=== PATIENT | male | born 1940 | race Caucasian/White ===

== ENCOUNTER 2019-06-25 15:18 | Inpatient (IN) | payer MEDICARE, OTHER, SELFPAY | END 2019-06-28 15:11 | disposition home or self-care (01) | DRG 177 | PROVIDERS: Admitting Provider Student in an Organized Health Care Education/Training Program; Emergency Provider Emergency Medicine; Family Provider Family Medicine; Visit Provider Student in an Organized Health Care Education/Training Program | DX: J69.0 Pneumonitis due to inhalation of food and vomit (principal); J96.01 Acute respiratory failure with hypoxia; J44.1 Chronic obstructive pulmonary disease with (acute) exacerbation; G12.21 Amyotrophic lateral sclerosis; Z95.1 Presence of aortocoronary bypass graft; I25.10 Atherosclerotic heart disease of native coronary artery without angina pectoris; G47.33 Obstructive sleep apnea (adult) (pediatric); Z86.73 Personal history of transient ischemic attack (TIA), and cerebral infarction without residual deficits; F17.210 Nicotine dependence, cigarettes, uncomplicated; Z91.14 Patient's other noncompliance with medication regimen; E78.5 Hyperlipidemia, unspecified; I11.0 Hypertensive heart disease with heart failure; I50.9 Heart failure, unspecified; Z66 Do not resuscitate ==

== ENCOUNTER → 2019-08-02 10:29 | Outpatient (BNVA) | payer MEDICARE, OTHER, SELFPAY | PROVIDERS: Family Provider Family Medicine; PCP Family Medicine; Referring Provider Student in an Organized Health Care Education/Training Program; Visit Provider Otolaryngology | DX: R63.3 Feeding difficulties (principal); R47.02 Dysphasia; R13.10 Dysphagia, unspecified; S10.95XA Superficial foreign body of unspecified part of neck, initial encounter; X58.XXXA Exposure to other specified factors, initial encounter; F17.210 Nicotine dependence, cigarettes, uncomplicated | CPT/HCPCS: 81001; 87086; 99203; 99214 ==

== ENCOUNTER → 2019-08-06 11:16 | Day surgery (SDC) | payer MEDICARE, OTHER, SELFPAY ==
[2019-08-06 11:45] VITALS: BP 115/56; PULSE 58; RESP 20; TEMP 37.1; O2SAT 95
[2019-08-06 12:23] VITALS: BMI 16.0
--- NOTE | 2019-08-14 12:44 | PM.ACPR ---
Procedure/Consent Procedure Narrative: Preop diagnosis nonfunctioning gastrostomy tube Postoperative diagnosis: Same Procedure: Exchange of 20 Monegasque gastrostomy tube Description of the procedure. After consent was obtained the balloon on the existing gastrostomy tube was deflated and removed without difficulty. A new 20 Monegasque gastrostomy tube was placed. Acute Procedures Feeding Tube Replacement: Type of tube: gastrostomy Insertion site prior to procedure: clean Tube used for reinsertion: Bard Monegasque Tube Size (F): 20 Balloon size (ml): 7 Verification of placement: auscultation Tube secured by: tape/dressing Patient tolerated procedure: well
== END ==
PROVIDERS: Family Provider Family Medicine; PCP Family Medicine; Visit Provider Surgery
PROC: 0DH63UZ Insertion of Feeding Device into Stomach, Percutaneous Approach (ICD-10-PCS; CPT 43246; principal; 2019-08-06 11:45)
DX: Z43.1 Encounter for attention to gastrostomy (principal)
CPT/HCPCS: 12345; 43760

== ENCOUNTER → 2019-08-25 12:36 | Outpatient (BNVA) | payer MEDICARE, OTHER, SELFPAY | PROVIDERS: Family Provider Family Medicine; PCP Family Medicine; Visit Provider Nurse Practitioner Family | DX: R53.1 Weakness (principal); L03.115 Cellulitis of right lower limb; M79.673 Pain in unspecified foot; K21.9 Gastro-esophageal reflux disease without esophagitis; Z89.612 Acquired absence of left leg above knee | CPT/HCPCS: 80053; 82306; 82607; 83735; 84443; 85025 ==

== ENCOUNTER 2019-09-09 10:07 | Inpatient (IN) | payer MEDICARE, OTHER, SELFPAY ==
[2019-09-09 10:12] VITALS: BP 91/54; PULSE 76; RESP 20; TEMP 36.7; O2SAT 90; BMI 16.0
--- NOTE | 2019-09-09 10:14 | ED_ITS ---
Entered by Maria A Benitez, acting as scribe for Julian Webster DO Sep 09, 2019 10:07 HPI - Chest Pain General: Chief Complaint: Chest Pain Stated Complaint: CHEST PAIN Time Seen by Provider: 09/09/19 10:14 Source: patient and EMS Mode of arrival: EMS Limitations: physical limitation History of Present Illness: HPI narrative: 79 yo male presents with chest pain. pt states this started today. pt has had congestion and productive cough. pt states he was given 3 nitros by EMS and they took the edge off but nothing else. pt denies any other symptoms at this time. No vomiting or diarrhea. MD complaint: chest pain Onset (ago): day(s) Timing of current episode: constant and still present Prior episodes: Yes Onset: during rest Pain location: substernal Pain radiation: none Severity: moderate Quality: tightness Relieving factors: nothing Exacerbating factors: nothing Associated symptoms: Reports dyspnea and other (productive cough); Deny abdominal pain, fever(s), nausea or vomiting Treatment prior to arrival: nitroglycerin (3 by EMS) Review of Systems Const: Denies: fever, chills, body aches, change in appetite, fatigue or malaise ENMT: Denies: throat pain, ear pain, nasal discharge or nasal congestion Card: Reports: chest pain, shortness of breath on exertion and shortness of breath when lying down; Denies: edema Resp: Reports: shortness of breath, productive cough and wheezing; Denies: coughing up blood GI: Denies: abdominal pain, nausea, vomiting, vomiting blood, coffee grounds in vomit, diarrhea, constipation, bloating, blood in stool or black tarry stool : Denies: flank pain, painful urination, urinary frequency or urinary urgency Skin/Breast: Denies: rash or itching PFSH ED PFSH: Medical History (Updated 09/12/19 @ 21:09 by Julian Webster DO) Benign prostatic hyperplasia with lower urinary tract symptoms CAD (coronary artery disease) Cholecystectomy planned Chronic headaches Chronic pain COPD (chronic obstructive pulmonary disease) Diastolic CHF Dysphasia Foreign body of neck G tube feedings GERD (gastroesophageal reflux disease) Hemiplegia FOLLOWING CVA LEFT History of stroke Kyphoscoliosis deformity of spine Melanoma Migraine headache Obstructive sleep apnea Odynophagia Presence of intrathecal pump Tobacco abuse Urgency of urination Venous stasis Surgical History (Updated 09/11/19 @ 11:56 by Rohith Lopez MD) History of amputation ABOVE KNEE History of angioplasty WITH 9 STENTS History of cholecystectomy Hx of CABG Status post insertion of intrathecal pump Social History Smoking and tobacco status: current every day smoker Alcohol intake: never Adopted: No Caregiver/support person: No Lives independently: No Household members: spouse Marital status: Current occupational status: retired Physical Exam Const: COMMON NORMALS: no apparent distress GENERAL APPEARANCE: cooperative and comfortable ORIENTATION/CONSCIOUSNESS: Yes awake, Yes oriented to person, Yes oriented to place and Yes oriented to time HENMT: COMMON NORMALS: normocephalic, head/scalp atraumatic, hearing grossly normal bilaterally, external ears normal, EAC's normal, TM's normal bilaterally, nasal mucous membranes and turbinates normal, moist oral mucous membranes and oropharynx normal HEAD & SCALP: normocephalic and atraumatic NOSE: nasal mucous membranes and turbinates normal EXTERNAL EAR: Yes external ears normal EXTERNAL AUDITORY CANAL: EAC's normal TYMPANIC MEMBRANE: TM's normal bilaterally Eye: COMMON NORMALS: PERRL, EOMs intact bilaterally, conjunctivae normal and no scleral icterus CONJUNCTIVA: Yes conjunctivae normal PUPIL: Yes PERRL Neck/C-Spine: COMMON NORMALS: full ROM, no lymphadenopathy, supple and no JVD Lymph: LYMPHATIC: no lymphadenopathy noted and no lymphedema noted Resp: AUSCULTATION: rhonchi and wheezes throughout Cardio: COMMON NORMALS: no JVD, regular rate, regular rhythm and no murmurs RATE: regular rate RHYTHM: regular rhythm GI: COMMON NORMALS: soft to palpation and no hepatosplenomegaly AUSCULTAT ION: Yes normoactive bowel sounds PALPATION: Yes soft, No tender, No guarding and Yes no hepatosplenomegaly Extremity: COMMON NORMALS: normal to inspection, normal capillary refill, no clubbing, cyanosis or edema, no calf tenderness and no pedal edema Neuro: SENSORIUM/ORIENTATION: Yes oriented to person, Yes oriented to place and Yes oriented to time Skin: COMMON NORMALS: no rashes or lesions noted GENERAL SKIN EXAM: no rashes or lesions noted Course ED course: Patient complaining of productive cough and shortness of breath has no pneumonia on chest x-ray. He has some chest pain as well will need to be ruled out. Discussed with Dr. Wise and will admit the patient started on IV antibiotics and complete the rule out and further evaluation. Vital Signs: Vital signs: Vital Signs Temperature 98.9 F 09/12/19 18:00 Pulse Rate 62 09/12/19 18:00 Respiratory Rate 14 09/12/19 18:00 Blood Pressure 98/53 09/12/19 18:00 Pulse Oximetry 90 09/12/19 18:00 MDM - Chest Pain Lab Data: Labs: Lab Results 09/09/19 09/09/19 09/09/19 Range/Units 10:41 10:41 10:41 WBC 8.6 (4.0-10.0) 10^3/ uL RBC 4.62 (4.1-5.3) 10^6/u L Hgb 12.2 (11.7-16.6) g/dL Hct 41.0 L (42.0-52.0) % MCV 88.7 (80-94) fL MCH 26.4 L (28.0-34.0) pg MCHC 29.8 L (30.0-36.0) g/dL RDW 13.6 (12.1-15.1) % Plt Count 203 (130-400) 10^3/c mm MPV 9.6 (7.4-10.4) fL Neut % (Auto) 73.5 % Lymph % (Auto) 15.9 % Ford % (Auto) 6.5 % Eos % (Auto) 3.4 % Baso % (Auto) 0.5 % Neut # (Auto) 6.3 (1.8-7.7) 10^3/u L Lymph # (Auto) 1.4 (0.8-4.8) 10^3/u L Ford # (Auto) 0.6 (0.2-0.9) 10^3/u L Eos # (Auto) 0.3 (0.0-0.8) 10^3/u L Baso # (Auto) 0.0 (0.0-0.1) 10^3/u L Nucleated RBC % (a uto) 0 % Nucleated RBCs # 0.0 /100WBC Sodium 135 L (136-145) mmol/L Potassium 4.4 (3.5-5.1) mmol/L Chloride 93 L (98-107) mmol/L Carbon Dioxide 34 H (22-29) mmol/L Anion Gap 12.4 (5-19) BUN 16 (8-23) mg/dL Creatinine 1.4 H (0.7-1.2) mg/dL Glucose 98 (65-115) mg/dL Estimat Average Gl ucose Hemoglobin A1c (4.0-6.0) % Calculated Osmolal ity 276 L (285-295) mOsm/k g Calcium 8.8 (8.5-10.5) mg/dL Total Bilirubin 0.3 (0.15-1.2) mg/dL AST 12 (0-40) U/L ALT 7 (0-41) U/L Alkaline Phosphata se 85 (40-130) IU/L Troponin T Baselin e 33 H (0-15) ng/mL Troponin T 120 Min manzanita (0-15) ng/mL Delta Troponin T (0-10) ABS# Total Protein 6.4 L (6.6-8.7) g/dL Albumin 3.3 L (3.5-5.2) g/dL Globulin 3.1 (1.3-4.6) g/dL Lipase 22 (13-60) U/L 09/09/19 09/09/19 Range/Units 10:41 12:55 WBC (4.0-10.0) 10^3/ uL RBC (4.1-5.3) 10^6/u L Hgb (11.7-16.6) g/dL Hct (42.0-52.0) % MCV (80-94) fL MCH (28.0-34.0) pg MCHC (30.0-36.0) g/dL RDW (12.1-15.1) % Plt Count (130-400) 10^3/c mm MPV (7.4-10.4) fL Neut % (Auto) % Lymph % (Auto) % Ford % (Auto) % Eos % (Auto) % Baso % (Auto) % Neut # (Auto) (1.8-7.7) 10^3/u L Lymph # (Auto) (0.8-4.8) 10^3/u L Ford # (Auto) (0.2-0.9) 10^3/u L Eos # (Auto) (0.0-0.8) 10^3/u L Baso # (Auto) (0.0-0.1) 10^3/u L Nucleated RBC % (a uto) % Nucleated RBCs # /100WBC Sodium (136-145) mmol/L Potassium (3.5-5.1) mmol/L Chloride (98-107) mmol/L Carbon Dioxide (22-29) mmol/L Anion Gap (5-19) BUN (8-23) mg/dL Creatinine (0.7-1.2) mg/dL Glucose (65-115) mg/dL Estimat Average Gl ucose 97 Hemoglobin A1c 5.0 (4.0-6.0) % Calculated Osmolal ity (285-295) mOsm/k g Calcium (8.5-10.5) mg/dL Total Bilirubin (0.15-1.2) mg/dL AST (0-40) U/L ALT (0-41) U/L Alkaline Phosphata se (40-130) IU/L Troponin T Baselin e (0-15) ng/mL Troponin T 120 Min manzanita 30.97 H (0-15) ng/mL Delta Troponin T -2.03 L (0-10) ABS# Total Protein (6.6-8.7) g/dL Albumin (3.5-5.2) g/dL Globulin (1.3-4.6) g/dL Lipase (13-60) U/L Imaging Data^: CXR: Radiologist's impression: [address] [address] XRay Report Signed Patient: Steven Whitney #: [id number] : 8Acct#:[id number] Age/Sex: 79 / MADM Date: 09/09/19 Loc: ERRoom/Bed: Attending Dr: Ordering Provider/Ordering MD: Julian Webster DO Date of Service: 09/09/19 Procedure(s): XR chest 1V portable [id number] Accession Number(s): [id number] Report Number: [id number] WS: [id number] Portable AP upright chest, 09/09/2019 Clinical Data: dyspnea/cough Comparison: Portable chest, 06/25/2019. Findings: There is minimal patchy opacity in the right upper lobe with slight volume loss. This could indicate mild pneumonia. The right lower lung is clear. The left cardiac border is obscured and there may be an increase in pulmonary vascular congestion in this region. The heart is normal in size. Midline sternotomy sutures and mediastinal clips are noted. The aortic arch and descending aorta show calcification and tortuosity. Monitor leads on the chest wall. XR/XR chest 1V portable [id number] Impression: 1. Minimal patchy opacity in right upper lobe with volume loss which could indicate mild pneumonia. 2. Left cardiac border obscured possibly by localized pulmonary vascular congestion. 3. Atherosclerosis. Dictated By:Arlin Forrest MD Signed By:Arlin Forrest MDSigned Date/Time:09/09/19 1037 Discharge Plan Discharge Patient Disposition: Admitted As Inpatient Admit Provider: Rogelio Santa Clinical Impression: Pneumonia, Chest pain Condition: Stable Interventions: ED Discharge Assessment Last Done: 09/09/19 17:41 Discharge Date/Time: 09/09/19 18:20 Coding Level of Care Code ED Fur Tailor for Chg Fwd Exam Comprehensive The documentation recorded by the Emmanuel angel Bridget Annette, accurately reflects the service I personally performed and the decisions made by Eleanor guzman Curtis L, DO Sep 09, 2019 10:07
[2019-09-09 10:18] VITALS: O2SAT 92
--- NOTE | 2019-09-09 10:21 | XR_ITS ---
WS: [id number] Portable AP upright chest, 09/09/2019 Clinical Data: dyspnea/cough Comparison: Portable chest, 06/25/2019. Findings: There is minimal patchy opacity in the right upper lobe with slight volume loss. This could indicate mild pneumonia. The right lower lung is clear. The left cardiac border is obscured and ther e may be an increase in pulmonary vascular congestion in this region. The heart is normal in size. Mi dline sternotomy sutures and mediastinal clips are noted. The aortic arch and descending aorta show c alcification and tortuosity. Monitor leads on the chest wall. XR/XR chest 1V portable [id number] Impression: 1. Minimal patchy opacity in right upper lobe with volume loss which could manny finesse mild pneumonia. 2. Left cardiac border obscured possibly by localized pulmonary vascular conges tion. 3. Atherosclerosis.
--- NOTE | 2019-09-09 10:21 | ECG_ITS ---
Measurements Intervals [place] Rate: 54 P: 22 CA: 207 QRS: 22 QRSD: 105 T: 92 QT: 482 QTc: 459 SINUS BRADYCARDIA ANTEROSEPTAL MYOCARDIAL INFARCTION , OF INDETERMINATE AGE [40+ ms Q WAVE IN V1-V4] Compared to ECG 06/25/2019 17:34:02 Myocardial infarct finding now present Electronically Signed On 09-09-2019 17:22:23 CDT by Rohith Lopez M.D. [id number] f
[2019-09-09 10:46] LABS: Basophils % 0.5 %; Eosinophils # 0.3 10^3/uL (0.0-0.8); Eosinophils % 3.4 %; Hemoglobin 12.2 g/dL (11.7-16.6); Lymphocytes # 1.4 10^3/uL (0.8-4.8); Lymphocytes % 15.9 %; Mean Corpuscular HGB Conc 29.8 g/dL (30.0-36.0); Mean Corpuscular Hemoglobin 26.4 pg (28.0-34.0); Mean Corpuscular Volume 88.7 fL (80-94); Mean Platelet Volume 9.6 fL (7.4-10.4); Monocytes # 0.6 10^3/uL (0.2-0.9); Monocytes % 6.5 %; Neutrophils # 6.3 10^3/uL (1.8-7.7); Neutrophils % 73.5 %; Nucleated Red Blood Cells % 0 %; Platelet Count 203 10^3/cmm (130-400); Red Blood Count 4.62 10^6/uL (4.1-5.3); Red Cell Distribution Width 13.6 % (12.1-15.1); White Blood Count 8.6 10^3/uL (4.0-10.0)
[2019-09-09 11:02] LABS: Alanine Aminotransferase 7 U/L (0-41); Albumin Level 3.3 g/dL (3.5-5.2); Alkaline Phosphatase 85 IU/L (40-130); Anion Gap 12.4 (5-19); Aspartate Amino Transferase 12 U/L (0-40); Blood Urea Nitrogen 16 mg/dL (8-23); Calcium 8.8 mg/dL (8.5-10.5); Carbon Dioxide 34 mmol/L (22-29); Chloride 93 mmol/L (98-107); Globulin 3.1 g/dL (1.3-4.6); Glucose 98 mg/dL (65-115); Lipase 22 U/L (13-60); Osmolality Calculated 276 mOsm/kg (285-295); Potassium 4.4 mmol/L (3.5-5.1); Sodium 135 mmol/L (136-145); Total Bilirubin 0.3 mg/dL (0.15-1.2); Total Protein 6.4 g/dL (6.6-8.7)
[2019-09-09 11:04] LABS: Troponin(5th) Baseline 33 ng/mL (0-15)
--- NOTE | 2019-09-09 12:21 | ECG_ITS ---
Measurements Intervals [place] Rate: 54 P: 50 WV: 209 QRS: 23 QRSD: 108 T: 110 QT: 472 QTc: 451 SINUS BRADYCARDIA WITH FIRST DEGREE AV BLOCK ANTEROSEPTAL MYOCARDIAL INFARCTION , OF INDETERMINATE AGE [40+ ms Q WAVE IN V1-V4] T WAVE ABNORMALITY, CONSIDER LATERAL ISCHEMIA Compared to ECG 09/09/2019 12:16:53 Myocardial infarct finding now present Intraventricular conduction delay no longer present Prolonged QT interval no longer present Electronically Signed On 09-10-2019 13:13:50 CDT by Lety Milan M.D. [id number]
[2019-09-09] MEDS: levofloxacin-dextrose 5 % 750 MG/150 ML PREMIX 150 MG IV (12:45)
[2019-09-09 13:18] LABS: Troponin 5 2HR 30.97 ng/mL (0-15)
[2019-09-09 13:21] LABS: Troponin 5 2HR Delta -2.03 ABS# (0-10)
[2019-09-09 15:04] LABS: Add Urine Microscopic? YES; Bilirubin Urine Neg (NEGATIVE); Blood Urine Neg (Negative); Glucose Urine UA Norm (Normal); Ketones Urine Negative (Negative); Leukocyte Esterase Urine Negative (Negative); Nitrate Urine Negative (Negative); Protein Urine 3+ (Negative); Specific Gravity, Urine 1.005 (1.005-1.030); Urine Appearance Clear (CLEAR); Urine Color Yellow (Yellow); Urobilinogen Urine Norm (Negative)
[2019-09-09 15:16] LABS: Add Urine Culture? No; Bacteria Urine TRACE; Squamous Epithelial Cell Urine 0-4 (0-5)
--- NOTE | 2019-09-09 16:21 | ECG_ITS ---
Measurements Intervals [place] Rate: 50 P: 53 FL: 231 QRS: 18 QRSD: 111 T: 99 QT: 514 QTc: 473 SINUS BRADYCARDIA WITH FIRST DEGREE AV BLOCK MODERATE INTRAVENTRICULAR CONDUCTION DELAY [105+ ms QRS DURATION, 80+ ms Q/S IN V1/V2, NO Q AND 60+ ms R IN I/aVL/V5/V6] ABNORMAL QRS-T ANGLE [QRS-T AXIS DIFFERENCE > 60] PROLONGED QT INTERVAL Compared to ECG 06/25/2019 17:34:02 First degree AV block now present Intraventricular conduction delay now present Prolonged QT interval now present Electronically Signed On 09-09-2019 17:24:40 CDT by Rhoith Lopez M.D. [id number]
[2019-09-09] MEDS: sodium chloride 0.9% 1,000 ML 100 ML IV (16:43)
[2019-09-09 17:17] LABS: Troponin 5 6HR 31.18 ng/mL (0-15); Troponin 5 6HR Delta -1.82 ng/L (0-12)
[2019-09-09 17:41] VITALS: BP 109/74; PULSE 57; RESP 14; O2SAT 97
--- NOTE | 2019-09-09 17:49 | P.HP_ITS ---
Providers/Chief Complaint Admitting Physician: Rogelio Santa MD Primary Care Provider: Magda Garcia MD Chief Complaint: CHEST PAIN History of Present Illness Steven Whitney is a 79 year old male presents to [facility] with chest pain that happened earlier this morning while patient was laying in bed. Reports pressure-like nonradiating substernal discomfort that went up to 8 out of 10 gradually and remained there for several hours. Denies any associated nausea or diaphoresis. Denies significant shortness of breath with it. Denies pleuritic component and denies any alleviating or aggravating factors. Reports that last time he had similar pain was approximately 5 years ago when he had stents placed. Reports occasionally productive cough which is unchanged from his baseline. Patient had minimally elevated troponin and EKG without acute ST-T changes. QT interval prolongation was noted and likely related to sinus bradycardia. Patient is followed by our cardiology clinic and he sees Dr. Lopez. Patient has previous history of GERD and symptoms of food related heartburn . Chest x-ray was suggestive of right upper lobe pneumonia. Patient reports that he has trouble swallowing at times and although he is using tube feeds he frequently eats orally as well. Review of Systems Const: Denies: fever or chills Eyes: Denies: change in vision ENMT: Denies: throat pain or change in hearing Card: Denies: edema or lightheadedness Resp: Denies: shortness of breath GI: Reports: other (Reports frequently alternating diarrhea and constipation.); Denies: abdominal pain, nausea, vomiting, blood in stool or black tarry stool : Reports: painful urination (Off-and-on.) Musc: Denies: joint pain or joint swelling Skin/Breast: Denies: rash or redness Neuro: Reports: weakness in extremities (Minimal left-sided weakness after he had stroke many years ago.); Denies: headache Psych: Denies: depression or suicidal ideation Endo: Denies: excessive sweating [place]/Lymph: Denies: easy bleeding or tender lymph nodes All/Imm: Denies: throat swelling Medications/Allergies Home Medications Medication Instructions Recorded Confirmed Last Taken Type aspirin [Aspir-81] 81 mg PO DAILY 09/09/19 09/09/19 Unknown History primidone 50 mg PO TID 09/09/19 09/09/19 Unknown History quetiapine [Seroquel] 25 mg PO BEDTIME 09/09/19 09/09/19 Unknown History Allergies Allergy/AdvReac Type Severity Reaction Status Date / Time Penicillins Allergy ERICK-Asmita Verified 07/14/19 08:57 Lip/Tongue/Throat PFSH Acute PFSH: Medical History (Updated 09/09/19 @ 18:28 by Rogelio Santa MD) Benign prostatic hyperplasia with lower urinary tract symptoms Cholecystectomy planned Diastolic CHF Dysphasia Foreign body of neck G tube feedings GERD (gastroesophageal reflux disease) Hemiplegia FOLLOWING CVA LEFT History of stroke Kyphoscoliosis deformity of spine Melanoma Migraine headache Obstructive sleep apnea Odynophagia Presence of intrathecal pump Tobacco abuse Urgency of urination Surgical History (Updated 09/09/19 @ 18:28 by Rogelio Santa MD) History of amputation ABOVE KNEE History of angioplasty WITH 9 STENTS History of cholecystectomy Hx of CABG Social History Smoking and tobacco status: current every day smoker Alcohol intake: never Adopted: No Caregiver/support person: No Lives independently: No Household members: spouse Marital status: Current occupational status: retired Vitals/I&O/Wt Last Vital Signs Temp 98.1 F 09/09/19 10:12 Pulse 57 L 09/09/19 17:41 Resp 14 09/09/19 17:41 BP 109/74 09/09/19 17:41 Pulse Ox 97 09/09/19 17:41 Weight last 48 hrs Weight 49.442 kg Physical Exam Const: COMMON NORMALS: no apparent distress, oriented x3 and alert GENERAL APPEARANCE: disheveled HENMT: COMMON NORMALS: normocephalic and head/scalp atraumatic HEAD & SCALP: normocephalic and atraumatic Eye: COMMON NORMALS: EOMs intact bilaterally, conjunctivae normal and no scleral icterus ALIGNMENT: Yes exotropia CONJUNCTIVA: Yes conjunctivae normal Neck/C-Spine: COMMON NORMALS: no lymphadenopathy and no meningeal signs Lymph: LYMPHATIC: no lymphadenopathy noted Chest: COMMONS NORMALS: palpation of chest normal Resp: COMMON NORMALS: no use of accessory muscles and clear to auscultation bilaterally AUSCULTATION: clear to auscultation bilaterally Cardio: COMMON NORMALS: regular rate, regular rhythm and no murmurs RATE: regular rate RHYTHM: regular rhythm OTHER: No right lower extremity edema. 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 Pain pump noted. : COMMON NORMALS: Yes no CVA tenderness BLADDER/KIDNEY EXAM: Yes no CVA tenderness Back/Pelvis: COMMON NORMALS: no CVA tenderness THORACIC SPINE/UPPER BACK: Yes kyphosis present (And scoliosis) Extremity: COMMON NORMALS: normal to inspection and normal capillary refill Neuro: COMMON NORMALS: oriented x3 SENSORIUM/ORIENTATION: Yes alert MENINGEAL SIGNS: Yes no meningeal signs OTHER: Very minimal left upper and lower extremity weakness Psych: COMMON NORMALS: mental status grossly normal, thought process normal and cooperative THOUGHT PROCESS: normal thought process Skin: COMMON NORMALS: no rashes or lesions noted GENERAL SKIN EXAM: no rashes or lesions noted Data : 09/09/19 10:41 09/09/19 10:41 A&P Assessment and plan (1) Chest pain: Status: Acute Code(s): R07.9 - Chest pain, unspecified (2) Community acquired pneumonia: Status: Acute Code(s): J18.9 - Pneumonia, unspecified organism (3) Dysphagia, oropharyngeal: Status: Acute Code(s): R13.12 - Dysphagia, oropharyngeal phase (4) Tobacco abuse: Status: Acute Code(s): Z72.0 - Tobacco use Additional A&P Information Benign prostatic hyperplasia Chronic pain syndrome. On pain pump Plan: Continue Levaquin. Proceed to sestamibi Lexiscan test tomorrow morning. Will obtain echocardiogram Continue tube feeds and request speech therapy evaluation in a.m. Discussed extensively regarding importance of smoking cessation. Patient voiced understanding but unlikely will quit. Attestations Medical Necessity Statement*: Patient with chest pain and pneumonia requires close inpatient monitoring and treatment. I expect patient will require less than two midnights. Coding Level of Care Code Acute Customer Services Supervisor for [facility] Fwd Diagnoses Chest pain R07.9 Community acquired pneumonia J18.9 Dysphagia, oropharyngeal R13.12 Tobacco abuse Z72.0
--- NOTE | 2019-09-09 18:09 | ECG_ITS ---
NAME OF STUDY: LEXISCAN SESTAMIBI STRESS TEST INDICATION: Chest Pain, LEXISCAN STRESS TEST ORDERING PHYSICIAN: Hospitalist CLINICAL INFORMATION: Chest pain INTERPRETATION: 1. The patient was brought to the laboratory where Lexiscan was infused over 20 seconds. The resting blood pressure was 122/74. Maximum blood pressure was 122/74. The resting heart rate was 51 beats per minute. The maximum heart rate is 84 beats per minute. 2. The baseline electrocardiogram reveals sinus rhythm with unusual R wave progression suggesting old anteroseptal myocardial infarction. Frequent PACs. Nonspecific ST wave changes. Right axis deviation 3. With Lexiscan infusion, there were no ST segment changes to suggest ischemia. 4. The patient experienced no symptoms during the examination. Multiform PVCs developed at rest and with the infusion. CONCLUSION: 1. Unremarkable Lexiscan infusion. 2. Nuclear imaging to follow. Electronically Signed On 09-10-2019 15:46:09 CDT by Rohith Lopez M.D. [id number]
[2019-09-09 18:24] VITALS: BP 125/70; PULSE 56; RESP 17; TEMP 36.7; O2SAT 95
[2019-09-09 18:34] VITALS: BP 125/70; PULSE 56; RESP 17; TEMP 36.6; O2SAT 95
[2019-09-09] MEDS: enoxaparin 40 mg/0.4 mL Syringe SUBCUT (19:02)
[2019-09-09 19:08] LABS: Magnesium 3.2 mg/dL (1.7-2.3); NT Pro B Type Natriuretic Pept 400 pg/mL (0-450); Phosphorus 3.7 mg/dL (2.5-4.5); Thyroid Stimulating Hormone 0.62 uIU/mL (0.27-4.20)
[2019-09-09 19:50] LABS: Estmated Average Glucose 97
[2019-09-09] MEDS: lactulose oral liq 20 gm/30 mL UDC 10 GM PO (21:37)
[2019-09-09] MEDS: alfuzosin 10 mg ER Tablet PO (21:38)
[2019-09-09] MEDS: primidone 50 mg Tablet PO (21:38)
[2019-09-09] MEDS: quetiapine 25 mg Tablet PO (21:38)
[2019-09-09 22:36] VITALS: BP 156/89; PULSE 64; RESP 17; TEMP 36.8; O2SAT 98
[2019-09-10] VITALS (60 sets, daily range): BP systolic 71–132; BP diastolic 39–66; PULSE 36–85; RESP 8–24; TEMP 36.6; O2SAT 77–98
[2019-09-10] MEDS: sodium chloride 0.9% 1,000 ML 100 ML IV ×2 (01:41→17:38)
--- NOTE | 2019-09-10 03:11 | PC.PHAR ---
RENAL DOSING FOR LEVAQUIN CRCL OF 28, ADJUSTED TO 750 MG EVERY OTHER DAY
[2019-09-10 05:30] LABS: Basophils % 0.3 %; Eosinophils # 0.2 10^3/uL (0.0-0.8); Hematocrit 40.9 % (42.0-52.0); Hemoglobin 12.3 g/dL (11.7-16.6); Lymphocytes # 1.5 10^3/uL (0.8-4.8); Lymphocytes % 24.6 %; Mean Corpuscular HGB Conc 30.1 g/dL (30.0-36.0); Mean Corpuscular Hemoglobin 27.6 pg (28.0-34.0); Mean Corpuscular Volume 91.9 fL (80-94); Mean Platelet Volume 9.6 fL (7.4-10.4); Monocytes # 0.5 10^3/uL (0.2-0.9); Neutrophils # 3.7 10^3/uL (1.8-7.7); Neutrophils % 62.8 %; Nucleated Red Blood Cells % 0 %; Platelet Count 162 10^3/cmm (130-400); Red Blood Count 4.45 10^6/uL (4.1-5.3); Red Cell Distribution Width 13.4 % (12.1-15.1)
[2019-09-10 05:53] LABS: Alanine Aminotransferase 6 U/L (0-41); Albumin Level 3.4 g/dL (3.5-5.2); Alkaline Phosphatase 79 IU/L (40-130); Anion Gap 11.2 (5-19); Aspartate Amino Transferase 11 U/L (0-40); Blood Urea Nitrogen 14 mg/dL (8-23); Calcium 8.6 mg/dL (8.5-10.5); Carbon Dioxide 33 mmol/L (22-29); Chloride 97 mmol/L (98-107); Globulin 2.5 g/dL (1.3-4.6); Glucose 79 mg/dL (65-115); Osmolality Calculated 279 mOsm/kg (285-295); Potassium 4.2 mmol/L (3.5-5.1); Sodium 137 mmol/L (136-145); Total Bilirubin 0.3 mg/dL (0.15-1.2); Total Protein 5.9 g/dL (6.6-8.7)
[2019-09-10 05:54] LABS: Chol HDL Ratio 4.07 mg/dL (1.0-5.00); Cholesterol 171 mg/dL (0-200); HDL Cholesterol 42 mg/dL (60-100); LDL Cholesterol Calculated 96 mg/dL (50-129); LDL HDL Ratio 2.29 RATIO (0.00-3.22); Triglycerides 163 mg/dL (0-150)
[2019-09-10] MEDS: regadenoson 0.4 Mg/5 ml Syringe IVP (08:51)
[2019-09-10] MEDS: metoprolol tartrate 25 mg Tablet 12.5 MG PO (12:02)
[2019-09-10] MEDS: pantoprazole DR 40 mg Tablet PO (12:03)
[2019-09-10] MEDS: oxybutynin 5 mg Tablet PO (12:03)
[2019-09-10] MEDS: aspirin 81 mg EC Tablet PO (12:03)
[2019-09-10] MEDS: isosorbide dinitrate 20 mg Tablet PO (12:04)
[2019-09-10] MEDS: finasteride 5 mg Tablet PEG-TUBE (12:05)
[2019-09-10] MEDS: potassium chloride oral liq 20 mEq/15 mL UDC PEG-TUBE (12:06)
[2019-09-10] MEDS: alum-mag-hydroxide-sime 30 mL UDC 10 ML PO ×2 (12:07→17:35)
[2019-09-10] MEDS: lactated ringers 500 ML 999 ML IV (14:02)
--- NOTE | 2019-09-10 14:04 | P.PN_ITS ---
Subjective Subjective: Interval history: Patient denies chest pain or shortness of breath this morning after he returned from stress test. He just recently noted to be hypotensive with blood pressure in the 80s over 40s and 500 mL LR bolus ordered. Patient noted to be bradycardic down to 40-50s whenever he is asleep which improved to 64 when he woke up. He was seen by speech therapy with rec ommendation to have honey thickened diet. He is usually using 2 to 3 cans of Ensure with each meal using tube feeds. Stress test was read as low probability for clinically significant coronary artery disease. Vitals/I&O/Wt Last Vital Signs Temp 97.8 F 09/10/19 11:37 Pulse 61 09/10/19 13:47 Resp 16 09/10/19 11:37 BP 80/42 09/10/19 13:47 Pulse Ox 97 09/10/19 11:37 09/09/19 09/10/19 09/10/19 22:59 06:59 14:59 Intake Total 895 / 895 1400 / 1400 Output Total 500 / 500 100 / 600 100 / 100 Balance -500 / -500 795 / 295 1300 / 1300 Weight last 48 hrs Weight 49.442 kg Physical Exam Const: COMMON NORMALS: no apparent distress and oriented x3 Resp: COMMON NORMALS: normal respiratory effort OTHER: Coarse breath sounds throughout Cardio: COMMON NORMALS: regular rate, regular rhythm and S2 normal heart sound RATE: regular rate RHYTHM: regular rhythm HEART SOUNDS: S2 normal OTHER: No right lower extremity edema. Left above-knee amputation. GI: COMMON NORMALS: normal to inspection, nondistended, normoactive bowel sounds, soft to palpation and non-tender PALPATION: Yes soft OTHER: Pain pump and PEG tube intact Neuro: COMMON NORMALS: oriented x3 Data : 09/10/19 05:08 09/10/19 05:08 A&P Assessment and plan (1) Chest pain: Status: Acute Code(s): R07.9 - Chest pain, unspecified (2) Community acquired pneumonia: Status: Acute Code(s): J18.9 - Pneumonia, unspecified organism (3) Dysphagia, oropharyngeal: Status: Acute Code(s): R13.12 - Dysphagia, oropharyngeal phase (4) Tobacco abuse: Status: Acute Code(s): Z72.0 - Tobacco use Additional A&P Information Benign prostatic hyperplasia Chronic pain syndrome. On pain pump Plan: Continue Levaquin and fluid and monitor vitals. Consider CT scan of the chest if patient is not improving. Hold off on levy for now and continue finasteride. Awaiting echocardiogram Continue tube feeds and request speech therapy evaluation in a.m. Attestations Medical Necessity Statement*: Patient with pneumonia requires close inpatient monitoring and treatment. Coding Level of Care Code Acute Nurse Practitioner [facility] Diagn[facility] Chest pain R07.9 Community acquired pneumonia J18.9 Dysphagia, oropharyngeal R13.12 Tobacco abuse Z72.0
--- NOTE | 2019-09-10 14:36 | PC.SOCIAL ---
Patient signed for the MCR Recipient letter for the BPCI advanced and the original is in the chart. Information provided.
--- NOTE | 2019-09-10 16:33 | PC.NURSE ---
PT ONLY HAD 100 OUT THIS SHIFT, IT WAS ALSO PASSED OFF IN REPORT THAT THE PT HAD TO BE BLADDER SCANNED AND STRAIGHT CATHED THROUGHOUT THE NIGHT WITH 350 OUT. THIS NURSE INFORMED THE DR AND HE ORDERED FOR HIM TO BE BLADDER SCANNED AND THEN TO REPORT TO HIM WHAT IT READS, PT HAD BETWEEN 330-400 ON THE BLADDER SCANNER, DR ORDERED A CATHETER TO BE INSERTED, THIS NURSE WAS NOT ABLE TO GET CATHETER AT FIRST TRY, NANCY REN WAS SUCCESSFUL IN PLACING THE CATHETER, PT HAD 300 OUT.
--- NOTE | 2019-09-10 16:38 | PC.NURSE ---
PT WAS RUNNING IN HIGH 40'S TO LOW 50'S SO THIS NURSE HAD [facility] TAKE VITALS AND HIS BLOOD PRESSURE MANNUALLY WAS 80/40, DR JASSO NOTIFIED AND HE ORDERED A 500 BOLUS OF LR AND RECHECK BLOOD PRESSURE AFTER LR WAS COMPLETED, BLOOD PRESSURE WAS 84/37, LOUISA WANTED PT TRANSFERRED TO ICU. REPORT GIVEN TO NURSE IN ICU.
--- NOTE | 2019-09-10 18:09 | NMCV_ITS ---
NM cole perf SPECT r/s* [id number] Steven Whitney Age: 79 Gender: M : 1940 Exam Date: 09/10/2019 07:32 Ordering Phys: Rogelio Santa MD Technologist: TATIANA Franco Exam Location: [facility] Indications: CHEST PAIN STRESS TEST Please see separate stress test report in [facility] for full findings IMAGE PROTOCOL Rest/Stress 1 Lexiscan Day Radiopharmaceutical Dose (mCi) Administration Site Administered by Rest: Tc-99m 10.7 IV TATIANA Campos Sestamibi Stress:Tc-99m 32.1 IV TATIANA Franco Sestamiankur Rest: 10-Sep-2019 60 Discovery 630 Stress: 10-Sep-2019 30 Discovery 630 0.4mg Lexiscan. Supine position only as patient was unable to lay prone. SPECT RESULTS Technical Quality: Excellent Raw Data Analysis: Normal Image Corrections: No attenuation or motion correction applied Summed Stress Score: 1 Summed Rest Score: 0 Summed Difference Score: 1 PERFUSION FINDINGS SPECT images demonstrate homogeneous tracer distribution throughout the myocardium. FUNCTIONAL RESULTS (calculated via Gated SPECT) Stress Image LV EF (%): 58 Stress EDV (mL):113 TID: 0.81 Stress ESV (mL):48 Rest Image LV EF (%): 58 FUNCTIONAL FINDINGS: There is normal left ventricular systolic function. IMPRESSIONS Myocardial perfusion imaging is normal and low probability for obstructive coronary artery disease. EKG segment will be documented separately. Fred Berumen MD (Electronically Signed) Final Date: 10 September 2019 11:28 S
--- NOTE | 2019-09-10 19:50 | PC.NURSE ---
PT COMPLAINED OF CHEST PRESSURE, PT HAD JUST COUGHED UP WHAT HE HAD BEEN DRINKING, WHEN OFFERED TO GET SOME MEDICATION TO RELIEVE PAIN, PT STATED PAIN WAS GONE.
[2019-09-10] MEDS: enoxaparin 40 mg/0.4 mL Syringe SUBCUT (21:34)
--- NOTE | 2019-09-10 21:41 | PC.NURSE ---
HEART RATE IS HITTING LOW 40S, DR VACA IS AWARE. LEVOPHED IS STARTED DUE TO HYPOTENSION SBP IN 70S. PT STATES HE JUST WANTS TO , TIRED OF HURTING. DR VACA MADE AWARE OF PT STATUS AND STATEMENT.
[2019-09-10] MEDS: DOPamine drip 400 MG/250 ML PREMIX IV (23:11)
--- NOTE | 2019-09-10 23:16 | PC.NURSE ---
DR VACA CAME AND SAW PT AND DISCUSSED CODE STATUS, PT REMAINS A FULL CODE. DR VACA GAVE VERBAL ORDER TO START DOPAMINE. DOPAMINE STARTED AT 2.5MCG, LEVO TITRATED DOWN TO 6MCG.
[2019-09-11] VITALS (115 sets, daily range): BP systolic 81–153; BP diastolic 45–76; PULSE 45–79; RESP 3–26; TEMP 36.4–37; O2SAT 83–99
--- NOTE | 2019-09-11 00:44 | XRR_ITS ---
PROCEDURE INFORMATION: Exam: XR Chest, 1 View Exam date and time: 09/11/2019 12:45 AM Age: 79 years old Clinical indication: Shortness of breath; Prior surgery; Surgery date: 6+ months; Surgery type: Cabg; Additional info: Hypoxia TECHNIQUE: Imaging protocol: XR of the chest Views: 1 view. COMPARISON: CR XR chest 1V portable [id number] 09/09/2019 10:21 AM FINDINGS: Lungs: There is increasing airspace opacity and volume loss in the left lung concerning for atelectasis and increasing pneumonic infiltrate. There is shift of the mediastinal structures to the left compatible with volume loss. Mild pneumonitis in the right lung is noted. There is improving volume loss in the right upper lobe. Pleural space: Probable small left pleural effusion. No pneumothorax. Heart/Mediastinum: The heart is enlarged. Sternotomy wires and mediastinal surgical clips are present, consistent with previous coronary arterial bypass grafting. Bones/joints: No acute abnormality. XR/XR chest 1V portable [id number] IMPRESSION: There is increasing airspace opacity and volume loss in the left lung concerning for increasing left lung atelectasis and increasing pneumonic infiltrate.
--- NOTE | 2019-09-11 00:48 | PC.NURSE ---
DR NOTIFICATION DR MONSIVAIS CALLED AND WANTED UPDATE ON PT, WAS NOTIFIED ABOUT DOPAMINE RATE WELL HEART RATE CHANGES AND PVCS THAT PT IS HAVING. PVCS MOST LIKELY DUE TO DOPAMINE DRIP, NO NEW ORDERS AT THIS TIME.
--- NOTE | 2019-09-11 00:51 | PC.NURSE ---
DR NOTIFICATION DR VACA MADE AWARE OF PT RESPIRATORY STATUS. RT AT BEDSIDE, CURRENT O2 85% ON OXY MASK.
[2019-09-11 00:58] LABS: ABG PCO2 62.9 mmHg (35-45); ABG PH Result 7.28 (7.35-7.45); Arterial Blood Gas Hematocrit 40.8 % (42-52); Base Excess ABG 1.5 mmol/L (-2.0-2.0); Blood Gas Sample Site Brachial, left; Blood Gas Sample Type Arterial; HCO3 ABG 29.8 mmol/L (22-26); Oxygen Device OXY MASK; PO2 ABG 40.5 mmHg (80.0-100.0)
--- NOTE | 2019-09-11 01:48 | PC.PHAR ---
Pharmacokinetic dosing service Date: 09/11/19 Time: 020 Objective: Patient: Steven Whitney Floor: ICU-6 Age: 79 yo Serum creatinine: 1.3 mg/dL Height: 69.0 Inches Weight (kg): 49.442 Diagnosis: Relevant medical/social history: Cultures and sensitivities: Other labs: Assessment: IBW (kg): 70.70 Dosing wt(kg): 49.442 Estimated Creatinine clearance (ml/min): 31.2 CRCL method: Cockcroft and Gault using ibw(default). Drug selected: Vancomycin Loading dose (mg): 0 Vd (liters): 44.5 (factor used: 0.9 L/kg) Mason (hr-1): 0.030 Half life (hrs): 23.10 Recommended dose: 750 mg Interval: 24 hrs Infusion time (hrs): 1.5 Predicted peak (mcg/mL): 32.1 Predicted trough (mcg/mL): 16.34 Total body weight is being used for vancomycin dosing. Renal function is stable [ ] /unstable [ ] Recommendations: Give Vancomycin 750 mg q 24 hrs with an expected Cpeak of 32.1 mcg/ml and an expected Ctrough of 16.34 mcg/ml Renal dosing of other antibiotics (review renal dosing of other medications and list guidelines here): Thank you for the consult, will continue to follow. Signature: Daphney Lan [facility]
[2019-09-11] MEDS: aztreonam 1,000 MG in sodium chloride 0.9% (plus) 50 ML 100 MG IV (02:01)
[2019-09-11 02:28] LABS: ABG PH Result 7.26 (7.35-7.45); Arterial Blood Gas Hematocrit 39.8 % (42-52); Base Excess ABG -0.3 mmol/L (-2.0-2.0); Blood Gas Allen Test Pos; Blood Gas Sample Site Radial, right; Blood Gas Sample Type Arterial; HCO3 ABG 28.1 mmol/L (22-26); Oxygen Device BIPAP; PO2 ABG 76.5 mmHg (80.0-100.0)
[2019-09-11] MEDS: vancomycin 750 MG in sodium chloride 0.9% 250 ML 166 MG IV (02:35)
[2019-09-11 04:12] LABS: ABG PCO2 62.5 mmHg (35-45)
[2019-09-11 04:23] LABS: Basophils % 0.2 %; Eosinophils # 0.2 10^3/uL (0.0-0.8); Hematocrit 43.5 % (42.0-52.0); Hemoglobin 12.8 g/dL (11.7-16.6); Lymphocytes # 0.9 10^3/uL (0.8-4.8); Lymphocytes % 5.1 %; Mean Corpuscular HGB Conc 29.4 g/dL (30.0-36.0); Mean Corpuscular Hemoglobin 26.9 pg (28.0-34.0); Mean Corpuscular Volume 91.4 fL (80-94); Mean Platelet Volume 10.4 fL (7.4-10.4); Monocytes # 0.9 10^3/uL (0.2-0.9); Monocytes % 5.4 %; Neutrophils # 14.8 10^3/uL (1.8-7.7); Neutrophils % 88.1 %; Nucleated Red Blood Cells % 0 %; Platelet Count 175 10^3/cmm (130-400); Red Blood Count 4.76 10^6/uL (4.1-5.3); Red Cell Distribution Width 13.2 % (12.1-15.1); White Blood Count 16.8 10^3/uL (4.0-10.0)
[2019-09-11 05:14] LABS: Alanine Aminotransferase 7 U/L (0-41); Albumin Level 3.4 g/dL (3.5-5.2); Alkaline Phosphatase 80 IU/L (40-130); Anion Gap 11.9 (5-19); Aspartate Amino Transferase 20 U/L (0-40); Blood Urea Nitrogen 12 mg/dL (8-23); Calcium 8.8 mg/dL (8.5-10.5); Carbon Dioxide 31 mmol/L (22-29); Chloride 100 mmol/L (98-107); Globulin 2.7 g/dL (1.3-4.6); Glucose 102 mg/dL (65-115); Osmolality Calculated 282 mOsm/kg (285-295); Potassium 4.9 mmol/L (3.5-5.1); Sodium 138 mmol/L (136-145); Total Bilirubin 0.3 mg/dL (0.15-1.2); Total Protein 6.1 g/dL (6.6-8.7)
[2019-09-11 05:15] LABS: Magnesium 2.9 mg/dL (1.7-2.3)
[2019-09-11] MEDS: levoFLOXacin 750 mg Tablet PO (05:47)
--- NOTE | 2019-09-11 05:53 | PC.NURSE ---
SHIFT SUMMARY PT HAS REMAINED ALERT AND ORIENTATED. PT HAS BEEN EXPLAINED ABOUT HOW HE NEEDS TO WHERE HIS BIPAP TO HELP WITH OXYGENATION AND HIS CO2 LEVEL. PT SAID HE WOULD BE OKAY IF HE WAS INTUBATED, BUT RESPIRATORY AND NURSE TALKED TO PT AND PT DECIDED TO WEAR BIPAP FIRST TO SEE IF THIS WOULD HELP HIM. PT O2 SATS DROP TO 83 WHEN ON 8L OXY MASK. ON BIPAP PT O2 SAT IS 96-97%. FIO2 ON BIPAP IS 75%. PT LUNGS REMAIN DIMINISHED. PT IVS REMAIN PATENT. DOPAMINE IS RUNNING AT 7.5MCG, HEART RATE IS 47-51BMP.
--- NOTE | 2019-09-11 08:58 | P.PN_ITS ---
Subjective Subjective: Interval history: Patient denies shortness of breath or chest pain this morning. He has been hypotensive and bradycardic last night and transferred to ICU. He was started on dopamine drip. His chest x-ray suggestive of left basilar pneumonia and therefore antibiotics were broadened to also include Flagyl for potential aspiration pneumonia. Dr. Yadav is aware of patient's pump medications needing refill by of this month and reports that if patient is still hospitalized early next week he will refill it inpatient. Patient reports that at home his blood pressure is always low and heart rate is unpredictable and jumping from low to high. He is seeing Dr. Lopez on outpatient basis. Patient's bladder scan yesterday showed more than 400 mL and Avilez catheter was placed. Vitals/I&O/Wt Last Vital Signs Temp 98.4 F 09/11/19 05:25 Pulse 45 L 09/11/19 08:12 Resp 13 09/11/19 05:20 BP 114/52 09/11/19 05:20 Pulse Ox 95 09/11/19 08:12 09/10/19 09/11/19 09/11/19 22:59 06:59 14:59 Intake Total 123.508 / 2023.508 902.710 / 2926.218 Output Total 600 / 700 Balance 123.508 / 1923.508 302.710 / 2226.218 Weight last 48 hrs Weight 62.596 kg Weight 49.442 kg Physical Exam Const: COMMON NORMALS: no apparent distress and oriented x3 Resp: OTHER: Minimal bibasilar Rales. Significant kyphoscoliosis. Cardio: COMMON NORMALS: regular rate, regular rhythm and S2 normal heart sound RATE: regular rate RHYTHM: regular rhythm HEART SOUNDS: S2 normal OTHER: No right lower extremity edema GI: COMMON NORMALS: normal to inspection, nondistended, normoactive bowel sounds, soft to palpation and non-tender PALPATION: Yes soft Neuro: COMMON NORMALS: oriented x3 and no focal motor deficits Urinary Catheter Management^: Avilez: Cath Placed During This Visit: yes Reason for Continuing Indwelling Catheter: Accurate Measurement of Urinary Output in Critically Ill Patients Urinary Catheter Date of Insertion: 09/10/19 Urinary Catheter Time of Insertion: 15:45 Data : 09/11/19 03:31 09/11/19 03:31 A&P Assessment and plan (1) Chest pain: Status: Acute Code(s): R07.9 - Chest pain, unspecified (2) Community acquired pneumonia: Aspiration pneumonia cannot be ruled out. Status: Acute Code(s): J18.9 - Pneumonia, unspecified organism (3) Dysphagia, oropharyngeal: Status: Acute Code(s): R13.12 - Dysphagia, oropharyngeal phase (4) Tobacco abuse: Status: Acute Code(s): Z72.0 - Tobacco use Additional A&P Information Benign prostatic hyperplasia with urinary retention Chronic pain syndrome. On pain pump Sinus bradycardia. Plan: Continue current antibiotics and wean off dopamine drip as blood pressure and heart rate permits. Hold beta-levy and alpha levy for now. We will transition patient to nasal cannula as he wants to remove BiPAP this morning. He was desaturating to 80s yesterday. He is using 4 to 5 L of oxygen at home continuously. Follow speech therapy recommendations regarding diet. Attestations Medical Necessity Statement*: Patient with hypotension and bradycardia requires close ICU monitoring and treatment until deemed safe for transfer. Coding Level of Care Code Acute Line Construction Supervisor for Aniya Fwd Diagnoses Chest pain R07.9 Community acquired pneumonia J18.9 Dysphagia, oropharyngeal R13.12 Tobacco abuse Z72.0
[2019-09-11] MEDS: potassium chloride oral liq 20 mEq/15 mL UDC PEG-TUBE (09:30)
[2019-09-11] MEDS: alum-mag-hydroxide-sime 30 mL UDC 10 ML PO (09:30)
[2019-09-11] MEDS: metroNIDAZOLE IV 500 MG/100 ML PREMIX 100 MG IV ×3 (09:32→23:56)
[2019-09-11] MEDS: cefepime 1,000 MG in sodium chloride 0.9% (plus) 50 ML 100 MG IV ×2 (09:34→19:42)
--- NOTE | 2019-09-11 11:37 | PM.CONSULT ---
Providers/Reason For Consult Consulting Physican/Specialty*: Cardiovascular medicine Reason for Consult*: Bradycardia Attending Physician: Rogelio Santa MD Primary Care Provider: Magda Garcia MD History of Present Illness History of Present Illness Steven Whitney is a 79 year old male who is well-known to me from the clinic. He has severe underlying illnesses in multiple organ systems over time. He is admitted to the hospital frequently with hypercarbic respiratory failure. He has severe oxygen dependent COPD for many years. He has frequent episodes of acute respiratory failure and has chronic respiratory failure as well. A couple years ago he was in this hospital and was intubated for quite some time. We were unable to extubate him and he went to a [facility] in [place] for long-term care. After this he stated he wanted to be no code and DO NOT INTUBATE. Since then he has been admitted on multiple occasions for acute respiratory failure on top of chronic respiratory insufficiency. 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 He has chronic dysphagia and has a percutaneous gastrostomy tube in place. This is thought to be secondary to an old stroke complicated by his severe kyphoscoliosis. He also has severe restrictive lung disease on top of the COPD. His last echo was at the end of May of last year about 2-1/2 months ago revealing a normal ejection fraction and no other underlying valvular heart disease or other problems. There is information in his old chart that suggest he may have Parkinson's and/or ALS. I have never seen anything that confirms this. Recently he was seen in ear nose and throat because he feels like 1 of his sternal wires is sticking into his esophagus. The x-ray showed the possibility of a foreign body. Dr. Mcintosh hopes to do an endoscopy along with Dr. Loco to see if there is a foreign body in or near the esophagus, whether it is related to the hyoid bone or whether indeed it is a sternal wire. I do not think that has been arranged. He was admitted 2 days ago with chest pain and pneumonia. He has chronic elevation in his PCO2. He has a chronic respiratory acidosis from his chronic respiratory failure. His troponins were negative and he had a stress test which was also negative. Today his arterial blood gas shows a PO2 of 76, PCO2 of 62 and a pH is 7.26. Last night the patient developed bradycardia and hypotension and was placed on dopamine and put in the ICU. I was called late last night because of the bradycardia. Steven has had bradycardia in the past but has never required a pacemaker. Today he is awake and alert. He is still on 5 mcg/kg/min of dopamine. His heart rate is in the 50s and his blood pressure is stable. Review of Systems General: Reports: ROS unobtainable due to medical condition Meds/Allergies Home Medications and Allergies Home Medications Medication Instructions Recorded Confirmed Type alfuzosin 10 mg tablet,extended 10 mg PO BEDTIME 07/14/19 09/09/19 History release 24 hr aluminum-mag hydroxide-simethicone 10 ml PO BID ml 07/14/19 09/09/19 History 200 mg-200 mg-20 mg/5 mL oral susp clobetasol 0.05 % scalp solution 1 applic TOPICAL BID PRN 07/14/19 09/09/19 History finasteride 5 mg tablet 5 mg FEEDING TUBE DAILY 07/14/19 09/09/19 History furosemide 10 mg/mL oral solution See Rx Instructions .ROUTE .COMPLEX 07/14/19 09/09/19 History hydrocortisone 2.5 % topical cream 1 applic TOPICAL BID PRN 07/14/19 09/09/19 History isosorbide dinitrate 20 mg tablet 20 mg PO BID 07/14/19 09/09/19 History lactulose 10 gram/15 mL oral 10 gm PO TID ml 07/14/19 09/09/19 History solution lidocaine 5 % topical ointment 1 applic TOPICAL BID 07/14/19 09/09/19 History methylnaltrexone 8 mg/0.4 mL 8 mg SUBCUT DAILY PRN 07/14/19 09/09/19 History subcutaneous syringe metoprolol tartrate 25 mg tablet 12.5 mg PO DAILY 07/14/19 09/09/19 History mupirocin 2 % topical ointment 1 applic TOPICAL TID PRN 07/14/19 09/09/19 History nitroglycerin 0.4 mg sublingual 0.4 mg SUBLINGUAL Q5M PRN 07/14/19 09/09/19 History tablet nystatin 100,000 unit/gram topical 1 applic TOPICAL BID PRN 07/14/19 09/09/19 History ointment pantoprazole 40 mg granules 40 mg PO DAILY 07/14/19 09/09/19 History delayed-release for susp in packet potassium chloride 20 mEq/15 mL See Rx Instructions .ROUTE .COMPLEX 07/14/19 09/09/19 History oral liquid umeclidinium 62.5 mcg/actuation 1 inh INHALATION Q24H 07/14/19 09/09/19 History blister powder for inhalation fluticasone furoate 200 1 inh INHALATION Q24H #60 each 07/29/19 09/09/19 Rx mcg-vilanterol 25 mcg/dose inhalation powder oxybutynin chloride 5 mg/5 mL oral 5 mg PO DAILY #150 ml 08/04/19 09/09/19 Rx syrup hydromorphone 4 mg PO Q4H PRN 08/06/19 09/09/19 History aspirin [Aspir-81] 81 mg PO DAILY 09/09/19 09/09/19 History primidone 50 mg PO TID 09/09/19 09/09/19 History quetiapine [Seroquel] 25 mg PO BEDTIME 09/09/19 09/09/19 History Allergies Allergy/AdvReac Type Severity Reaction Status Date / Time Penicillins Allergy ALGY-Swell Verified 07/14/19 08:57 Lip/Tongue/Throat Current Medications Current Medications Generic Name Dose Route Start Last Admin Trade Name Freq PRN Reason Stop Dose Admin Al Hydrox/Mg Hydrox/Simethicone 10 ml 09/10/19 09:00 09/11/19 09:30 Maalox PO 10 ml BID SHENG Administration Aspirin 81 mg 09/10/19 09:00 09/11/19 11:16 Aspirin Ec PO Not Given DAILY SHENG Enoxaparin Sodium 40 mg 09/09/19 18:34 09/10/19 21:34 Lovenox SUBCUT 40 mg Q24H SHENG Administration Finasteride 5 mg 09/10/19 09:00 09/11/19 11:16 Proscar PEG-TUBE Not Given DAILY SHENG Sodium Chloride 1,000 mls @ 100 mls/hr 09/09/19 15:07 09/11/19 03:14 Sodium Chloride 0.9% IV 0 mls/hr .Q10H SHENG Infusion Norepinephrine Bitartrate 4 mg 254 mls @ 0 mls/hr 09/10/19 21:00 09/11/19 02:01 / Dextrose IV 0 mcg/min .Q0M SHENG 0 mls/hr Titration Protocol Per Protocol Dopamine HCl/Dextrose 400 mg in 250 mls @ 9.27 mls/hr 09/10/19 23:15 09/11/19 02:01 Intropin Drip IV 7.5 mcg/kg/min CONT SHENG 13.9 mls/hr Titration Protocol 5 MCG/KG/MIN Vancomycin HCl 750 mg/ Sodium 250 mls @ 250 mls/hr 09/11/19 02:00 09/11/19 05:27 Chloride IV Infused Q24H SHENG Infusion Cefepime HCl 1,000 mg/ Sodium 50 mls @ 100 mls/hr 09/11/19 08:00 09/11/19 09:34 Chloride IV 100 mls/hr Q12H SHENG Administration Protocol Metronidazole 500 mg in 100 mls @ 100 mls/hr 09/11/19 08:30 09/11/19 11:18 Flagyl Iv IV Infused Q8H SHENG Infusion Protocol Isosorbide Dinitrate 20 mg 09/10/19 09:00 09/11/19 11:17 Isordil PO Not Given BID [facility] Levofloxacin 750 mg 09/11/19 06:00 09/11/19 05:47 Levaquin PO 750 mg EVERY OTHER DAY@0600 [facility] Administration Protocol Metoprolol Tartrate 12.5 mg 09/10/19 09:00 09/10/19 12:02 Lopressor PO 12.5 mg DAILY [facility] Administration Non-Formulary Medication 1 inh 09/09/19 18:34 09/10/19 19:24 Fluticasone Furoate-Vilanterol [Breo Ellipta] INHALATION Not Given Q24H [facility] Non-Formulary Medication 0 diskus 09/10/19 08:00 09/11/19 11:16 Furosemide AD Not Given BID@0800,1300 [facility] Non-Formulary Medication 1 applic 09/10/19 09:00 09/11/19 11:17 Lidocaine TOPICAL Not Given BID [facility] Non-Formulary Medication 1 inh 09/09/19 18:34 09/10/19 19:24 Umeclidinium [Incruse Ellipta] INHALATION Not Given Q24H [facility] Oxybutynin Chloride 5 mg 09/10/19 09:00 09/11/19 11:17 Ditropan PO Not Given DAILY [facility] Pantoprazole Sodium 40 mg 09/10/19 09:00 09/11/19 11:17 Protonix PO Not Given DAILY [facility] Potassium Chloride 0 meq 09/10/19 09:00 09/11/19 09:30 Potassium Chloride Oral Liquid PEG-TUBE 10 meq DAILY SHENG Administration Primidone 50 mg 09/09/19 21:00 09/11/19 11:18 Mysoline PO Not Given TID [facility]ENG Quetiapine Fumarate 25 mg 09/09/19 21:00 09/10/19 21:38 Seroquel PO Not Given BEDTIME SHENG PFSH Acute PFSH: Medical History (Updated 09/11/19 @ 12:06 by Rohith Lopez MD) Benign prostatic hyperplasia with lower urinary tract symptoms CAD (coronary artery disease) Cholecystectomy planned Chronic headaches Chronic pain COPD (chronic obstructive pulmonary disease) Diastolic CHF Dysphasia Foreign body of neck G tube feedings GERD (gastroesophageal reflux disease) Hemiplegia FOLLOWING CVA LEFT History of stroke Kyphoscoliosis deformity of spine Melanoma Migraine headache Obstructive sleep apnea Odynophagia Presence of intrathecal pump Tobacco abuse Urgency of urination Venous stasis Surgical History (Updated 09/11/19 @ 11:56 by Rohith Lopez MD) History of amputation ABOVE KNEE History of angioplasty WITH 9 STENTS History of cholecystectomy Hx of CABG Status post insertion of intrathecal pump Social History Smoking and tobacco status: current every day smoker Alcohol intake: never Adopted: No Caregiver/support person: No Lives independently: No Household members: spouse Marital status: Current occupational status: retired Vitals/I&O/Wt Last Vital Signs Temp 98.4 F 09/11/19 05:25 Pulse 45 L 09/11/19 08:12 Resp 13 09/11/19 05:20 BP 114/52 09/11/19 05:20 Pulse Ox 95 09/11/19 08:12 09/10/19 09/11/19 09/11/19 22:59 06:59 14:59 Intake Total 123.508 / 3.508 1862.710 / 3886.218 100 / 100 Output Total 600 / 700 Balance 123.508 / 4928.650 8982.710 / 3186.218 100 / 100 Weight last 48 hrs Weight 138 lb Physical Exam Narrative: EXAM NARRATIVE: GENERAL: In general he is awake and alert HEENT: Exam within normal limits. NECK: Supple without jugular vein distention. The carotid upstroke is normal without bruits. BACK: Exam normal. LUNGS: Clear. Severe kyphoscoliosis HEART: Regular rate and rhythm. ABDOMEN: Benign without organomegaly or tenderness. EXTREMITIES: No edema. NEUROLOGIC: Exam normal. SKIN: Unremarkable. Urinary Catheter Management^: Avilez: Cath Placed During This Visit: yes Reason for Continuing Indwelling Catheter: Accurate Measurement of Urinary Output in Critically Ill Patients Urinary Catheter Date of Insertion: 09/10/19 Urinary Catheter Time of Insertion: 15:45 A&P Assessment and plan (1) Chronic pain: Status: Acute Code(s): G89.29 - Other chronic pain (2) Venous stasis: Status: Acute Code(s): I87.8 - Other specified disorders of veins (3) COPD (chronic obstructive pulmonary disease): Status: Acute Code(s): J44.9 - Chronic obstructive pulmonary disease, unspecified (4) CAD (coronary artery disease): Status: Acute Code(s): I25.10 - Atherosclerotic heart disease of [place] coronary artery without angina pectoris (5) Tobacco abuse: Status: Acute Code(s): Z72.0 - Tobacco use (6) Community acquired pneumonia: Status: Acute Code(s): J18.9 - Pneumonia, unspecified organism (7) Left above-knee amputee: Status: Acute Code(s): Z89.612 - Acquired absence of left leg above knee (8) Obstructive sleep apnea: Status: Acute Code(s): G47.33 - Obstructive sleep apnea (adult) (pediatric) (9) History of angioplasty: Status: Acute Code(s): Z98.62 - Peripheral vascular angioplasty status (10) Hx of CABG: Status: Acute Code(s): Z95.1 - Presence of aortocoronary bypass graft (11) Bradycardia: Status: Acute Code(s): R00.1 - Bradycardia, unspecified Additional A&P Information As it pertains to the bradycardia I cannot find anything that is causing it. He is a very complex patient and has had bradycardia in the past. This certainly could be sick sinus syndrome. He is a terrible candidate for a pacemaker given his underlying illnesses but he told me today that he would accept one if it would do any good and extend my life . I do not think it will extend his life. Additionally there is information in his old chart this suggests he has ALS and/or Parkinson's disease. If he has ALS, which I cannot confirm, then he clearly would not be a candidate for a pacemaker. What I would do right now is discontinue the dopamine and see how he does while he is in the ICU. We will simply have to make a decision about whether to recommend a pacemaker. While I have the opportunity I would weigh in on the risk of doing a procedure for determining whether or not he has a foreign body near his esophagus or his larynx. The problem with this is that it is going to require general anesthesia. He is at very high risk for not being able to get off of ventilator once he gets on 1. He has proved that in the past. I would think if there is any way to determine whether something needs to be done with this without putting him under general anesthesia that would be the preferred method. He is at very high risk for general anesthesia not from a cardiac standpoint but from a pulmonary standpoint. His cardiac status is otherwise stable. The echo showed normal ejection fraction and he has no ischemia by sestamibi examination. Consult Attestations Medical Necessity Statement: Not applicable Coding Level of Care Code New Pt Acute Regulatory Technician for Chg Fwd Patient Type New History Comprehensive Exam Comprehensive Medical Decision Making High Complexity Diagnoses Chronic pain G89.29 Venous stasis I87.8 COPD (chronic obstructive pulmonary disease) J44.9 CAD (coronary artery disease) I25.10 Tobacco abuse Z72.0 Community acquired pneumonia J18.9 Left above-knee amputee Z89.612 Obstructive sleep apnea G47.33 History of angioplasty Z98.62 Hx of CABG Z95.1 Bradycardia R00.1
--- NOTE | 2019-09-11 13:46 | PC.SLP ---
Per nursing request, patient not seen today due to change in respiratory status.
[2019-09-11] MEDS: lactulose oral liq 20 gm/30 mL UDC 10 GM PO (15:05)
[2019-09-11] MEDS: DOPamine drip 400 MG/250 ML PREMIX 11.7 MG IV (15:05)
[2019-09-11] MEDS: sodium chloride 0.9% 1,000 ML 100 ML IV ×2 (15:06→23:56)
[2019-09-11] MEDS: HYDROcodone-acetaminophen 5-325 mg Tablet 1 TAB PO (16:16)
[2019-09-11] MEDS: enoxaparin 40 mg/0.4 mL Syringe SUBCUT (21:03)
--- NOTE | 2019-09-11 22:06 | PC.NURSE ---
Dr Pratt notified of patient wanting to remove BiPAP. Dr requested removing BiPAP for 1 hour. Discussed with patient the risks of not wearing BiPAP and the benefits. Patient states just let me go. 5L NC placed on patient which is his baseline for home use. Will continue to monitor.
[2019-09-12] VITALS (21 sets, daily range): BP systolic 75–146; BP diastolic 43–88; PULSE 48–77; RESP 8–21; TEMP 36.8–37.2; O2SAT 88–94
[2019-09-12] MEDS: vancomycin 750 MG in sodium chloride 0.9% 250 ML 166 MG IV (01:20)
[2019-09-12 04:25] LABS: Basophils % 0.2 %; Eosinophils # 0.1 10^3/uL (0.0-0.8); Eosinophils % 0.9 %; Hematocrit 42.3 % (42.0-52.0); Hemoglobin 12.7 g/dL (11.7-16.6); Lymphocytes # 0.9 10^3/uL (0.8-4.8); Lymphocytes % 5.7 %; Mean Corpuscular Hemoglobin 26.5 pg (28.0-34.0); Mean Corpuscular Volume 88.3 fL (80-94); Mean Platelet Volume 10.3 fL (7.4-10.4); Monocytes % 6.4 %; Neutrophils # 13.7 10^3/uL (1.8-7.7); Neutrophils % 86.4 %; Nucleated Red Blood Cells % 0 %; Platelet Count 179 10^3/cmm (130-400); Red Blood Count 4.79 10^6/uL (4.1-5.3); Red Cell Distribution Width 13.3 % (12.1-15.1); White Blood Count 15.9 10^3/uL (4.0-10.0)
[2019-09-12 04:45] LABS: Alanine Aminotransferase 6 U/L (0-41); Albumin Level 3.1 g/dL (3.5-5.2); Alkaline Phosphatase 70 IU/L (40-130); Anion Gap 12.7 (5-19); Aspartate Amino Transferase 11 U/L (0-40); Blood Urea Nitrogen 16 mg/dL (8-23); Calcium 8.7 mg/dL (8.5-10.5); Carbon Dioxide 28 mmol/L (22-29); Chloride 99 mmol/L (98-107); Globulin 2.6 g/dL (1.3-4.6); Glucose 87 mg/dL (65-115); Osmolality Calculated 276 mOsm/kg (285-295); Potassium 4.7 mmol/L (3.5-5.1); Sodium 135 mmol/L (136-145); Total Bilirubin 0.3 mg/dL (0.15-1.2); Total Protein 5.7 g/dL (6.6-8.7)
--- NOTE | 2019-09-12 07:51 | PM.PN ---
Subjective Subjective: Interval history: Patient reports feeling better this morning. He still requires dopamine drip but rate was brought down from 5 mcg/kg/min to 2.5 this morning and patient's blood pressure is 98/53 with heart rate 58 this morning. He was using BiPAP last night but could not really tolerate then requested to discontinue Vitals/I&O/Wt Last Vital Signs Temp 97.6 F 09/11/19 21:00 Pulse 58 L 09/12/19 06:00 Resp 13 09/12/19 06:00 BP 98/53 09/12/19 06:00 Pulse Ox 93 09/12/19 06:00 09/11/19 09/12/19 09/12/19 22:59 06:59 14:59 Intake Total 580 / 1350 883.333 / 2233.333 Output Total 600 / 600 650 / 1250 Balance -20 / 750 233.333 / 983.333 Weight last 48 hrs Weight 62.596 kg Physical Exam Urinary Catheter Management^: Avilez: Cath Placed During This Visit: yes Reason for Continuing Indwelling Catheter: Accurate Measurement of Urinary Output in Critically Ill Patients Urinary Catheter Date of Insertion: 09/10/19 Urinary Catheter Time of Insertion: 15:45 Data : 09/12/19 03:32 09/12/19 03:32 Coding Level of Care Code Acute Clinic Office Manager for Aniya Barrera
--- NOTE | 2019-09-12 07:55 | PM.PN ---
Subjective Subjective: Interval history: Patient reports feeling better this morning. He still requires dopamine drip but rate was brought down from 5 mcg/kg/min to 2.5 this morning and patient's blood pressure is 98/53 with heart rate 58 this morning. He was using BiPAP last night but could not really tolerate then requested to discontinue. He also requested to allow natural in case of cardiopulmonary arrest. He continues to have gunn/creamy thick phlegm productive cough which patient thinks is getting better. He denies shortness of breath or chest pain this morning. He saturates in the low 90s on 5 L by nasal cannula which is his usual amount of oxygen he uses at home. Dr. Lopez was consulted for bradycardia evaluation and currently being evaluated for potential possibility of pacemaker placement. Vitals/I&O/Wt Last Vital Signs Temp 97.6 F 09/11/19 21:00 Pulse 58 L 09/12/19 06:00 Resp 13 09/12/19 06:00 BP 98/53 09/12/19 06:00 Pulse Ox 93 09/12/19 06:00 09/11/19 09/12/19 09/12/19 22:59 06:59 14:59 Intake Total 580 / 1350 883.333 / 2233.333 Output Total 600 / 600 650 / 1250 Balance -20 / 750 233.333 / 983.333 Weight last 48 hrs Weight 62.596 kg Physical Exam Const: COMMON NORMALS: no apparent distress and oriented x3 Resp: COMMON NORMALS: normal respiratory effort and clear to auscultation bilaterally AUSCULTATION: clear to auscultation bilaterally Cardio: COMMON NORMALS: regular rate, regular rhythm and S2 normal heart sound RATE: regular rate RHYTHM: regular rhythm HEART SOUNDS: S2 normal OTHER: No lower extremity edema GI: COMMON NORMALS: normal to inspection, nondistended, normoactive bowel sounds, soft to palpation and non-tender PALPATION: Yes soft Neuro: COMMON NORMALS: oriented x3 and no focal motor deficits Urinary Catheter Management^: Avilez: Cath Placed During This Visit: yes Reason for Continuing Indwelling Catheter: Accurate Measurement of Urinary Output in Critically Ill Patients Urinary Catheter Date of Insertion: 09/10/19 Urinary Catheter Time of Insertion: 15:45 Data : 09/12/19 03:32 09/12/19 03:32 A&P Assessment and plan (1) Chest pain: Status: Acute Code(s): R07.9 - Chest pain, unspecified (2) Community acquired pneumonia: Aspiration pneumonia cannot be ruled out. Status: Acute Code(s): J18.9 - Pneumonia, unspecified organism (3) Dysphagia, oropharyngeal: Status: Acute Code(s): R13.12 - Dysphagia, oropharyngeal phase (4) Tobacco abuse: Status: Acute Code(s): Z72.0 - Tobacco use Additional A&P Information Benign prostatic hyperplasia with urinary retention Chronic pain syndrome. On pain pump Sinus bradycardia. Plan: Continue current antibiotics and wean off dopamine drip. Change CODE STATUS to allow natural . Given patient's complex underlying medical history we will keep him in ICU for now. Decision will need to be made regarding pacemaker placement and will see how patient is doing off dopamine drip. Awaiting culture results. Attestations Medical Necessity Statement*: Patient with bradycardia requiring dopamine drip requires close ICU monitoring treatment and evaluation. Coding Level of Care Code Acute Activities Coordinator for Aniya [facility] Diagnoses Chest pain R07.9 Community acquired pneumonia J18.9 Dysphagia, oropharyngeal R13.12 Tobacco abuse Z72.0
--- NOTE | 2019-09-12 08:09 | PM.PN ---
Subjective Subjective: Interval history: An attempt was made to discontinue the dopamine yesterday. He became hypotensive. He is now down to 2.5 mcg/kg/min. Today he is worried about getting his pain pump refilled. He apparently has an appointment for that on Friday. He wants me to refill it here today. He is not having any chest pain. His shortness of breath is stable. Blood pressures have been quite good. Medications: Reviewed: Yes Vitals/I&O/Wt Last Vital Signs Temp 98.5 F 09/12/19 08:00 Pulse 63 09/12/19 08:00 Resp 12 09/12/19 08:00 BP 99/59 09/12/19 08:00 Pulse Ox 92 09/12/19 08:00 09/11/19 09/12/19 09/12/19 22:59 06:59 14:59 Intake Total 580 / 1350 883.333 / 2233.333 Output Total 600 / 600 650 / 1250 Balance -20 / 750 233.333 / 983.333 Weight last 48 hrs Weight 138 lb Physical Exam Narrative: EXAM NARRATIVE: GENERAL: In general short of breath at rest HEENT: Exam within normal limits. NECK: Supple without jugular vein distention. The carotid upstroke is normal without bruits. BACK: Exam normal. LUNGS: Clear. Upper airway sounds, decreased breath sounds bilaterally HEART: Regular rate and rhythm. ABDOMEN: Benign without organomegaly or tenderness. EXTREMITIES: No edema. NEUROLOGIC: Exam normal. SKIN: Unremarkable. Urinary Catheter Management^: Avilez: Cath Placed During This Visit: yes Reason for Continuing Indwelling Catheter: Accurate Measurement of Urinary Output in Critically Ill Patients Urinary Catheter Date of Insertion: 09/10/19 Urinary Catheter Time of Insertion: 15:45 Data : 09/12/19 03:32 09/12/19 03:32 A&P Assessment and plan (1) Bradycardia: Status: Acute Code(s): R00.1 - Bradycardia, unspecified (2) History of angioplasty: Status: Acute Code(s): Z98.62 - Peripheral vascular angioplasty status (3) Hx of CABG: Status: Acute Code(s): Z95.1 - Presence of aortocoronary bypass graft (4) Obstructive sleep apnea: Status: Acute Code(s): G47.33 - Obstructive sleep apnea (adult) (pediatric) (5) Chronic pain: Status: Acute Code(s): G89.29 - Other chronic pain (6) COPD (chronic obstructive pulmonary disease): Status: Acute Code(s): J44.9 - Chronic obstructive pulmonary disease, unspecified (7) CAD (coronary artery disease): Status: Acute Code(s): I25.10 - Atherosclerotic heart disease of [place] coronary artery without angina pectoris (8) Tobacco abuse: Status: Acute Code(s): Z72.0 - Tobacco use (9) Dysphagia, oropharyngeal: Status: Acute Code(s): R13.12 - Dysphagia, oropharyngeal phase (10) Community acquired pneumonia: Status: Acute Code(s): J18.9 - Pneumonia, unspecified organism (11) Chest pain: Status: Acute Code(s): R07.9 - Chest pain, unspecified (12) Left above-knee amputee: Status: Acute Code(s): Z89.612 - Acquired absence of left leg above knee (13) Weakness: Status: Acute Code(s): R53.1 - Weakness (14) Venous stasis: Status: Acute Code(s): I87.8 - Other specified disorders of veins Additional A&P Information We will make another effort to wean the dopamine. Otherwise no change. 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
[2019-09-12] MEDS: cefepime 1,000 MG in sodium chloride 0.9% (plus) 50 ML 100 MG IV ×2 (08:55→19:53)
[2019-09-12] MEDS: metroNIDAZOLE IV 500 MG/100 ML PREMIX 100 MG IV ×2 (08:55→15:48)
[2019-09-12] MEDS: HYDROcodone-acetaminophen 5-325 mg Tablet 1 TAB PO (09:59)
[2019-09-12] MEDS: aspirin 81 mg EC Tablet PO (10:00)
[2019-09-12] MEDS: finasteride 5 mg Tablet PEG-TUBE (10:00)
[2019-09-12] MEDS: alum-mag-hydroxide-sime 30 mL UDC 10 ML PO ×2 (10:03→17:48)
[2019-09-12] MEDS: potassium chloride oral liq 20 mEq/15 mL UDC PEG-TUBE (10:04)
[2019-09-12] MEDS: isosorbide dinitrate 20 mg Tablet PO (10:05)
[2019-09-12] MEDS: sodium chloride 0.9% 1,000 ML 100 ML IV ×2 (11:26→19:54)
--- NOTE | 2019-09-12 11:58 | PC.NURSE ---
Lunch tray offered to patient at this time. Patient stated he was not hungry. Patient encouraged to eat, yet continued to refuse.
--- NOTE | 2019-09-12 12:35 | PC.SOCIAL ---
Pg 2 IMM Explained to pt Pg 2 IMM. Pt verbally understands, no questions voiced. Provided pt a signed copy & placed one in chart, signed, dated, & timed.
[2019-09-12] MEDS: primidone 50 mg Tablet PO ×2 (15:48→19:53)
[2019-09-12] MEDS: DOPamine drip 400 MG/250 ML PREMIX 11.7 MG IV (15:49)
[2019-09-12] MEDS: enoxaparin 40 mg/0.4 mL Syringe SUBCUT (19:53)
[2019-09-13] VITALS (21 sets, daily range): BP systolic 89–127; BP diastolic 47–68; PULSE 47–83; RESP 0–18; TEMP 36.7; O2SAT 84–98
[2019-09-13] MEDS: metroNIDAZOLE IV 500 MG/100 ML PREMIX 100 MG IV ×3 (00:17→16:05)
[2019-09-13 01:16] LABS: Vancomycin Trough 8.2 ug/mL (10-15)
[2019-09-13] MEDS: vancomycin 750 MG in sodium chloride 0.9% 250 ML 166 MG IV (02:13)
[2019-09-13 04:12] LABS: Basophils % 0.2 %; Eosinophils # 0.4 10^3/uL (0.0-0.8); Eosinophils % 3.4 %; Hematocrit 37.4 % (42.0-52.0); Hemoglobin 11.3 g/dL (11.7-16.6); Lymphocytes # 1.3 10^3/uL (0.8-4.8); Lymphocytes % 10.7 %; Mean Corpuscular HGB Conc 30.2 g/dL (30.0-36.0); Mean Corpuscular Hemoglobin 27.1 pg (28.0-34.0); Mean Corpuscular Volume 89.7 fL (80-94); Mean Platelet Volume 10.6 fL (7.4-10.4); Monocytes % 7.8 %; Neutrophils # 9.4 10^3/uL (1.8-7.7); Neutrophils % 77.6 %; Nucleated Red Blood Cells % 0 %; Platelet Count 139 10^3/cmm (130-400); Red Blood Count 4.17 10^6/uL (4.1-5.3); Red Cell Distribution Width 13.7 % (12.1-15.1); White Blood Count 12.2 10^3/uL (4.0-10.0)
[2019-09-13] MEDS: levoFLOXacin 750 mg Tablet PO (05:46)
[2019-09-13] MEDS: cefepime 1,000 MG in sodium chloride 0.9% (plus) 50 ML 100 MG IV ×2 (08:05→20:47)
--- NOTE | 2019-09-13 08:12 | PM.PN ---
Subjective Subjective: Interval history: Chart reviewed, had 400 mL urine output overnight, BP remains low to low normal, bradycardia persists with HRs mostly in 50s. Dopamine at 1 mcg/kg/min. IVF running at 100 mL/hr with BP at 120/66 and HR in the 60s. Is in good spirits, has some epigastric discomfort but otherwise no complaints. Is requesting to be assisted out of bed so will request therapy evaluations. His preference would be to return home but he is agreeable to SNF if needed. Requested that I contact his Monique ([phone]) to update her. Medications: Reviewed: Yes Medication Review Details: Active Medications Generic Name Dose Route Start Last Admin Trade Name Freq PRN Reason Stop Dose Admin Acetaminophen 650 mg 09/09/19 15:07 Tylenol PO Q6H PRN Mild/Mod Pain Or Temp >/= 101 Hydrocodone Bitart /Acetaminophen 1 tab 09/09/19 15:07 09/12/19 09:59 [place] 5-325 Mg PO 1 tab Q4H PRN Administration MODERATE TO SEVER E PAIN Al Hydrox/Mg [place] x/Simethicone 10 ml 09/10/19 09:00 09/12/19 17:48 Maalox PO 10 ml BID SHENG Administration Aspirin 81 mg 09/10/19 09:00 09/12/19 10:00 Aspirin Ec PO 81 mg DAILY SHENG Administration Enoxaparin Sodium 40 mg 09/09/19 18:34 09/12/19 19:53 Lovenox SUBCUT 40 mg Q24H SHENG Administration Finasteride 5 mg 09/10/19 09:00 09/12/19 10:00 Proscar PEG-TUBE 5 mg DAILY SHENG Administration Hydrocortisone 1 applic 09/09/19 18:34 Anusol-Hc TOPICAL BID PRN Itching Sodium Chloride 1,000 mls @ 100 m ls/hr 09/09/19 15:07 09/12/19 19:54 Sodium Chloride 0.9% IV 100 mls/hr .Q10H SHENG Administration Norepinephrine Bit artrate 4 mg 254 mls @ 0 mls/h r 09/10/19 21:00 09/11/19 02:01 / Dextrose IV 0 mcg/min .Q0M SHENG 0 mls/hr Titration Protocol Per Protocol Epinephrine HCl 2. 5 mg/ Sodium 252.5 mls @ 0 mls /hr 09/10/19 23:00 Chloride IV .Q0M SHENG Protocol Per Protocol Vancomycin HCl 750 mg/ Sodium 250 mls @ 250 mls /hr 09/11/19 02:00 09/13/19 02:13 Chloride IV 166 mls/hr Q24H SHENG Administration Cefepime HCl 1,000 mg/ Sodium 50 mls @ 100 mls/ hr 09/11/19 08:00 09/13/19 08:05 Chloride IV 100 mls/hr Q12H SHENG Administration Protocol Metronidazole 500 mg in 100 mls @ 100 mls/hr 09/11/19 08:30 09/13/19 08:11 Flagyl Iv IV 100 mls/hr Q8H SHENG Administration Protocol Dopamine HCl/Dextr ose 400 mg in 250 mls @ 11.737 mls/hr 09/11/19 13:15 09/12/19 15:49 Intropin Drip IV 5 mcg/kg/min CONT SHENG 11.7 mls/hr Administration Protocol 5 MCG/KG/MIN Isosorbide Dinitra te 20 mg 09/10/19 09:00 09/12/19 17:42 Isordil PO Not Given BID [facility] Lactulose 10 gm 09/10/19 14:20 09/11/19 15:05 Constulose PO 10 gm TID PRN Administration constipation Levofloxacin 750 mg 09/11/19 06:00 09/13/19 05:46 Levaquin PO 750 mg EVERY OTHER DAY@0 600 SHENG Administration Protocol Methylnaltrexone B romide 8 mg 09/09/19 18:51 Relistor SUBCUT DAILY PRN Constipation Metoprolol Tartrat e 12.5 mg 09/10/19 09:00 09/10/19 12:02 Lopressor PO 12.5 mg DAILY SHENG Administration Mupirocin 1 applic 09/09/19 18:34 Bactroban TOPICAL TID PRN Skin Irritation Nitroglycerin 0.4 mg 09/09/19 18:34 Nitrostat SUBLINGUAL Q5M PRN Chest Pain Non-Formulary Medi cation 1 inh 09/09/19 18:34 09/12/19 17:41 Fluticasone Furo ate-Vilanterol [Br eo Ellipta] INHALATION Not Given Q24H SHENG Non-Formulary Medi cation 1 applic 09/10/19 09:00 09/12/19 17:41 Lidocaine TOPICAL Not Given BID [facility] Non-Formulary Medi cation 1 inh 09/09/19 18:34 09/12/19 17:41 Umeclidinium [In william Ellipta] INHALATION Not Given Q24H [facility] Nystatin 1 applic 09/09/19 18:34 Nystatin Cream TOPICAL BID PRN Skin Irritation Ondansetron HCl 4 mg 09/09/19 15:07 Zofran IVP Q6H PRN NAUSEA AND VOMITI NG Ondansetron HCl 4 mg 09/10/19 08:26 Zofran IVP Q2M PRN NAUSEA Oxybutynin Chlorid e 5 mg 09/10/19 09:00 09/12/19 10:04 Ditropan PO Not Given DAILY [facility] Pantoprazole [place]od[place] m 40 mg 09/10/19 09:00 09/12/19 10:04 Protonix PO Not Given DAILY [facility] Potassium Chloride 0 meq 09/10/19 09:00 09/12/19 10:04 Potassium Chlori de Oral Liquid PEG-TUBE 20 meq DAILY [facility] Administration Primidone 50 mg 09/09/19 21:00 09/12/19 19:53 Mysoline PO 50 mg TID [facility] Administration Prochlorperazine 25 mg 09/09/19 18:34 Compazine CO Q12H PRN NAUSEA AND VOMITI NG Quetiapine Fumarat e 25 mg 09/09/19 21:00 09/10/19 21:38 Seroquel PO Not Given BEDTIME [facility] Penicillins Allergy (Verified 07/14/19 08:57) ALGY-Swell Lip/Tongue/Throat Vitals/I&O/Wt Last Vital Signs Temp 98.2 F 09/12/19 21:00 Pulse 50 L 09/13/19 06:00 Resp 9 L 09/13/19 06:00 BP 90/47 09/13/19 06:00 Pulse Ox 90 09/13/19 06:00 09/12/19 09/13/19 09/13/19 22:59 06:59 14:59 Intake Total 1266.667 / 2786.667 340 / 3126.667 Output Total 400 / 400 400 / 800 Balance 866.667 / 2386.667 -60 / 2326.667 Physical Exam Const: COMMON NORMALS: no apparent distress and oriented x3 GENERAL APPEARANCE: cooperative and comfortable ORIENTATION/CONSCIOUSNESS: Yes awake HENMT: COMMON NORMALS: normocephalic, head/scalp atraumatic, hearing grossly normal bilaterally and moist oral mucous membranes HEAD & SCALP: normocephalic and atraumatic TEETH & GINGIVA: Yes edentulous Eye: COMMON NORMALS: PERRL, EOMs intact bilaterally and conjunctivae normal CONJUNCTIVA: Yes conjunctivae normal PUPIL: Yes PERRL Neck/C-Spine: COMMON NORMALS: full ROM GENERAL: Yes normal visual inspection and Yes trachea midline Resp: COMMON NORMALS: normal respiratory effort, no retractions and no use of accessory muscles EFFORT & INSPECTION: Yes able to speak in complete sentences, Yes symmetric chest movement and No tachypneic AUSCULTATION: diminished lung sounds bilateral OTHER: -intermittently hypoxic Cardio: COMMON NORMALS: regular rate, regular rhythm, S1 normal heart sound, S2 normal heart sound and no murmurs RATE: regular rate RHYTHM: regular rhythm HEART SOUNDS: S1 normal and S2 normal GI: COMMON NORMALS: normal to inspection, nondistended, normoactive bowel sounds and soft to palpation INSPECTION: Yes central obesity PALPATION: Yes soft and Yes tender (epigastric, minimal) OTHER: -pain pump palpable in LUQ -PEG tube in place : BLADDER/KIDNEY EXAM: Yes catheter in place Catheter type (Male): urethral Extremity: COMMON NORMALS: normal to inspection, full ROM and no clubbing, cyanosis or edema; negative for no pedal edema NARRATIVE EXTREMITY EXAM: -s/p L AKA Neuro: COMMON NORMALS: oriented x3, moves all extremities, no focal motor deficits and no sensory deficits noted; negative for gait normal GAIT: Yes unable to assess gait (s/p L AKA) Psych: COMMON NORMALS: mental status grossly normal, thought process normal, cooperative, affect normal and speech normal SPEECH: Yes normal speech THOUGHT PROCESS: normal thought process Skin: COMMON NORMALS: no rashes or lesions noted, no jaundice, no petechiae and no mottling GENERAL SKIN EXAM: no rashes or lesions noted Urinary Catheter Management^: Avilez: Cath Placed During This Visit: yes Urethral Indwelling: Yes Reason for Continuing Indwelling Catheter: Acute Urinary Retention or Obstruction Urinary Catheter Date of Insertion: 09/10/19 Urinary Catheter Time of Insertion: 15:45 Data : 09/13/19 03:35 09/12/19 03:32 A&P Assessment and plan (1) Bradycardia: -noted persistent bradycardia, HRs in the 40-50 range -has been on dopamine drip -telemetry monitoring -Cardiology consult by Dr. Lopez appreciated -continue to monitor vital signs -BB on hold -nuclear stress testing done which is negative -Echo (05/2019): EF=55%, no RWMA, G2DD, moderate TR, normal PSP Status: Acute Code(s): R00.1 - Bradycardia, unspecified (2) Pneumonia: -noted L lung opacity concerning for pneumonia, cannot rule out element of aspiration as he has been non-compliant with thickened liquids -on broad spectrum antibiotics including metronidazole -pending ST evaluation -aspiration precautions -decreasing leukocytosis, afebrile -imaging reviewed Status: Acute Qualifiers: Laterality: left Lung location: unspecified part of lung Pneumonia type: due to unspecified organism Qualified Code(s): J18.9 - Pneumonia, unspecified organism Code(s): J18.9 - Pneumonia, unspecified organism (3) Urinary retention due to benign prostatic hyperplasia: -noted to have acute urinary retention secondary to BPH -has Avilez catheter in place, continue to monitor urine output -will need Urology f/u as outpatient -on finasteride, Flomax not started due to hypotension Status: Acute Code(s): N40.1 - Benign prostatic hyperplasia with lower urinary tract symptoms; R33.8 - Other retention of urine (4) Hypotension: -hemodynamically trends towards low to low normal BP even with dopamine drip -continue to monitor vital signs closely -on IVF Status: Acute Qualifiers: Hypotension type: unspecified hypotension type Qualified Code(s): I95.9 - Hypotension, unspecified Code(s): I95.9 - Hypotension, unspecified Additional A&P Information -Oxygen dependent COPD, 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 Time Spent in Patient Care: Greater than 35 minutes (>than 50% of time spent in counselling and/or direct pt care on unit). 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
[2019-09-13] MEDS: potassium chloride oral liq 20 mEq/15 mL UDC PEG-TUBE (09:40)
[2019-09-13] MEDS: alum-mag-hydroxide-sime 30 mL UDC 10 ML PO ×2 (09:40→17:31)
[2019-09-13] MEDS: oxybutynin 5 mg Tablet PO (09:41)
[2019-09-13] MEDS: finasteride 5 mg Tablet PEG-TUBE (09:41)
[2019-09-13] MEDS: pantoprazole DR 40 mg Tablet PO (09:42)
[2019-09-13] MEDS: aspirin 81 mg EC Tablet PO (09:42)
--- NOTE | 2019-09-13 09:43 | PM.PN ---
Subjective Subjective: Interval history: Attempts were made to wean the dopamine yesterday. His blood pressure dropped. His heart rate did not change. Today he is on 1 mcg/kg/min with a normal blood pressure and heart rate in the 50s. Today he is concerned about going home versus going to a prison. At his request, I had a long conversation with his yesterday to update her. His cardiac status has been stable. He refused BiPAP last night with dropping of his oxygen saturation. Medications: Reviewed: Yes Vitals/I&O/Wt Last Vital Signs Temp 98.2 F 09/12/19 21:00 Pulse 71 09/13/19 08:00 Resp 13 09/13/19 08:00 BP 120/66 09/13/19 08:00 Pulse Ox 87 L 09/13/19 08:00 09/12/19 09/13/19 09/13/19 22:59 06:59 14:59 Intake Total 1266.667 / 2786.667 340 / 3126.667 Output Total 400 / 400 400 / 800 Balance 866.667 / 2386.667 -60 / 2326.667 Physical Exam Narrative: EXAM NARRATIVE: GENERAL: In general he is sitting in bed, coughing up yellowish-green sputum but awake and alert and in no distress HEENT: Exam within normal limits. NECK: Supple without jugular vein distention. The carotid upstroke is normal without bruits. BACK: Exam normal. LUNGS: Decreased breath sounds, rales and rhonchi and wheezing HEART: Regular rate and rhythm. ABDOMEN: Benign without organomegaly or tenderness. EXTREMITIES: No edema. NEUROLOGIC: Exam normal. SKIN: Unremarkable. Urinary Catheter Management^: Avilez: Cath Placed During This Visit: yes Urethral Indwelling: Yes Reason for Continuing Indwelling Catheter: Acute Urinary Retention or Obstruction Urinary Catheter Date of Insertion: 09/10/19 Urinary Catheter Time of Insertion: 15:45 Data : 09/13/19 03:35 09/12/19 03:32 A&P Assessment and plan (1) Hypotension: Status: Acute Qualifiers: Hypotension type: unspecified hypotension type Qualified Code(s): I95.9 - Hypotension, unspecified Code(s): I95.9 - Hypotension, unspecified (2) Bradycardia: Status: Acute Code(s): R00.1 - Bradycardia, unspecified (3) History of angioplasty: Status: Acute Code(s): Z98.62 - Peripheral vascular angioplasty status (4) Hx of CABG: Status: Acute Code(s): Z95.1 - Presence of aortocoronary bypass graft (5) Obstructive sleep apnea: Status: Acute Code(s): G47.33 - Obstructive sleep apnea (adult) (pediatric) (6) Chronic pain: Status: Acute Code(s): G89.29 - Other chronic pain (7) Venous stasis: Status: Acute Code(s): I87.8 - Other specified disorders of veins (8) COPD (chronic obstructive pulmonary disease): Status: Acute Code(s): J44.9 - Chronic obstructive pulmonary disease, unspecified (9) CAD (coronary artery disease): Status: Acute Code(s): I25.10 - Atherosclerotic heart disease of [place] coronary artery without angina pectoris (10) Tobacco abuse: Status: Acute Code(s): Z72.0 - Tobacco use (11) Left above-knee amputee: Status: Acute Code(s): Z89.612 - Acquired absence of left leg above knee (12) Pneumonia: Status: Acute Qualifiers: Laterality: left Lung location: unspecified part of lung Pneumonia type: due to unspecified organism Qualified Code(s): J18.9 - Pneumonia, unspecified organism Code(s): J18.9 - Pneumonia, unspecified organism Additional A&P Information We should be able to get him off the dopamine today. He should be evaluated for skilled facility. He probably is not safe at home. His who is apparently seriously ill cannot look after him. He gets confused with his medications. He would be best served in a prison however that is not where he wants to go. His cardiac status is stable. 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
[2019-09-13] MEDS: HYDROcodone-acetaminophen 5-325 mg Tablet 1 TAB PO ×2 (09:53→21:48)
[2019-09-13] MEDS: lactulose oral liq 20 gm/30 mL UDC 10 GM PO ×2 (09:56→23:59)
[2019-09-13] MEDS: sodium chloride 0.9% 1,000 ML 100 ML IV ×2 (10:08→20:46)
--- NOTE | 2019-09-13 14:44 | PC.CHAP ---
Pastoral Care Encounter/Spiritual Assessment Type of Contact [] Declined chemical technician visit [] Patient/Family/Request visit [] Outpatient visit [] Follow-up visit [] Physician referral [] Code/Alert [] Routine visit [] Staff referral [] Actively dying [] Patient sleeping [] Family support [] [] Out of room [] Palliative care [] [] Receiving care in room [] Pre-surgical visit [] Trauma [] Long length of stay [x] ICU visit [] Other: Relational/Emotional Strength [] Patient feels connected with others/family/visitors/staff [] Distress [] Loneliness/isolation [] Abandonment Spirituality of Patient [] Person of Narcisa [] Attends Faith of their Narcisa [] Believes in Prayer [] Reads Bible or Yazidism materials [] There are Spiritual issues to be addressed Child Watch Attendant Interventions [] Prayer [] Active listening [] Non-anxious presence [] Spiritual/emotional support [] Crisis/trauma care [] Spiritual counseling [] Bereavement support [] Provided bereavement packet [] Provided Bible/devotional materials [] Provided toy/stuffed animal, coloring book to patient or family member [] Provided Communion [] Anointing/[place] [] Salvation [] Completed spiritual assessment [] Other: Impact on Illness or Injury [] Angry [] Fearful [] Anxious [] Often cries [] Exhaustion [] Unable to work [] Unable to attend jehovah's witness [] Unable to walk/stand [] Unable to read [] Unable to drive [] Unable to eat/drink [] Unable to sleep [] Unable to be with family [] Patient intubated [] Other: Summary Patient was sleeping at the time of chemical technician visit. Child Watch Attendant referred patient for a follow up visit by the oncoming chemical technician. Patient visit was attempted by Child Watch Attendant Lucius Long. Time spent with patient 3 minutes
[2019-09-13] MEDS: isosorbide dinitrate 20 mg Tablet PO (17:32)
[2019-09-13] MEDS: enoxaparin 40 mg/0.4 mL Syringe SUBCUT (21:47)
[2019-09-13] MEDS: primidone 50 mg Tablet PO (21:48)
[2019-09-14] VITALS (15 sets, daily range): BP systolic 88–135; BP diastolic 50–74; PULSE 49–69; RESP 11–23; TEMP 36.2–36.7; O2SAT 90–96
[2019-09-14] MEDS: metroNIDAZOLE IV 500 MG/100 ML PREMIX 100 MG IV ×2 (00:44→09:13)
[2019-09-14] MEDS: vancomycin 750 MG in sodium chloride 0.9% 250 ML 166 MG IV (02:22)
[2019-09-14] MEDS: HYDROcodone-acetaminophen 5-325 mg Tablet 1 TAB PO ×3 (02:23→15:18)
--- NOTE | 2019-09-14 07:34 | P.PN_ITS ---
Subjective Subjective: Interval history: The dopamine was finally weaned completely off yesterday. Heart rates in the low 50s. Blood pressure is within normal limits. This morning it is 115/68. He is fast asleep. No complaints. Medications: Reviewed: Yes Vitals/I&O/Wt Last Vital Signs Temp 97.2 F L 09/14/19 06:00 Pulse 50 L 09/14/19 06:00 Resp 11 L 09/14/19 06:00 BP 115/68 09/14/19 06:00 Pulse Ox 95 09/14/19 06:00 09/13/19 09/14/19 09/14/19 22:59 06:59 14:59 Intake Total 1989 / 2498.655 550 / 3049.655 Output Total 500 / 500 450 / 950 Balance 1490 / 1998.655 100 / 2099.655 Physical Exam Narrative: EXAM NARRATIVE: GENERAL: In general still coughing up yellowish-green sputum but comfortable at rest HEENT: Exam within normal limits. NECK: Supple without jugular vein distention. The carotid upstroke is normal without bruits. BACK: Exam normal. LUNGS: Decreased breath sounds, wheezes and rhonchi HEART: Regular rate and rhythm. ABDOMEN: Benign without organomegaly or tenderness. EXTREMITIES: No edema. NEUROLOGIC: Exam normal. SKIN: Unremarkable. Urinary Catheter Management^: Avilez: Cath Placed During This Visit: yes Urethral Indwelling: Yes Reason for Continuing Indwelling Catheter: Accurate Measurement of Urinary Output in Critically Ill Patients Urinary Catheter Date of Insertion: 09/10/19 Urinary Catheter Time of Insertion: 15:45 Data : 09/13/19 03:35 09/12/19 03:32 Micro: Microbiology 09/13/19 12:10 Gram Stain - Final Sputum - Expectorated Sputum A&P Assessment and plan (1) Hypotension: Status: Acute Qualifiers: Hypotension type: unspecified hypotension type Qualified Code(s): I95.9 - Hypotension, unspecified Code(s): I95.9 - Hypotension, unspecified (2) Pneumonia: Status: Acute Qualifiers: Laterality: left Lung location: unspecified part of lung Pneumonia type: due to unspecified organism Qualified Code(s): J18.9 - Pneumonia, unspeci fied organism Code(s): J18.9 - Pneumonia, unspecified organism (3) Chest pain: Status: Acute Code(s): R07.9 - Chest pain, unspecified (4) Bradycardia: Status: Acute Code(s): R00.1 - Bradycardia, unspecified (5) History of angioplasty: Status: Acute Code(s): Z98.62 - Peripheral vascular angioplasty status (6) Hx of CABG: Status: Acute Code(s): Z95.1 - Presence of aortocoronary bypass graft (7) Obstructive sleep apnea: Status: Acute Code(s): G47.33 - Obstructive sleep apnea (adult) (pediatric) (8) Chronic pain: Status: Acute Code(s): G89.29 - Other chronic pain (9) Venous stasis: Status: Acute Code(s): I87.8 - Other specified disorders of veins (10) COPD (chronic obstructive pulmonary disease): Status: Acute Code(s): J44.9 - Chronic obstructive pulmonary disease, unspecified (11) CAD (coronary artery disease): Status: Acute Code(s): I25.10 - Atherosclerotic heart disease of [place] coronary artery without angina pectoris (12) Tobacco abuse: Status: Acute Code(s): Z72.0 - Tobacco use (13) Community acquired pneumonia: Status: Acute Code(s): J18.9 - Pneumonia, unspecified organism (14) Left above-knee amputee: Status: Acute Code(s): Z89.612 - Acquired absence of left leg above knee Additional A&P Information His cardiac status is stable. I would strongly encourage a DO NOT RESUSCITATE order. He is not a good candidate for a permanent pacemaker and it would not extend his life. I will sign off. I will be out of town for several days. If there are problems please contact 1 of my colleagues. Attestations Medical Necessity Statement*: Not applicable Coding Level of Care Code Acute Binder Stripper Machine for Chg Fwd History Comprehensive Exam Comprehensive Medical Decision Making Moderate Complexity Diagnoses Hypotension I95.9 Hypotension type: unspecified hypotension type Pneumonia J18.9 Laterality: left Lung location: unspecified part of lung Pneumonia type: due to unspecified organism Chest pain R07.9 Bradycardia R00.1 History of angioplasty Z98.62 Hx of CABG Z95.1 Obstructive sleep apnea G47.33 Chronic pain G89.29 Venous stasis I87.8 COPD (chronic obstructive pulmonary disease) J44.9 CAD (coronary artery disease) I25.10 Tobacco abuse Z72.0 Community acquired pneumonia J18.9 Left above-knee amputee Z89.612
[2019-09-14] MEDS: cefepime 1,000 MG in sodium chloride 0.9% (plus) 50 ML 100 MG IV (09:12)
[2019-09-14] MEDS: alum-mag-hydroxide-sime 30 mL UDC 10 ML PO ×2 (09:13→17:32)
[2019-09-14] MEDS: potassium chloride oral liq 20 mEq/15 mL UDC PEG-TUBE (09:13)
[2019-09-14] MEDS: finasteride 5 mg Tablet PEG-TUBE (09:13)
[2019-09-14] MEDS: aspirin 81 mg EC Tablet PO (09:13)
[2019-09-14] MEDS: pantoprazole DR 40 mg Tablet PO (09:13)
[2019-09-14] MEDS: sodium chloride 0.9% 1,000 ML 100 ML IV (09:15)
[2019-09-14] MEDS: acetaminophen 325 mg Tablet 650 MG PO (11:45)
--- NOTE | 2019-09-14 12:31 | PM.PN ---
Subjective Subjective: Interval history: Had 450 mL urine output and large BM overnight. VSS since discontinuation of dopamine drip. Called and spoke to his Monique and updated her on patient's clinical status. She would like him to go to rehab if he is agreeable. Patient seen and examined, had an extensive discussion with him about, he is agreeable to going to [facility] as he has been there before. His pain pump was refilled earlier this morning. He is complaining of abdominal pain and bloating though abdomen is soft and non-tender on examination. He is concerned about bleeding from penile area though none noted on exam with one bloody streak in catheter tubing, urine otherwise looks normal. Medications: Reviewed: Yes Medication Review Details: Active Medications Generic Name Dose Route Start Last Admin Trade Name Freq PRN Reason Stop Dose Admin Acetaminophen 650 mg 09/09/19 15:07 09/14/19 11:45 Tylenol PO 650 mg Q6H PRN Administration Mild/Mod Pain Or Temp >/= 101 Hydrocodone Bitart /Acetaminophen 1 tab 09/13/19 21:01 09/14/19 09:25 [place] 5-325 Mg PO 1 tab Q4H PRN Administration MODERATE PAIN Al Hydrox/Mg [place] x/Simethicone 10 ml 09/10/19 09:00 09/14/19 09:13 Maalox PO 10 ml BID SHENG Administration Aspirin 81 mg 09/10/19 09:00 09/14/19 09:13 Aspirin Ec PO 81 mg DAILY SHENG Administration Enoxaparin Sodium 40 mg 09/09/19 18:34 09/13/19 21:47 Lovenox SUBCUT 40 mg Q24H SHENG Administration Finasteride 5 mg 09/10/19 09:00 09/14/19 09:13 Proscar PEG-TUBE 5 mg DAILY SHENG Administration Hydrocortisone 1 applic 09/09/19 18:34 Anusol-Hc TOPICAL BID PRN Itching Sodium Chloride 1,000 mls @ 100 m ls/hr 09/09/19 15:07 09/14/19 09:15 Sodium Chloride 0.9% IV 100 mls/hr .Q10H SHENG Administration Norepinephrine Bit artrate 4 mg 254 mls @ 0 mls/h r 09/10/19 21:00 09/11/19 02:01 / Dextrose IV 0 mcg/min .Q0M SHENG 0 mls/hr Titration Protocol Per Protocol Epinephrine HCl 2. 5 mg/ Sodium 252.5 mls @ 0 mls /hr 09/10/19 23:00 Chloride IV .Q0M SHENG Protocol Per Protocol Vancomycin HCl 750 mg/ Sodium 250 mls @ 250 mls /hr 09/11/19 02:00 09/14/19 04:00 Chloride IV Infused Q24H SHENG Infusion Cefepime HCl 1,000 mg/ Sodium 50 mls @ 100 mls/ hr 09/11/19 08:00 09/14/19 09:12 Chloride IV 100 mls/hr Q12H SHENG Administration Protocol Metronidazole 500 mg in 100 mls @ 100 mls/hr 09/11/19 08:30 09/14/19 09:13 Flagyl Iv IV 100 mls/hr Q8H [facility] Administration Protocol Dopamine HCl/Dextr ose 400 mg in 250 mls @ 11.737 mls/hr 09/11/19 13:15 09/14/19 11:38 Intropin Drip IV Not Given CONT SHENG Protocol 5 MCG/KG/MIN Isosorbide Dinitra te 20 mg 09/10/19 09:00 09/14/19 09:22 Isordil PO Not Given BID SHENG Lactulose 10 gm 09/10/19 14:20 09/13/19 23:59 Constulose PO 10 gm TID PRN Administration constipation Levofloxacin 750 mg 09/11/19 06:00 09/13/19 05:46 Levaquin PO 750 mg EVERY OTHER DAY@0 600 SHENG Administration Protocol Methylnaltrexone B romide 8 mg 09/09/19 18:51 Relistor SUBCUT DAILY PRN Constipation Metoprolol Tartrat e 12.5 mg 09/10/19 09:00 09/10/19 12:02 Lopressor PO 12.5 mg DAILY SHENG Administration Mupirocin 1 applic 09/09/19 18:34 Bactroban TOPICAL TID PRN Skin Irritation Nitroglycerin 0.4 mg 09/09/19 18:34 Nitrostat SUBLINGUAL Q5M PRN Chest Pain Non-Formulary Medi cation 1 inh 09/09/19 18:34 09/13/19 17:59 Fluticasone Furo ate-Vilanterol [Br eo Ellipta] INHALATION Not Given Q24H SHENG Non-Formulary Medi cation 1 applic 09/10/19 09:00 09/14/19 09:13 Lidocaine TOPICAL Not Given BID [facility] Non-Formulary Medi cation 1 inh 09/09/19 18:34 09/13/19 17:59 Umeclidinium [In william Ellipta] INHALATION Not Given Q24H [facility] Nystatin 1 applic 09/09/19 18:34 Nystatin Cream TOPICAL BID PRN Skin Irritation Ondansetron HCl 4 mg 09/09/19 15:07 Zofran IVP Q6H PRN NAUSEA AND VOMITI NG Ondansetron HCl 4 mg 09/10/19 08:26 Zofran IVP Q2M PRN NAUSEA Oxybutynin Chlorid e 5 mg 09/10/19 09:00 09/14/19 09:29 Ditropan PO Not Given DAILY [facility] Pantoprazole Sodiu m 40 mg 09/10/19 09:00 09/14/19 09:13 Protonix PO 40 mg DAILY [facility] Administration Potassium Chloride 0 meq 09/10/19 09:00 09/14/19 09:13 Potassium Chlori de Oral Liquid PEG-TUBE 10 meq DAILY [facility] Administration Primidone 50 mg 09/09/19 21:00 09/14/19 09:21 Mysoline PO Not Given TID [facility] Prochlorperazine 25 mg 09/09/19 18:34 Compazine PA Q12H PRN NAUSEA AND VOMITI NG Quetiapine Fumarat e 25 mg 09/09/19 21:00 09/10/19 21:38 Seroquel PO Not Given BEDTIME [facility] Penicillins Allergy (Verified 07/14/19 08:57) ALGY-Swell Lip/Tongue/Throat Vitals/I&O/Wt Last Vital Signs Temp 98.0 F 09/14/19 08:00 Pulse 49 L 09/14/19 12:00 Resp 13 09/14/19 12:00 BP 119/64 09/14/19 12:00 Pulse Ox 92 09/14/19 12:00 09/13/19 09/14/19 09/14/19 22:59 06:59 14:59 Intake Total 1989 / 2498.655 1550 / 4049.655 120 / 120 Output Total 500 / 500 450 / 950 Balance 149 / 4832.215 7704 / 3099.655 120 / 120 Physical Exam Const: COMMON NORMALS: no apparent distress and oriented x3 GENERAL APPEARANCE: cooperative and comfortable ORIENTATION/CONSCIOUSNESS: Yes awake HENMT: COMMON NORMALS: normocephalic, head/scalp atraumatic, hearing grossly normal bilaterally and moist oral mucous membranes HEAD & SCALP: normocephalic and atraumatic TEETH & GINGIVA: Yes edentulous Eye: COMMON NORMALS: PERRL, EOMs intact bilaterally and conjunctivae normal CONJUNCTIVA: Yes conjunctivae normal PUPIL: Yes PERRL Neck/C-Spine: COMMON NORMALS: full ROM GENERAL: Yes normal visual inspection and Yes trachea midline Resp: COMMON NORMALS: normal respiratory effort, no retractions and no use of accessory muscles EFFORT & INSPECTION: Yes able to speak in complete sentences, Yes symmetric chest movement and No tachypneic AUSCULTATION: diminished lung sounds bilateral OTHER: -intermittently hypoxic -Coarse breath sounds bilaterally Cardio: COMMON NORMALS: regular rate, regular rhythm, S1 normal heart sound, S2 normal heart sound and no murmurs RATE: regular rate RHYTHM: regular rhythm HEART SOUNDS: S1 normal and S2 normal GI: COMMON NORMALS: normal to inspection, nondistended, normoactive bowel sounds and soft to palpation INSPECTION: Yes central obesity PALPATION: Yes soft and Yes tender (epigastric, minimal) OTHER: -pain pump palpable in LUQ -PEG tube in place : BLADDER/KIDNEY EXAM: Yes catheter in place Extremity: COMMON NORMALS: normal to inspection, full ROM and no clubbing, cyanosis or edema; negative for no pedal edema NARRATIVE EXTREMITY EXAM: -s/p L AKA Neuro: COMMON NORMALS: oriented x3, moves all extremities, no focal motor deficits and no sensory deficits noted; negative for gait normal GAIT: Yes unable to assess gait (s/p L AKA) Psych: COMMON NORMALS: mental status grossly normal, thought process normal, cooperative, affect normal and speech normal SPEECH: Yes normal speech THOUGHT PROCESS: normal thought process Skin: COMMON NORMALS: no rashes or lesions noted, no jaundice, no petechiae and no mottling GENERAL SKIN EXAM: no rashes or lesions noted Urinary Catheter Management^: Avilez: Cath Placed During This Visit: yes Urethral Indwelling: Yes Reason for Continuing Indwelling Catheter: Accurate Measurement of Urinary Output in Critically Ill Patients Urinary Catheter Date of Insertion: 09/10/19 Urinary Catheter Time of Insertion: 15:45 Data : 09/13/19 03:35 09/12/19 03:32 Micro: Microbiology 09/13/19 12:10 Gram Stain - Final Sputum - Expectorated Sputum Sputum Culture - Preliminary A&P Assessment and plan (1) Bradycardia: -noted persistent bradycardia, HRs in the 40-50 range -has been on dopamine drip, weaned off on 09/12 -telemetry monitoring -Cardiology consult by Dr. Lopez appreciated -continue to monitor vital signs -BB on hold -nuclear stress testing done which is negative -Echo (05/2019): EF=55%, no RWMA, G2DD, moderate TR, normal PSP Status: Acute Code(s): R00.1 - Bradycardia, unspecified (2) Pneumonia: -noted L lung opacity concerning for pneumonia, cannot rule out element of aspiration as he has been non-compliant with thickened liquids -on broad spectrum antibiotics including metronidazole; will switch to oral augmentin -ST evaluation appreciated; continued therapy recommended -aspiration precautions -decreasing leukocytosis, afebrile -imaging reviewed Status: Acute Qualifiers: Laterality: left Lung location: unspecified part of lung Pneumonia type: due to unspecified organism Qualified Code(s): J18.9 - Pneumonia, unspecified organism Code(s): J18.9 - Pneumonia, unspecified organism (3) Urinary retention due to benign prostatic hyperplasia: -noted to have acute urinary retention secondary to BPH -has Avilez catheter in place, continue to monitor urine output -will need Urology f/u as outpatient -on finasteride, Flomax not started due to hypotension Status: Acute Code(s): N40.1 - Benign prostatic hyperplasia with lower urinary tract symptoms; R33.8 - Other retention of urine (4) Hypotension: -hemodynamically trends towards low to low normal BP even with dopamine drip -continue to monitor vital signs closely -d/c IVF Status: Resolved Qualifiers: Hypotension type: unspecified hypotension type Qualified Code(s): I95.9 - Hypotension, unspecified Code(s): I95.9 - Hypotension, unspecified Additional A&P Information -Oxygen dependent COPD, 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 Time Spent in Patient Care: Greater than 35 minutes (>than 50% of time spent in counselling and/or direct pt care on unit). Coding Level of Care Code Acute Offset Second Press Operator for g Fwd Exam Comprehensive Diagnoses Bradycardia R00.1 Pneumonia J18.9 Laterality: left Lung location: unspecified part of lung Pneumonia type: due to unspecified organism Urinary retention due to benign prostatic hyperplasia N40.1; R33.8 Hypotension I95.9 Hypotension type: unspecified hypotension type
--- NOTE | 2019-09-14 12:45 | PC.SOCIAL ---
IMM Updated Updated pt on Pg 2 IMM. Pt verbally understands. No questions voiced. Provided pt a copy & left on pt's bedside table. Signed, dated, & timed original in chart.
[2019-09-14] MEDS: gabapentin 100 mg Capsule PO ×2 (15:05→20:20)
--- NOTE | 2019-09-14 16:13 | PC.OT ---
OT note: Attempted OT x2. First attempt pt requested therapist return later in the afternoon. When therapist returned a couple hours later pt was sleeping.
[2019-09-14] MEDS: amoxicillin-clav 875-125 mg Tablet 1 TAB PO (17:32)
[2019-09-14] MEDS: isosorbide dinitrate 20 mg Tablet PO (17:32)
[2019-09-14] MEDS: enoxaparin 40 mg/0.4 mL Syringe SUBCUT (20:20)
[2019-09-14] MEDS: primidone 50 mg Tablet PO (20:20)
[2019-09-14] MEDS: lactulose oral liq 20 gm/30 mL UDC 10 GM PO (20:26)
[2019-09-15] VITALS (11 sets, daily range): BP systolic 95–135; BP diastolic 55–88; PULSE 53–88; RESP 16–26; TEMP 36.7; O2SAT 90–95
[2019-09-15 04:58] LABS: Basophils % 0.4 %; Eosinophils # 0.4 10^3/uL (0.0-0.8); Eosinophils % 3.7 %; Hematocrit 35.9 % (42.0-52.0); Hemoglobin 11.3 g/dL (11.7-16.6); Lymphocytes # 1.2 10^3/uL (0.8-4.8); Lymphocytes % 12.3 %; Mean Corpuscular HGB Conc 31.5 g/dL (30.0-36.0); Mean Corpuscular Hemoglobin 27.2 pg (28.0-34.0); Mean Corpuscular Volume 86.5 fL (80-94); Mean Platelet Volume 10.5 fL (7.4-10.4); Monocytes # 0.6 10^3/uL (0.2-0.9); Monocytes % 5.7 %; Neutrophils # 7.8 10^3/uL (1.8-7.7); Neutrophils % 77.5 %; Nucleated Red Blood Cells % 0 %; Platelet Count 172 10^3/cmm (130-400); Red Blood Count 4.15 10^6/uL (4.1-5.3); Red Cell Distribution Width 13.7 % (12.1-15.1)
--- NOTE | 2019-09-15 06:18 | PC.NURSE ---
SHIFT SUMMARY PT HAS REMAINED ALERT AND ORIENTATED. PT LUNGS ARE DIMINISHED. PT HAS NOT COMPLAINED OF ANY PAIN THUS FAR IN THE SHIFT. PT HAS BEEN TURNED PERIODICALLY THROUGHOUT THE NIGHT.
[2019-09-15] MEDS: finasteride 5 mg Tablet PEG-TUBE (08:26)
[2019-09-15] MEDS: potassium chloride oral liq 20 mEq/15 mL UDC PEG-TUBE (08:26)
[2019-09-15] MEDS: aspirin 81 mg EC Tablet PO (08:26)
[2019-09-15] MEDS: alum-mag-hydroxide-sime 30 mL UDC 10 ML PO (08:26)
[2019-09-15] MEDS: amoxicillin-clav 875-125 mg Tablet 1 TAB PO (08:26)
[2019-09-15] MEDS: oxybutynin 5 mg Tablet PO (08:26)
[2019-09-15] MEDS: isosorbide dinitrate 20 mg Tablet PO (08:27)
[2019-09-15] MEDS: gabapentin 100 mg Capsule PO (08:27)
[2019-09-15] MEDS: pantoprazole DR 40 mg Tablet PO (08:27)
[2019-09-15] MEDS: HYDROcodone-acetaminophen 5-325 mg Tablet 1 TAB PO (11:09)
--- NOTE | 2019-09-15 12:12 | PC.SLP ---
Mr. Whitney did not want to try any oral intake today. He indicated that he is waiting for the doctor, and wants to go home. Speech is stable. At times, the pt has to repeat himself due to decreased intelligibility.
--- NOTE | 2019-09-15 12:30 | PM.DCS ---
Discharge Providers Date of Admission: 09/09/19 13:04 Date of Discharge: September 15, 2019 Attending Provider at Admission: Rogelio Santa MD Attending Provider at Discharge: Eunice Phelps MD Primary Care Provider: Magda Garcia MD Diagnoses at Discharge Discharge Diagnosis (1) Bradycardia: Status: Acute Problem details: -noted persistent bradycardia, HRs in the 40-50 range; seems to be more stable in the 50-60 range -has been on dopamine drip, weaned off on 09/12 -telemetry monitoring -Cardiology consult by Dr. Lopez appreciated -continue to monitor vital signs -BB on hold -nuclear stress testing done which is negative -Echo (05/2019): EF=55%, no RWMA, G2DD, moderate TR, normal PSP (2) Pneumonia: Status: Acute Problem details: -noted L lung opacity concerning for pneumonia, cannot rule out element of aspiration as he has been non-compliant with thickened liquids -on broad spectrum antibiotics including metronidazole; will switch to oral augmentin -ST evaluation appreciated; continued therapy recommended -aspiration precautions -decreasing leukocytosis, afebrile -imaging reviewed Qualifiers: Laterality: left Lung location: unspecified part of lung Pneumonia type: due to unspecified organism Qualified Code(s): J18.9 - Pneumonia, unspecified organism (3) Urinary retention due to benign prostatic hyperplasia: Status: Acute Problem details: -noted to have acute urinary retention secondary to BPH -has Avilez catheter in place, continue to monitor urine output -will need Urology f/u as outpatient -on finasteride, Flomax not started due to hypotension (4) Hypotension: Status: Resolved Problem details: -hemodynamically trends towards low to low normal BP even with dopamine drip -continue to monitor vital signs closely -d/c IVF Qualifiers: Hypotension type: unspecified hypotension type Qualified Code(s): I95.9 - Hypotension, unspecified Other Information Additional DC diagnoses/information: -Oxygen dependent COPD, 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 Has been non-compliant with thickened liquids. Patient has chronic dysphasia and has been following up with ENT Dr. 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 He had presented with chest pain and with minimally elevated troponins had a stress test done which was negative. He subsequently developed hypotension and bradycardia and was transitioned to ICU, started on a dopamine drip and cardiology formally consulted. Beta-levy was also discontinued. Antibiotic treatment was continued for pneumonia. He was eventually weaned off dopamine drip with noted stabilization in blood pressure and heart rate maintaining in the 50-60 range. He has not had any further chest pain since his admission. He is at high risk for aspiration as he has been relatively noncompliant with thickened liquids. He has a known history of chronic dysphasia and does have a PEG tube in place which he uses to administer medications and Ensure, otherwise has oral intake. He has been following up with ENT Dr. Mcintosh for chronic dysphasia and foreign body sensation and is pending EGD, bronchoscopy and possible foreign body removal. He will need to continue to follow-up with cardiology, while here, audiology recommended continued medical management as patient is a poor candidate for pacemaker placement. Patient is overall quite deconditioned though his baseline ambulation status is modest at best as he is essentially wheelchair-bound and transfers to and from his wheelchair at home. Disposition was discussed multiple times with recommendation made for SNF placement for continued strengthening though patient has opted to return home with continued home health services at this time. Given his overall debility, multiple comorbidities and advanced age he is at high risk for readmission. He has been maintained on his baseline oxygen requirement of 5 L. Patient has been DNR/DNI during this hospitalization. He will continue oral antibiotics to complete the treatment course of pneumonia. Augmentin was chosen to provide adequate coverage for possible aspiration. Patient had been receiving cephalosporins with no noted adverse reaction though has noted PCN allergy on medical record. Discharge Summary: -Patient to follow-up with primary care physician within 1 week -Patient to continue to follow-up with cardiology Dr. Lopez -Patient to continue to follow up with ENT Dr. Mcintosh Physical Exam Const: COMMON NORMALS: no apparent distress and oriented x3 GENERAL APPEARANCE: cooperative and comfortable ORIENTATION/CONSCIOUSNESS: Yes awake HENMT: COMMON NORMALS: normocephalic, head/scalp atraumatic, hearing grossly normal bilaterally and moist oral mucous membranes HEAD & SCALP: normocephalic and atraumatic TEETH & GINGIVA: Yes edentulous Eye: COMMON NORMALS: PERRL, EOMs intact bilaterally and conjunctivae normal CONJUNCTIVA: Yes conjunctivae normal PUPIL: Yes PERRL Neck/C-Spine: COMMON NORMALS: full ROM GENERAL: Yes normal visual inspection and Yes trachea midline Resp: COMMON NORMALS: normal respiratory effort, no retractions and no use of accessory muscles EFFORT & INSPECTION: Yes able to speak in complete sentences, Yes symmetric chest movement and No tachypneic AUSCULTATION: diminished lung sounds bilateral OTHER: -intermittently hypoxic -Coarse breath sounds bilaterally Cardio: COMMON NORMALS: regular rate, regular rhythm, S1 normal heart sound, S2 normal heart sound and no murmurs RATE: regular rate RHYTHM: regular rhythm HEART SOUNDS: S1 normal and S2 normal GI: COMMON NORMALS: normal to inspection, nondistended, normoactive bowel sounds and soft to palpation INSPECTION: Yes central obesity PALPATION: Yes soft and Yes tender (epigastric, minimal) OTHER: -pain pump palpable in LUQ -PEG tube in place : BLADDER/KIDNEY EXAM: Yes catheter in place Extremity: COMMON NORMALS: normal to inspection, full ROM and no clubbing, cyanosis or edema; negative for no pedal edema NARRATIVE EXTREMITY EXAM: -s/p L AKA Neuro: COMMON NORMALS: oriented x3, moves all extremities, no focal motor deficits and no sensory deficits noted; negative for gait normal GAIT: Yes unable to assess gait (s/p L AKA) Psych: COMMON NORMALS: mental status grossly normal, thought process normal, cooperative, affect normal and speech normal SPEECH: Yes normal speech THOUGHT PROCESS: normal thought process Skin: COMMON NORMALS: no rashes or lesions noted, no jaundice, no petechiae and no mottling GENERAL SKIN EXAM: no rashes or lesions noted Urinary Catheter Management^: Avilez: Cath Placed During This Visit: yes Urethral Indwelling: Yes Reason for Continuing Indwelling Catheter: Accurate Measurement of Urinary Output in Critically Ill Patients Urinary Catheter Date of Insertion: 09/10/19 Urinary Catheter Time of Insertion: 15:45 Discharge Data Data Completed and Pending: Completed Studies During Hospitalization Category Date Time Status Sestamibi Stress Test Request Routi ne Exams 09/09/19 18:09 Completed XR chest 1V [place] [id number] Stat Exams 09/09/19 10:21 Completed XR chest 1V [place] [id number] Stat Exams 09/11/19 00:44 Completed NM cole perf SPECT r/s* [id number] Routin e Nuc Med 09/10/19 18:09 Completed Pending at discharge Category Date Time Status ABG ONLY [Arteria l Blood Gas W/O Co ox] Routine Lab 09/11/19 05:15 Received Arterial Blood Ga s W/O Coox Routine Lab 09/11/19 07:00 Ordered Labs from last 24 hours 09/15/19 04:05 WBC 10.0 RBC 4.15 Hgb 11.3 L Hct 35.9 L MCV 86.5 MCH 27.2 L MCHC 31.5 RDW 13.7 Plt Count 172 MPV 10.5 H Neut % (Auto) 77.5 Lymph % (Auto) 12.3 Reagan % (Auto) 5.7 Eos % (Auto) 3.7 Baso % (Auto) 0.4 Neut # (Auto) 7.8 H Lymph # (Auto) 1.2 Reagan # (Auto) 0.6 Eos # (Auto) 0.4 Baso # (Auto) 0.0 Nucleated RBC % (a uto) 0 Nucleated RBCs # 0.0 Vitals: Last Vital Signs Temp 98.1 F 09/15/19 02:42 Pulse 56 L 09/15/19 12:02 Resp 18 09/15/19 12:02 BP 114/60 09/15/19 12:02 Pulse Ox 90 09/15/19 12:02 Discharge Plan Discharge Patient Disposition: Home Health Service Condition: Stable Prescriptions: New gabapentin 100 mg Capsule 100 mg feeding tube TID 30 Days Qty: 90 RF: 0 amoxicillin-pot clavulanate 875-125 mg Tablet 1 tab feeding tube BID 7 Days Qty: 14 RF: 0 Continued Relistor 8 mg/0.4 mL syringe 8 mg SUBCUT DAILY PRN (Reason: Constipation) RF: 0 hydrocortisone 2.5 % cream 1 applic TOPICAL BID PRN (Reason: Itching) RF: 0 mupirocin 2 % ointment 1 applic TOPICAL TID PRN (Reason: Skin Irritation) RF: 0 clobetasol 0.05 % solution 1 applic TOPICAL BID PRN (Reason: Dry Skin) RF: 0 lactulose 10 gram/15 mL solution 10 gm PO TID RF: 0 finasteride 5 mg tablet 5 mg feeding tube DAILY RF: 0 potassium chloride 20 mEq/15 mL liquid See Rx Instructions .ROUTE .COMPLEX RF: 0 nystatin 100,000 unit/gram ointment 1 applic TOPICAL BID PRN (Reason: Skin Irritation) RF: 0 Incruse Ellipta 62.5 mcg/actuation blister with device 1 inh INHALATION Q24H RF: 0 lidocaine 5 % ointment 1 applic TOPICAL BID RF: 0 alum-mag hydroxide-simeth 200-200-20 mg/5 mL suspension 10 ml PO BID RF: 0 alfuzosin 10 mg tablet extended release 24 hr 10 mg PO BEDTIME RF: 0 Protonix [address] for susp in packet 40 mg PO DAILY RF: 0 nitroglycerin 0.4 mg tablet, sublingual 0.4 mg SUBLINGUAL Q5M PRN (Reason: Chest Pain) RF: 0 isosorbide dinitrate 20 mg tablet 20 mg PO BID RF: 0 oxybutynin chloride 5 mg/5 mL syrup 5 mg PO DAILY Qty: 150 RF: 2 Breo Ellipta 200-25 mcg/dose blister with device 1 inh INHALATION Q24H Qty: 60 RF: 2 hydromorphone 1 mg/mL liquid 4 mg PO Q4H PRN (Reason: Pain) RF: 0 primidone 50 mg tablet 50 mg PO TID RF: 0 Aspir-81 81 mg Tablet,Delayed Release (Dr/Ec) 81 mg PO DAILY RF: 0 Discontinued furosemide 10 mg/mL solution See Rx Instructions .ROUTE .COMPLEX RF: 0 metoprolol tartrate 25 mg tablet 12.5 mg PO DAILY RF: 0 Seroquel 25 mg Tablet 25 mg PO BEDTIME RF: 0 Discharge Orders: Discharge Order (Routine); Ordered 09/15/19 Ordered By: Eunice Phelps Referrals: [facility] [Outside] Rohith Lopez MD [Physician] - 1 month (Post hospital discharge follow up) Noble Suarez MD [Physician] - 1 week (Follow up for noted acute urinary retention, has Avilez catheter in place. ) Magda Garcia MD [Primary Care Provider] - 7-10 days (Post hospital discharge follow up) Discharge Diet: Cardiac and Resume prior tube feeds Discharge Activity: Resume usual activity Activity Restrictions/Additional Instructions: -continue fall precautions -continue to use supplemental oxygen Discharge Attestations Time Spent in Discharge Care*: greater than 30 min Specific Discharge Activities: Specific discharge activities: educating patient, educating and/or supporting family/caregiver, discussing with pcp/other providers, discussing with machine adjuster leader case trim/social workers/dc planners, documenting/other paperwork and evaluating patient/reviewing data Status at Discharge: Cognitive status at discharge: cognitively intact, Behavioral status at discharge: cooperative, Functional status at discharge: wheelchair bound (s/p L BKA) Overall status at discharge: patient is back to baseline Quality Metrics Clinical Quality Measures During this hospital stay, did patient experience: None Coding Level of Care Code Acute Structural Welder for g Fwd Diagnoses Bradycardia R00.1 Pneumonia J18.9 Laterality: left Lung location: unspecified part of lung Pneumonia type: due to unspecified organism Urinary retention due to benign prostatic hyperplasia N40.1; R33.8 Hypotension I95.9 Hypotension type: unspecified hypotension type
--- NOTE | 2019-09-15 14:45 | PC.NURSE ---
DISCHARGE Patient discharged [facility]. All belongings sent with patient. Discharge instructions given and patient verbalized understanding. Prescriptions sent to pharmacy.
[2019-09-16 18:29] LABS: ABG PCO2 59.3 mmHg (35-45); Arterial Blood Gas Hematocrit 39.9 % (42-52); Base Excess ABG 1.2 mmol/L (-2.0-2.0); Blood Gas Allen Test Pos; Blood Gas Sample Site Radial, right; Blood Gas Sample Type Arterial; Oxygen Device BIPAP; PO2 ABG 82.5 mmHg (80.0-100.0)
== END 2019-09-15 14:46 | disposition home health service (06) | DRG 194 ==
LOC: ER 15:58 → MEDSURG 17:18 → ICU 09-10 16:31
PROVIDERS: Internal Medicine; Admitting Provider Internal Medicine; Emergency Provider Family Medicine; Family Provider Family Medicine; PCP Family Medicine; Visit Provider Family Medicine
DX: J18.9 Pneumonia, unspecified organism (principal); I50.32 Chronic diastolic (congestive) heart failure; I95.9 Hypotension, unspecified; N40.1 Benign prostatic hyperplasia with lower urinary tract symptoms; G47.33 Obstructive sleep apnea (adult) (pediatric); I25.10 Atherosclerotic heart disease of native coronary artery without angina pectoris; R13.12 Dysphagia, oropharyngeal phase; J44.9 Chronic obstructive pulmonary disease, unspecified; R33.8 Other retention of urine; M41.9 Scoliosis, unspecified; G89.29 Other chronic pain; F45.42 Pain disorder with related psychological factors; I87.8 Other specified disorders of veins; R00.1 Bradycardia, unspecified; Z72.0 Tobacco use; I25.2 Old myocardial infarction; Z79.82 Long term (current) use of aspirin; Z79.899 Other long term (current) drug therapy; Z79.83 Long term (current) use of bisphosphonates; Z95.1 Presence of aortocoronary bypass graft; Z98.62 Peripheral vascular angioplasty status
CPT/HCPCS: 12345; 36415; 36600; 51702; 51798; 71045; 78452; 80053; 80061; 80202; 81001; 82803; 83036; 83690; 83735; 83880; 84100; 84443; 84484; 85025; 87070; 87205; 92523; 92526; 92610; 93005; 93017; 94660; 96372; 97110; 97140; 97161; 97166; 97530; 97535; 99283; A9270; A9500; J0692; J1265; J1650; J1956; J2785; J3370; J3490; J7030; J7050; S0030

== ENCOUNTER 2019-12-13 09:59 | Outpatient (CLI) | payer MEDICARE, OTHER, SELFPAY ==
[2019-12-10 14:41] VITALS: BMI 15.6
[2019-12-13 10:13] VITALS: BP 124/59; PULSE 55; RESP 18; TEMP 36.2; O2SAT 90; BMI 15.6
--- NOTE | 2019-12-13 10:35 | P.PCN_ITS ---
Procedure/Consent Time out: Time Out Performed: Yes Consent: Consent for Procedure: Consent obtained from patient Acute Procedures Epistaxis Control: Time out performed: Yes Feeding Tube Replacement: Type of tube: gastrostomy Insertion site prior to procedure: clean Tube used for reinsertion: Bard Bulgarian Tube Size (F): 20 Balloon size (ml): 7 Verification of placement: auscultation Tube secured by: tape/dressing Patient tolerated procedure: well
== END 2019-12-13 10:00 | disposition home or self-care (01) ==
LOC: GILAB 10:03
PROVIDERS: PCP Family Medicine; Visit Provider Surgery
PROC: 0DH63UZ Insertion of Feeding Device into Stomach, Percutaneous Approach (ICD-10-PCS; CPT 43246; principal; 2019-12-13 10:15)
DX: Z43.1 Encounter for attention to gastrostomy (principal)
CPT/HCPCS: 12345; 43762

== ENCOUNTER → 2019-12-29 15:24 | Outpatient (BNVA) | payer MEDICARE, OTHER, SELFPAY | PROVIDERS: PCP Family Medicine; Visit Provider Family Medicine | DX: I50.32 Chronic diastolic (congestive) heart failure (principal); J20.9 Acute bronchitis, unspecified; L98.9 Disorder of the skin and subcutaneous tissue, unspecified; S10.95XA Superficial foreign body of unspecified part of neck, initial encounter; X58.XXXA Exposure to other specified factors, initial encounter; I25.10 Atherosclerotic heart disease of native coronary artery without angina pectoris; Z63.8 Other specified problems related to primary support group | CPT/HCPCS: 80053; 80061; 85025 ==

== ENCOUNTER → 2020-01-06 13:56 | Outpatient (BNVA) | payer MEDICARE, OTHER, SELFPAY | PROVIDERS: PCP Family Medicine; Visit Provider Nurse Practitioner Family | DX: R30.0 Dysuria (principal) | CPT/HCPCS: 80053; 81001; 87077; 87086; 87186 ==

== ENCOUNTER → 2020-01-19 11:53 | Outpatient (BNVA) | payer MEDICARE, OTHER, SELFPAY | PROVIDERS: PCP Family Medicine; Visit Provider Nurse Practitioner Family | DX: J44.9 Chronic obstructive pulmonary disease, unspecified (principal) | CPT/HCPCS: 71046; 80053; 85025 ==

== ENCOUNTER 2020-01-27 12:33 | Emergency (ER) | payer MEDICARE, OTHER, SELFPAY ==
[2020-01-27 12:33] VITALS: BMI 16.0
[2020-01-27 12:40] VITALS: BP 110/56; PULSE 64; RESP 20; TEMP 36.9; O2SAT 94
--- NOTE | 2020-01-27 12:49 | XRR_ITS ---
PROCEDURE INFORMATION: Exam: XR Right Tibia and Fibula Exam date and time: 01/27/2020 12:50 PM Age: 79 years old Clinical indication: Injury or trauma; Injury history: In power wheelchair-ran into deck; Initial encounter; Foreign body involvement not specified; Injury date: 01/27/20; Patient HX: Ran into deck in power wheelchair; Has large laceration to right lower leg TECHNIQUE: Imaging protocol: XR Right tibia and fibula. Views: 2 views. COMPARISON: CR Knee 2 views, RIGHT [id number] 05/05/2017 11:59 AM FINDINGS: Bones/joints: No fracture evident. Soft tissues: Anterior-lateral mid calf soft tissue injury/laceration. XR/XR tibia fibula RT 2V [id number] IMPRESSION: No fracture evident. Anterior-lateral mid calf soft tissue injury/laceration.
--- NOTE | 2020-01-27 12:50 | ED_ITS ---
HPI - Extremity Problem General: Chief complaint: Extremity Injury, Lower Stated complaint: SKIN AVULSION Time Seen by Provider: 01/27/20 12:34 History of Present Illness: HPI Narrative: Patient has large laceration to right lower leg when he is in his power wheelchair and ran into the deck this happened a few minutes ago patient did arrive here by ambulance. Complaint: extremity pain Onset (ago): minute(s) Pain Consistency: constant Location: right and lower extremity Severity scale (1-10): 4 Quality: aching Exacerbating factors: nothing and other (Patient does have large amount edema bilateral lower legs) Associated symptoms: Deny chest pain, fever(s) or rash Review of Systems Const: Denies: fever(s), chills or body aches Eyes: Denies: change in vision or blurry vision ENMT: Denies: throat pain or nasal congestion Card: Denies: chest pain or dyspnea on exertion Resp: Denies: dyspnea, productive cough or non-productive cough GI: Denies: abdominal pain, nausea or vomiting : Denies: difficulty urinating Musc: Denies: extremity pain Skin/Breast: Reports: other (Laceration right lower extremity from accident wheelchair ran into a deck); Denies: rash Neuro: Denies: headache(s) Psych: Denies: anxiety or depression [place]/Lymph: Denies: easy bruising PFS ED PFSH: Medical History (Updated 01/27/20 @ 14:12 by ROLANDO Ugarte) Bacteriuria Benign prostatic hyperplasia with lower urinary tract symptoms CAD (coronary artery disease) Cholecystectomy planned Chronic headaches Chronic pain COPD (chronic obstructive pulmonary disease) Diastolic CHF Dysphasia Foreign body of neck G tube feedings GERD (gastroesophageal reflux disease) Hemiplegia FOLLOWING CVA LEFT History of stroke Kyphoscoliosis deformity of spine Melanoma Migraine headache Obstructive sleep apnea Odynophagia Presence of intrathecal pump Tobacco abuse Urgency of urination Venous stasis Surgical History History of amputation ABOVE KNEE History of angioplasty WITH 9 STENTS History of cataract extraction LEFT LENS History of cholecystectomy History of elbow surgery Hx of CABG S/P percutaneous endoscopic gastrostomy (PEG) tube placement Status post insertion of intrathecal pump Family History Mother , AT AGE 92 No problems noted. Social History (Updated 01/19/20 @ 11:23 by Beba Weems LPN, RT) Smoking and tobacco status: current every day smoker cigarettes Packs smoked per day: 0.5 Years cigarettes smoked: 70 Second hand smoke exposure: No Alcohol intake: never Adopted: No Caregiver/support person: No Lives independently: No Household members: spouse Marital status: Current occupational status: retired History of recent travel: No Current gender identity: Male Physical Exam Const: COMMON NORMALS: no acute distress, average body habitus and patient oriented x3 HENMT: COMMON NORMALS: normocephalic HEAD & SCALP: normal to inspection and normocephalic FACE & SINUS: normal facial exam Eye: COMMON NORMALS: conjunctivae normal GENERAL EYE: appearance normal, both eyes and all related structures CONJUNCTIVA: Yes conjunctivae normal Neck/C-Spine: COMMON NORMALS: no JVD Chest: COMMONS NORMALS: normal inspection of the chest Resp: COMMON NORMALS: normal respiratory effort and clear to auscultation bilaterally AUSCULTATION: clear to auscultation bilaterally Cardio: COMMON NORMALS: no JVD, regular rate and regular rhythm RATE: regular rate RHYTHM: regular rhythm GI: COMMON NORMALS: Normal to inspection, nondistended, normoactive bowel sounds present Extremity: COMMON NORMALS: normal to inspection and full ROM Neuro: COMMON NORMALS: patient oriented x3 Skin: NARRATIVE SKIN EXAM: Large skin avulsion tear to right lower extremity with some minor arterial bleeding. Patient does have a significant amount of peripheral edema to chronic 3+. Distal neurovascular appears intact Procedures Laceration Laceration 1: Site: lower extremity Side (If applicable): right Size (cm): 20 Description: linear, stellate, flap, irregular and clean Depth: simple, single layer and involves muscle layer Local Anesthetic: lidocaine 1% and with epi Amount of anesthesia used (mL): 12 Skin layer closed with: nylon and vicryl Size (cm): 4-0 Number of sutures: 30 Technique: simple, interrupted Subcutaneous layer closed with: chromic gut Size: 4-0 Number of sutures: 10 Technique: simple, interrupted Course Vital Signs: Vital signs: Vital Signs Temperature 98.5 F 01/27/20 12:40 Pulse Rate 64 01/27/20 12:40 Respiratory Rate 20 H 01/27/20 12:40 Blood Pressure 110/56 01/27/20 12:40 Pulse Oximetry 94 01/27/20 12:40 Discharge Plan Discharge Patient Disposition: Home Clinical Impression: Laceration of leg, right Qualifiers: Encounter type: initial encounter Qualified Code(s): S81.811A - Laceration without foreign body, right lower leg, initial encounter Condition: Stable Prescriptions: New clindamycin HCl 300 mg capsule 300 mg PO BID 7 Days Qty: 14 RF: 0 No Action pantoprazole [Protonix] 40 mg tablet,delayed release (DR/EC) 40 mg PO DAILY PRN (Reason: Acid Reflux) RF: 0 Breo Ellipta 100-25 mcg/dose blister with device 1 inh INHALATION DAILY RF: 0 mupirocin 2 % ointment 1 applic TOPICAL TID PRN (Reason: Skin Irritation) Qty: 15 RF: 2 guaifenesin [Adult Tussin Chest Congestion] 100 mg/5 mL liquid 200 mg PO Q4H PRN (Reason: congestion) Qty: 473 RF: 0 clobetasol 0.05 % solution 1 applic TOPICAL BID PRN (Reason: Dry Skin) RF: 0 lactulose 10 gram/15 mL solution 10 gm PO TID RF: 0 potassium chloride 20 mEq/15 mL liquid See Rx Instructions .ROUTE .COMPLEX RF: 0 nystatin 100,000 unit/gram ointment 1 applic TOPICAL BID PRN (Reason: Skin Irritation) RF: 0 lidocaine 5 % ointment 1 applic TOPICAL BID RF: 0 alum-mag hydroxide-simeth 200-200-20 mg/5 mL suspension 10 ml PO BID RF: 0 nitroglycerin 0.4 mg tablet, sublingual 0.4 mg SUBLINGUAL Q5M PRN (Reason: Chest Pain) RF: 0 simethicone 62.5 mg strip 1 strip PO TID PRN (Reason: abdominal distention/bloating) Qty: 18 RF: 0 Relistor 8 mg/0.4 mL syringe 8 mg SUBCUT DAILY PRN (Reason: constipation) Qty: 5.6 RF: 2 finasteride 5 mg tablet 5 mg feeding tube DAILY Qty: 30 RF: 2 furosemide 10 mg/mL solution See Rx Instructions .ROUTE .COMPLEX Qty: 120 RF: 0 hydrocortisone 2.5 % cream 1 applic TOPICAL BID PRN (Reason: Itching) Qty: 28 RF: 0 tamsulosin 0.4 mg capsule 0.4 mg PO DAILY Qty: 30 RF: 12 levofloxacin 250 mg/10 mL solution 500 mg PO DAILY 7 Days Qty: 140 RF: 0 methenamine hippurate 1 gram tablet 1 gm PO BID Qty: 60 RF: 12 hydromorphone 1 mg/mL liquid 4 mg PO Q4H PRN (Reason: Pain) RF: 0 Discharge Orders: Discharge Order (Routine); Ordered 01/27/20 Ordered By: Chan Alcantar Referrals: Magda Garcia MD [Primary Care Provider] - Discharge Diet: Usual diet Discharge Activity: Increase activity as tolerated Patient Instructions: Laceration (ED) Activity Restrictions/Additional Instructions: sutures out in 7 days, watch fpor signs of infection Coding Level of Care Code ED Mediation Commissioner for Chg Fwd Exam Comprehensive
[2020-01-27 14:01] VITALS: BP 114/88; PULSE 59; RESP 18; O2SAT 93
--- NOTE | 2020-01-27 14:37 | PC.NURSE ---
PT RIGHT LEG WOUND DRESSED WITH 2 TELFA 4X4'S AND LULI WRAP.
== END 2020-01-27 14:41 | disposition home or self-care (01) ==
PROVIDERS: Emergency Provider Nurse Practitioner Family; PCP Family Medicine
DX: S81.811A Laceration without foreign body, right lower leg, initial encounter (principal); I25.10 Atherosclerotic heart disease of native coronary artery without angina pectoris; J44.9 Chronic obstructive pulmonary disease, unspecified; I50.30 Unspecified diastolic (congestive) heart failure; G81.94 Hemiplegia, unspecified affecting left nondominant side; Z85.820 Personal history of malignant melanoma of skin; Z89.619 Acquired absence of unspecified leg above knee; Z95.1 Presence of aortocoronary bypass graft; F17.210 Nicotine dependence, cigarettes, uncomplicated; W26.8XXA Contact with other sharp object(s), not elsewhere classified, initial encounter
CPT/HCPCS: 12005; 12345; 13121; 13122; 73590; 99282; 99283

== ENCOUNTER 2020-02-02 15:47 | Inpatient (IN) | payer MEDICARE, OTHER, SELFPAY ==
[2020-02-02 15:52] VITALS: BP 124/61; PULSE 65; RESP 16; TEMP 36.8; O2SAT 97; BMI 16.0
--- NOTE | 2020-02-02 16:03 | USCV_ITS ---
Steven Whitney Age: 79 Gender: M : 1940 Exam Date: 02/02/2020 16:25 Ordering Phys: Julian Webster DO Technologist: Elise Mariano Exam Location: [facility] [place] Indication: RIGHT LEG INFECTION Risk Factors: Previous Vascular Surgery: RIGHT LEFT BP: 124.0 / 61.00 BP: 121.0/ 64.00 0 0 Waveform Velocity (cm/s) Velocity (cm/s) Waveform Triphasic 88.8 Iliac Prox Triphasic 88.5 Iliac Mid Triphasic 70.4 Iliac Distal Monophasic 136.1 PERFORATOR OPERATOR Monophasic 111.0 SFA Prox Monophasic 97.0 SFA Mid Monophasic 153.3 SFA Dist Monophasic 125.1 POP Monophasic 75.1 BAND SAW OPERATOR Monophasic 39.2 DPA 1.2 KATHLEEN FINDINGS RT BAND SAW OPERATOR = 140 RT DPA = 145 Mild to moderate diffuse plaques in the iliac and femoral artery on the right side CONCLUSIONS Mild to moderate diffuse plaques in the iliac and femoral artery on the right side. Normal resting KATHLEEN suggesting no significant arterial obstruction Dr Indira Ponce MD FAC (Electronically Signed) Final Date: 02 February 2020 18:56 S
--- NOTE | 2020-02-02 16:04 | XRR_ITS ---
PROCEDURE INFORMATION: Exam: XR Chest, 1 View Exam date and time: 02/02/2020 5:09 PM Age: 79 years old Clinical indication: Cough and dyspnea; Prior surgery; Surgery type: Open heart, stents, peg tube intrathecal pump, gallbladder; Additional info: Dyspnea/cough TECHNIQUE: Imaging protocol: XR of the chest Views: 1 view. Other technique: <StartDictation COMPARISON: CR XR chest 2V* [id number] 01/19/2020 11:57 AM FINDINGS: Lungs: Changes of COPD. There is mild interstitial prominence. Slightly increased left basilar opacities. Pleural space: No pleural effusion. No pneumothorax. Heart/Mediastinum: Cardiomediastinal silhouette is stable. Previous sternotomy. Surgical clips project over the left mediastinum. Bones/joints: No acute fracture. XR/XR chest 1V portable [id number] IMPRESSION: Slightly increased left basilar opacities. Findings may represent atelectasis or other infiltrates.
--- NOTE | 2020-02-02 16:10 | ED_ITS ---
HPI - Extremity Problem General: Chief complaint: Extremity Problem,Nontraumatic Stated complaint: R LEG SUTURES INFECTED Time Seen by Provider: 02/02/20 15:54 History of Present Illness: HPI Narrative: 79-year-old male comes in with complaint of swelling and erythema of his right leg. A week ago he fell and had a very large laceration over the anterior tibia area. He had multiple sutures placed he was given a prescription for clindamycin. Evidently he never filled the prescription for clindamycin now it is extremely red and inflamed is a large amount of swelling all the way down to the foot and proximal erythema on the medial and posterior aspect of the thigh. Patient denies any fever sweats or chills denies any nausea or vomiting. He said the majority of this came up in the last 2 to 3 days. Patient has some shortness of breath and cough he says is not changed from his usual baseline MD Complaint: extremity swelling Onset (ago): day(s) (2-3) Pain Consistency: constant Location: right and lower extremity Quality: aching Relieving factors: elevation Exacerbating factors: exertion Associated symptoms: Reports no associated symptoms; Deny chest pain, fever(s) or rash Context: other (Trauma to the anterior tibia 1 week ago resulting in multiple sutures.) Review of Systems Const: Denies: fever(s), chills, body aches, change in appetite, fatigue or malaise ENMT: Denies: throat pain, ear or mastoid pain, nasal discharge or nasal congestion Card: Denies: chest pain, edema, dyspnea on exertion or orthopnea Resp: Reports: dyspnea and productive cough; Denies: non-productive cough GI: Denies: abdominal pain, nausea, vomiting, hematemesis, coffee ground emesis, diarrhea, constipation, bloating, hematochezia or melena : Denies: flank pain, dysuria, urinary frequency or urinary urgency Skin/Breast: Denies: rash or pruritus PFSH ED PFSH: Medical History (Updated 02/05/20 @ 08:08 by Julian Webster DO) Bacteriuria Benign prostatic hyperplasia with lower urinary tract symptoms CAD (coronary artery disease) Cholecystectomy planned Chronic headaches Chronic pain COPD (chronic obstructive pulmonary disease) Diastolic CHF DNR (do not resuscitate) Dysphasia Foreign body of neck G tube feedings GERD (gastroesophageal reflux disease) Hemiplegia FOLLOWING CVA LEFT History of stroke Kyphoscoliosis deformity of spine Melanoma Migraine headache Obstructive sleep apnea Odynophagia Presence of intrathecal pump Tobacco abuse Urgency of urination Venous stasis Surgical History History of amputation ABOVE KNEE History of angioplasty WITH 9 STENTS History of cataract extraction LEFT LENS History of cholecystectomy History of elbow surgery Hx of CABG S/P percutaneous endoscopic gastrostomy (PEG) tube placement Status post insertion of intrathecal pump Family History Mother , AT AGE 92 No problems noted. Social History Smoking and tobacco status: current every day smoker cigarettes Packs smoked per day: 0.5 Years cigarettes smoked: 70 Second hand smoke exposure: No Alcohol intake: never Adopted: No Caregiver/support person: No Lives independently: No Household members: spouse Marital status: Current occupational status: retired History of recent travel: No Current gender identity: Male Physical Exam Const: COMMON NORMALS: no acute distress GENERAL APPEARANCE: cooperative and comfortable ORIENTATION/CONSCIOUSNESS: Yes awake, Yes oriented to person, Yes oriented to place and Yes oriented to time HENMT: COMMON NORMALS: normocephalic and atraumatic HEAD & SCALP: normocephalic and atraumatic Eye: COMMON NORMALS: Equal, round and reactive pupils present, EOMs intact bilaterally, conjunctivae normal and no scleral icterus CONJUNCTIVA: Yes conjunctivae normal PUPIL: Yes Equal, round and reactive pupils present Neck/C-Spine: COMMON NORMALS: full ROM, no lymphadenopathy, supple and no JVD Lymph: LYMPHATIC: no lymphadenopathy noted and no lymphedema noted Resp: COMMON NORMALS: normal respiratory effort, No retractions, No use of accessory muscles and clear to auscultation bilaterally AUSCULTATION: clear to auscultation bilaterally Cardio: COMMON NORMALS: no JVD, regular rate, regular rhythm and No murmurs present (Cardio) RATE: regular rate RHYTHM: regular rhythm GI: COMMON NORMALS: Soft to palpation and No hepatosplenomegaly present AUSCULTATION: Yes normoactive bowel sounds PALPATION: Yes Soft to palpation, No Tenderness to palpation present (GI), No Guarding due to palpation present (GI) and Yes No hepatosplenomegaly present Extremity: NARRATIVE EXTREMITY EXAM: Left leg above the knee amputation. Right leg significant swelling there is some necrotic tissue at the center of the laceration a fairly large area. There is redness and erythema with purplish discoloration distally proximally there is erythema there is no inguinal lymphadenopathy. Neuro: SENSORIUM/ORIENTATION: Yes oriented to person, Yes oriented to place and Yes oriented to time Skin: COMMON NORMALS: no rashes or lesions noted GENERAL SKIN EXAM: no rashes or lesions noted Course Vital Signs: Vital signs: Vital Signs Temperature 98.3 F 02/05/20 07:36 Pulse Rate 66 02/05/20 07:36 Respiratory Rate 17 02/05/20 07:36 Blood Pressure 129/65 02/05/20 07:36 Pulse Oximetry 92 02/05/20 07:36 MDM - Extremity (Nontraumatic) MDM Narrative: Medical decision making narrative: Patient has been cultured started on antibiotics will admit to hospitalist may need surgical consult for debridement. Lab Data: Labs: Lab Results 02/02/20 02/02/20 02/02/20 Range/Units 05:00 16:28 16:28 WBC 10.4 H (4.0-10.0) 10^3/ uL RBC 4.46 (4.1-5.3) 10^6/u L Hgb 12.0 (11.7-16.6) g/dL Hct 38.4 L (42.0-52.0) % MCV 86.1 (80-94) fL MCH 26.9 L (28.0-34.0) pg MCHC 31.3 (30.0-36.0) g/dL RDW 13.5 (12.1-15.1) % Plt Count 240 (130-400) 10^3/c mm MPV 9.5 (7.4-10.4) fL Neut % (Auto) 76.8 % Lymph % (Auto) 13.0 % [place] % (Auto) 7.6 % Eos % (Auto) 2.1 % Baso % (Auto) 0.4 % Neut # (Auto) 8.00 H (1.8-7.7) 10^3/u L Lymph # (Auto) 1.4 (0.8-4.8) 10^3/u L [place] # (Auto) 0.8 (0.2-0.9) 10^3/u L Eos # (Auto) 0.2 (0.0-0.8) 10^3/u L Baso # (Auto) 0.0 (0.0-0.1) 10^3/u L Nucleated RBC % (a uto) 0 % Nucleated RBCs # 0.0 /100WBC ESR (0-10) mm/hr Sodium 130 L (136-145) mmol/L Potassium 3.9 (3.5-5.1) mmol/L Chloride 91 L (98-107) mmol/L Carbon Dioxide 33 H (22-29) mmol/L Anion Gap 9.9 (5-19) BUN 21 (8-23) mg/dL Creatinine 1.5 H (0.7-1.2) mg/dL GFR Calculation Not Reportable Glucose 85 (65-115) mg/dL Calculated Osmolal ity 266 L (285-295) mOsm/k g Calcium 8.4 L (8.5-10.5) mg/dL Iron (59-158) ug/dL TIBC mcg/dl % Saturation (20-50) % Unsat Iron Binding (112-347) ug/dL Total Bilirubin 0.4 (0.15-1.2) mg/dL AST 14 (0-40) U/L ALT 10 (0-41) U/L Alkaline Phosphata se 78 (40-130) IU/L C-Reactive Protein (0.0-4.9) mg/L NT-Pro-B Natriuret Pep (0-450) pg/mL Total Protein 6.5 L (6.6-8.7) g/dL Albumin 3.3 L (3.5-5.2) g/dL Globulin 3.2 (1.3-4.6) g/dL Procalcitonin (0-0.5) ng/mL TSH (0.27-4.20) uIU/ mL Urine Color Yellow (Yellow) Urine Appearance Clear (CLEAR) Urine pH 6 (5-7) Ur Specific Gravit y 1.015 (1.005-1.030) Urine Protein 3+ H (Negative) Urine Glucose (UA) Norm (Normal) Urine Ketones Negative (Negative) Urine Blood Neg (Negative) Urine Nitrate Negative (Negative) Urine Bilirubin Neg (NEGATIVE) Urine Urobilinogen Norm (Negative) mg/dL Ur Leukocyte Bridget ase Negative (Negative) Urine RBC Rare (0-2) /hpf Urine WBC 0-4 H (0-5) /hpf Ur Squamous Epith Cells 0-4 H (0-5) Amorphous Sediment Not Reportable Urine Bacteria Trace (NONE) Urine Mucus Trace 02/02/20 02/02/20 02/02/20 Range/Units 16:28 16:28 16:28 WBC (4.0-10.0) 10^3/ uL RBC (4.1-5.3) 10^6/u L Hgb (11.7-16.6) g/dL Hct (42.0-52.0) % MCV (80-94) fL MCH (28.0-34.0) pg MCHC (30.0-36.0) g/dL RDW (12.1-15.1) % Plt Count (130-400) 10^3/c mm MPV (7.4-10.4) fL Neut % (Auto) % Lymph % (Auto) % [place] % (Auto) % Eos % (Auto) % Baso % (Auto) % Neut # (Auto) (1.8-7.7) 10^3/u L Lymph # (Auto) (0.8-4.8) 10^3/u L [place] # (Auto) (0.2-0.9) 10^3/u L Eos # (Auto) (0.0-0.8) 10^3/u L Baso # (Auto) (0.0-0.1) 10^3/u L Nucleated RBC % (a uto) % Nucleated RBCs # /100WBC ESR 59 H (0-10) mm/hr Sodium (136-145) mmol/L Potassium (3.5-5.1) mmol/L Chloride (98-107) mmol/L Carbon Dioxide (22-29) mmol/L Anion Gap (5-19) BUN (8-23) mg/dL Creatinine (0.7-1.2) mg/dL GFR Calculation Glucose (65-115) mg/dL Calculated Osmolal ity (285-295) mOsm/k g Calcium (8.5-10.5) mg/dL Iron 25 L (59-158) ug/dL TIBC 184 mcg/dl % Saturation 13.5 L (20-50) % Unsat Iron Binding 159 (112-347) ug/dL Total Bilirubin (0.15-1.2) mg/dL AST (0-40) U/L ALT (0-41) U/L Alkaline Phosphata se (40-130) IU/L C-Reactive Protein 51.2 H (0.0-4.9) mg/L NT-Pro-B Natriuret Pep 956 H (0-450) pg/mL Total Protein (6.6-8.7) g/dL Albumin (3.5-5.2) g/dL Globulin (1.3-4.6) g/dL Procalcitonin 0.46 (0-0.5) ng/mL TSH 1.41 (0.27-4.20) uIU/ mL Urine Color (Yellow) Urine Appearance (CLEAR) Urine pH (5-7) Ur Specific Gravit y (1.005-1.030) Urine Protein (Negative) Urine Glucose (UA) (Normal) Urine Ketones (Negative) Urine Blood (Negative) Urine Nitrate (Negative) Urine Bilirubin (NEGATIVE) Urine Urobilinogen (Negative) mg/dL Ur Leukocyte Bridget ase (Negative) Urine RBC (0-2) /hpf Urine WBC (0-5) /hpf Ur Squamous Epith Cells (0-5) Amorphous Sediment Urine Bacteria (NONE) Urine Mucus Discharge Plan Discharge Patient Disposition: Admitted As Inpatient Admit Provider: Deandra Cardoza Clinical Impression: Cellulitis of right lower extremity, Left above-knee amputee Condition: Stable Referrals: [facility] [Outside] Interventions: ED Discharge Assessment Last Done: 02/02/20 19:10 ED Charges Last Done: 02/02/20 19:10 Discharge Date/Time: 02/02/20 19:52 Coding Level of Care Code ED [employer] Sales Representative for Aniya Fwd Exam Comprehensive
[2020-02-02 16:31] VITALS: BP 124/61; PULSE 98; RESP 18; O2SAT 95
[2020-02-02 16:40] LABS: Basophils % 0.4 %; Eosinophils # 0.2 10^3/uL (0.0-0.8); Eosinophils % 2.1 %; Hematocrit 38.4 % (42.0-52.0); Lymphocytes # 1.4 10^3/uL (0.8-4.8); Mean Corpuscular HGB Conc 31.3 g/dL (30.0-36.0); Mean Corpuscular Hemoglobin 26.9 pg (28.0-34.0); Mean Corpuscular Volume 86.1 fL (80-94); Mean Platelet Volume 9.5 fL (7.4-10.4); Monocytes # 0.8 10^3/uL (0.2-0.9); Monocytes % 7.6 %; Neutrophils % 76.8 %; Nucleated Red Blood Cells % 0 %; Platelet Count 240 10^3/cmm (130-400); Red Blood Count 4.46 10^6/uL (4.1-5.3); Red Cell Distribution Width 13.5 % (12.1-15.1); White Blood Count 10.4 10^3/uL (4.0-10.0)
[2020-02-02 16:56] LABS: Alanine Aminotransferase 10 U/L (0-41); Albumin Level 3.3 g/dL (3.5-5.2); Alkaline Phosphatase 78 IU/L (40-130); Anion Gap 9.9 (5-19); Aspartate Amino Transferase 14 U/L (0-40); Blood Urea Nitrogen 21 mg/dL (8-23); Calcium 8.4 mg/dL (8.5-10.5); Carbon Dioxide 33 mmol/L (22-29); Chloride 91 mmol/L (98-107); Globulin 3.2 g/dL (1.3-4.6); Glucose 85 mg/dL (65-115); Osmolality Calculated 266 mOsm/kg (285-295); Potassium 3.9 mmol/L (3.5-5.1); Sodium 130 mmol/L (136-145); Total Bilirubin 0.4 mg/dL (0.15-1.2); Total Protein 6.5 g/dL (6.6-8.7)
[2020-02-02] MEDS: vancomycin 1,000 MG in sodium chloride 0.9% 250 ML 250 MG IV (17:52)
--- NOTE | 2020-02-02 18:46 | PM.HP ---
Providers/Chief Complaint Primary Care Provider: Magda Garcia MD Chief Complaint: R LEG SUTURES INFECTED History of Present Illness Steven Whitney is a 79 year old male with past medical history of CAD post CABG, congestive heart failure, COPD on 5 L nasal cannula with chronic respiratory failure, obstructive sleep apnea noncompliant with CPAP for over 5 to 6 months, right hemispheric stroke in 1984, ALS needing PEG tube feeds since 2016 with history of pneumonia, left BKA who presented to the ER today with worsening pain and swelling of the right leg. Patient gives history of having a traumatic injury to the right leg last week for which he required 40 sutures. Post suturing he has been taking clindamycin levofloxacin at home. He states for last 3 days the swelling and the pain in the leg has been getting worse for which he presented to the ER. Denies of having any fever, chills, discharge from the leg, dysuria, diarrhea, cough more than usual, runny nose, headache, confusion, dizziness, chest pain. Blood work in the ER showed white count of 10.4, hemoglobin of 12, left shift, creatinine of 1.5, sodium of 130, chloride of 91. Review of Systems General: Reports: 10 or more systems reviewed and unremarkable except in HPI and below Const: Denies: fever(s), chills, body aches, change in appetite, change in weight, malaise, night sweats, diaphoresis, change in sleep pattern, daytime sleepiness or snoring Eyes: Denies: change in vision, blurry vision, photophobia, eye discomfort or eye discharge ENMT: Denies: throat pain, enlarged tonsils, hoarseness, mouth pain, oral sores, dry mouth, tinnitus, nasal congestion or post nasal drip Card: Denies: chest pain, palpitations, irregular heart rhythm, edema, swelling of feet/ankles, lightheadedness, syncope, pre-syncope, dyspnea on exertion, orthopnea, leg pain with exertion or acrocyanosis Resp: Denies: dyspnea, productive cough, non-productive cough, wheezing, stridor, pain on inspiration, change in phlegm color, hemoptysis or chest congestion GI: Denies: abdominal pain, nausea, vomiting, hematemesis, coffee ground emesis, dysphagia, heartburn, diarrhea, constipation, bloating, GI cramping, change in bowel habits, pain on defecation, hematochezia or melena : Denies: flank pain, difficulty urinating, dysuria, urinary frequency, urinary urgency, urinary hesitancy, urinary dribbling, difficulty starting urination, change in urine stream, nocturia or hematuria Musc: Denies: neck pain, back pain, extremity pain, joint pain, joint swelling, joint redness, joint stiffness or limited range of motion Neuro: Denies: headache(s), numbness in extremities, weakness in extremities, sensory changes, lack of coordination, difficulty walking, frequent falls, dizziness, vertigo, confusion, Slurred speech present, difficulty communicating thoughts or seizure-like activity Psych: Denies: anxiety, depression, mood swings, panic attacks, hopelessness or irritability Endo: Denies: polyuria, polydipsia, tired all the time, cold intolerance, excessive sweating, flushing or heat intolerance [place]/Lymph: Denies: easy bruising or easy bleeding All/Imm: Denies: tongue swelling, facial swelling or acute wheezing Medications/Allergies Home Medications Medication Instructions Recorded Confirmed Last Taken Type aluminum-mag hydroxide-simethicone 10 ml PO BID ml 07/14/19 02/02/20 Unknown History 200 mg-200 mg-20 mg/5 mL oral susp clobetasol 0.05 % scalp solution 1 applic TOPICAL BID PRN 07/14/19 02/02/20 Unknown History lactulose 10 gram/15 mL oral 20 gm PO TID ml 07/14/19 02/02/20 02/01/20 History solution lidocaine 5 % topical ointment 1 applic TOPICAL BID 07/14/19 02/02/20 Unknown History nitroglycerin 0.4 mg sublingual 0.4 mg SUBLINGUAL Q5M PRN 07/14/19 02/02/20 Unknown History tablet nystatin 100,000 unit/gram topical 1 applic TOPICAL BID PRN 07/14/19 02/02/20 Unknown History ointment potassium chloride 20 mEq/15 mL See Rx Instructions .ROUTE .COMPLEX 07/14/19 02/02/20 01/31/20 History oral liquid hydromorphone 4 mg PO Q4H PRN 08/06/19 02/02/20 01/31/20 History fluticasone furoate 100 1 inh INHALATION DAILY 11/03/19 02/02/20 02/01/20 History mcg-vilanterol 25 mcg/dose inhalation powder pantoprazole 40 mg tablet,delayed 40 mg PO DAILY PRN 11/03/19 02/02/20 01/31/20 History release methylnaltrexone 8 mg/0.4 mL 8 mg SUBCUT DAILY PRN #5.6 ml 11/08/19 02/02/20 Unknown Rx subcutaneous syringe finasteride 5 mg tablet 5 mg FEEDING TUBE DAILY #30 tab 11/23/19 02/02/20 01/31/20 Rx mupirocin 2 % topical ointment 1 applic TOPICAL TID PRN #15 gm 12/29/19 02/02/20 Unknown Rx furosemide 10 mg/mL oral solution See Rx Instructions .ROUTE 12/30/19 02/02/20 01/31/20 Rx .COMPLEX #120 ml hydrocortisone 2.5 % topical cream 1 applic TOPICAL BID PRN #28 gm 01/07/20 02/02/20 Unknown Rx levofloxacin 250 mg/10 mL oral 500 mg PO DAILY 7 Days #140 ml 01/11/20 02/02/20 01/31/20 Rx solution methenamine hippurate 1 gram tablet 1 gm PO BID #60 tab 01/11/20 02/02/20 Unknown Rx tamsulosin 0.4 mg capsule 0.4 mg PO DAILY #30 cap 01/11/20 02/02/20 01/31/20 Rx simethicone 62.5 mg oral strips 1 strip PO TID PRN #18 each 01/12/20 02/02/20 Unknown Rx guaifenesin 100 mg/5 mL oral liquid 200 mg PO Q4H PRN #473 ml 01/19/20 02/02/20 01/31/20 Rx clindamycin HCl 300 mg PO BID 7 Days #14 cap 01/27/20 02/02/20 Unknown Rx ascorbic acid (vitamin C) [Vitamin 1,000 mg PO BID 02/02/20 02/02/20 Unknown History C] umeclidinium [Incruse Ellipta] 1 inh INHALATION DAILY 02/02/20 02/02/20 02/01/20 History Allergies Allergy/AdvReac Type Severity Reaction Status Date / Time Penicillins Allergy ALGY-Swell Verified 02/02/20 16:03 Lip/Tongue/Throat PFSH Acute PFSH: Medical History (Updated 02/02/20 @ 18:58 by Navin Meraz MD) Bacteriuria Benign prostatic hyperplasia with lower urinary tract symptoms CAD (coronary artery disease) Cholecystectomy planned Chronic headaches Chronic pain COPD (chronic obstructive pulmonary disease) Diastolic CHF DNR (do not resuscitate) Dysphasia Foreign body of neck G tube feedings GERD (gastroesophageal reflux disease) Hemiplegia FOLLOWING CVA LEFT History of stroke Kyphoscoliosis deformity of spine Melanoma Migraine headache Obstructive sleep apnea Odynophagia Presence of intrathecal pump Tobacco abuse Urgency of urination Venous stasis Surgical History History of amputation ABOVE KNEE History of angioplasty WITH 9 STENTS History of cataract extraction LEFT LENS History of cholecystectomy History of elbow surgery Hx of CABG S/P percutaneous endoscopic gastrostomy (PEG) tube placement Status post insertion of intrathecal pump Family History Mother , AT AGE 92 No problems noted. Social History Smoking and tobacco status: current every day smoker cigarettes Packs smoked per day: 0.5 Years cigarettes smoked: 70 Second hand smoke exposure: No Alcohol intake: never Adopted: No Caregiver/support person: No Lives independently: No Household members: spouse Marital status: Current occupational status: retired History of recent travel: No Current gender identity: Male Vitals/I&O/Wt Last Vital Signs Temp 98.3 F 02/02/20 15:52 Pulse 98 02/02/20 16:31 Resp 18 02/02/20 16:31 BP 124/61 02/02/20 16:31 Pulse Ox 95 02/02/20 16:31 Weight last 48 hrs Weight 49.442 kg Physical Exam Narrative: EXAM NARRATIVE: General: No acute distress, AO x3, dehydrated HEENT: PERRLA, pupils bilaterally equal and reactive Chest: Normal vesicular breath sounds, no added sounds, equal good air entry bilaterally CVS: S1-S2 regular, no murmurs, no tachycardia, no gallops, no rubs Abdomen: Soft, nontender, no organomegaly, bowel sounds present, PEG tube in place Neuro: No focal deficits, no facial deformity, AO x3, power 5/5 in all limbs Extremities: Left BKA, right leg L-shaped?present on the leg sutured, erythema around the suture all across all over the leg with mild bloody drainage present Data : 02/02/20 16:28 02/02/20 16:28 Micro: Microbiology 02/02/20 17:16 Blood Culture - Preliminary Blood SPECIMEN COLLECTED 02/02/20 16:28 Blood Culture - Preliminary Blood SPECIMEN COLLECTED A&P Assessment and plan (1) Infected wound: Status: Acute (2) Cellulitis of right lower extremity: Status: Acute (3) Laceration of leg, right: Status: Acute Qualifiers: Encounter type: initial encounter Qualified Code(s): S81.811A - Laceration without foreign body, right lower leg, initial encounter (4) CHF (congestive heart failure): Status: Acute (5) History of angioplasty: Status: Acute (6) Hx of CABG: Status: Acute (7) Obstructive sleep apnea: Status: Acute (8) COPD (chronic obstructive pulmonary disease): Status: Acute (9) Venous stasis: Status: Acute (10) Left above-knee amputee: Status: Acute (11) G tube feedings: Status: Acute (12) Hemiplegia: Status: Acute (13) DNR (do not resuscitate): Status: Acute Additional A&P Information Infected wound/cellulitis: Patient does not have any signs of sepsis for now. Patient was started on vancomycin in the ER. Will continue. We will start patient on aztreonam as he is allergic to penicillin. Last urine culture shows Pseudomonas and enterococcus. Enterococcus was resistant to vancomycin at that time. For now we will continue to monitor. If patient worsens we will switch from vancomycin to linezolid. Stat blood cultures, procalcitonin, lactate, TSH, blood cultures. We will consult surgery for further assistance. Arterial duplex study to look at the blood flow. CT leg to rule out any foreign body or abscess collection. ESR, CRP. CT will also help with evaluating for bony involvement. COPD: Compensated. Continue with duo nebs, budesonide. Oxygen supplementation keeping saturation over 90%. CAD/history of CABG last nuclear test in August negative. Echocardiogram done from May 2019 shows an EF of 55% no regional wall motion abnormality, grade 2 diastolic dysfunction, moderate TR, normal PASP. Continue with aspirin. Patient looking in the germ drier side for now. Check proBNP. For now continue with normal saline at 50 cc/h. We will monitor for fluid overload. Continue other chronic medications. We will change medication as per clinical picture and results of the blood work. DNR/DNI as per the last discharge summary. Cardiac diet for now. N.p.o. after midnight for possible OR tomorrow. No heparin or Lovenox as patient might be going for procedure. Hold off on SCD because of right leg cellulitis, left AKA. Continue with Attestations Medical Necessity Statement*: Inpatient, more than 2 midnights for infected wound, cellulitis Time Spent in Patient Care: Greater than 35 minutes (>than 50% of time spent in counselling and/or direct pt care on unit). Coding Level of Care Code Acute Supervisor Offset Plate Preparation for Aniya Barrera Diagnoses Infected wound T14.8XXA; L08.9 Cellulitis of right lower extremity L03.115 Laceration of leg, right S81.811A Encounter type: initial encounter CHF (congestive heart failure) I50.9 History of angioplasty Z98.62 Hx of CABG Z95.1 Obstructive sleep apnea G47.33 COPD (chronic obstructive pulmonary disease) J44.9 Venous stasis I87.8 Left above-knee amputee Z89.612 G tube feedings Z93.1 Hemiplegia G81.90 DNR (do not resuscitate) Z66
--- NOTE | 2020-02-02 18:59 | P.CONIM_ITS ---
Providers/Reason For Consult Consulting Physican/Specialty*: Dr. Cardoza Reason for Consult*: Cellulitis right lower extremity Attending Physician: Deandra Cardoza MD Primary Care Provider: Magda Garcia MD History of Present Illness History of Present Illness Steven Whitney is a 79 year old male with multiple comorbidities who has left BKA and had a fall last week subsequently requiring repair of a laceration. Patient presented to the ER with worsening pain and redness in that leg. He denies any fevers chills or drainage. Review of Systems General: Reports: 10 or more systems reviewed and unremarkable except in HPI and below Meds/Allergies Home Medications and Allergies Home Medications Medication Instructions Recorded Confirmed Last Taken Type aluminum-mag hydroxide-simethicone 10 ml PO BID ml 07/14/19 02/02/20 Unknown History 200 mg-200 mg-20 mg/5 mL oral susp clobetasol 0.05 % scalp solution 1 applic TOPICAL BID PRN 07/14/19 02/02/20 Unknown History lactulose 10 gram/15 mL oral 20 gm PO TID ml 07/14/19 02/02/20 02/01/20 History solution lidocaine 5 % topical ointment 1 applic TOPICAL BID 07/14/19 02/02/20 Unknown History nitroglycerin 0.4 mg sublingual 0.4 mg SUBLINGUAL Q5M PRN 07/14/19 02/02/20 Unknown History tablet nystatin 100,000 unit/gram topical 1 applic TOPICAL BID PRN 07/14/19 02/02/20 Unknown History ointment potassium chloride 20 mEq/15 mL See Rx Instructions .ROUTE .COMPLEX 07/14/19 02/02/20 01/31/20 History oral liquid hydromorphone 4 mg PO Q4H PRN 08/06/19 02/02/20 01/31/20 History fluticasone furoate 100 1 inh INHALATION DAILY 11/03/19 02/02/20 02/01/20 History mcg-vilanterol 25 mcg/dose inhalation powder pantoprazole 40 mg tablet,delayed 40 mg PO DAILY PRN 11/03/19 02/02/20 01/31/20 History release methylnaltrexone 8 mg/0.4 mL 8 mg SUBCUT DAILY PRN #5.6 ml 11/08/19 02/02/20 Unknown Rx subcutaneous syringe finasteride 5 mg tablet 5 mg FEEDING TUBE DAILY #30 tab 11/23/19 02/02/20 01/31/20 Rx mupirocin 2 % topical ointment 1 applic TOPICAL TID PRN #15 gm 12/29/19 02/02/20 Unknown Rx furosemide 10 mg/mL oral solution See Rx Instructions .ROUTE 12/30/19 02/02/20 01/31/20 Rx .COMPLEX #120 ml hydrocortisone 2.5 % topical cream 1 applic TOPICAL BID PRN #28 gm 01/07/20 02/02/20 Unknown Rx methenamine hippurate 1 gram tablet 1 gm PO BID #60 tab 01/11/20 02/02/20 Unknown Rx tamsulosin 0.4 mg capsule 0.4 mg PO DAILY #30 cap 01/11/20 02/02/20 01/31/20 Rx simethicone 62.5 mg oral strips 1 strip PO TID PRN #18 each 01/12/20 02/02/20 Unknown Rx guaifenesin 100 mg/5 mL oral liquid 200 mg PO Q4H PRN #473 ml 01/19/20 02/02/20 01/31/20 Rx Incruse Ellipta 1 inh INHALATION DAILY 02/02/20 02/02/20 02/01/20 History Vitamin C 1,000 mg PO BID 02/02/20 02/02/20 Unknown History doxycycline hyclate 100 mg PO BID 7 Days #14 tab 02/05/20 Unknown Rx levofloxacin 750 mg PO DAILY 7 Days #7 tab 02/05/20 Unknown Rx Allergies Allergy/AdvReac Type Severity Reaction Status Date / Time Penicillins Allergy ALGY-Swell Verified 02/09/20 08:50 Lip/Tongue/Throat PFSH Acute PFSH: Medical History Bacteriuria Benign prostatic hyperplasia with lower urinary tract symptoms CAD (coronary artery disease) Chronic headaches COPD (chronic obstructive pulmonary disease) Diastolic CHF DNR (do not resuscitate) Dysphasia Foreign body of neck GERD (gastroesophageal reflux disease) 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 Social History Smoking and tobacco status: current every day smoker cigarettes Packs smoked per day: 0.5 Years cigarettes smoked: 70 Second hand smoke exposure: No Alcohol intake: never Adopted: No Caregiver/support person: No Lives independently: No Household members: spouse Marital status: Current occupational status: retired History of recent travel: No Current gender identity: Male Vitals/I&O/Wt Last Vital Signs Temp 98.3 F 02/02/20 15:52 Pulse 98 02/02/20 16:31 Resp 18 02/02/20 16:31 BP 124/61 02/02/20 16:31 Pulse Ox 95 02/02/20 16:31 02/02/20 02/02/20 02/02/20 06:59 14:59 22:59 Intake Total 250 / 250 Balance 250 / 250 Weight last 48 hrs Weight 109 lb Physical Exam Narrative: EXAM NARRATIVE: HEENT: Normocephalic Eye: Sclera /conjunctiva normal Respiratory and chest: Bilateral clear breath sounds on auscultation Cardiovascular: Normal S1 and S2 heart sounds Abdomen: Soft to palpation Neurological: Oriented to place person and time Skin: Intact, left BKA, on the right leg there is a flap created from closure of laceration. There is erythema extending up to the knee, no abscess noted Data Micro: Micro: Microbiology 02/02/20 17:16 Blood Culture - Pr eliminary Blood SPECIMEN [facility] [place] 02/02/20 16:28 Blood Culture - Pr eliminary Blood SPECIMEN [facility] A&P Assessment and plan (1) Infected wound: 79-year-old gentleman with cellulitis of his right lower extremity after repair of laceration. At this point patient is hemodynamically stable, no evidence of sepsis. We will therefore start him empirically on IV antibiotics. My hope is that he will improve with IV antibiotics and therefore does not need debridement which would result in a large wound which is unlikely to heal. With antibiotics hopefully the flap can be salvaged at least partially and thus he would eventually end up with a smaller wound Status: Acute Coding Level of Care Code Acute Plastering Contractor for Chg Fwd Diagnoses Infected wound T14.8XXA; L08.9
[2020-02-02 19:10] VITALS: BP 126/54; PULSE 98; RESP 18; TEMP 36.8; O2SAT 97
[2020-02-02] MEDS: aztreonam 2,000 MG in sodium chloride 0.9% (plus) 100 ML 200 MG IV (19:15)
[2020-02-02 20:04] LABS: Erythrocyte Sedimentation Rate 59 mm/hr (0-10)
[2020-02-02 20:15] LABS: NT Pro B Type Natriuretic Pept 956 pg/mL (0-450); Procalcitonin 0.46 ng/mL (0-0.5)
[2020-02-02 20:16] LABS: C Reactive Protein 51.2 mg/L (0.0-4.9); Thyroid Stimulating Hormone 1.41 uIU/mL (0.27-4.20)
[2020-02-02 20:27] LABS: Iron 25 ug/dL (59-158); Percent Saturation 13.5 % (20-50); Total Iron Binding Capacity 184 mcg/dl; Unsaturated Iron Binding 159 ug/dL (112-347)
[2020-02-02 20:33] VITALS: BP 127/79; PULSE 61; RESP 20; TEMP 36.4; O2SAT 97
--- NOTE | 2020-02-02 20:34 | CTR_ITS ---
PROCEDURE INFORMATION: Exam: CT Right Lower Extremity Without Contrast; Lower Leg Exam date and time: 02/02/2020 9:26 PM Age: 79 years old Clinical indication: Other: Redness/swelling/pain; Lower leg; Right; Additional info: R/O foriegn body/collection TECHNIQUE: Imaging protocol: CT of the Right lower extremity without contrast was performed. Exam focused on the lower leg. Radiation optimization: All CT scans at this facility use at least one of these dose optimization techniques: automated exposure control; mA and/or kV adjustment per patient size (includes targeted exams where dose is matched to clinical indication); or iterative reconstruction. COMPARISON: CR XR tibia fibula RT 2V [id number] 01/27/2020 12:53 PM RADIATION DOSE METRICS: Total DLP (mGy-cm): 1039.85 FINDINGS: Bones/joints: Normal. No acute fracture or dislocation. Soft tissues: Diffuse subcutaneous edema about the leg. Vasculature: 5 cm somewhat ovoid shaped hyperdense structure along the lateral aspect of the mid to distal fibula may reflect a hematoma or a varicose vein. CT/CT lower leg RT wo con* [id number] IMPRESSION: 1. Negative for radiodense foreign body 2. Diffuse subcutaneous edema about the leg, nonspecific 3. 5 cm somewhat ovoid shaped hyperdense structure along the lateral aspect of the mid to distal fibula may reflect a hematoma or a varicose vein. Radiation Dose CTDIVOL = (mGy): DLP = 1039.85 (mGy-cm)
--- NOTE | 2020-02-02 20:52 | PC.PHAR ---
Vancomycin is dosed at 500mg IVPB every 24 hours to produce a predicted trough level o 16.23 (population based pharmacokinetic analysis). A trough level has been ordered from the lab to be obtained before the fourth dose to confirm and adjust if needed.
[2020-02-02] MEDS: potassium chloride oral liq 20 mEq/15 mL UDC 10 MEQ PEG-TUBE (23:41)
[2020-02-02] MEDS: lactulose oral liq 20 gm/30 mL UDC PO (23:41)
[2020-02-02] MEDS: sodium chloride 0.9% 1,000 ML 100 ML IV (23:42)
[2020-02-03] VITALS (12 sets, daily range): BP systolic 90–120; BP diastolic 50–69; PULSE 56–90; RESP 16–22; TEMP 36.6–37.1; O2SAT 86–98
[2020-02-03] MEDS: ipratropium-albuterol 3 mL Neb INHALATION ×4 (01:59→20:55)
[2020-02-03 05:16] LABS: Basophils % 0.5 %; Eosinophils # 0.4 10^3/uL (0.0-0.8); Eosinophils % 4.8 %; Hematocrit 37.4 % (42.0-52.0); Hemoglobin 11.4 g/dL (11.7-16.6); Lymphocytes # 1.9 10^3/uL (0.8-4.8); Lymphocytes % 21.4 %; Mean Corpuscular HGB Conc 30.5 g/dL (30.0-36.0); Mean Corpuscular Hemoglobin 27.4 pg (28.0-34.0); Mean Corpuscular Volume 89.9 fL (80-94); Mean Platelet Volume 9.5 fL (7.4-10.4); Monocytes # 0.7 10^3/uL (0.2-0.9); Monocytes % 8.3 %; Neutrophils # 5.58 10^3/uL (1.8-7.7); Neutrophils % 64.7 %; Nucleated Red Blood Cells % 0 %; Platelet Count 229 10^3/cmm (130-400); Red Blood Count 4.16 10^6/uL (4.1-5.3); Red Cell Distribution Width 13.6 % (12.1-15.1); White Blood Count 8.6 10^3/uL (4.0-10.0)
[2020-02-03 05:37] LABS: Estmated Average Glucose 117; Hemoglobin A1C 5.7 % (4.0-6.0)
[2020-02-03 05:59] LABS: Alanine Aminotransferase 6 U/L (0-41); Alkaline Phosphatase 67 IU/L (40-130); Anion Gap 8.6 (5-19); Aspartate Amino Transferase 11 U/L (0-40); Blood Urea Nitrogen 18 mg/dL (8-23); Carbon Dioxide 32 mmol/L (22-29); Chloride 98 mmol/L (98-107); Creatinine Clr Calc Pharmacy 31.8442; Globulin 2.9 g/dL (1.3-4.6); Glucose 93 mg/dL (65-115); Osmolality Calculated 276 mOsm/kg (285-295); Potassium 3.6 mmol/L (3.5-5.1); Sodium 135 mmol/L (136-145); Total Bilirubin 0.3 mg/dL (0.15-1.2); Total Protein 5.9 g/dL (6.6-8.7)
[2020-02-03] MEDS: aztreonam 2,000 MG in sodium chloride 0.9% (plus) 100 ML 200 MG IV ×2 (06:01→18:52)
[2020-02-03 06:12] LABS: Urine Color Yellow (Yellow)
[2020-02-03 06:13] LABS: Bilirubin Urine Neg (NEGATIVE); Blood Urine Neg (Negative); Glucose Urine UA Norm (Normal); Ketones Urine Negative (Negative); Leukocyte Esterase Urine Negative (Negative); Nitrate Urine Negative (Negative); Protein Urine 3+ (Negative); Specific Gravity, Urine 1.015 (1.005-1.030); Urine Appearance Clear (CLEAR); Urobilinogen Urine Norm (Negative); pH Urine 6 (5-7)
[2020-02-03 06:14] LABS: Add Urine Culture? No; Bacteria Urine TRACE; Mucus Urine TRACE; RBC Urine RARE /hpf (0-2); Squamous Epithelial Cell Urine 0-4 (0-5); WBC Urine 0-4 /hpf (0-5)
[2020-02-03] MEDS: budesonide 0.5 mg/2 mL Neb INHALATION ×2 (08:10→20:55)
[2020-02-03] MEDS: alum-mag-hydroxide-sime 30 mL UDC 10 ML PO ×2 (09:12→17:30)
[2020-02-03] MEDS: pantoprazole DR 40 mg Tablet PO (09:13)
[2020-02-03] MEDS: ascorbic acid 500 mg Tablet 1000 MG PO ×2 (09:13→17:30)
[2020-02-03] MEDS: tamsulosin 0.4 mg Capsule PO (09:14)
[2020-02-03] MEDS: finasteride 5 mg Tablet PEG-TUBE (09:14)
[2020-02-03] MEDS: potassium chloride oral liq 20 mEq/15 mL UDC 10 MEQ PEG-TUBE (09:15)
[2020-02-03] MEDS: lactulose oral liq 20 gm/30 mL UDC PO ×3 (09:15→20:21)
--- NOTE | 2020-02-03 11:23 | PC.CHAP ---
Pastoral Care Encounter/Spiritual Assessment Type of Contact [] Declined workers compensation coordinator visit [] Patient/Family/Request visit [] Outpatient visit [] Follow-up visit [] Physician referral [] Code/Alert [x] Routine visit [] Staff referral [] Actively dying [] Patient sleeping [] Family support [] [] Out of room [] Palliative care [] [] Receiving care in room [] Pre-surgical visit [] Trauma [] Long length of stay [] ICU visit [] Other: Relational/Emotional Strength [x] Patient feels connected with others/family/visitors/staff [] Distress [] Loneliness/isolation [] Abandonment Spirituality of Patient [x] Person of Narcisa [] Attends Faith of their Narcisa [] Believes in Prayer [] Reads Bible or Zoroastrian materials [x] There are Spiritual issues to be addressed Solid Waste Engineer Interventions [x] Prayer [x] Active listening [x] Non-anxious presence [x] Spiritual/emotional support [] Crisis/trauma care [] Spiritual counseling [] Bereavement support [] Provided bereavement packet [] Provided Bible/devotional materials [] Provided toy/stuffed animal, coloring book to patient or family member [] Provided Communion [] Anointing/[place] [] Salvation [x] Completed spiritual assessment [] Other: Impact on Illness or Injury [] Angry [] Fearful [] Anxious [] Often cries [] Exhaustion [] Unable to work [] Unable to attend muslim [] Unable to walk/stand [] Unable to read [] Unable to drive [] Unable to eat/drink [] Unable to sleep [] Unable to be with family [] Patient intubated [x] Other: Summary Patient does not attend [facility] muslim of the [employer]. Patient related that he watches [employer] Egnytemarie on TV. Time spent with patient 10 minutes
--- NOTE | 2020-02-03 16:13 | P.PN_ITS ---
Subjective Subjective: Interval history: No acute events overnight. Patient has remained afebrile and hemodynamically stable. His leg wound is actually improving. Denies of any nausea, vomiting, headache, palpitations. He is asking for Ensure. Vitals/I&O/Wt Last Vital Signs Temp 98.2 F 02/03/20 11:15 Pulse 62 02/03/20 15:39 Resp 16 02/03/20 15:39 BP 117/55 02/03/20 11:15 Pulse Ox 92 02/03/20 15:39 02/03/20 02/03/20 02/03/20 06:59 14:59 22:59 Intake Total 340 / 340 Output Total 250 / 250 150 / 150 150 / 300 Balance -250 / 100 190 / 190 -150 / 40 Weight last 48 hrs Weight 50.519 kg Weight 49.442 kg Physical Exam Narrative: EXAM NARRATIVE: General: No acute distress, AO x3, dehydrated HEENT: PERRLA, pupils bilaterally equal and reactive Chest: Normal vesicular breath sounds, no added sounds, equal good air entry bilaterally CVS: S1-S2 regular, no murmurs, no tachycardia, no gallops, no rubs Abdomen: Soft, nontender, no organomegaly, bowel sounds present, PEG tube in place Neuro: No focal deficits, no facial deformity, AO x3, power 5/5 in all limbs Extremities: Left BKA, right leg L-shaped?present on the leg sutured, erythema around the suture all across all over the leg with mild bloody drainage present Data : 02/03/20 04:50 02/03/20 04:50 Micro: Microbiology 02/02/20 00:05 MRSA Culture - Final Nose 02/02/20 17:16 Blood Culture - Preliminary Blood SPECIMEN COLLECTED 02/02/20 16:28 Blood Culture - Preliminary Blood SPECIMEN COLLECTED A&P Assessment and plan (1) Infected wound: Status: Acute (2) Cellulitis of right lower extremity: Status: Acute (3) Laceration of leg, right: Status: Acute Qualifiers: Encounter type: initial encounter Qualified Code(s): S81.811A - Laceration without foreign body, right lower leg, initial encounter (4) CHF (congestive heart failure): Status: Acute (5) History of angioplasty: Status: Acute (6) Hx of CABG: Status: Acute (7) Obstructive sleep apnea: Status: Acute (8) COPD (chronic obstructive pulmonary disease): Status: Acute (9) Venous stasis: Status: Acute (10) Left above-knee amputee: Status: Acute (11) G tube feedings: Status: Acute (12) Hemiplegia: Status: Acute (13) DNR (do not resuscitate): Status: Acute Additional A&P Information Infected wound/cellulitis: Patient does not have any signs of sepsis for now. CT foot results appreciated. No bony involvement on foreign bodies or abscess. ESR, CRP results appreciated. For now continue with vancomycin, aztreonam. Both renally dosed. Will de- escalate antibiotics as per the culture results. MRSA negative. Appreciate Dr. Tadeo recommendations. Case discussed. Given the extensive flap for now would be best to try to treat patient medically. If his wounds worsen or cellulitis worsen patient will most likely need to go to the OR. Last urine culture shows Pseudomonas and enterococcus. Enterococcus was r esistant to vancomycin at that time. For now we will continue to monitor. If patient worsens we will switch from vancomycin to linezolid. Arterial duplex results appreciated. Hydrocodone for pain. COPD: Compensated. Continue with duo nebs, budesonide. Oxygen supplementation keeping saturation over 90%. CAD/history of CABG last nuclear test in August negative. Echocardiogram done from May 2019 shows an EF of 55% no regional wall motion abnormality, grade 2 diastolic dysfunction, moderate TR, normal PASP. Continue with aspirin. Patient looking in the graphite pan drier tender side for now. For now continue with normal saline at 50 cc/h. We will monitor for fluid overload. Continue other chronic medications. We will change medication as per clinical picture and results of the blood work. DNR/DNI as per the last discharge summary. Cardiac diet for now. N.p.o. after midnight for possible OR tomorrow. No heparin or Lovenox as patient might be going for procedure. Hold off on SCD because of right leg cellulitis, left AKA. Most likely patient requires home health for safe discharge. Unfortunately patient's is not comfortable with home health coming home because of COVID- 19 pandemic. We will continue to monitor. Case management has been consulted. Attestations Medical Necessity Statement*: Infected wound, cellulitis Time Spent in Patient Care: Greater than 35 minutes (>than 50% of time spent in counselling and/or direct pt care on unit) . Coding Level of Care Code Acute Parcel Post Delivery for Chg Fwd Diagnoses Infected wound T14.8XXA; L08.9 Cellulitis of right lower extremity L03.115 Laceration of leg, right S81.811A Encounter type: initial encounter CHF (congestive heart failure) I50.9 History of angioplasty Z98.62 Hx of CABG Z95.1 Obstructive sleep apnea G47.33 COPD (chronic obstructive pulmonary disease) J44.9 Venous stasis I87.8 Left above-knee amputee Z89.612 G tube feedings Z93.1 Hemiplegia G81.90 DNR (do not resuscitate) Z66
[2020-02-03] MEDS: vancomycin 500 MG in sodium chloride 0.9% (plus) 100 ML 100 MG IV (17:30)
[2020-02-04] VITALS (15 sets, daily range): BP systolic 96–114; BP diastolic 44–70; PULSE 52–89; RESP 14–21; TEMP 36.3–37.1; O2SAT 85–98
[2020-02-04] MEDS: ipratropium-albuterol 3 mL Neb INHALATION ×4 (02:15→21:37)
[2020-02-04 04:16] LABS: Basophils % 0.4 %; Eosinophils # 0.3 10^3/uL (0.0-0.8); Eosinophils % 2.9 %; Hematocrit 32.5 % (42.0-52.0); Lymphocytes # 1.4 10^3/uL (0.8-4.8); Lymphocytes % 13.4 %; Mean Corpuscular HGB Conc 30.8 g/dL (30.0-36.0); Mean Corpuscular Hemoglobin 27.4 pg (28.0-34.0); Mean Platelet Volume 9.8 fL (7.4-10.4); Monocytes # 0.8 10^3/uL (0.2-0.9); Nucleated Red Blood Cells % 0 %; Platelet Count 207 10^3/cmm (130-400); Red Blood Count 3.65 10^6/uL (4.1-5.3); Red Cell Distribution Width 13.7 % (12.1-15.1); White Blood Count 10.5 10^3/uL (4.0-10.0)
[2020-02-04 04:40] LABS: Alanine Aminotransferase 6 U/L (0-41); Albumin Level 2.5 g/dL (3.5-5.2); Alkaline Phosphatase 63 IU/L (40-130); Anion Gap 10.9 (5-19); Aspartate Amino Transferase 9 U/L (0-40); Blood Urea Nitrogen 19 mg/dL (8-23); Calcium 7.3 mg/dL (8.5-10.5); Carbon Dioxide 28 mmol/L (22-29); Chloride 103 mmol/L (98-107); Globulin 2.6 g/dL (1.3-4.6); Glucose 90 mg/dL (65-115); Osmolality Calculated 282 mOsm/kg (285-295); Potassium 3.9 mmol/L (3.5-5.1); Sodium 138 mmol/L (136-145); Total Bilirubin 0.2 mg/dL (0.15-1.2); Total Protein 5.1 g/dL (6.6-8.7)
[2020-02-04] MEDS: sodium chloride 0.9% 1,000 ML 100 ML IV (05:37)
[2020-02-04] MEDS: aztreonam 2,000 MG in sodium chloride 0.9% (plus) 100 ML 200 MG IV ×2 (06:08→20:54)
[2020-02-04] MEDS: tamsulosin 0.4 mg Capsule PO (09:11)
[2020-02-04] MEDS: lactulose oral liq 20 gm/30 mL UDC PO ×3 (09:11→20:54)
[2020-02-04] MEDS: finasteride 5 mg Tablet PEG-TUBE (09:11)
[2020-02-04] MEDS: pantoprazole DR 40 mg Tablet PO (09:11)
[2020-02-04] MEDS: ascorbic acid 500 mg Tablet 1000 MG PO ×2 (09:11→17:33)
[2020-02-04] MEDS: alum-mag-hydroxide-sime 30 mL UDC 10 ML PO ×2 (09:12→17:33)
[2020-02-04] MEDS: potassium chloride oral liq 20 mEq/15 mL UDC 10 MEQ PEG-TUBE (09:12)
[2020-02-04] MEDS: budesonide 0.5 mg/2 mL Neb INHALATION ×2 (09:49→21:37)
--- NOTE | 2020-02-04 12:40 | P.PN_ITS ---
Subjective Subjective: Interval history: Patient states the pain in right leg is significantly improved on IV antibiotics Vitals/I&O/Wt Last Vital Signs Temp 98.5 F 02/04/20 11:31 Pulse 69 02/04/20 11:31 Resp 17 02/04/20 11:31 BP 96/52 02/04/20 11:31 Pulse Ox 92 02/04/20 11:31 02/03/20 02/04/20 02/04/20 22:59 06:59 14:59 Intake Total 660 / 2100 100 / 2100 457 / 457 Output Total 250 / 750 350 / 750 400 / 400 Balance 410 / 1350 -250 / 1350 57 / 57 Weight last 48 hrs Weight 118 lb 2 oz Weight 111 lb 6 oz Weight 109 lb Physical Exam Narrative: EXAM NARRATIVE: Right lower extremity: Erythema is improved, minim ally tender, the flap created from closure of the laceration has questionable viability but does not appear infected today Data : 02/05/20 04:23 02/05/20 04:23 Micro: Microbiology 02/02/20 17:16 Blood Culture - Preliminary Blood NEGATIVE TO DATE 02/02/20 16:28 Blood Culture - Preliminary Blood NEGATIVE TO DATE 02/02/20 00:05 MRSA Culture - Final Nose A&P Assessment and plan (1) Cellulitis of right lower extremity: 79-year-old gentleman with multiple comorbidities who has developed cellulitis of his right lower extremity after closure of laceration. Clinically improved significantly with IV antibiotics. The concern is about the viability of the flap created from the closure of the laceration, if it were to fail completely there would be a large wound which will most likely never heal. Therefore I would like to hold off on debridement of the flap even though there is areas of questionable viability especially since he is improving clinically with IV antibiotics. Status: Acute Attestations Medical Necessity Statement*: Cellulitis right lower extremity requiring co ntinued IV inpatient stay for IV antibiotics Coding Level of Care Code Acute Retort Furnace Operator for Aniya Barrera Diagnoses Cellulitis of right lower extremity L03.115
[2020-02-04] MEDS: vancomycin 750 MG in sodium chloride 0.9% 250 ML 250 MG IV (17:32)
--- NOTE | 2020-02-04 18:14 | P.PN_ITS ---
Subjective Subjective: Interval history: No acute events overnight. Patient has remained afebrile and hemodynamically stable. His leg wound is actually improving. Denies of any nausea, vomiting, headache, palpitations. Doing a lot better Vitals/I&O/Wt Last Vital Signs Temp 97.3 F L 02/04/20 15:58 Pulse 83 02/04/20 16:12 Resp 20 H 02/04/20 16:04 BP 113/63 02/04/20 15:58 Pulse Ox 93 02/04/20 16:04 02/04/20 02/04/20 02/04/20 06:59 14:59 22:59 Intake Total 100 / 2100 677 / 677 437 / 1114 Output Total 350 / 750 400 / 400 200 / 600 Balance -250 / 1350 277 / 277 237 / 514 Weight last 48 hrs Weight 53.581 kg Weight 50.519 kg Physical Exam Narrative: EXAM NARRATIVE: General: No acute distress, AO x3, dehydrated HEENT: PERRLA, pupils bilaterally equal and reactive Chest: Normal vesicular breath sounds, no added sounds, equal good air entry bilaterally CVS: S1-S2 regular, no murmurs, no tachycardia, no gallops, no rubs Abdomen: Soft, nontender, no organomegaly, bowel sounds present, PEG tube in pl [address] Neuro: No focal deficits, no facial deformity, AO x3, power 5/5 in all limbs Extremities: Left BKA, right leg L-shaped?present on the leg sutured, erythema around the suture all across all over the leg becoming better. Data : 02/04/20 03:35 02/04/20 03:35 Micro: Microbiology 02/02/20 17:16 Blood Culture - Preliminary Blood NEGATIVE TO DATE 02/02/20 16:28 Blood Culture - Preliminary Blood NEGATIVE TO DATE A&P Assessment and plan (1) Infected wound: Status: Acute (2) Cellulitis of right lower extremity: Status: Acute (3) Laceration of leg, right: Status: Inactive Qualifiers: Encounter type: initial encounter Qualified Code(s): S81.811A - Laceration without foreign body, right lower leg, initial encounter (4) CHF (congestive heart failure): Status: Acute (5) History of angioplasty: Status: Acute (6) Hx of CABG: Status: Acute (7) Obstructive sleep apnea: Status: Acute (8) COPD (chronic obstructive pulmonary disease): Status: Acute (9) Venous stasis: Status: Acute (10) Left above-knee amputee: Status: Acute (11) G tube feedings: Status: Acute (12) Hemiplegia: Status: Acute (13) DNR (do not resuscitate): Status: Acute Additional A&P Information Infected wound/cellulitis: Patient does not have any signs of sepsis for now. CT foot results appreciated. No bony involvement on foreign bodies or abscess. ESR, CRP results appreciated. For now continue with vancomycin, aztreonam. Both renally dosed. Will de- escalate antibiotics as per the culture results. MRSA negative. Appreciate Dr. Tadeo recommendations. Case discussed. Given the extensive flap for now would be best to try to treat patient medically. Patient's wound is becoming a lot better. Plan would be to continue IV antibiotics for today and discharge tomorrow on oral antibiotics with follow-up at the wound care clinic as an outpatient. Last urine culture shows Pseudomonas and enterococcus. Enterococcus was resistant to vancomycin at that time. For now we will continue to monitor. If patient worsens we will switch from vancomycin to linezolid. Arterial duplex results appreciated. As the blood supply is colitis quite possible that patient's wound should heal.. Hydrocodone for pain. We will discuss with Dr. Tadeo regarding suture removal. Most likely alternate sutures can be taken out while other will remain in to prevent wound dehiscence given the infection at present. COPD: Compensated. Continue with duo nebs, budesonide. Oxygen supplementation keeping saturation over 90%. CAD/history of CABG last nuclear test in August negative. Echocardiogram done from May 2019 shows an EF of 55% no regional wall motion abnormality, grade 2 diastolic dysfunction, moderate TR, normal PASP. Continue with aspirin. Patient looking in the leather drier side for now. For now continue with normal saline at 50 cc/h. We will monitor for fluid overload. Continue other chronic medications. We will change medication as per clinical picture and results of the blood work. DNR/DNI as per the last discharge summary. Cardiac diet for now. N.p.o. after midnight for possible OR tomorrow. No heparin or Lovenox as patient might be going for procedure. Hold off on SCD because of right leg cellulitis, left AKA. Most likely patient requires home health for safe discharge. Unfortunately patient's is not comfortable with home health coming home because of COVID- 19 pandemic as she gets chemotherapy. We will continue to monitor. Case management has been consulted. Patient's has been updated regarding his health and all the questions were answered. Attestations Medical Necessity Statement*: Cellulitis, infected wound. Time Spent in Patient Care: Greater than 35 minutes (>than 50% of time spent in counselling and/or direct pt care on unit) . Coding Level of Care Code Acute Marine Air Ground Task Force Planners for g Fwd Diagnoses Infected wound T14.8XXA; L08.9 Cellulitis of right lower extremity L03.115 Laceration of leg, right S81.811A Encounter type: initial encounter CHF (congestive heart failure) I50.9 History of angioplasty Z98.62 Hx of CABG Z95.1 Obstructive sleep apnea G47.33 COPD (chronic obstructive pulmonary disease) J44.9 Venous stasis I87.8 Left above-knee amputee Z89.612 G tube feedings Z93.1 Hemiplegia G81.90 DNR (do not resuscitate) Z66
--- NOTE | 2020-02-04 18:45 | PC.RESP ---
SMOKING CESSATION INFORMATION SENT TO PATIENT.
[2020-02-05] VITALS (12 sets, daily range): BP systolic 98–129; BP diastolic 48–67; PULSE 64–79; RESP 16–22; TEMP 36.8–36.9; O2SAT 85–98
[2020-02-05] MEDS: ipratropium-albuterol 3 mL Neb INHALATION ×3 (02:53→15:24)
[2020-02-05 04:59] LABS: Basophils % 0.4 %; Eosinophils # 0.4 10^3/uL (0.0-0.8); Eosinophils % 3.4 %; Hematocrit 33.2 % (42.0-52.0); Lymphocytes # 0.8 10^3/uL (0.8-4.8); Lymphocytes % 7.6 %; Mean Corpuscular HGB Conc 30.1 g/dL (30.0-36.0); Mean Corpuscular Hemoglobin 26.6 pg (28.0-34.0); Mean Corpuscular Volume 88.3 fL (80-94); Mean Platelet Volume 9.7 fL (7.4-10.4); Monocytes # 0.8 10^3/uL (0.2-0.9); Monocytes % 7.4 %; Neutrophils # 8.93 10^3/uL (1.8-7.7); Nucleated Red Blood Cells % 0 %; Platelet Count 212 10^3/cmm (130-400); Red Blood Count 3.76 10^6/uL (4.1-5.3); Red Cell Distribution Width 13.7 % (12.1-15.1)
[2020-02-05 05:16] LABS: Alanine Aminotransferase 6 U/L (0-41); Albumin Level 2.7 g/dL (3.5-5.2); Alkaline Phosphatase 70 IU/L (40-130); Anion Gap 10.4 (5-19); Aspartate Amino Transferase 11 U/L (0-40); Blood Urea Nitrogen 19 mg/dL (8-23); Calcium 8.3 mg/dL (8.5-10.5); Carbon Dioxide 28 mmol/L (22-29); Chloride 104 mmol/L (98-107); Globulin 2.4 g/dL (1.3-4.6); Glucose 92 mg/dL (65-115); Osmolality Calculated 282 mOsm/kg (285-295); Potassium 4.4 mmol/L (3.5-5.1); Sodium 138 mmol/L (136-145); Total Bilirubin 0.2 mg/dL (0.15-1.2); Total Protein 5.1 g/dL (6.6-8.7)
[2020-02-05] MEDS: sodium chloride 0.9% 1,000 ML 100 ML IV (07:56)
[2020-02-05] MEDS: budesonide 0.5 mg/2 mL Neb INHALATION (09:09)
--- NOTE | 2020-02-05 09:20 | PM.PN ---
Subjective Subjective: Interval history: Patient denies any significant pain in the right lower extremity Vitals/I&O/Wt Last Vital Signs Temp 98.3 F 02/05/20 07:36 Pulse 72 02/05/20 09:14 Resp 22 H 02/05/20 09:14 BP 129/65 02/05/20 07:36 Pulse Ox 85 L 02/05/20 09:14 02/04/20 02/05/20 02/05/20 22:59 06:59 14:59 Intake Total 2094 / 2771 Output Total 400 / 1430 630 / 1430 Balance 1694 / 1341 -630 / 1341 Weight last 48 hrs Weight 122 lb Weight 118 lb 2 oz Physical Exam Narrative: EXAM NARRATIVE: Lower extremity: Erythema is improved, nontender, flap still has questionable viability though it still intact Abdomen: Soft, PEG tube in the left upper quadrant Data : 02/05/20 04:23 02/05/20 04:23 A&P Assessment and plan (1) Cellulitis of right lower extremity: 79-year-old gentleman with multiple comorbidities who has developed cellulitis of his right lower extremity after closure of laceration. Clinically improved significantly with IV antibiotics. Hopefully he can go home today on oral antibiotics. I will see him in the clinic next week since he does not have an open wound he would not be seen in wound care Status: Acute Attestations Medical Necessity Statement*: Cellulitis right lower extremity improved with IV antibiotics Coding Level of Care Code Acute Certified Vehicle Fire Investigator for Aniya Barrera Diagnoses Cellulitis of right lower extremity L03.115
[2020-02-05] MEDS: aztreonam 2,000 MG in sodium chloride 0.9% (plus) 100 ML 200 MG IV (10:06)
[2020-02-05] MEDS: ascorbic acid 500 mg Tablet 1000 MG PO (10:34)
[2020-02-05] MEDS: alum-mag-hydroxide-sime 30 mL UDC 10 ML PO (10:35)
[2020-02-05] MEDS: finasteride 5 mg Tablet PEG-TUBE (10:35)
[2020-02-05] MEDS: pantoprazole DR 40 mg Tablet PO (10:35)
[2020-02-05] MEDS: lactulose oral liq 20 gm/30 mL UDC PO (10:35)
[2020-02-05] MEDS: tamsulosin 0.4 mg Capsule PO (10:35)
[2020-02-05] MEDS: potassium chloride oral liq 20 mEq/15 mL UDC 10 MEQ PEG-TUBE (10:36)
--- NOTE | 2020-02-05 12:23 | PC.SOCIAL ---
Pg 2 IMM Explained to pt Pg 2 IMM. No questions voiced. Provided pt a copy. Signed, dated, & timed a copy & placed in chart.
--- NOTE | 2020-02-05 13:15 | PM.DCS ---
Discharge Providers Date of Admission: 02/02/20 17:30 Date of Discharge: February 05, 2020 Attending Provider at Admission: Deandra Cardoza MD Attending Provider at Discharge: Navin Meraz MD Consults: Surg: Dr. Tadeo Primary Care Provider: Magda Garcia MD Diagnoses at Discharge Discharge Diagnosis (1) Cellulitis of right lower extremity: Status: Acute Reason for Visit Reason for Visit: R LEG SUTURES INFECTED Hospital Course Discharge Summary: Steven Whitney is a 79 year old male with past medical history of CAD post CABG, congestive heart failure, COPD on 5 L nasal cannula with chronic respiratory failure, obstructive sleep apnea noncompliant with CPAP for over 5 to 6 months, right hemispheric stroke in 1984, ALS needing PEG tube feeds since 2015 with history of pneumonia, left BKA who presented to the ER today with worsening pain and swelling of the right leg. Patient gives history of having a traumatic injury to the right leg last week for which he required 40 sutures. Post suturing he has been taking clindamycin levofloxacin at home. He states for last 3 days the swelling and the pain in the leg has been getting worse for which he presented to the ER. Denies of having any fever, chills, discharge from the leg, dysuria, diarrhea, cough more than usual, runny nose, headache, confusion, dizziness, chest pain. Blood work in the ER showed white count of 10.4, hemoglobin of 12, left shift, creatinine of 1.5, sodium of 130, chloride of 91. He was started on broad-spectrum antibiotics. CT leg was done which ruled out any foreign body or bony involvement. Surgery was consulted. As patient's cellulitis and wound improved drastically with IV antibiotics plan was done not to take him to the OR. Arterial duplex was done which showed normal resting KATHLEEN which suggested no significant arterial obstruction. He is been discharged on oral antibiotics to finish a course of 7 days of antibiotics. He is advised to follow-up with Dr. Tadeo as an outpatient. His sutures will be removed from Dr. Guerra clinic. His hospital stay was unremarkable and is been discharged medically stable condition Physical Exam Narrative: EXAM NARRATIVE: General: No acute distress, AO x3, dehydrated HEENT: PERRLA, pupils bilaterally equal and reactive Chest: Normal vesicular breath sounds, no added sounds, equal good air entry bilaterally CVS: S1-S2 regular, no murmurs, no tachycardia, no gallops, no rubs Abdomen: Soft, nontender, no organomegaly, bowel sounds present, PEG tube in place Neuro: No focal deficits, no facial deformity, AO x3, power 5/5 in all limbs Extremities: Left BKA, right leg L-shaped?present on the leg sutured, erythema around the suture all across all over the leg becoming better. Discharge Data Data Completed and Pending: Completed Studies During Hospitalization Category Date Time Status CT lower leg RT w o con* [id number] Routi ne Cat Scan 02/02/20 20:34 Completed XR chest 1V [place] [id number] Stat Exams 02/02/20 16:04 [place] [id number] Urge nt Ultrasound 02/02/20 16:03 Completed Pending at discharge Category Date Time Status Blood Culture Sta t Lab 02/02/20 17:16 Results Vancomycin Trough Timed Lab 02/06/20 14:00 Ordered Labs from last 24 hours 02/05/20 02/05/20 04:23 04:23 WBC 11.0 H RBC 3.76 L Hgb 10.0 L Hct 33.2 L MCV 88.3 MCH 26.6 L MCHC 30.1 RDW 13.7 Plt Count 212 MPV 9.7 Neut % (Auto) 81.0 Lymph % (Auto) 7.6 [place] % (Auto) 7.4 Eos % (Auto) 3.4 Baso % (Auto) 0.4 Neut # (Auto) 8.93 H Lymph # (Auto) 0.8 [place] # (Auto) 0.8 Eos # (Auto) 0.4 Baso # (Auto) 0.0 Nucleated RBC % (a uto) 0 Nucleated RBCs # 0.0 Sodium 138 Potassium 4.4 Chloride 104 Carbon Dioxide 28 Anion Gap 10.4 BUN 19 Creatinine 1.1 GFR Calculation Not Reportable Glucose 92 Calculated Osmolal ity 282 L Calcium 8.3 L Total Bilirubin 0.2 AST 11 ALT 6 Alkaline Phosphata se 70 Total Protein 5.1 L Albumin 2.7 L Globulin 2.4 Vitals: Last Vital Signs Temp 98.2 F 02/05/20 11:51 Pulse 70 02/05/20 11:51 Resp 16 02/05/20 11:51 BP 114/67 02/05/20 11:51 Pulse Ox 98 02/05/20 11:51 Discharge Plan Discharge Patient Disposition: Home Condition: Stable Prescriptions: New levofloxacin 750 mg tablet 750 mg PO DAILY 7 Days Qty: 7 RF: 0 doxycycline hyclate 100 mg tablet 100 mg PO BID 7 Days Qty: 14 RF: 0 Continued pantoprazole [Protonix] 40 mg tablet,delayed release (DR/EC) 40 mg PO DAILY PRN (Reason: Acid Reflux) RF: 0 Breo Ellipta 100-25 mcg/dose blister with device 1 inh INHALATION DAILY RF: 0 mupirocin 2 % ointment 1 applic TOPICAL TID PRN (Reason: Skin Irritation) Qty: 15 RF: 2 guaifenesin [Adult Tussin Chest Congestion] 100 mg/5 mL liquid 200 mg PO Q4H PRN (Reason: congestion) Qty: 473 RF: 0 clobetasol 0.05 % solution 1 applic TOPICAL BID PRN (Reason: Dry Skin) RF: 0 lactulose 10 gram/15 mL solution 20 gm PO TID RF: 0 potassium chloride 20 mEq/15 mL liquid See Rx Instructions .ROUTE .COMPLEX RF: 0 nystatin 100,000 unit/gram ointment 1 applic TOPICAL BID PRN (Reason: Skin Irritation) RF: 0 lidocaine 5 % ointment 1 applic TOPICAL BID RF: 0 alum-mag hydroxide-simeth 200-200-20 mg/5 mL suspension 10 ml PO BID RF: 0 nitroglycerin 0.4 mg tablet, sublingual 0.4 mg SUBLINGUAL Q5M PRN (Reason: Chest Pain) RF: 0 simethicone 62.5 mg strip 1 strip PO TID PRN (Reason: abdominal distention/bloating) Qty: 18 RF: 0 Relistor 8 mg/0.4 mL syringe 8 mg SUBCUT DAILY PRN (Reason: constipation) Qty: 5.6 RF: 2 finasteride 5 mg tablet 5 mg feeding tube DAILY Qty: 30 RF: 2 furosemide 10 mg/mL solution See Rx Instructions .ROUTE .COMPLEX Qty: 120 RF: 0 hydrocortisone 2.5 % cream 1 applic TOPICAL BID PRN (Reason: Itching) Qty: 28 RF: 0 tamsulosin 0.4 mg capsule 0.4 mg PO DAILY Qty: 30 RF: 12 levofloxacin 250 mg/10 mL solution 500 mg PO DAILY 7 Days Qty: 140 RF: 0 methenamine hippurate 1 gram tablet 1 gm PO BID Qty: 60 RF: 12 Vitamin C 1,000 mg Tablet 1,000 mg PO BID RF: 0 Incruse Ellipta 62.5 mcg/actuation Blister With Device 1 inh INHALATION DAILY RF: 0 hydromorphone 1 mg/mL liquid 4 mg PO Q4H PRN (Reason: Pain) RF: 0 Discontinued clindamycin HCl 300 mg capsule 300 mg PO BID 7 Days Qty: 14 RF: 0 Discharge Orders: Discharge Order (Routine); Ordered 02/05/20 Ordered By: Navin Meraz Referrals: Kacey [Outside] Aguilar Tadeo MD [Physician] - 1 week (Please call Friday to make a follow up appointment.) Magda Garcia MD [Primary Care Provider] - 4-7 days Discharge Diet: Cardiac and Diabetic Discharge Activity: Resume usual activity Patient Instructions: Cellulitis, Doxycycline (By mouth), Levothyroxine (By mouth), How to Stop Smoking (DC) Activity Restrictions/Additional Instructions: Please follow up with wound care in a week. Sutures will be taken care of with wound care clinic. He supposed to on doxycycline and levofloxacin for 7 days. Please check BMP in 1 week. Discharge Attestations Time Spent in Discharge Care*: greater than 30 min Specific Discharge Activities: Specific discharge activities: educating patient, educating and/or supporting family/caregiver, discussing with pcp/other providers, discussing with community case manager/social workers/dc planners, documenting/other paperwork and evaluating patient/reviewing data Status at Discharge: Cognitive status at discharge: cognitively intact, Behavioral status at discharge: cooperative, Functional status at discharge: wheelchair bound Overall status at discharge: patient is back to baseline Quality Metrics Clinical Quality Measures During this hospital stay, did patient experience: None Coding Level of Care Code Acute Director Of Student Financial Aid for g Fwd Diagnoses Cellulitis of right lower extremity L03.115
[2020-02-05] MEDS: vancomycin 750 MG in sodium chloride 0.9% 250 ML 250 MG IV (13:42)
--- NOTE | 2020-02-05 16:35 | PC.NURSE ---
IV's dc'd caths intact bleeding controlled with 2x2's and coban, DC instructions given, voiced full understanding .patient to main entrance via wheelchair to personal vehicle with zero difficulties.
== END 2020-02-05 16:35 | disposition home or self-care (01) | DRG 863 ==
LOC: ER 17:47 → MEDSURG 18:48
PROVIDERS: Admitting Provider Student in an Organized Health Care Education/Training Program; Emergency Provider Family Medicine; PCP Family Medicine; Visit Provider Student in an Organized Health Care Education/Training Program
DX: T81.40XA Infection following a procedure, unspecified, initial encounter (principal); L03.115 Cellulitis of right lower limb; G81.90 Hemiplegia, unspecified affecting unspecified side; I50.30 Unspecified diastolic (congestive) heart failure; G12.21 Amyotrophic lateral sclerosis; J96.10 Chronic respiratory failure, unspecified whether with hypoxia or hypercapnia; E08.44 Diabetes mellitus due to underlying condition with diabetic amyotrophy; T14.8XXA Other injury of unspecified body region, initial encounter; L08.9 Local infection of the skin and subcutaneous tissue, unspecified; Z66 Do not resuscitate; S81.811A Laceration without foreign body, right lower leg, initial encounter; Z98.62 Peripheral vascular angioplasty status; Z95.1 Presence of aortocoronary bypass graft; G47.33 Obstructive sleep apnea (adult) (pediatric); Z93.1 Gastrostomy status; Z89.612 Acquired absence of left leg above knee; J44.9 Chronic obstructive pulmonary disease, unspecified; I25.10 Atherosclerotic heart disease of native coronary artery without angina pectoris; Y83.9 Surgical procedure, unspecified as the cause of abnormal reaction of the patient, or of later complication, without mention of misadventure at the time of the procedure; N40.0 Benign prostatic hyperplasia without lower urinary tract symptoms; K21.9 Gastro-esophageal reflux disease without esophagitis; G89.29 Other chronic pain; Z95.5 Presence of coronary angioplasty implant and graft; F17.210 Nicotine dependence, cigarettes, uncomplicated
CPT/HCPCS: 12345; 36415; 71045; 73700; 80053; 81001; 83036; 83540; 83550; 83880; 84145; 84443; 85025; 85651; 86140; 87040; 87205; 87641; 93926; 94640; 99283; J3370; J3490; J7030; J7050; J7626

== ENCOUNTER → 2020-02-09 11:24 | Outpatient (BNVA) | payer MEDICARE, OTHER, SELFPAY | PROVIDERS: PCP Family Medicine; Visit Provider Nurse Practitioner Family | DX: L03.115 Cellulitis of right lower limb (principal) | CPT/HCPCS: 80048; 85025 ==

== ENCOUNTER 2020-02-15 09:14 | Outpatient (CLI) | payer MEDICARE, OTHER, SELFPAY ==
--- NOTE | 2020-02-15 09:29 | CT_ITS ---
WS: [id number] CT NECK TECHNIQUE: Contrast-enhanced CT of the neck with coronal and sagittal reformatted images. CLINICAL INFORMATION: DYSPHAGIA COMPARISON: None. DLP: 1045.[address] scans at [facility] use at least one of these dose optimization techniques: automat ed exposure control; mA and/or kV adjustment per patient size (includes targeted exams where dose is matched to clinical indication); or iterative reconstruction. FINDINGS: Parotid glands are normal. Normal submandibular glands. Tongue base appears normal. Normal vallecula and piriform sinuses. No evidence of supraglottic or glottic mass. Subglottic airway is patent. Left to right narrowing of the glottis with evidence of prior tracheostomy. No critical airway stenosis. Retropharyngeal course to both cervical ICAs. No cervical lymphadenopathy. Multinodular thyroid with small nodules bilaterally largest in the right thyroid measuring 8 mm. This can be further evaluated ultrasound. Prior sternotomy with CABG. Sternotomy wires appear grossly intact. No protrusion into th e mediastinum. Moderate spondylitic changes cervical spine. Normal prevertebral soft tissues. Partial ly visualized intracranial contents are normal. Chronic lacunar infarct left cerebellum. Inspissated secretions with opacification left maxillary sin us. Mastoid air cells are well aerated. CT/CT neck w con* [id number] IMPRESSION: 1. No cervical lymphadenopathy. 2. Salivary glands are normal. 3. No evidence of supraglottic or glottic mass. 4. Mild left to right narrowing of the supraglottic airway the vocal folds and glottis with evidence of prior tracheostomy. No critical airway stenosis. 5. Small nodules in the thyroid bilaterally largest in the right lobe measurin g 8 mm. This can be followed up with ultrasound. 6. Sternotomy wires appear grossly intact. No protrusion into the mediastinum. 7. Moderate spondylitic changes cervical spine. 8. Chronic appearing opacification left maxillary sinus. 9. Retropharyngeal course to both cervical ICAs.
[2020-02-15] MEDS: iodixanol 320 mg/mL 100mL Btl IV (09:52)
== END 2020-02-15 09:15 | disposition home or self-care (01) ==
LOC: RADWPI 09:21
PROVIDERS: PCP Family Medicine; Visit Provider Specialist
DX: R13.10 Dysphagia, unspecified (principal); E04.2 Nontoxic multinodular goiter
CPT/HCPCS: 70491; 81001; Q9967

== ENCOUNTER → 2020-02-15 11:08 | Day surgery (SDC) | payer MEDICARE, OTHER, SELFPAY ==
--- NOTE | 2020-02-15 12:32 | SUR.PREOP ---
1114 Pt to OPS for suture removal from right lower leg per Dr. Garcia. Wound cleansed with saline and painted with Betadine per Dr. Garcia verbal orders. ABD pad applied over wound and secured lightly with Coban. Pt to follow up in Dr. Garcia office in 1 week. Nadege notified in Dr. Garcia office. Nadege to notify patient of follow up time.
== END ==
PROVIDERS: PCP Family Medicine; Visit Provider Surgery
DX: Z48.02 Encounter for removal of sutures (principal)
CPT/HCPCS: 15852

== ENCOUNTER → 2020-03-30 11:00 | Outpatient (BNVA) | payer MEDICARE, OTHER, SELFPAY | PROVIDERS: PCP Family Medicine; Visit Provider Nurse Practitioner Family | DX: L03.115 Cellulitis of right lower limb (principal); R53.1 Weakness | CPT/HCPCS: 80053; 85025 ==

== ENCOUNTER 2020-04-03 14:38 | Outpatient (CLI) | payer MEDICARE, OTHER, SELFPAY | END 2020-04-03 14:39 | disposition home or self-care (01) | LOC: WOUND 14:38 | PROVIDERS: PCP Family Medicine; Visit Provider Nurse Practitioner Family | DX: L97.812 Non-pressure chronic ulcer of other part of right lower leg with fat layer exposed (principal); S61.422A Laceration with foreign body of left hand, initial encounter; X58.XXXA Exposure to other specified factors, initial encounter | CPT/HCPCS: 11042; 87070; 87077; 87176; 87186; 87205 ==

== ENCOUNTER 2020-04-10 10:50 | Emergency (ER) | payer MEDICARE, OTHER, SELFPAY ==
[2020-04-10 11:08] VITALS: BP 114/69; PULSE 65; RESP 20; TEMP 36.7; O2SAT 97; BMI 17.6
--- NOTE | 2020-04-10 11:12 | XR_ITS ---
WS: [id number] PORTABLE CHEST HISTORY: syncope COMPARISON: 02/02/2020 Improved aeration since the prior study. No pneumonia. Normal vasculature. No pleural effusion or pne umothorax. Cardiac size: Normal. Mediastinum/Aorta: Moderate atherosclerosis aorta. Prior median sternotomy. Marked osteopenia. XR/XR chest 1V portable [id number] IMPRESSION: Improved aeration since the prior study. No pneumonia.
--- NOTE | 2020-04-10 11:13 | ECG_ITS ---
[facility] Test Date: 2020-04-10 Pat Name: Steven Whitney Department: Room: Gender: Male Social And Human Services Assistant: : 1940 Requested By: Charmaine Muniz Order Number: [id number] Jerry MD: Lety Milan M.D. Measurements Intervals [place] Rate: 67 P: 66 [place]: 195 QRS: 16 QRSD: 104 T: 73 QT: 417 QTc: 442 Interpretive Statements SINUS RHYTHM WITH OCCASIONAL VENTRICULAR PREMATURE COMPLEXES Compared to ECG 09/09/2019 16:14:16 Ventricular premature complex(es) now present Sinus bradycardia no longer present First degree AV block no longer present Myocardial infarct finding no longer present T-wave abnormality no longer present Possible ischemia no longer present Electronically Signed On 04-10-2020 19:44:23 CDT by Lety Milan M.D. [id number] f
--- NOTE | 2020-04-10 12:39 | W.ED.SOB ---
HPI - SOB/Dyspnea General: Chief Complaint: Abdominal Pain Stated Complaint: EPIGASTRIC PAIN, SOB Time Seen by Provider: 04/10/20 12:30 History of Present Illness: HPI Narrative: This patient presents with some upper abdominal discomfort and shortness of breath. He has a feeding tube and uses oxygen at home. He has a history of pneumonia. He mobilizes with a wheelchair. MD elicited complaint: shortness of breath Pertinent past history: COPD and pneumonia Onset (ago): day(s) Context: anxiety Timing: constant Severity: moderate Exacerbating factors: nothing Relieving factors: nothing Known history of: COPD and recurrent pneumonia Associated symptoms: Reports abdominal pain and cough; Deny chest pain or fever(s) Treatment prior to arrival: oxygen Review of Systems General: Reports: 10 or more systems reviewed and unremarkable except in HPI and below Const: Reports: malaise; Denies: fever(s), chills or fatigue Eyes: Denies: change in vision ENMT: Denies: odynophagia Card: Denies: chest pain or swelling of feet/ankles Resp: Reports: dyspnea and non-productive cough; Denies: productive cough GI: Reports: abdominal pain : Denies: flank pain Musc: Denies: neck pain or back pain Skin/Breast: Denies: rash Neuro: Denies: headache(s), numbness in extremities or weakness in extremities [place]/Lymph: Denies: easy bruising or easy bleeding PFSH ED PFSH: Medical History Bacteriuria Benign prostatic hyperplasia with lower urinary tract symptoms CAD (coronary artery disease) Chronic headaches COPD (chronic obstructive pulmonary disease) Diastolic CHF DNR (do not resuscitate) GERD (gastroesophageal reflux disease) 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 Social History Smoking and tobacco status: current every day smoker cigarettes Packs smoked per day: 0.5 Years cigarettes smoked: 70 Second hand smoke exposure: No Alcohol intake: never Adopted: No Caregiver/support person: No Lives independently: No Household members: spouse Marital status: Current occupational status: retired History of recent travel: No Current gender identity: Male Physical Exam Const: COMMON NORMALS: no acute distress, patient oriented x3, no limitations and alert GENERAL APPEARANCE: cooperative and comfortable OTHER: Very kyphotic HENMT: HEAD & SCALP: normal to inspection FACE & SINUS: normal facial exam Eye: GENERAL EYE: appearance normal, both eyes and all related structures Neck/C-Spine: COMMON NORMALS: supple, no meningeal signs and no JVD Chest: COMMONS NORMALS: normal inspection of the chest Resp: COMMON NORMALS: normal respiratory effort, No use of accessory muscles and clear to auscultation bilaterally AUSCULTATION: clear to auscultation bilaterally Cardio: COMMON NORMALS: no JVD, regular rate, regular rhythm and No murmurs present (Cardio) RATE: regular rate RHYTHM: regular rhythm GI: COMMON NORMALS: Normal to inspection, nondistended, normoactive bowel sounds present, Soft to palpation and non-tender INSPECTION: Yes normal to inspection (G-tube) AUSCULTATION: Yes normoactive bowel sounds PALPATION: Yes Soft to palpation Back/Pelvis: COMMON NORMALS: thoracic and lumbar spine normal to inspection Extremity: COMMON NORMALS: normal to inspection Neuro: COMMON NORMALS: patient oriented x3, moves all extremities, no focal motor deficits and no sensory deficits noted SENSORIUM/ORIENTATION: Yes alert MENINGEAL SIGNS: Yes no meningeal signs Psych: COMMON NORMALS: mental status grossly normal, cooperative and normal affect Skin: COMMON NORMALS: no rashes or lesions noted and turgor normal GENERAL SKIN EXAM: no rashes or lesions noted and turgor normal Course ED course: Patient appears to be near his baseline. I offered assistance at home or admission in case he was having trouble getting around and taking care of himself. He wants to go home and says he is okay there. Put him on doxycycline for suspected pneumonia although the chest x-ray did not really show it. The chest x-ray is somewhat limited by his kyphosis. Vital Signs: Vital signs: Vital Signs Temperature 98.0 F 04/10/20 11:08 Pulse Rate 59 L 04/10/20 15:40 Respiratory Rate 18 04/10/20 15:40 Blood Pressure 117/77 04/10/20 15:40 Pulse Oximetry 95 04/10/20 15:40 MDM - SOB/Dyspnea Lab Data: Labs: Lab Results 04/10/20 04/10/20 04/10/20 Range/Units 12:53 12:53 12:53 WBC 6.9 (4.0-10.0) 10^3/ uL RBC 5.17 (4.1-5.3) 10^6/u L Hgb 13.5 (11.7-16.6) g/dL Hct 44.6 (42.0-52.0) % MCV 86.3 (80-94) fL MCH 26.1 L (28.0-34.0) pg MCHC 30.3 (30.0-36.0) g/dL RDW 14.1 (12.1-15.1) % Plt Count 185 (130-400) 10^3/c mm MPV 10.3 (7.4-10.4) fL Neut % (Auto) 76.4 % Lymph % (Auto) 14.6 % [place] % (Auto) 5.9 % Eos % (Auto) 2.6 % Baso % (Auto) 0.4 % Neut # (Auto) 5.28 (1.8-7.7) 10^3/u L Lymph # (Auto) 1.0 (0.8-4.8) 10^3/u L [place] # (Auto) 0.4 (0.2-0.9) 10^3/u L Eos # (Auto) 0.2 (0.0-0.8) 10^3/u L Baso # (Auto) 0.0 (0.0-0.1) 10^3/u L Nucleated RBC % (a uto) 0 % Nucleated RBCs # 0.0 /100WBC Sodium 134 L (136-145) mmol/L Potassium 4.7 (3.5-5.1) mmol/L Chloride 92 L (98-107) mmol/L Carbon Dioxide 31 H (22-29) mmol/L Anion Gap 15.7 (5-19) BUN 17 (8-23) mg/dL Creatinine 1.6 H (0.7-1.2) mg/dL GFR Calculation Not Reportable Glucose 95 (65-115) mg/dL Calculated Osmolal ity 279 L (285-295) mOsm/k g Calcium 9.2 (8.5-10.5) mg/dL Total Bilirubin 0.4 (0.15-1.2) mg/dL AST 19 (0-40) U/L ALT 13 (0-41) U/L Alkaline Phosphata se 96 (40-130) IU/L Troponin T Baselin e 49 H (0-15) ng/L Troponin T 120 Min minto (0-15) ng/L Delta Troponin T (0-10) ABS# Total Protein 7.0 (6.6-8.7) g/dL Albumin 4.2 (3.5-5.2) g/dL Globulin 2.8 (1.3-4.6) g/dL Lipase 28 (13-60) U/L Urine Color (Yellow) Urine Appearance (CLEAR) Urine pH (5-7) Ur Specific Gravit y (1.005-1.030) Urine Protein (Negative) Urine Glucose (UA) (Normal) Urine Ketones (Negative) Urine Blood (Negative) Urine Nitrate (Negative) Urine Bilirubin (Negative) Urine Urobilinogen (Negative) mg/dL Ur Leukocyte Bridget ase (Negative) Urine RBC (0-2) /hpf Urine WBC (0-5) /hpf Ur Squamous Epith Cells (0-5) /hpf Amorphous Sediment Urine Bacteria (NONE) /hpf 04/10/20 04/10/20 Range/Units 14:13 14:46 WBC (4.0-10.0) 10^3/ uL RBC (4.1-5.3) 10^6/u L Hgb (11.7-16.6) g/dL Hct (42.0-52.0) % MCV (80-94) fL MCH (28.0-34.0) pg MCHC (30.0-36.0) g/dL RDW (12.1-15.1) % Plt Count (130-400) 10^3/c mm MPV (7.4-10.4) fL Neut % (Auto) % Lymph % (Auto) % [place] % (Auto) % Eos % (Auto) % Baso % (Auto) % Neut # (Auto) (1.8-7.7) 10^3/u L Lymph # (Auto) (0.8-4.8) 10^3/u L [place] # (Auto) (0.2-0.9) 10^3/u L Eos # (Auto) (0.0-0.8) 10^3/u L Baso # (Auto) (0.0-0.1) 10^3/u L Nucleated RBC % (a uto) % Nucleated RBCs # /100WBC Sodium (136-145) mmol/L Potassium (3.5-5.1) mmol/L Chloride (98-107) mmol/L Carbon Dioxide (22-29) mmol/L Anion Gap (5-19) BUN (8-23) mg/dL Creatinine (0.7-1.2) mg/dL GFR Calculation Glucose (65-115) mg/dL Calculated Osmolal ity (285-295) mOsm/k g Calcium (8.5-10.5) mg/dL Total Bilirubin (0.15-1.2) mg/dL AST (0-40) U/L ALT (0-41) U/L Alkaline Phosphata se (40-130) IU/L Troponin T Baselin e (0-15) ng/L Troponin T 120 Min minto 43.52 H (0-15) ng/L Delta Troponin T -5.48 L (0-10) ABS# Total Protein (6.6-8.7) g/dL Albumin (3.5-5.2) g/dL Globulin (1.3-4.6) g/dL Lipase (13-60) U/L Urine Color Straw (Yellow) Urine Appearance Clear (CLEAR) Urine pH 6 (5-7) Ur Specific Gravit y 1.010 (1.005-1.030) Urine Protein 3+ H (Negative) Urine Glucose (UA) Norm (Normal) Urine Ketones Negative (Negative) Urine Blood Neg (Negative) Urine Nitrate Negative (Negative) Urine Bilirubin Neg (Negative) Urine Urobilinogen Norm (Negative) mg/dL Ur Leukocyte Bridget ase Negative (Negative) Urine RBC None (0-2) /hpf Urine WBC 0-4 H (0-5) /hpf Ur Squamous Epith Cells 0-4 H (0-5) /hpf Amorphous Sediment Not Reportable Urine Bacteria Trace (NONE) /hpf Discharge Plan Discharge Patient Disposition: Home Clinical Impression: Acute bronchitis Qualifiers: Bronchitis organism: unspecified organism Qualified Code(s): J20.9 - Acute bronchitis, unspecified Condition: Stable Prescriptions: New doxycycline hyclate 100 mg capsule 100 mg PO BID 7 Days Qty: 14 RF: 0 No Action pantoprazole [Protonix] 40 mg tablet,delayed release (DR/EC) 40 mg PO DAILY PRN (Reason: Acid Reflux) RF: 0 oxybutynin chloride 5 mg/5 mL syrup 5 mg PO BID Qty: 300 RF: 3 mupirocin 2 % ointment 1 applic TOPICAL TID PRN (Reason: Skin Irritation) Qty: 15 RF: 2 erythromycin 5 mg/gram (0.5 %) ointment 0.5 inch ophthalmic (eye) TID 7 Days Qty: 3.5 RF: 0 guaifenesin [Adult Tussin Chest Congestion] 100 mg/5 mL liquid 200 mg PO Q4H PRN (Reason: congestion) Qty: 473 RF: 0 Brovana 15 mcg/2 mL solution for nebulization 2 ml INHALATION Q12H Qty: 60 RF: 11 budesonide 1 mg/2 mL suspension for nebulization 0.5 mg INHALATION BID Qty: 60 RF: 11 Yupelri 175 mcg/3 mL solution for nebulization 175 mcg INHALATION DAILY Qty: 90 RF: 11 simethicone 62.5 mg strip 1 strip PO TID PRN (Reason: abdominal distention/bloating) Qty: 18 RF: 2 sulfamethoxazole-trimethoprim 200-40 mg/5 mL suspension 20 ml PO BID 10 Days Qty: 400 RF: 0 potassium chloride 20 mEq/15 mL liquid See Rx Instructions .ROUTE .COMPLEX Qty: 473 RF: 3 clobetasol 0.05 % solution 1 applic TOPICAL BID PRN (Reason: Dry Skin) RF: 0 lactulose 10 gram/15 mL solution 20 gm PO TID RF: 0 nystatin 100,000 unit/gram ointment 1 applic TOPICAL BID PRN (Reason: Skin Irritation) RF: 0 nitroglycerin 0.4 mg tablet, sublingual 0.4 mg SUBLINGUAL Q5M PRN (Reason: Chest Pain) RF: 0 finasteride 5 mg tablet 5 mg feeding tube DAILY Qty: 30 RF: 2 furosemide 10 mg/mL solution See Rx Instructions .ROUTE .COMPLEX Qty: 120 RF: 0 hydrocortisone 2.5 % cream 1 applic TOPICAL BID PRN (Reason: Itching) Qty: 28 RF: 0 tamsulosin 0.4 mg capsule 0.4 mg PO DAILY Qty: 30 RF: 12 methenamine hippurate 1 gram tablet 1 gm PO BID Qty: 60 RF: 12 water for irrigation, sterile [Aqua Care Sterile Water] Solution 1 irrig IRRIGATION DAILY Qty: 1000 RF: 1 (DME) nebulizer See Rx Instructions .Route .MEDSUPPLY Qty: 1 RF: 0 hydromorphone 1 mg/mL liquid 4 mg PO Q4H PRN (Reason: Pain) RF: 0 Discharge Orders: Discharge Order (Routine); Ordered 04/10/20 Ordered By: Bri Hendricks Referrals: Magda Garcia MD [Primary Care Provider] - Discharge Diet: Usual diet Discharge Activity: Resume usual activity Patient Instructions: Acute Bronchitis (ED) Activity Restrictions/Additional Instructions: Follow-up with your primary care physician. Continue your home oxygen. Take the doxycycline as prescribed. Return to the emergency room if you are getting worse in any way. Discharge Date/Time: 04/10/20 16:46 Coding Level of Care Code ED [employer]oker Machine Operator for Aniya Barrera
[2020-04-10 13:02] LABS: Basophils % 0.4 %; Eosinophils # 0.2 10^3/uL (0.0-0.8); Eosinophils % 2.6 %; Hematocrit 44.6 % (42.0-52.0); Hemoglobin 13.5 g/dL (11.7-16.6); Lymphocytes % 14.6 %; Mean Corpuscular HGB Conc 30.3 g/dL (30.0-36.0); Mean Corpuscular Hemoglobin 26.1 pg (28.0-34.0); Mean Corpuscular Volume 86.3 fL (80-94); Mean Platelet Volume 10.3 fL (7.4-10.4); Monocytes # 0.4 10^3/uL (0.2-0.9); Monocytes % 5.9 %; Neutrophils # 5.28 10^3/uL (1.8-7.7); Neutrophils % 76.4 %; Nucleated Red Blood Cells % 0 %; Platelet Count 185 10^3/cmm (130-400); Red Blood Count 5.17 10^6/uL (4.1-5.3); Red Cell Distribution Width 14.1 % (12.1-15.1); White Blood Count 6.9 10^3/uL (4.0-10.0)
[2020-04-10 13:04] VITALS: PULSE 62; RESP 24; O2SAT 97
--- NOTE | 2020-04-10 13:13 | ECG_ITS ---
[facility] Test Date: 2020-04-10 Pat Name: Steven Whitney Department: Room: Gender: Male Retention Representative: : 1940 Requested By: Charmaine Muniz Order Number: [id number] Jerry MD: Lety Milan M.D. Measurements Intervals [place] Rate: 54 P: 42 MT: 202 QRS: 20 QRSD: 102 T: 78 QT: 459 QTc: 437 Interpretive Statements SINUS BRADYCARDIA Compared to ECG 04/10/2020 12:35:38 Sinus rhythm no longer present Ventricular premature complex(es) no longer present Electronically Signed On 04-10-2020 20:14:18 CDT by Lety Milan M.D. [id number] f
[2020-04-10 13:30] VITALS: RESP 20; O2SAT 95
[2020-04-10 14:06] LABS: Alanine Aminotransferase 13 U/L (0-41); Albumin Level 4.2 g/dL (3.5-5.2); Alkaline Phosphatase 96 IU/L (40-130); Anion Gap 15.7 (5-19); Aspartate Amino Transferase 19 U/L (0-40); Blood Urea Nitrogen 17 mg/dL (8-23); Calcium 9.2 mg/dL (8.5-10.5); Carbon Dioxide 31 mmol/L (22-29); Chloride 92 mmol/L (98-107); Globulin 2.8 g/dL (1.3-4.6); Glucose 95 mg/dL (65-115); Lipase 28 U/L (13-60); Osmolality Calculated 279 mOsm/kg (285-295); Potassium 4.7 mmol/L (3.5-5.1); Sodium 134 mmol/L (136-145); Total Bilirubin 0.4 mg/dL (0.15-1.2)
[2020-04-10 14:07] LABS: Troponin(5th) Baseline 49 ng/L (0-15)
[2020-04-10 14:55] LABS: Add Urine Microscopic? YES; Bilirubin Urine Neg (Negative); Blood Urine Neg (Negative); Glucose Urine UA Norm (Normal); Ketones Urine Negative (Negative); Leukocyte Esterase Urine Negative (Negative); Nitrate Urine Negative (Negative); Protein Urine 3+ (Negative); Urine Appearance Clear (CLEAR); Urine Color Straw (Yellow); Urobilinogen Urine Norm (Negative); pH Urine 6 (5-7)
[2020-04-10 14:56] LABS: Add Urine Culture? No; Bacteria Urine TRACE /hpf; Squamous Epithelial Cell Urine 0-4 /hpf (0-5); WBC Urine 0-4 /hpf (0-5)
[2020-04-10 15:14] LABS: Troponin 5 2HR 43.52 ng/L (0-15)
[2020-04-10 15:15] LABS: Troponin 5 2HR Delta -5.48 ABS# (0-10)
[2020-04-10 15:40] VITALS: BP 117/77; PULSE 59; RESP 18; O2SAT 95
== END 2020-04-10 16:46 | disposition home or self-care (01) ==
PROVIDERS: Nurse Practitioner Family; Emergency Provider Emergency Medicine; PCP Family Medicine
DX: J20.9 Acute bronchitis, unspecified (principal); I25.10 Atherosclerotic heart disease of native coronary artery without angina pectoris; J44.9 Chronic obstructive pulmonary disease, unspecified; I50.30 Unspecified diastolic (congestive) heart failure; Z89.619 Acquired absence of unspecified leg above knee; Z95.1 Presence of aortocoronary bypass graft; F17.210 Nicotine dependence, cigarettes, uncomplicated
CPT/HCPCS: 12345; 71045; 80053; 81001; 83690; 84484; 85025; 93005; 99283

== ENCOUNTER → 2020-05-15 10:54 | Day surgery (SDC) | payer MEDICARE, OTHER, SELFPAY ==
[2020-05-15 11:32] VITALS: BMI 23.6
[2020-05-15 11:37] VITALS: BP 96/54; PULSE 58; RESP 18; TEMP 36.2; O2SAT 95
== END ==
PROVIDERS: PCP Family Medicine; Visit Provider Surgery
DX: R06.02 Shortness of breath (principal)
CPT/HCPCS: 43762

== ENCOUNTER → 2020-05-17 15:08 | Outpatient (BNVA) | payer MEDICARE, OTHER, SELFPAY | PROVIDERS: PCP Family Medicine; Visit Provider Nurse Practitioner Family | DX: J44.1 Chronic obstructive pulmonary disease with (acute) exacerbation (principal) | CPT/HCPCS: 80053; 85025 ==

== ENCOUNTER → 2020-05-31 11:18 | Outpatient (BNVA) | payer MEDICARE, SELFPAY | PROVIDERS: PCP Family Medicine; Visit Provider Nurse Practitioner Family | DX: N50.9 Disorder of male genital organs, unspecified (principal) | CPT/HCPCS: 87070; 87075; 87205 ==

== ENCOUNTER 2020-06-21 06:00 | Outpatient (RCR) | payer MEDICARE, SELFPAY | END 2020-06-29 23:59 | disposition home or self-care (01) | LOC: TOT 06:00 | PROVIDERS: PCP Family Medicine; Referring Provider Nurse Practitioner Family; Visit Provider Nurse Practitioner Family | DX: M79.642 Pain in left hand (principal) | CPT/HCPCS: 97110; 97166 ==

== ENCOUNTER 2020-06-30 06:00 | Outpatient (RCR) | payer MEDICARE, OTHER, SELFPAY | END 2020-07-30 23:59 | disposition home or self-care (01) | LOC: TOT 06:00 | PROVIDERS: PCP Family Medicine; Referring Provider Nurse Practitioner Family; Visit Provider Nurse Practitioner Family | DX: M79.642 Pain in left hand (principal) | CPT/HCPCS: 97035; 97110; 97140; 97530 ==

== ENCOUNTER → 2020-07-05 11:51 | Outpatient (BNVA) | payer MEDICARE, OTHER, SELFPAY | PROVIDERS: PCP Family Medicine; Visit Provider Internal Medicine Pulmonary Disease | DX: Z20.828 Contact with and (suspected) exposure to other viral communicable diseases (principal); Z01.812 Encounter for preprocedural laboratory examination | CPT/HCPCS: 87635 ==

== ENCOUNTER → 2020-07-12 13:07 | Outpatient (BNVA) | payer MEDICARE, SELFPAY | PROVIDERS: PCP Family Medicine; Visit Provider Nurse Practitioner Family | DX: Z11.59 Encounter for screening for other viral diseases (principal); K94.23 Gastrostomy malfunction | CPT/HCPCS: 87635 ==

== ENCOUNTER → 2020-07-18 09:57 | Day surgery (SDC) | payer MEDICARE, OTHER, SELFPAY ==
[2020-07-18 10:25] VITALS: BP 105/55; PULSE 61; RESP 18; TEMP 36.5; O2SAT 90
--- NOTE | 2020-07-18 10:59 | SUR.OPER ---
1035 Gastrostomy tube exchanged. 20 bermudian g-tube placed per Dr. Tadeo. Balloon filled with 7 mL NS. Pt tolerated well. Site clear.
--- NOTE | 2020-07-18 11:12 | PM.OP ---
Operative Report Date of procedure: July 18, 2020 Pre-op Diagnosis: g tube dysfunction Post-op diagnosis: same Procedure Done: Exchange of [place] gastrostomy tube Pathology: none sent Surgeon: Aguilar Tadeo Anesthesia: None Condition: stable Procedure: The patient's existing G-tube which is not functioning well was removed without any difficulty and a 20 [place] gastrostomy tube was placed with drainage of gastric contents. The balloon was insufflated with 7 cc of saline. Patient tolerated the procedure well. Dressings applied.
--- NOTE | 2020-07-20 09:43 | P.HP_ITS ---
Same Day Surgery H&P Indication for Procedure/HPI DATE OF PROCEDURE: July 20, 2020 CHIEF COMPLAINT/INDICATIONFOR SURGICAL PROCEDURE: Nonfunctioning G-tube for exchange PREOP DIAGNOSIS: g tube dysfunction PLANNED PROCEDRUE: Operation Date: 07/18/20 12:25 Proposed Procedures p PEG Tube Exchange 74645 R13.12(Not Applicable) - Aguilar Tadeo MD Medications/Allergies* Home Medications Medication Instructions Recorded Confirmed Type clobetasol 0.05 % scalp solution 1 applic TOPICAL BID PRN 07/14/19 07/18/20 History nitroglycerin 0.4 mg sublingual 0.4 mg SUBLINGUAL Q5M PRN 07/14/19 07/18/20 History tablet nystatin 100,000 unit/gram topical 1 applic TOPICAL BID PRN 07/14/19 07/18/20 History ointment hydromorphone 4 mg PO Q4H PRN 08/06/19 07/18/20 History pantoprazole 40 mg tablet,delayed 40 mg PO DAILY PRN 11/03/19 07/18/20 History release Allergies/Adverse Reactions Allergy/AdvReac Type Severity Reaction Status Date / Time Penicillins Allergy ALGY-Swell Verified 07/12/20 11:39 Lip/Tongue/Throat Pertinent History/Comorbid Conditions* Medical History (Updated 07/13/20 @ 09:26 by ROLANDO Jones) Bacteriuria Benign prostatic hyperplasia with lower urinary tract symptoms CAD (coronary artery disease) Chronic headaches COPD (chronic obstructive pulmonary disease) Diastolic CHF DNR (do not resuscitate) GERD (gastroesophageal reflux disease) 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 Melanoma Migraine headache Obstructive sleep apnea Presence of intrathecal pump Scrotal varices Venous stasis Surgical History (Updated 12/13/19 @ 16:33 by Amna Simms APRN) History of amputation ABOVE KNEE History of angioplasty WITH 9 STENTS History of cataract extraction LEFT LENS History of cholecystectomy History of elbow surgery Hx of CABG S/P percutaneous endoscopic gastrostomy (PEG) tube placement Status post insertion of intrathecal pump Family History Mother, AT AGE 92 Social History Smoking and tobacco status: current every day smoker cigarettes Packs smoked per day: 0.5 Years cigarettes smoked: 70 [ Other cigarette details: [id number] 70yr hx ] Second hand smoke exposure: No Smoking risk assessment/counseling performed?: Yes Alcohol intake: former Adopted: No Caregiver/support person: No Lives independently: No Household members: spouse Marital status: service: No Current occupational status: retired History of recent travel: No Current gender identity: Male Pertinent Exam Findings alert and regular rate & rhythm Recommendations Surgery/Procedure today Coding Level of Care Code Acute Mobile Heavy Equipment Operator for Aniya Barrera
== END ==
PROVIDERS: PCP Family Medicine; Visit Provider Surgery
DX: K94.23 Gastrostomy malfunction (principal)
CPT/HCPCS: 12345; 43762

== ENCOUNTER 2020-08-28 06:00 | Outpatient (RCR) | payer MEDICARE, OTHER, SELFPAY | END 2020-09-26 23:00 | disposition home or self-care (01) | LOC: TOT 06:00 | PROVIDERS: PCP Nurse Practitioner Family; Referring Provider Nurse Practitioner Family; Visit Provider Nurse Practitioner Family | DX: M79.642 Pain in left hand (principal) | CPT/HCPCS: 97530; L3924 ==

== ENCOUNTER → 2020-09-06 12:15 | Outpatient (BNVA) | payer MEDICARE, OTHER, SELFPAY | PROVIDERS: PCP Family Medicine; Visit Provider Nurse Practitioner Family | DX: I50.9 Heart failure, unspecified (principal); R73.9 Hyperglycemia, unspecified | CPT/HCPCS: 80053; 80061; 83036; 84443; 85025 ==

== ENCOUNTER 2020-10-03 13:35 | Outpatient (CLI) | payer MEDICARE, OTHER, SELFPAY | END 2020-10-03 13:36 | disposition home or self-care (01) | LOC: WOUND 13:36 | PROVIDERS: PCP Family Medicine; Visit Provider Thoracic Surgery (Cardiothoracic Vascular Surgery) | DX: I87.2 Venous insufficiency (chronic) (peripheral) (principal); L97.812 Non-pressure chronic ulcer of other part of right lower leg with fat layer exposed | CPT/HCPCS: 97597; G0463 ==

== ENCOUNTER 2020-10-17 10:46 | Outpatient (CLI) | payer MEDICARE, OTHER, SELFPAY | END 2020-10-17 10:47 | disposition home or self-care (01) | LOC: WOUND 10:47 | PROVIDERS: PCP Family Medicine; Visit Provider Thoracic Surgery (Cardiothoracic Vascular Surgery) | DX: L97.512 Non-pressure chronic ulcer of other part of right foot with fat layer exposed (principal) | CPT/HCPCS: 97597 ==

== ENCOUNTER 2020-10-30 10:46 | Outpatient (CLI) | payer MEDICARE, OTHER, SELFPAY | END 2020-10-30 10:47 | disposition home or self-care (01) | LOC: WOUND 10:48 | PROVIDERS: Visit Provider Nurse Practitioner Family | DX: I96 Gangrene, not elsewhere classified (principal); L97.512 Non-pressure chronic ulcer of other part of right foot with fat layer exposed | CPT/HCPCS: 11042 ==

== ENCOUNTER 2020-12-04 13:01 | Outpatient (CLI) | payer MEDICARE, OTHER, SELFPAY | END 2020-12-04 13:02 | disposition home or self-care (01) | LOC: WOUND 13:02 | PROVIDERS: PCP Nurse Practitioner Family; Visit Provider Thoracic Surgery (Cardiothoracic Vascular Surgery) | DX: L97.512 Non-pressure chronic ulcer of other part of right foot with fat layer exposed (principal) | CPT/HCPCS: 97597 ==

== ENCOUNTER 2020-12-19 10:41 | Outpatient (CLI) | payer MEDICARE, OTHER, SELFPAY | END 2020-12-19 10:42 | disposition home or self-care (01) | LOC: WOUND 10:42 | PROVIDERS: PCP Nurse Practitioner Family; Visit Provider Thoracic Surgery (Cardiothoracic Vascular Surgery) | DX: I96 Gangrene, not elsewhere classified (principal); L97.512 Non-pressure chronic ulcer of other part of right foot with fat layer exposed | CPT/HCPCS: 99212 ==

== ENCOUNTER → 2021-01-03 10:30 | Outpatient (BNVA) | payer MEDICARE, OTHER, SELFPAY | PROVIDERS: PCP Nurse Practitioner Family; Visit Provider Nurse Practitioner Family | DX: R59.1 Generalized enlarged lymph nodes (principal); I50.9 Heart failure, unspecified; L03.115 Cellulitis of right lower limb; I25.10 Atherosclerotic heart disease of native coronary artery without angina pectoris; Z79.899 Other long term (current) drug therapy | CPT/HCPCS: 80053; 80061; 85025 ==

== ENCOUNTER 2021-01-23 13:20 | Outpatient (CLI) | payer MEDICARE, OTHER, SELFPAY | END 2021-01-23 13:21 | disposition home or self-care (01) | LOC: WOUND 13:21 | PROVIDERS: PCP Nurse Practitioner Family; Visit Provider Nurse Practitioner Family | DX: R23.1 Pallor (principal) | CPT/HCPCS: 99212 ==

== ENCOUNTER → 2021-01-31 10:52 | Outpatient (BNVA) | payer MEDICARE, OTHER, SELFPAY | PROVIDERS: PCP Nurse Practitioner Family; Visit Provider Pediatrics | DX: Z95.1 Presence of aortocoronary bypass graft (principal); Z20.822 Contact with and (suspected) exposure to COVID-19 | CPT/HCPCS: 87635 ==

== ENCOUNTER 2021-02-07 12:39 | Emergency (ER) | payer MEDICARE, OTHER, SELFPAY ==
[2021-02-07 12:42] VITALS: BP 126/80; PULSE 65; RESP 18; TEMP 36.7; O2SAT 96; BMI 24.7
[2021-02-07 12:55] VITALS: O2SAT 95
--- NOTE | 2021-02-07 13:09 | CT_ITS ---
WS: [id number] CONTRAST-ENHANCED CT OF THE RIGHT LOWER EXTREMITY. TECHNIQUE: Contrast-enhanced CT of the right lower extremity. with coronal and sagittal reformatted i jesusitasharri. CLINICAL INFORMATION: Cellulitis, chronic. ? osteo COMPARISON: None. DLP: 542.[address] scans at [facility] use at least one of these dose optimization techniques: automat ed exposure control; mA and/or kV adjustment per patient size (includes targeted exams where dose is matched to clinical indication); or iterative reconstruction. FINDINGS: Diffuse soft tissue edema lower leg extending to the ankle and foot. This is worse in the mid and low er leg with skin thickening. Findings are compatible with cellulitis. No evidence of drainable absce ss or fluid collection. Moderate tricompartmental arthritis right knee worse in the medial joint compartment with subchondral sclerosis. Normal patella. Normal ankle mortise. Normal medial and lateral malleolus. Talar dome is normal. Vascular calcification. No evidence of bony destruction to indicate osteomyelitis. No visuali zed fractures. Vascular calcification. CT/CT lower leg RT w con [id number] IMPRESSION: 1. Diffuse soft tissue edema involving the right lower leg extending into the foot consistent with cellulitis. Associated skin thickening. 2. No evidence of drainable abscess or fluid collection. 3. No evidence of bony destruction to indicate osteomyelitis. 4. Moderate tricompartmental arthritis right knee worse in the medial joint co mpartment.
--- NOTE | 2021-02-07 13:13 | ED_ITS ---
HPI - Extremity Problem General: Chief complaint: Extremity Problem,Nontraumatic Stated complaint: WOUND ON R FOOT Time Seen by Provider: 02/07/21 12:40 Source: patient and RN notes reviewed Mode of arrival: EMS Limitations: physical limitation History of Present Illness: HPI Narrative: Patient is an 81-year-old male with a history of left above-knee amputation, CABG, COPD who wears oxygen who presents to the emergency department with right lower extremity wound and cellulitis. The patient states that the wound is chronic and that he was sent to the emergency department from the wound clinic. There is associated pain and swelling of the right foot. Patient states that he is not diabetic. He does smoke and he may have peripheral artery disease. From his PCPs notes today the patient has not had any wound care at the wound care clinic for about 3 weeks, he missed his last appointment. He told her that the wound has been draining more than usual. He denies any fever. MD Complaint: extremity pain Pain Consistency: constant Location: right and lower extremity Quality: burning Radiation: none Relieving factors: nothing Exacerbating factors: nothing Review of Systems General: Reports: 10 or more systems reviewed and unremarkable except in HPI and below PFS ED PFSH: Medical History (Updated 02/07/21 @ 15:38 by Estrella Logan [place] [facility] [place] Bacteriuria Benign prostatic hyperplasia with lower urinary tract symptoms CAD (coronary artery disease) Chronic headaches COPD (chronic obstructive pulmonary disease) Diastolic CHF DNR (do not resuscitate) GERD (gastroesophageal reflux disease) 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 Melanoma Migraine headache Obstructive sleep apnea Presence of intrathecal pump Scrotal varices Venous stasis Surgical History (Reviewed 02/07/21 @ 13:17 by Estrella Logan MD, [facility] [place] History of amputation ABOVE KNEE History of angioplasty WITH 9 STENTS History of cataract extraction LEFT LENS History of cholecystectomy History of elbow surgery Hx of CABG S/P percutaneous endoscopic gastrostomy (PEG) tube placement Status post insertion of intrathecal pump Family History (Reviewed 02/07/21 @ 13:17 by Estrella Logan MD, [facility] [place] Mother , AT AGE 92 No problems noted. Social History (Reviewed 02/07/21 @ 13:17 by Estrella Logan MD, [facility] [place] Smoking and tobacco status: current every day smoker cigarettes Packs smoked per day: 0.5 Years cigarettes smoked: 70 [ Other cigarette details: [id number] 70yr hx ] Second hand smoke exposure: No Smoking risk assessment/counseling performed?: Yes Alcohol intake: former Adopted: No Caregiver/support person: No Lives independently: No Household members: spouse Marital status: service: No Current occupational status: retired History of recent travel: No Current gender identity: Male Special key needs: No Agree to transfusion: Yes Physical Exam Const: COMMON NORMALS: no acute distress, average body habitus, patient oriented x3, no limitations, healthy appearing, alert and well nourished HENMT: COMMON NORMALS: normocephalic, atraumatic and moist oral mucous membranes HEAD & SCALP: normocephalic and atraumatic Neck/C-Spine: COMMON NORMALS: no meningeal signs and no JVD Resp: COMMON NORMALS: normal respiratory effort, No retractions, No use of accessory muscles, clear to auscultation bilaterally and percussion normal AUSCULTATION: clear to auscultation bilaterally PERCUSSION: percussion normal Cardio: COMMON NORMALS: no JVD, regular rate, regular rhythm, S1 normal heart sound present, S2 normal heart sound present, No gallops present (Cardio), No clicks present (Cardio), No murmurs present (Cardio), No rub (Cardio) and Peripheral pulses 2+ throughout RATE: regular rate RHYTHM: regular rhythm HEART SOUNDS: S1 normal heart sound present and S2 normal heart sound present PERIPHERAL PULSES: Peripheral pulses 2+ throughout GI: COMMON NORMALS: Normal to inspection, nondistended, normoactive bowel sounds present, Soft to palpation, non-tender, No hepatosplenomegaly present, no masses and no bruits PALPATION: Yes Soft to palpation and Yes No hepatosplenomegaly present Extremity: COMMON NORMALS: full ROM and no calf tenderness OTHER: Left above-knee amputation. Right lower extremity with chronic stasis dermatitis of the right leg. There is an open wound on his distal foot from about the midfoot to his toes with desquamation, redness, some drainage. Neuro: COMMON NORMALS: patient oriented x3 SENSORIUM/ORIENTATION: Yes alert MENINGEAL SIGNS: Yes no meningeal signs Skin: COMMON NORMALS: no rashes or lesions noted, no wounds, turgor normal, no jaundice, no petechiae and no mottling GENERAL SKIN EXAM: no rashes or lesions noted and turgor normal Course Reevaluation(s): Reevaluation #1: Discussed his lab and imaging findings with the patient. White cell count normal, CT scan suggestive only of cellulitis with no deep abscess and no signs of osteomyelitis. He is a candidate for outpatient therapy. We will discharge him home with a prescription for oral antibiotics. He is advised to be compliant with wound care appointments. He voiced understanding and is in agreement with the plan. Time: 15:33 Vital Signs: Vital signs: Vital Signs Temperature 98.1 F 02/07/21 12:42 Pulse Rate 79 02/07/21 16:44 Respiratory Rate 16 02/07/21 16:44 Blood Pressure 130/79 02/07/21 16:44 Pulse Oximetry 95 02/07/21 16:44 MDM - Extremity (Nontraumatic) MDM Narrative: Medical decision making narrative: 80-year-old male patient with a longstanding cellulitis/wound on his right foot. He has not been compliant with his wound care appointments. Primary care provider sent him here for evaluation due to concerns for worsening of his wound. In the emergency department evaluation is consistent only with cellulitis. He was given a dose of intravenous vancomycin and discharged home with a prescription for oral antibiotic. There is no indication for admission currently. Medical Records: Attestation: I reviewed the patient's medical records. Lab Data: Attestation: I reviewed the patient's lab results. Labs: Lab Results 02/07/21 02/07/21 02/07/21 Range/Units 13:15 13:15 13:15 WBC 9.7 (4.0-10.0) 10^3/ uL RBC 4.82 (4.1-5.3) 10^6/u L Hgb 13.0 (11.7-16.6) g/dL Hct 43.3 (42.0-52.0) % MCV 89.8 (80-94) fL MCH 27.0 L (28.0-34.0) pg MCHC 30.0 (30.0-36.0) g/dL RDW 14.4 (12.1-15.1) % Plt Count 174 (130-400) 10^3/c mm MPV 9.8 (7.4-10.4) fL Neut % (Auto) 79.0 % Lymph % (Auto) 11.1 % [place] % (Auto) 5.5 % Eos % (Auto) 3.8 % Baso % (Auto) 0.3 % Neut # (Auto) 7.63 (1.8-7.7) 10^3/u L Lymph # (Auto) 1.1 (0.8-4.8) 10^3/u L [place] # (Auto) 0.5 (0.2-0.9) 10^3/u L Eos # (Auto) 0.4 (0.0-0.8) 10^3/u L Baso # (Auto) 0.0 (0.0-0.1) 10^3/u L Nucleated RBC % (a uto) 0 % Nucleated RBCs # 0.0 /100WBC Sodium 138 (136-145) mmol/L Potassium 4.2 (3.5-5.1) mmol/L Chloride 100 (98-107) mmol/L Carbon Dioxide 30 H (22-29) mmol/L Anion Gap 12.2 (5-19) BUN 15 (8-23) mg/dL Creatinine 1.2 (0.7-1.2) mg/dL GFR Calculation Not Reportable Glucose 86 (65-115) mg/dL Calculated Osmolal ity 286 (285-295) mOsm/k g Lactate 0.8 (0.5-2.2) mmol/L Calcium 7.9 L (8.5-10.5) mg/dL Total Bilirubin 0.3 (0.15-1.2) mg/dL AST 11 (0-40) U/L ALT 7 (0-41) U/L Alkaline Phosphata se 97 (40-130) IU/L Creatine Kinase 35 L (39-308) U/L C-Reactive Protein 6.6 H (0.0-4.9) mg/L Total Protein 5.5 L (6.6-8.7) g/dL Albumin 3.2 L (3.5-5.2) g/dL Globulin 2.3 (1.3-4.6) g/dL Imaging Data^: Other CT: Attestation: I personally reviewed and interpreted this imaging study as follows: Radiologist's impression: [email or web address], [place] [address]PE Scan ReportSigned Patient: Steven Whitney #: [id number]: [id number]#:[id number]/Sex: 80 / MADM Date: 02/07/21Loc: ERRoom/Bed:Attending Dr: Ordering Provider/Ordering MD: Estrella Logan MD, [facility] [place] of Service: 02/07/21 Procedure(s): CT lower leg RT w con [id number] Accession Number(s): [id number] Report Number: [id number] WS: [id number] CONTRAST-ENHANCED CT OF THE RIGHT LOWER EXTREMITY. TECHNIQUE: Contrast-enhanced CT of the right lower extremity. with coronal and sagittal reformatted images. CLINICAL INFORMATION: Cellulitis, chronic. ? osteo COMPARISON: None. DLP: 542.[address] scans at [facility] use at least one of these dose optimization techniques: automated exposure control; mA and/or kV adjustment per patient size (includes targeted exams where dose is matched to clinical indication); or iterative reconstruction. FINDINGS: Diffuse soft tissue edema lower leg extending to the ankle and foot. This is worse in the mid and lower leg with skin thickening. Findings are compatible with cellulitis. No evidence of drainable abscess or fluid collection. Moderate tricompartmental arthritis right knee worse in the medial joint compartment with subchondral sclerosis. Normal patella. Normal ankle mortise. Normal medial and lateral malleolus. Talar dome is normal. Vascular calcification. No evidence of bony destruction to indicate osteomyelitis. No visualized fractures. Vascular calcification. CT/CT lower leg RT w con [id number] IMPRESSION: 1. Diffuse soft tissue edema involving the right lower leg extending into the foot consistent with cellulitis. Associated skin thickening. 2. No evidence of drainable abscess or fluid collection. 3. No evidence of bony destruction to indicate osteomyelitis. 4. Moderate tricompartmental arthritis right knee worse in the medial joint compartment. Dictated By:Yo Marshall MDSigned By:Yo Marshall MDSigned Date/Time:02/07/21 1507DD/ 1450 Discharge Plan Discharge Patient Disposition: Home Clinical Impression: Cellulitis of right foot Condition: Stable Prescriptions: New doxycycline hyclate 100 mg capsule 100 mg PO BID 10 Days Qty: 20 RF: 0 Continued pantoprazole [Protonix] 40 mg tablet,delayed release (DR/EC) 40 mg PO DAILY PRN (Reason: Acid Reflux) RF: 0 fluticasone propionate [Flonase Allergy Relief] 50 mcg/actuation spray,suspension 1 spray intranasal BID Qty: 9.9 RF: 3 (DME) Wheel Chair Repairs See Rx Instructions .Route .MEDSUPPLY Qty: 1 RF: 0 nystatin 100,000 unit/gram ointment 1 applic TOPICAL BID PRN (Reason: Skin Irritation) RF: 0 nitroglycerin 0.4 mg tablet, sublingual 0.4 mg SUBLINGUAL Q5M PRN (Reason: Chest Pain) RF: 0 triamcinolone acetonide 0.1 % ointment 1 applic topical BID Qty: 80 RF: 2 (DME) nebulizer See Rx Instructions .Route .MEDSUPPLY Qty: 1 RF: 0 (DME) Kerlix 2 1/4 X 3 -yard bandage See Rx Instructions .ROUTE .MEDSUPPLY Qty: 96 RF: 0 (DME) quad cane See Rx Instructions .Route .MEDSUPPLY Qty: 1 RF: 0 (DME) motorized wheelchair and repairs See Rx Instructions .Route .MEDSUPPLY Qty: 1 RF: 0 hydrocortisone 2.5 % cream 1 applic TOPICAL BID PRN (Reason: Itching) Qty: 28 RF: 2 tamsulosin 0.4 mg capsule 0.4 mg PO DAILY Qty: 90 RF: 2 potassium chloride 20 mEq/15 mL liquid See Rx Instructions .ROUTE .COMPLEX Qty: 473 RF: 3 furosemide 10 mg/mL solution See Rx Instructions .ROUTE .COMPLEX Qty: 120 RF: 2 finasteride 5 mg tablet See Rx Instructions .ROUTE .COMPLEX Qty: 90 RF: 2 Brovana 15 mcg/2 mL solution for nebulization See Rx Instructions .ROUTE .COMPLEX Qty: 60 RF: 11 Relistor 8 mg/0.4 mL Syringe 8 mg SUBCUT DAILY PRN (Reason: Constipation) RF: 0 miconazole nitrate 2 % cream 1 applic topical PRN RF: 0 Adult Tussin Chest Congestion 100 mg/5 mL liquid 200 mg PO DAILY RF: 0 Aqua Care Sterile Water Solution 1 irrig IRRIGATION PRN RF: 0 erythromycin 5 mg/gram (0.5 %) ointment 0.5 inch ophthalmic (eye) PRN RF: 0 budesonide 0.5 mg/2 mL suspension for nebulization 0.5 mg inhalation DAILY RF: 0 clobetasol 0.05 % solution 1 applic topical DAILY PRN (Reason: UNKNOWN) RF: 0 ketoconazole 1 % shampoo 1 applic topical Q3D PRN (Reason: UNKNOWN) RF: 0 lactulose 10 gram/15 mL solution 20 g PO TID PRN (Reason: Constipation) RF: 0 Yupelri 175 mcg/3 mL solution for nebulization 175 mcg inhalation DAILY RF: 0 Pain Pump See Rx Instructions .ROUTE .COMPLEX RF: 0 hydromorphone 1 mg/mL liquid 4 mg feeding tube Q4H PRN (Reason: Pain) RF: 0 Discharge Orders: Discharge ED (Routine); Ordered 02/07/21 Ordered By: Estrella Logan Referrals: Beba Desir FNP [Primary Care Provider] - 1-3 days Discharge Diet: Advance as tolerated Patient Instructions: Cellulitis (ED) Activity Restrictions/Additional Instructions: Return for any new or worsening symptoms. Follow-up with your primary care provider within 3 days. Take the antibiotics as prescribed. Continue wound care as before. It is important that you follow-up at the wound care clinic as scheduled. Coding Level of Care Code ED Tile Erector for Aniya Fwd Exam Comprehensive
[2021-02-07 13:21] VITALS: O2SAT 99
[2021-02-07 13:36] LABS: Basophils % 0.3 %; Eosinophils # 0.4 10^3/uL (0.0-0.8); Eosinophils % 3.8 %; Hematocrit 43.3 % (42.0-52.0); Lymphocytes # 1.1 10^3/uL (0.8-4.8); Lymphocytes % 11.1 %; Mean Corpuscular Volume 89.8 fL (80-94); Mean Platelet Volume 9.8 fL (7.4-10.4); Monocytes # 0.5 10^3/uL (0.2-0.9); Monocytes % 5.5 %; Neutrophils # 7.63 10^3/uL (1.8-7.7); Nucleated Red Blood Cells % 0 %; Platelet Count 174 10^3/cmm (130-400); Red Blood Count 4.82 10^6/uL (4.1-5.3); Red Cell Distribution Width 14.4 % (12.1-15.1); White Blood Count 9.7 10^3/uL (4.0-10.0)
[2021-02-07] MEDS: vancomycin 1,000 MG in sodium chloride 0.9% 250 ML 250 MG IV (13:38)
[2021-02-07 13:49] LABS: Lactate (Lactic Acid level) 0.8 mmol/L (0.5-2.2)
[2021-02-07 13:50] LABS: Alanine Aminotransferase 7 U/L (0-41); Albumin Level 3.2 g/dL (3.5-5.2); Alkaline Phosphatase 97 IU/L (40-130); Anion Gap 12.2 (5-19); Aspartate Amino Transferase 11 U/L (0-40); Blood Urea Nitrogen 15 mg/dL (8-23); C Reactive Protein 6.6 mg/L (0.0-4.9); Calcium 7.9 mg/dL (8.5-10.5); Carbon Dioxide 30 mmol/L (22-29); Chloride 100 mmol/L (98-107); Creatine Phosphokinase 35 U/L (39-308); Globulin 2.3 g/dL (1.3-4.6); Glucose 86 mg/dL (65-115); Osmolality Calculated 286 mOsm/kg (285-295); Potassium 4.2 mmol/L (3.5-5.1); Sodium 138 mmol/L (136-145); Total Bilirubin 0.3 mg/dL (0.15-1.2); Total Protein 5.5 g/dL (6.6-8.7)
[2021-02-07] MEDS: iohexol 300 mg/mL 100 mL Btl IV (14:24)
--- NOTE | 2021-02-07 15:20 | PC.PHAR ---
PT STATES HE TAKES CARE OF HIS OWN MEDICATIONS-PT STATES HE HAS A PAIN PUMP WITH HYDROMORPHONE,BACLOFEN AND SOME OTHER MEDICATION IN IT-STATES DR Chapincito RENDON GIVES IT TO HIM-CALLED DR GRAMAJO OFFICE [phone] THEY ARE ON VACATION TILL 02/08/21-PT STATES HE ALSO TAKES HYDROMORPHONE IN HIS G TUBE-NOTES ARE MADE IN THE PHARMACY COMMENTS-PT STATES HE TAKES THE MEDICATIONS ENTERED
--- NOTE | 2021-02-07 16:43 | PC.NURSE ---
Pts right lower leg was dressed with telfa, wrapped with kerlex and secured with koban
[2021-02-07 16:44] VITALS: BP 130/79; PULSE 79; RESP 16; O2SAT 95
== END 2021-02-07 16:48 | disposition home or self-care (01) ==
PROVIDERS: Emergency Provider Family Medicine; PCP Nurse Practitioner Family
DX: S91.301A Unspecified open wound, right foot, initial encounter (principal); L03.115 Cellulitis of right lower limb; I87.2 Venous insufficiency (chronic) (peripheral); J44.9 Chronic obstructive pulmonary disease, unspecified; I25.10 Atherosclerotic heart disease of native coronary artery without angina pectoris; I50.30 Unspecified diastolic (congestive) heart failure; F17.210 Nicotine dependence, cigarettes, uncomplicated; Z99.81 Dependence on supplemental oxygen; Z89.612 Acquired absence of left leg above knee; X58.XXXA Exposure to other specified factors, initial encounter
CPT/HCPCS: 73701; 80053; 82550; 83605; 85025; 86140; 96365; 99284; J3370; J7050; Q9967

== ENCOUNTER → 2021-02-20 11:48 | Day surgery (SDC) | payer MEDICARE, OTHER, SELFPAY ==
[2021-02-20 12:05] VITALS: BP 98/62; PULSE 63; RESP 18; TEMP 36.4; O2SAT 95; BMI 18.7
--- NOTE | 2021-02-20 13:22 | PC.NURSE ---
unable to do gastrostomy tube today due to no 20fr tube available.
== END ==
PROVIDERS: PCP Nurse Practitioner Family; Visit Provider Surgery
DX: Z93.1 Gastrostomy status (principal); Z53.8 Procedure and treatment not carried out for other reasons

== ENCOUNTER 2021-02-20 13:08 | Outpatient (CLI) | payer MEDICARE, OTHER, SELFPAY | END 2021-02-20 13:09 | disposition home or self-care (01) | LOC: WOUND 13:09 | PROVIDERS: PCP Nurse Practitioner Family; Visit Provider Nurse Practitioner Family | DX: R23.1 Pallor (principal) | CPT/HCPCS: G0463 ==

== ENCOUNTER → 2021-02-28 11:10 | Outpatient (BNVA) | payer MEDICARE, OTHER, SELFPAY | PROVIDERS: PCP Nurse Practitioner Family; Visit Provider Internal Medicine | DX: T17.208A Unspecified foreign body in pharynx causing other injury, initial encounter (principal); Z20.822 Contact with and (suspected) exposure to COVID-19 | CPT/HCPCS: 87635 ==

== ENCOUNTER 2021-03-13 13:05 | Outpatient (CLI) | payer MEDICARE, OTHER, SELFPAY | END 2021-03-13 13:06 | disposition home or self-care (01) | LOC: WOUND 13:06 | PROVIDERS: PCP Nurse Practitioner Family; Visit Provider Thoracic Surgery (Cardiothoracic Vascular Surgery) | DX: R60.9 Edema, unspecified (principal); F17.210 Nicotine dependence, cigarettes, uncomplicated | CPT/HCPCS: 99212 ==

== ENCOUNTER 2021-04-10 13:08 | Outpatient (CLI) | payer MEDICARE, OTHER, SELFPAY | END 2021-04-10 13:09 | disposition home or self-care (01) | LOC: WOUND 13:10 | PROVIDERS: PCP Nurse Practitioner Family; Visit Provider Nurse Practitioner Family | DX: I87.2 Venous insufficiency (chronic) (peripheral) (principal); L97.512 Non-pressure chronic ulcer of other part of right foot with fat layer exposed; F17.210 Nicotine dependence, cigarettes, uncomplicated | CPT/HCPCS: 11042; 11045 ==

== ENCOUNTER 2021-04-24 13:04 | Outpatient (CLI) | payer MEDICARE, OTHER, SELFPAY | END 2021-04-24 13:05 | disposition home or self-care (01) | LOC: WOUND 13:05 | PROVIDERS: PCP Nurse Practitioner Family; Visit Provider Nurse Practitioner Family | DX: I87.2 Venous insufficiency (chronic) (peripheral) (principal); L97.412 Non-pressure chronic ulcer of right heel and midfoot with fat layer exposed | CPT/HCPCS: G0463 ==

== ENCOUNTER 2021-05-08 13:07 | Outpatient (CLI) | payer MEDICARE, OTHER, SELFPAY | END 2021-05-08 13:08 | disposition home or self-care (01) | LOC: WOUND 13:08 | PROVIDERS: PCP Nurse Practitioner Family; Visit Provider Thoracic Surgery (Cardiothoracic Vascular Surgery) | DX: I87.2 Venous insufficiency (chronic) (peripheral) (principal); L97.512 Non-pressure chronic ulcer of other part of right foot with fat layer exposed; F17.210 Nicotine dependence, cigarettes, uncomplicated | CPT/HCPCS: G0463 ==

== ENCOUNTER 2021-05-10 15:13 | Outpatient (CLI) | payer MEDICARE, OTHER, SELFPAY ==
--- NOTE | 2021-05-10 15:20 | US_ITS ---
WS: [id number] SCROTAL ULTRASOUND EXAMINATION AND ULTRASOUND SOFT TISSUE CLINICAL INFORMATION: R GROIN MASS COMPARISON: None. FINDINGS: Ultrasound soft tissue right inner upper thigh. There is a lobulated soft tissue nodule lik kin an enlarged lymph node measuring 5.8 x 1.8 x 3.3 cm with associated internal vascularity. This urbano s a suspicious appearance. Additional enlarged lymph nodes extending into the right groin TESTES Simple cysts in the right testicle the largest measuring 10 x 9 mm. Slight parenchymal heterogeneity left testicle. Normal vascularity in both testicles. EPIDIDYMIDES Spermatocele RIGHT epididymal head measuring 7 x 7 mm. Somewhat prominent hypoechoic LEFT epididymis. HYDROCELE None. VARICOCELE None. OTHER FINDINGS Additional soft tissue nodules in the posterior scrotum may represent pathologic lymph nodes or metas tatic deposits. These measure approximately 3.1 and 2.8 cm in maximum dimension with internal vascula rity. US/US soft tissue/extremity [id number] IMPRESSION: 1. Markedly enlarged lobulated soft tissue mass in the right inner upper thigh likely pathologic lymph node measuring 5.8 x 1.8 x 3.3 cm. Adjacent enlarged l ymph nodes extending into the right groin. 2. Solid soft tissue nodules in the dorsal scrotum measuring 2 to 3 cm suspici ous for neoplasm. 3. Above findings are suspicious for neoplasm and Recommend urology consultati on in further evaluation. 4. Incidental right epididymal cyst. Incidental simple cysts right testicle. 5. Nonspecific slight parenchymal heterogeneity left testicle. Normal vascular ity in both testicles.
== END 2021-05-10 15:14 | disposition home or self-care (01) ==
PROVIDERS: PCP Nurse Practitioner Family; Visit Provider Thoracic Surgery (Cardiothoracic Vascular Surgery)
DX: N50.9 Disorder of male genital organs, unspecified (principal); N50.3 Cyst of epididymis; N44.2 Benign cyst of testis
CPT/HCPCS: 76870; 76882; 93976

== ENCOUNTER 2021-05-22 13:01 | Outpatient (CLI) | payer MEDICARE, OTHER, SELFPAY | END 2021-05-22 13:02 | disposition home or self-care (01) | LOC: WOUND 13:03 | PROVIDERS: PCP Nurse Practitioner Family; Visit Provider Nurse Practitioner Family | DX: I87.2 Venous insufficiency (chronic) (peripheral) (principal); L97.512 Non-pressure chronic ulcer of other part of right foot with fat layer exposed; S80.811A Abrasion, right lower leg, initial encounter; X58.XXXA Exposure to other specified factors, initial encounter; F17.210 Nicotine dependence, cigarettes, uncomplicated; J44.9 Chronic obstructive pulmonary disease, unspecified | CPT/HCPCS: 11042; 11045 ==

== ENCOUNTER 2021-06-12 11:18 | Outpatient (CLI) | payer MEDICARE, OTHER, SELFPAY | END 2021-06-12 11:19 | disposition home or self-care (01) | LOC: WOUND 11:19 | PROVIDERS: PCP Nurse Practitioner Family; Visit Provider Thoracic Surgery (Cardiothoracic Vascular Surgery) | DX: I87.2 Venous insufficiency (chronic) (peripheral) (principal); L97.512 Non-pressure chronic ulcer of other part of right foot with fat layer exposed; S90.811A Abrasion, right foot, initial encounter; X58.XXXA Exposure to other specified factors, initial encounter; F17.210 Nicotine dependence, cigarettes, uncomplicated; J44.9 Chronic obstructive pulmonary disease, unspecified | CPT/HCPCS: 99212 ==

== ENCOUNTER 2021-07-02 10:44 | Outpatient (CLI) | payer MEDICARE, OTHER, SELFPAY | END 2021-07-02 10:45 | disposition home or self-care (01) | LOC: WOUND 10:45 | PROVIDERS: PCP Nurse Practitioner Family; Visit Provider Thoracic Surgery (Cardiothoracic Vascular Surgery) | DX: S80.811A Abrasion, right lower leg, initial encounter (principal); X58.XXXA Exposure to other specified factors, initial encounter; F17.210 Nicotine dependence, cigarettes, uncomplicated; J44.9 Chronic obstructive pulmonary disease, unspecified; I87.2 Venous insufficiency (chronic) (peripheral) | CPT/HCPCS: 99212 ==

== ENCOUNTER → 2021-07-25 13:06 | Outpatient (BNVA) | payer MEDICARE, OTHER, SELFPAY | PROVIDERS: PCP Nurse Practitioner Family; Visit Provider Nurse Practitioner Family | DX: R53.1 Weakness (principal); I50.9 Heart failure, unspecified; I25.10 Atherosclerotic heart disease of native coronary artery without angina pectoris; J44.9 Chronic obstructive pulmonary disease, unspecified; R22.41 Localized swelling, mass and lump, right lower limb; F17.210 Nicotine dependence, cigarettes, uncomplicated; Z99.3 Dependence on wheelchair; Z89.612 Acquired absence of left leg above knee; Z79.899 Other long term (current) drug therapy; R41.0 Disorientation, unspecified; Z71.89 Other specified counseling | CPT/HCPCS: 80053; 80061; 81000; 82306; 82607; 83735; 84443; 85025 ==

== ENCOUNTER 2021-08-06 10:02 | Outpatient (CLI) | payer MEDICARE, OTHER, SELFPAY | END 2021-08-06 10:03 | disposition home or self-care (01) | LOC: WOUND 10:05 → GILAB 11:59 | PROVIDERS: PCP Nurse Practitioner Family; Visit Provider Surgery | DX: I87.2 Venous insufficiency (chronic) (peripheral) (principal); L97.812 Non-pressure chronic ulcer of other part of right lower leg with fat layer exposed; F17.210 Nicotine dependence, cigarettes, uncomplicated; J44.9 Chronic obstructive pulmonary disease, unspecified | CPT/HCPCS: 99212 ==

== ENCOUNTER → 2021-08-06 12:27 | Day surgery (SDC) | payer MEDICARE, OTHER, SELFPAY ==
[2021-08-06 12:10] VITALS: BP 99/57; PULSE 72; RESP 20; TEMP 36.6; O2SAT 92; BMI 23.0
--- NOTE | 2021-08-06 12:41 | P.HP_ITS ---
Same Day Surgery H&P Indication for Procedure/HPI DATE OF PROCEDURE: August 06, 2021 CHIEF COMPLAINT/INDICATIONFOR SURGICAL PROCEDURE: Nonfunctioning PEG tube requiring exchange PREOP DIAGNOSIS: g tube dysfunction PLANNED PROCEDURE: Operation Date: 08/06/21 12:30 Proposed Procedures p PEG Tube Exchange(Not Applicable) - Aguilar Tadeo MD Medications/Allergies* Home Medications Medication Instructions Recorded Confirmed Type nitroglycerin 0.4 mg sublingual 0.4 mg SUBLINGUAL Q5M PRN 07/14/19 08/06/21 History tablet hydromorphone 1 mg/mL oral liquid 4 mg FEEDING TUBE Q4H PRN 08/06/19 08/06/21 History Pain Pump See Rx Instructions .ROUTE .COMPLEX 02/07/21 08/06/21 History clobetasol 0.05 % scalp solution 1 applic TOPICAL DAILY PRN 02/07/21 08/06/21 History erythromycin 5 mg/gram (0.5 %) eye 0.5 inch OPHTHALMIC (EYE) PRN 02/07/21 08/06/21 History ointment (3.5 gram tube) guaifenesin 100 mg/5 mL oral 200 mg PO DAILY 02/07/21 08/06/21 History liquid (Adult Tussin Chest Congestion) ketoconazole 1 % shampoo 1 applic TOPICAL Q3D PRN 02/07/21 08/06/21 History methylnaltrexone 8 mg/0.4 mL 8 mg SUBCUT DAILY PRN 02/07/21 08/06/21 History subcutaneous syringe (Relistor) miconazole nitrate 2 % topical 1 applic TOPICAL PRN 02/07/21 08/06/21 History cream water for irrigation, sterile 1 irrig IRRIGATION PRN 02/07/21 08/06/21 History (Aqua Care Sterile Water) arformoterol 15 mcg/2 mL solution See Rx Instructions .ROUTE 06/26/21 08/06/21 History for nebulization (Brovana) .COMPLEX PRN vial budesonide 0.5 mg/2 mL suspension 0.5 mg INHALATION DAILY PRN 06/26/21 08/06/21 History for nebulization Allergies/Adverse Reactions Allergy/AdvReac Type Severity Reaction Status Date / Time Iodinated Contrast Media Allergy ADR-Nausea Verified 07/25/21 11:25 Penicillins Allergy ALGY-Swell Verified 07/25/21 11:25 Lip/Tongue/Throat Pertinent History/Comorbid Conditions* Medical History (Updated 07/25/21 @ 12:32 by ROLANDO Jones) Bacteriuria Benign prostatic hyperplasia with lower urinary tract symptoms CAD (coronary artery disease) Chronic headaches COPD (chronic obstructive pulmonary disease) Diastolic CHF DNR (do not resuscitate) GERD (gastroesophageal reflux disease) 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5 Years cigarettes smoked: 70 [ Other cigarette details: [id number] 70yr hx] Second hand smoke exposure: No Smoking risk assessment/counseling performed?: Yes Alcohol intake: former Adopted: No Caregiver/support person: No Lives independently: No Household members: spouse Marital status: service: No Current occupational status: retired History of recent travel: No Current gender identity: Male Special key needs: No Agree to transfusion: Yes Pertinent Exam Findings alert, oriented x 3 and regular rate & rhythm Recommendations Surgery/Procedure today Coding Level of Care Code Acute Civil Engineering Designer for Aniya Barrera
--- NOTE | 2021-08-06 12:42 | PM.ACPR ---
Procedure/Consent Time out: Time Out Performed: Yes Consent: Consent for Procedure: Consent obtained from patient Procedure Narrative: Preop diagnosis: nonfunctioning gastrostomy tube Postoperative diagnosis: Same Procedure: Exchange of 20 Kinyarwanda gastrostomy tube Description of the procedure.? After consent was obtained the balloon on the existing gastrostomy tube was deflated and removed without difficulty.? A new 20 Kinyarwanda gastrostomy tube was placed. Acute Procedures Epistaxis Control: Time out performed: Yes Feeding Tube Replacement: Type of tube: gastrostomy Insertion site prior to procedure: clean Tube used for reinsertion: Bard Kinyarwanda Tube Size (F): 20 Balloon size (ml): 7 Verification of placement: auscultation Tube secured by: tape/dressing Patient tolerated procedure: well
== END ==
PROVIDERS: PCP Nurse Practitioner Family; Visit Provider Surgery
PROC: 0DP64UZ Removal of Feeding Device from Stomach, Percutaneous Endoscopic Approach (ICD-10-PCS; CPT 43762; principal; 2021-08-06 12:30)
DX: Z43.1 Encounter for attention to gastrostomy (principal); N40.0 Benign prostatic hyperplasia without lower urinary tract symptoms; I25.10 Atherosclerotic heart disease of native coronary artery without angina pectoris; J44.9 Chronic obstructive pulmonary disease, unspecified; Z66 Do not resuscitate; I50.30 Unspecified diastolic (congestive) heart failure; I69.859 Hemiplegia and hemiparesis following other cerebrovascular disease affecting unspecified side; G47.33 Obstructive sleep apnea (adult) (pediatric); F17.210 Nicotine dependence, cigarettes, uncomplicated
CPT/HCPCS: 43762

== ENCOUNTER → 2021-08-31 11:50 | Outpatient (BNVA) | payer MEDICARE, OTHER, SELFPAY | PROVIDERS: PCP Nurse Practitioner Family; Visit Provider Nurse Practitioner Family | DX: M79.641 Pain in right hand (principal); M79.642 Pain in left hand | CPT/HCPCS: 80053; 84550; 85025; 85651; 86038; 86140; 86200; 86431 ==

== ENCOUNTER → 2021-10-15 10:27 | Outpatient (BNVA) | payer MEDICARE, OTHER, SELFPAY | PROVIDERS: PCP Nurse Practitioner Family; Visit Provider Thoracic Surgery (Cardiothoracic Vascular Surgery) | DX: I96 Gangrene, not elsewhere classified (principal); L97.811 Non-pressure chronic ulcer of other part of right lower leg limited to breakdown of skin; L97.511 Non-pressure chronic ulcer of other part of right foot limited to breakdown of skin; F17.210 Nicotine dependence, cigarettes, uncomplicated; R59.0 Localized enlarged lymph nodes | CPT/HCPCS: 97597; 99213; 99214 ==

== ENCOUNTER → 2021-10-29 09:24 | Outpatient (BNVA) | payer MEDICARE, OTHER, SELFPAY | PROVIDERS: PCP Nurse Practitioner Family; Visit Provider Thoracic Surgery (Cardiothoracic Vascular Surgery) | DX: I96 Gangrene, not elsewhere classified (principal); L97.811 Non-pressure chronic ulcer of other part of right lower leg limited to breakdown of skin; L97.511 Non-pressure chronic ulcer of other part of right foot limited to breakdown of skin; Z09 Encounter for follow-up examination after completed treatment for conditions other than malignant neoplasm; F17.210 Nicotine dependence, cigarettes, uncomplicated | CPT/HCPCS: 97597 ==

== ENCOUNTER → 2021-11-12 09:43 | Outpatient (BNVA) | payer MEDICARE, OTHER, SELFPAY | PROVIDERS: PCP Nurse Practitioner Family; Visit Provider Thoracic Surgery (Cardiothoracic Vascular Surgery) | DX: L97.811 Non-pressure chronic ulcer of other part of right lower leg limited to breakdown of skin (principal) | CPT/HCPCS: 97597; A6252 ==

== ENCOUNTER 2021-11-15 20:25 | Inpatient (IN) | payer MEDICARE, OTHER, SELFPAY ==
--- NOTE | 2021-11-15 20:32 | W.ED.CHESTPA ---
Documented by User: Jerry Chauhan MD 11/16/21 09:01 HPI - Chest Pain General: Chief Complaint: Chest Pain Stated Complaint: CP/ LEG PAIN/ SI Time Seen by Provider: 11/15/21 20:30 History of Present Illness: Mr. Whitney is an 81-year-old gentleman with complex past medical history including hypertension, hyperlipidemia, COPD with chronic hypoxic respiratory failure, CAD, CHF, G-tube present, and chronic wounds who presents to the emergency department due to chest pain and fall as well as suicidal thoughts. He reports intermittent history of chest pressure in the middle of his chest which does not significantly radiate. This is typically with exertion however there are no other typical cardiac features. Additionally endorses a fall while trying to get into bed last night landing on his right hip. He has since had pain which is sharp and moderate to severe in intensity despite treatment at home. He does think that he may have hit his head but did not lose consciousness and is not on anticoagulation. Symptoms are worse with movement. Additionally he reports intermittent suicidal thoughts which are currently present. These are worse than they have been in the past. He is frustrated with his baseline health and sees no reason to live. He is not currently on any medications for depression. 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 Social History Smoking and tobacco status: current every day smoker cigarettes Packs smoked per day: 0.5 Years cigarettes smoked: 70 [ Other cigarette details: [id number] 70yr hx] Second hand smoke exposure: No Smoking risk assessment/counseling performed?: Yes Alcohol intake: former Adopted: No Caregiver/support person: No Lives independently: No Household members: spouse Marital status: service: No Current occupational status: retired History of recent travel: No Current gender identity: Male Special key needs: No Agree to transfusion: Yes Physical Exam Const: COMMON NORMALS: alert GENERAL APPEARANCE: cooperative, well developed and ill appearing HENMT: COMMON NORMALS: normocephalic and atraumatic HEAD & SCALP: normocephalic and atraumatic Eye: COMMON NORMALS: conjunctivae normal CONJUNCTIVA: Yes conjunctivae normal SCLERA: sclerae normal Neck/C-Spine: COMMON NORMALS: supple GENERAL: Yes trachea midline Resp: EFFORT & INSPECTION: Yes able to speak in complete sentences AUSCULTATION: diminished lung sounds Cardio: COMMON NORMALS: regular rate and regular rhythm RATE: regular rate RHYTHM: regular rhythm GI: COMMON NORMALS: Soft to palpation PALPATION: Yes Soft to palpation and No Tenderness to palpation present (GI) PERCUSSION: normal to percussion Extremity: NARRATIVE EXTREMITY EXAM: Left AKA. Right lower extremity with dressings. Tenderness palpation of hip and femur region though range of motion end distal CMS baseline GENERAL: Yes normal exam except as noted and No edema Neuro: COMMON NORMALS: moves all extremities SENSORIUM/ORIENTATION: Yes alert and No Orientation impaired Psych: COMMON NORMALS: mental status grossly normal and Normal thought process present THOUGHT PROCESS: Normal thought process present Course ED course: - Patient was seen and evaluated by me at bedside - Patient placed on cardiac monitors, IV access obtained - Initial evaluation notable for exam as above. Chronically ill appearance. Patient has depressed mood and affect. - Labs and xrays personally interpreted by me - Analgesia given - Labs notable for no leukocytosis, hemoglobin normal. Metabolic panel with perhaps minimal neurovascular depression, patient can adequately orally rehydrate. Delta troponin is negative. Urinalysis not concerning for urinary tract infection. Toxic ingestions negative as tested. Urine drug screen positive for opioids for which the patient has prescription. - Imaging notable for proximal fibula fracture. I discussed the case with Dr. Tabares of the orthopedic surgery service, patient does not necessarily need a splint and given his high degree of wounds/chronic changes I am concerned that a temporary splint may make patient high risk for complication. In the meantime he should use his wheelchair. Follow-up outpatient. - Upon serial reexamination after treatment the patient was improved with multiple redoses of analgesia. - Based on patient history, evaluation, and testing as interpreted the most likely cause of the patient's condition is multifactorial. Patient appears to have chronic chest pain. He did not fall with new proximal fibula fracture. - Challenging situation overall given patient's significant comorbidities. I am concerned that patient has access to medications that he could easily overdose on and given severe degree of comorbidities he is higher risk - Patient care handed off to morning ED physician Dr. Webster pending search for accepting facility versus psychiatry service consulted. Vital Signs: Vital signs: Vital Signs Temperature 98.8 F 11/16/21 09:57 Pulse Rate 94 11/16/21 09:57 Respiratory Rate 18 11/16/21 11:24 Blood Pressure 102/65 11/16/21 09:57 Pulse Oximetry 90 11/16/21 11:34 MDM - Chest Pain Medical Decision Making 81-year-old gentleman with complex past medical history including significant comorbidities presenting to the emergency department after a fall, with unrelated chest pain, and suicidal ideation. Medical Records I reviewed the patient's medical records. Lab Data I reviewed the patient's lab results. : 11/16/21 10:27 11/16/21 10:14 Radiology Impressions Chest X-Ray 11/15/21 20:52 IMPRESSION: Probable chronic scarring in the left lung base. Pneumonia cannot be excluded. Femur X-Ray 11/15/21 20:52 IMPRESSION: 1. No femur fracture identified. 2. Mildly displaced proximal right fibula fracture. Tibia/Fibula X-Ray 11/15/21 20:52 IMPRESSION: Mildly displaced proximal right fibula fracture. Hip/Pelvis X-Ray 11/16/21 08:04 Impression: Negative for new hip fractures. KUB X-Ray 11/16/21 08:04 Impression: Moderate generalized ileus. Abdomen/Pelvis CT 11/16/21 08:55 IMPRESSION: 1. Soft tissue mass associated with the ascending colon extends over a length of 5.6 cm. Concerning for colonic neoplasm until proven otherwise. Colonic lumen is narrowed but at this time there is no obstruction. No adjacent adenopathy identified. 2. Bilateral renal masses. Some of these are cysts while others are indeterminate and could be neoplasms. 3. PEG tube. 4. Prior cholecystectomy. 5. Normal appendix. 6. Mildly prominent RIGHT inguinal lymph nodes. Very similar in appearance to 2015. 7. Large hiatal hernia. 8. Subsegmental atelectasis LEFT lung base. Laboratory Results WBC 9.1 10^3/uL (4.0-10.0) 11/15/21 21:12 RBC 4.78 10^6/uL (4.1-5.3) 11/15/21 21:12 Hgb 13.0 g/dL (11.7-16.6) 11/15/21 21:12 Hct 42.2 % (42.0-52.0) 11/15/21 21:12 MCV 88.3 fl (80-94) 11/15/21 21:12 MCH 27.2 pg (28.0-34.0) L 11/15/21 21:12 MCHC 30.8 g/dL (30.0-36.0) 11/15/21 21:12 RDW 13.9 % (12.1-15.1) 11/15/21 21:12 Plt Count 188 10^3/cmm (130-400) 11/15/21 21:12 MPV 10.0 fL (7.4-10.4) 11/15/21 21:12 Neut % (Auto) 84.8 % 11/15/21 21:12 Lymph % (Auto) 7.1 % 11/15/21 21:12 [place] % (Auto) 7.5 % 11/15/21 21:12 Eos % (Auto) 0.2 % 11/15/21 21:12 Baso % (Auto) 0.2 % 11/15/21 21:12 Neut # (Auto) 7.68 10^3/uL (1.8-7.7) 11/15/21 21:12 Lymph # (Auto) 0.6 10^3/uL (0.8-4.8) L 11/15/21 21:12 [place] # (Auto) 0.7 10^3/uL (0.2-0.9) 11/15/21 21:12 Eos # (Auto) 0.0 10^3/uL (0.0-0.8) 11/15/21 21:12 Baso # (Auto) 0.0 10^3/uL (0.0-0.1) 11/15/21 21:12 Nucleated RBC % (auto) 0 % 11/15/21 21:12 Nucleated RBCs # 0.0 /100WBC 11/15/21 21:12 ESR 53 mm/hr (0-10) H 11/15/21 21:12 Sodium 134 mmol/L (136-145) L 11/15/21 21:12 Potassium 4.5 mmol/L (3.5-5.1) 11/15/21 21:12 Chloride 96 mmol/L (98-107) L 11/15/21 21:12 Carbon Dioxide 29 mmol/L (22-29) 11/15/21 21:12 Anion Gap 13.5 (5-19) 11/15/21 21:12 BUN 20 mg/dL (8-23) 11/15/21 21:12 Creatinine 1.3 mg/dL (0.7-1.2) H 11/15/21 21:12 GFR Calculation Not Reportable 11/15/21 21:12 Glucose 103 mg/dL (65-115) 11/15/21 21:12 Calculated Osmolality 281 mOsm/kg (285-295) L 11/15/21 21:12 Calcium 7.7 mg/dL (8.5-10.5) L 11/15/21 21:12 Total Bilirubin 0.3 mg/dL (0.15-1.2) 11/15/21 21:12 AST 12 U/L (0-40) 11/15/21 21:12 ALT 11 U/L (0-41) 11/15/21 21:12 Alkaline Phosphatase 111 IU/L (40-130) 11/15/21 21:12 Troponin T Baseline 35 ng/L (0-15) H 11/15/21 21:12 Troponin T 120 Minute 31.69 ng/L (0-15) H 11/15/21 23:05 Delta Troponin T -3.31 ABS# (0-10) L 11/15/21 23:05 Troponin T Hi Sens 6Hr 42.39 ng/L (0-15) H 11/16/21 05:10 Troponin T Hi Sens 6Hr Delta 7.39 ng/L (0-12) 11/16/21 05:10 C-Reactive Protein 45.4 mg/L (0.0-4.9) H 11/15/21 21:12 NT-Pro-B Natriuret Pep 973 pg/mL (0-450) H 11/15/21 21:12 Total Protein 5.9 g/dL (6.6-8.7) L 11/15/21 21:12 Albumin 3.2 g/dL (3.5-5.2) L 11/15/21 21:12 Globulin 2.7 g/dL (1.3-4.6) 11/15/21 21:12 Lipase 15 U/L (13-60) 11/15/21 21:12 Procalcitonin 0.40 ng/mL (0-0.5) 11/15/21 21:12 Urine Color Yellow (Yellow) 11/15/21 23:15 Urine Appearance Clear (CLEAR) 11/15/21 23:15 Urine pH 6 (5-7) 11/15/21 23:15 Ur Specific [place] 1.010 (1.005-1.030) 11/15/21 23:15 Urine Protein 3+ (Negative) H 11/15/21 23:15 Urine Glucose (UA) Trace (Normal) H 11/15/21 23:15 Urine Ketones Negative (Negative) 11/15/21 23:15 Urine Blood Neg (Negative) 11/15/21 23:15 Urine Nitrate Negative (Negative) 11/15/21 23:15 Urine Bilirubin Neg (Negative) 11/15/21 23:15 Urine Urobilinogen Norm mg/dL (Negative) 11/15/21 23:15 Ur Leukocyte Esterase Negative (Negative) 11/15/21 23:15 Urine RBC 0-4 /hpf (0-2) H 11/15/21 23:15 Urine WBC 0-4 /hpf (0-5) H 11/15/21 23:15 Ur Squamous Epith Cells 0-4 /hpf (0-5) H 11/15/21 23:15 Amorphous Sediment Not Reportable 11/15/21 23:15 Urine Bacteria Trace /hpf (NONE) 11/15/21 23:15 Salicylates < 0.3 mg/dL (3-10) L 11/15/21 21:12 Urine Opiates Screen Positive ng/mL (Negative) H 11/15/21 23:15 Acetaminophen < 5.0 ug/mL (10-30) L 11/15/21 21:12 Ur Barbiturates Screen Negative ng/mL (Negative) 11/15/21 23:15 Ur Phencyclidine Scrn Negative ng/mL (Negative) 11/15/21 23:15 Ur Amphetamines Screen Negative ng/mL (Negative) 11/15/21 23:15 U Benzodiazepines Scrn Negative ng/mL (Negative) 11/15/21 23:15 Urine Cocaine Screen Negative ng/mL (Negative) 11/15/21 23:15 U Marijuana (THC) Screen Negative ng/mL (Negative) 11/15/21 23:15 Ethyl Alcohol < 10 mg/dL (0-10) 11/15/21 21:12 Discharge Plan Discharge Patient Disposition: Admitted As Inpatient Admit Provider: Cyril Coreas Clinical Impression: Fracture of fibula, proximal, Elevated troponin, Pneumonia, Suicidal ideation Condition: Stable Sign Out Sign Out Data: Patient Sign Out occurred on 11/16/21 at 07:20. Patient's care was discussed, and care was transferred from to Julian Webster DO. 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 Social History Smoking and tobacco status: current every day smoker cigarettes Packs smoked per day: 0.5 Years cigarettes smoked: 70 [ Other cigarette details: [id number] 70yr hx] Second hand smoke exposure: No Smoking risk assessment/counseling performed?: Yes Alcohol intake: former Adopted: No Caregiver/support person: No Lives independently: No Household members: spouse Marital status: service: No Current occupational status: retired History of recent travel: No Current gender identity: Male Special key needs: No Agree to transfusion: Yes Course Vital Signs: Vital signs: Vital Signs Temperature 98.8 F 11/16/21 09:57 Pulse Rate 94 11/16/21 09:57 Respiratory Rate 18 11/16/21 11:24 Blood Pressure 102/65 11/16/21 09:57 Pulse Oximetry 90 11/16/21 11:34 MDM - Chest Pain Medical Decision Making 81-year-old gentleman with complex past medical history including significant comorbidities presenting to the emergency department after a fall, with unrelated chest pain, and suicidal ideation. Care assumed at change of shift. Patient has multiple morbid comorbidities. Proximal fibula fracture he appears to have a left lower lobe pneumonia there is an elevation in his troponin and he is suicidal. Will admit start antibiotics consult psychiatry orthopedics and cardiology discussed with hospitalist orders written Lab Data : 11/16/21 10:27 11/16/21 10:14 Radiology Impressions Chest X-Ray 11/15/21 20:52 IMPRESSION: Probable chronic scarring in the left lung base. Pneumonia cannot be excluded. Femur X-Ray 11/15/21 20:52 IMPRESSION: 1. No femur fracture identified. 2. Mildly displaced proximal right fibula fracture. Tibia/Fibula X-Ray 11/15/21 20:52 IMPRESSION: Mildly displaced proximal right fibula fracture. Hip/Pelvis X-Ray 11/16/21 08:04 Impression: Negative for new hip fractures. KUB X-Ray 11/16/21 08:04 Impression: Moderate generalized ileus. Abdomen/Pelvis CT 11/16/21 08:55 IMPRESSION: 1. Soft tissue mass associated with the ascending colon extends over a length of 5.6 cm. Concerning for colonic neoplasm until proven otherwise. Colonic lumen is narrowed but at this time there is no obstruction. No adjacent adenopathy identified. 2. Bilateral renal masses. Some of these are cysts while others are indeterminate and could be neoplasms. 3. PEG tube. 4. Prior cholecystectomy. 5. Normal appendix. 6. Mildly prominent RIGHT inguinal lymph nodes. Very similar in appearance to 2015. 7. Large hiatal hernia. 8. Subsegmental atelectasis LEFT lung base. Laboratory Results WBC 9.1 10^3/uL (4.0-10.0) 11/15/21 21:12 RBC 4.78 10^6/uL (4.1-5.3) 11/15/21 21:12 Hgb 13.0 g/dL (11.7-16.6) 11/15/21 21:12 Hct 42.2 % (42.0-52.0) 11/15/21 21:12 MCV 88.3 fl (80-94) 11/15/21 21:12 MCH 27.2 pg (28.0-34.0) L 11/15/21 21:12 MCHC 30.8 g/dL (30.0-36.0) 11/15/21 21:12 RDW 13.9 % (12.1-15.1) 11/15/21 21:12 Plt Count 188 10^3/cmm (130-400) 11/15/21 21:12 MPV 10.0 fL (7.4-10.4) 11/15/21 21:12 Neut % (Auto) 84.8 % 11/15/21 21:12 Lymph % (Auto) 7.1 % 11/15/21 21:12 [place] % (Auto) 7.5 % 05/19/22 21:12 Eos % (Auto) 0.2 % 11/15/21 21:12 Baso % (Auto) 0.2 % 11/15/21 21:12 Neut # (Auto) 7.68 10^3/uL (1.8-7.7) 11/15/21 21:12 Lymph # (Auto) 0.6 10^3/uL (0.8-4.8) L 11/15/21 21:12 [place] # (Auto) 0.7 10^3/uL (0.2-0.9) 11/15/21 21:12 Eos # (Auto) 0.0 10^3/uL (0.0-0.8) 11/15/21 21:12 Baso # (Auto) 0.0 10^3/uL (0.0-0.1) 11/15/21 21:12 Nucleated RBC % (auto) 0 % 11/15/21 21:12 Nucleated RBCs # 0.0 /100WBC 11/15/21 21:12 ESR 53 mm/hr (0-10) H 11/15/21 21:12 Sodium 134 mmol/L (136-145) L 11/15/21 21:12 Potassium 4.5 mmol/L (3.5-5.1) 11/15/21 21:12 Chloride 96 mmol/L (98-107) L 11/15/21 21:12 Carbon Dioxide 29 mmol/L (22-29) 11/15/21 21:12 Anion Gap 13.5 (5-19) 11/15/21 21:12 BUN 20 mg/dL (8-23) 11/15/21 21:12 Creatinine 1.3 mg/dL (0.7-1.2) H 11/15/21 21:12 GFR Calculation Not Reportable 11/15/21 21:12 Glucose 103 mg/dL (65-115) 11/15/21 21:12 Calculated Osmolality 281 mOsm/kg (285-295) L 11/15/21 21:12 Calcium 7.7 mg/dL (8.5-10.5) L 11/15/21 21:12 Total Bilirubin 0.3 mg/dL (0.15-1.2) 11/15/21 21:12 AST 12 U/L (0-40) 11/15/21 21:12 ALT 11 U/L (0-41) 11/15/21 21:12 Alkaline Phosphatase 111 IU/L (40-130) 11/15/21 21:12 Troponin T Baseline 35 ng/L (0-15) H 11/15/21 21:12 Troponin T 120 Minute 31.69 ng/L (0-15) H 11/15/21 23:05 Delta Troponin T -3.31 ABS# (0-10) L 11/15/21 23:05 Troponin T Hi Sens 6Hr 42.39 ng/L (0-15) H 11/16/21 05:10 Troponin T Hi Sens 6Hr Delta 7.39 ng/L (0-12) 11/16/21 05:10 C-Reactive Protein 45.4 mg/L (0.0-4.9) H 11/15/21 21:12 NT-Pro-B Natriuret Pep 973 pg/mL (0-450) H 11/15/21 21:12 Total Protein 5.9 g/dL (6.6-8.7) L 11/15/21 21:12 Albumin 3.2 g/dL (3.5-5.2) L 11/15/21 21:12 Globulin 2.7 g/dL (1.3-4.6) 11/15/21 21:12 Lipase 15 U/L (13-60) 11/15/21 21:12 Procalcitonin 0.40 ng/mL (0-0.5) 11/15/21 21:12 Urine Color Yellow (Yellow) 11/15/21 23:15 Urine Appearance Clear (CLEAR) 11/15/21 23:15 Urine pH 6 (5-7) 11/15/21 23:15 Ur Specific [place] 1.010 (1.005-1.030) 11/15/21 23:15 Urine Protein 3+ (Negative) H 11/15/21 23:15 Urine Glucose (UA) Trace (Normal) H 11/15/21 23:15 Urine Ketones Negative (Negative) 11/15/21 23:15 Urine Blood Neg (Negative) 11/15/21 23:15 Urine Nitrate Negative (Negative) 11/15/21 23:15 Urine Bilirubin Neg (Negative) 11/15/21 23:15 Urine Urobilinogen Norm mg/dL (Negative) 11/15/21 23:15 Ur Leukocyte Esterase Negative (Negative) 11/15/21 23:15 Urine RBC 0-4 /hpf (0-2) H 11/15/21 23:15 Urine WBC 0-4 /hpf (0-5) H 11/15/21 23:15 Ur Squamous Epith Cells 0-4 /hpf (0-5) H 11/15/21 23:15 Amorphous Sediment Not Reportable 11/15/21 23:15 Urine Bacteria Trace /hpf (NONE) 11/15/21 23:15 Salicylates < 0.3 mg/dL (3-10) L 11/15/21 21:12 Urine Opiates Screen Positive ng/mL (Negative) H 11/15/21 23:15 Acetaminophen < 5.0 ug/mL (10-30) L 11/15/21 21:12 Ur Barbiturates Screen Negative ng/mL (Negative) 11/15/21 23:15 Ur Phencyclidine Scrn Negative ng/mL (Negative) 11/15/21 23:15 Ur Amphetamines Screen Negative ng/mL (Negative) 11/15/21 23:15 U Benzodiazepines Scrn Negative ng/mL (Negative) 11/15/21 23:15 Urine Cocaine Screen Negative ng/mL (Negative) 11/15/21 23:15 U Marijuana (THC) Screen Negative ng/mL (Negative) 11/15/21 23:15 Ethyl Alcohol < 10 mg/dL (0-10) 11/15/21 21:12 Discharge Plan Discharge Patient Disposition: Admitted As Inpatient Admit Provider: Cyril Coreas Clinical Impression: Fracture of fibula, proximal, Elevated troponin, Pneumonia, Suicidal ideation Condition: Stable Sign Out Sign Out Data: Patient Sign Out occurred on 11/16/21 at 07:20. Patient's care was discussed, and care was transferred from to Julian Webster DO. Coding Level of Care Code ED Building Tech for Chg Fwd Exam Comprehensive
[2021-11-15 20:43] VITALS: BP 124/56; PULSE 63; RESP 18; TEMP 36.9; O2SAT 97; BMI 18.0
--- NOTE | 2021-11-15 20:52 | XRR_ITS ---
PROCEDURE INFORMATION: Exam: XR Right Tibia and Fibula Exam date and time: 11/15/2021 9:21 PM Age: 81 years old Clinical indication: Pain; Lower leg; Right; Additional info: Fall, pain TECHNIQUE: Imaging protocol: XR Right tibia and fibula. Views: 2 views. COMPARISON: CT lower leg RT wo con* [id number] 02/02/2020 9:42 PM FINDINGS: Bones/joints: Mildly displaced fracture through the proximal metadiaphysis of the right fibula. The other bones appear intact and in normal alignment. Soft tissues: Normal. Vasculature: Arterial calcifications. XR/XR tibia fibula RT 2V [id number] IMPRESSION: Mildly displaced proximal right fibula fracture.
--- NOTE | 2021-11-15 20:52 | XRR_ITS ---
PROCEDURE INFORMATION: Exam: XR Chest Exam date and time: 11/15/2021 9:21 PM Age: 81 years old Clinical indication: Chest wall pain; Prior surgery; Surgery date: 6+ months; Surgery type: Pacemaker; Additional info: Chest pain TECHNIQUE: Imaging protocol: XR of the chest. Views: 1 view. COMPARISON: CR XR chest 1V portable [id number] 04/10/2020 11:32 AM FINDINGS: Lungs: Interstitial and ground-glass opacities appear slightly increased in the left lung base. Mild interstitial scarring in both lungs. Changes of emphysema. Pleural spaces: Unremarkable. No pleural effusion. No pneumothorax. Heart/Mediastinum: Unremarkable. No cardiomegaly. Bones/joints: Sternotomy changes. Old right rib fracture. No acute fracture identified. XR/XR chest 1V portable [id number] IMPRESSION: Probable chronic scarring in the left lung base. Pneumonia cannot be excluded.
--- NOTE | 2021-11-15 20:52 | ECG_ITS ---
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 Measurements Intervals [place] Rate: 64 P: 43 AK: 197 QRS: 47 QRSD: 94 T: 69 QT: 423 QTc: 438 Interpretive Statements SINUS RHYTHM WITH SINUS ARRHYTHMIA Compared to ECG 04/10/2020 13:42:36 Sinus bradycardia no longer present Electronically Signed On 11-15-2021 22:52:05 CDT by Marbin Chappell M.D. [id number]
--- NOTE | 2021-11-15 20:52 | XRR_ITS ---
PROCEDURE INFORMATION: Exam: XR Right Femur Exam date and time: 11/15/2021 9:21 PM Age: 81 years old Clinical indication: Pain; Thigh; Right; Additional info: Fall, pain TECHNIQUE: Imaging protocol: XR Right femur. Views: 2 views. COMPARISON: US soft tissue/extremity [id number] 05/10/2021 3:37 PM FINDINGS: Bones/joints: The femur and right hip joint appear intact. Mildly displaced fracture through the proximal metaphysis of the right fibula. Soft tissues: Clips in the right groin. Vasculature: Arterial calcifications. XR/XR femur RT min 2V* [id number] IMPRESSION: 1. No femur fracture identified. 2. Mildly displaced proximal right fibula fracture.
[2021-11-15 21:10] VITALS: RESP 20
[2021-11-15] MEDS: HYDROmorphone 1 mg/mL INJ 1 mL IVP ×2 (21:10→23:48)
[2021-11-15 21:24] LABS: Basophils % 0.2 %; Eosinophils % 0.2 %; Hematocrit 42.2 % (42.0-52.0); Lymphocytes # 0.6 10^3/uL (0.8-4.8); Lymphocytes % 7.1 %; Mean Corpuscular HGB Conc 30.8 g/dL (30.0-36.0); Mean Corpuscular Hemoglobin 27.2 pg (28.0-34.0); Mean Corpuscular Volume 88.3 fl (80-94); Monocytes # 0.7 10^3/uL (0.2-0.9); Monocytes % 7.5 %; Neutrophils # 7.68 10^3/uL (1.8-7.7); Neutrophils % 84.8 %; Nucleated Red Blood Cells % 0 %; Platelet Count 188 10^3/cmm (130-400); Red Blood Count 4.78 10^6/uL (4.1-5.3); Red Cell Distribution Width 13.9 % (12.1-15.1); White Blood Count 9.1 10^3/uL (4.0-10.0)
[2021-11-15 21:46] LABS: Troponin(5th) Baseline 35 ng/L (0-15)
[2021-11-15 21:56] LABS: Alanine Aminotransferase 11 U/L (0-41); Albumin Level 3.2 g/dL (3.5-5.2); Alkaline Phosphatase 111 IU/L (40-130); Anion Gap 13.5 (5-19); Aspartate Amino Transferase 12 U/L (0-40); Blood Urea Nitrogen 20 mg/dL (8-23); Calcium 7.7 mg/dL (8.5-10.5); Carbon Dioxide 29 mmol/L (22-29); Chloride 96 mmol/L (98-107); Globulin 2.7 g/dL (1.3-4.6); Glucose 103 mg/dL (65-115); Lipase 15 U/L (13-60); NT Pro B Type Natriuretic Pept 973 pg/mL (0-450); Osmolality Calculated 281 mOsm/kg (285-295); Potassium 4.5 mmol/L (3.5-5.1); Sodium 134 mmol/L (136-145); Total Bilirubin 0.3 mg/dL (0.15-1.2); Total Protein 5.9 g/dL (6.6-8.7)
[2021-11-15 21:58] LABS: Acetaminophen < 5.0 ug/mL (10-30); Alcohol Level < 10 mg/dL (0-10); Salicylate < 0.3 mg/dL (3-10)
--- NOTE | 2021-11-15 22:52 | ECG_ITS ---
[facility] Test Date: 2021-11-16 Pat Name: Steven Whitney Department: Room: Gender: Male Establishment Guide: : 1940 Requested By: Jerry Chauhan Order Number: [id number] Jerry MD: Lety Milan M.D. Measurements Intervals [place] Rate: 67 P: 26 PA: 197 QRS: 3 QRSD: 101 T: 22 QT: 417 QTc: 440 Interpretive Statements SINUS RHYTHM VOLTAGE CRITERIA FOR LVH [MEETS CRITERIA IN ONE OF: R(aVL), S(V1), R(V5), R(V5/V6)+S(V1)] POSSIBLE ANTERIOR MYOCARDIAL INFARCTION , PROBABLY OLD [30 ms Q WAVE IN V3/V4, OR R < 0.2 mV IN V4] INFERIOR MYOCARDIAL INFARCTION , PROBABLY OLD [40+ ms Q WAVE AND/OR ST/T ABNORMALITY IN II/aVF] Compared to ECG 11/15/2021 20:40:55 Left ventricular hypertrophy now present Myocardial infarct finding now present Sinus arrhythmia no longer present Electronically Signed On 11-16-2021 16:38:24 CDT by Lety Milan M.D. [id number] bertrand
[2021-11-15 23:37] LABS: Troponin 5 2HR 31.69 ng/L (0-15)
[2021-11-15 23:40] LABS: Troponin 5 2HR Delta -3.31 ABS# (0-10)
[2021-11-15 23:44] VITALS: BP 101/60; PULSE 61; RESP 18; O2SAT 97
[2021-11-15 23:47] LABS: Add Urine Microscopic? YES; Bilirubin Urine Neg (Negative); Blood Urine Neg (Negative); Glucose Urine UA Trace (Normal); Ketones Urine Negative (Negative); Leukocyte Esterase Urine Negative (Negative); Nitrate Urine Negative (Negative); Protein Urine 3+ (Negative); Urine Appearance Clear (CLEAR); Urine Color Yellow (Yellow); Urobilinogen Urine Norm (Negative); pH Urine 6 (5-7)
[2021-11-15 23:48] VITALS: RESP 18
[2021-11-15 23:53] LABS: Amphetamines Screen Urine Negative (Negative); Barbiturates Screen Urine Negative (Negative); Benzodiazepines Screen Urine Negative (Negative); Cocaine Screen Urine Negative (Negative); Opiate Screen Urine Positive (Negative); PCP Screen Urine Negative (Negative); THC Screen Urine Negative (Negative)
[2021-11-15 23:55] LABS: RBC Urine 0-4 /hpf (0-2); Squamous Epithelial Cell Urine 0-4 /hpf (0-5); WBC Urine 0-4 /hpf (0-5)
[2021-11-15 23:56] LABS: Add Urine Culture? No; Bacteria Urine TRACE /hpf
[2021-11-16] VITALS (16 sets, daily range): BP systolic 101–125; BP diastolic 50–67; PULSE 61–94; RESP 16–20; TEMP 36.7–37.1; O2SAT 87–96
--- NOTE | 2021-11-16 | XR_ITS ---
Ordering Provider/Ordering MD: Date of Service: Procedure(s): Accession Number(s): Report Number: [id number] NOTE: Report was unsigned for reason: Order was edited. Original Signature date and time was: 11/16/21 @ 0852 WS: [email or web address] Bilateral hips, 2 views each, 11/16/2021 Clinical Data: fall Comparison: Right thigh and femur, 11/15/2021 Findings: Right hip: No new fractures or dislocations are seen. There is a surgical clip overlying the right femoral head. There is thickening of the right femoral neck and the patient may have had an old injury which has healed. The right hip joint shows no erosion, sclerosis, narrowing or fragmentation of the right femoral head. There are subcutaneous phleboliths adjacent to the right greater trochanter. Left hip: No recent fractures or dislocations are seen. There is deformity of the intertrochanteric region of the left hip and the patient may have had an old injury. The left hip joint shows no erosion, sclerosis, narrowing or fragmentation of the femoral head. The soft tissues are unremarkable. Dictated By: Arlin Forrest MD Signed By: Signed Date/Time: DD/ 0852 GLENDA
[2021-11-16] MEDS: HYDROmorphone 1 mg/mL INJ 1 mL IVP ×5 (01:38→22:07)
[2021-11-16 05:52] LABS: Troponin 5 6HR 42.39 ng/L (0-15)
[2021-11-16 05:53] LABS: Troponin 5 6HR Delta 7.39 ng/L (0-12)
--- NOTE | 2021-11-16 08:04 | XR_ITS ---
NOTE: Report was unsigned for reason: Order was edited. Original Signature date and time was: 11/16/21 @ 0852 WS: [email or web address] Bilateral hips, 2 views each, 11/16/2021 Clinical Data: fall Comparison: Right thigh and femur, 11/15/2021 Findings: Right hip: No new fractures or dislocations are seen. There is a surgical clip overlying the right femoral head. There is thickening of the right femoral neck and the patient may have had an old injury which has healed. The right hip joint shows no erosion, sclerosis, narrowing or fragmentation of the right femoral head. There are subcutaneous phleboliths adjacent to the right greater trochanter. Left hip: No recent fractures or dislocations are seen. There is deformity of the intertrochanteric region of the left hip and the patient may have had an old injury. The left hip joint shows no erosion, sclerosis, narrowing or fragmentation of the femoral head. The soft tissues are unremarkable. MTDD
--- NOTE | 2021-11-16 08:04 | XR_ITS ---
WS: [email or web address] KUB, AP view, 11/16/2021 Clinical Data: g tube Comparison: Abdomen series, 10/18/2018. Findings: No abnormal intraabdominal masses or calcifications are seen. There is no dilatated small bowel or ev idence of obstruction. There is fecal material throughout the colon. There is an infusion pump generator overlying the left side of the abdomen. There is a probable gastric tube overlying the upper mid abdomen. There are clip s in the right upper quadrant from a cholecystectomy. There are clips in the left pelvis probably fro m vascular surgery. There is a surgical clip overlying this pubic symphysis and a small clip overlyin g the right femoral head. There is deformity of the intertrochanteric region of the left hip from a f racture of unknown age. XR/XR KUB portable [id number] Impression: Moderate generalized ileus.
--- NOTE | 2021-11-16 08:55 | CT_ITS ---
WS: [email or web address] CT ABDOMEN AND PELVIS WITH CONTRAST HISTORY: abdominal mass, RIGHT lower quadrant inguinal lymph node enlargement. TECHNIQUE: Imaging performed of the abdomen and pelvis with IV contrast. Single phase imaging of the abdomen. Coronal and sagittal reformats are submitted. All CT scans at [facility] use at [address] [facility] one of these dose optimization techniques: automated exposure control; mA and/or kV adjustment per patient size (includes targeted exams where dose is matched to clinical indication); or iterative re construction. IV CONTRAST: Visipaque 320; 50 mL IV. Oral contrast: No DLP: 973.43 mGy.cm COMPARISON: 04/21/2015 Lower thorax: Mild elevation of the LEFT hemidiaphragm. Partial atelectasis at the LEFT lung base. Mi ldly enlarged heart. Large hiatal hernia and fluid in the distal esophagus. There is mild esophageal wall thickening. Bilateral gynecomastia. Liver/biliary system: Normal size with no intrahepatic dilatation. Gallbladder: Status post cholecystectomy. Pancreas: Atrophied pancreas. No mass. Spleen: Normal size spleen. No mass or infarct. Adrenal glands: Normal. Right kidney: Mild atrophy with numerous cortical masses throughout the kidney. Some of these masses are cysts while others are indeterminate and could be solid neoplasms. The largest exophytic from the lower pole measures 2.8 x 2.7 cm. No hydronephrosis. Left kidney: Diffuse atrophy with variable density masses. Some these masses are cysts while others a re complex and may be solid. The most concerning solid mass upper pole measures 2.2 x 1.7 cm. Aorta: Mild atherosclerosis with no aneurysm. Lymphadenopathy: No mesenteric or retroperitoneal significantly enlarged lymph nodes. There are a few small retroperitoneal nodes but less than a centimeter. Free fluid: None. GI tract: There is a PEG tube present within the stomach. Tip extends towards the antrum. No small kehinde wel obstruction. Focal area of mucosal and submucosal thickening and abnormal enhancement involving t he ascending colon. Colonic mass extends over length of 5.6 cm with narrowing of the lumen. The appen ovi is partially visualized and normal. The appendix contains air. Mild inflammation of the diverticu lum or epiploic appendage involving the ascending colon. Abdominal wall: Pain pump in the LEFT lower quadrant. Pelvis: Enlarged prostate gland extends over a length of 7.9 cm x 4.0 x 4.0 cm. Urinary bladder is we ll distended. No free fluid or adenopathy in the pelvis. There are enlarged RIGHT inguinal lymph node s measuring up to 1.9 x 3.0 cm. These lymph nodes are very mildly prominent also on prior examination s without significant interval change. Bones: Degenerative rotoscoliosis to the LEFT. Narrowing of the hip joints. CT/CT abdomen pelvis w con* [id number] IMPRESSION: 1. Soft tissue mass associated with the ascending colon extends over a length of 5.6 cm. Concerning for colonic neoplasm until proven otherwise. Colonic lume n is narrowed but at this time there is no obstruction. No adjacent adenopathy identified. 2. Bilateral renal masses. Some of these are cysts while others are indetermin ate and could be neoplasms. 3. PEG tube. 4. Prior cholecystectomy. 5. Normal appendix. 6. Mildly prominent RIGHT inguinal lymph nodes. Very similar in appearance to 2015. 7. Large hiatal hernia. 8. Subsegmental atelectasis LEFT lung base.
[2021-11-16] MEDS: iodixanol 320 mg/mL 100mL Btl IV (09:43)
--- NOTE | 2021-11-16 09:54 | PM.HP ---
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 for fall, right lower extremity pain. Patient tells me that he lives near there, he lives with his , who has been diagnosed with terminal cancer, he typically wheelchair dependent, he tells me that what brought him to the hospital is that he was try to get out of his wheelchair, when he fell, and had severe pain in his right foot and right leg. He tells me that he sees wound care for his cellulitic areas, of his right lower extremity, does tell me that is more red than usual. No fevers, no chills, no nausea, vomiting, lightheadedness. He tells me he has intermittent chest pain, but nothing more significant this is not what brought him to the emergency room. He also tells me that what is also bothering him is abdominal pain, has been having increasing abdominal pain, especially in the right lower quadrant in the, he tells me that the left lower quadrant quadrant feels much more hard to him and is not sure why. Denies any dysuria. Denies any cough. No shortness of breath. He tells me that the pain was so severe that he told the ER provider that he wanted to kill himself due to severity of the pain. Upon questioning, he denies any active suicidal ideation. No homicidal ideation. Denies feeling down depressed or sad. He just tells me that he had such severe pain he could not tolerate the pain, after given pain medications, his pain is minimal, and now he is feeling better. Hospitalist team was called for admission for chest pain. Concerns for suicidal ideation. Concerns of cellulitis. Concern for fracture. I was told that the ER had discussed with Dr. Tabares who patient was found to have a minimally displaced right fibular fracture. Currently alert oriented x3, following all commands, pain is under control, he is on 2 L, normotensive Review of Systems Const: Denies: fever(s), chills, fatigue or malaise Eyes: Denies: change in vision ENMT: Denies: nasal congestion Resp: Denies: dyspnea, productive cough, non-productive cough or wheezing GI: Denies: abdominal pain, nausea, vomiting, hematemesis, diarrhea, constipation, hematochezia or melena : Denies: flank pain, difficulty urinating, dysuria or urinary frequency Neuro: Denies: headache(s), dizziness or vertigo Psych: Denies: anxiety or depression Endo: Denies: polyuria Medications/Allergies Home Medications Medication Instructions Recorded Confirmed Last Taken Type nitroglycerin 0.4 mg sublingual 0.4 mg SUBLINGUAL Q5M PRN 07/14/19 11/15/21 Unknown History tablet hydromorphone 1 mg/mL oral liquid 4 mg FEEDING TUBE Q4H PRN 08/06/19 11/15/21 11/15/21 History tamsulosin 0.4 mg capsule 0.4 mg PO DAILY #90 cap 11/13/20 11/15/21 11/15/21 Rx triamcinolone acetonide 0.1 % 1 applic TOPICAL BID #80 g 01/30/21 11/15/21 11/15/21 Rx topical ointment clobetasol 0.05 % scalp solution 1 applic TOPICAL DAILY PRN 02/07/21 11/15/21 Unknown History erythromycin 5 mg/gram (0.5 %) eye 0.5 inch OPHTHALMIC (EYE) PRN 02/07/21 11/15/21 Unknown History ointment (3.5 gram tube) ketoconazole 1 % shampoo 1 applic TOPICAL Q3D PRN 02/07/21 11/15/21 Unknown History methylnaltrexone 8 mg/0.4 mL 8 mg SUBCUT DAILY PRN 02/07/21 11/15/21 Unknown History subcutaneous syringe (Relistor) miconazole nitrate 2 % topical 1 applic TOPICAL PRN 02/07/21 11/15/21 Unknown History cream water for irrigation, sterile 1 irrig IRRIGATION PRN 02/07/21 11/15/21 Unknown History (Aqua Care Sterile Water) fluticasone propionate 50 1 spray INTRANASAL BID #9.9 ml 04/03/21 11/15/21 11/15/21 Rx mcg/actuation nasal spray,suspension (Flonase Allergy Relief) potassium chloride 20 mEq/15 mL See Rx Instructions .ROUTE 04/16/21 11/15/21 11/15/21 Rx oral liquid .COMPLEX #675 ml hydrocortisone 2.5 % topical 1 applic TOPICAL BID PRN #28.35 g 08/17/21 11/15/21 Unknown Rx ointment pantoprazole 40 mg granules 40 mg PO DAILY #90 ea 09/12/21 11/15/21 11/15/21 Rx delayed-release for susp in packet (Protonix) finasteride 5 mg tablet See Rx Instructions .ROUTE 10/01/21 11/15/21 11/15/21 Rx .COMPLEX #90 tab furosemide 10 mg/mL oral solution See Rx Instructions .ROUTE 10/01/21 11/15/21 11/15/21 Rx .COMPLEX #360 ml arformoterol 15 mcg/2 mL solution See Rx Instructions .ROUTE 10/25/21 11/15/21 11/15/21 Rx for nebulization (Brovana) .COMPLEX #60 vial budesonide 0.5 mg/2 mL suspension See Rx Instructions .ROUTE 10/25/21 11/15/21 11/15/21 Rx for nebulization .COMPLEX #60 vial revefenacin 175 mcg/3 mL solution See Rx Instructions .ROUTE 10/25/21 11/15/21 Unknown Rx for nebulization (Yupelri) .COMPLEX #30 vial lactulose 10 gram/15 mL oral 15 ml PO DAILY PRN 11/15/21 11/15/21 Unknown History solution Allergies Allergy/AdvReac Type Severity Reaction Status Date / Time Iodinated Contrast Media Allergy ADR-Nausea Verified 11/07/21 08:51 Penicillins Allergy ALGY-Swell Verified 11/07/21 08:51 Lip/Tongue/Throat PFSH Acute PFSH: Medical History (Updated 11/16/21 @ 10:20 by Cyril Coreas MD) Bacteriuria Benign prostatic hyperplasia with lower urinary tract symptoms CAD (coronary artery disease) Chronic headaches COPD (chronic obstructive pulmonary disease) Diastolic CHF DNR (do not resuscitate) GERD (gastroesophageal reflux disease) 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 Social History Smoking and tobacco status: current every day smoker cigarettes Packs smoked per day: 0.5 Years cigarettes smoked: 70 [ Other cigarette details: [id number] 68yr hx] Second hand smoke exposure: No Smoking risk assessment/counseling performed?: Yes Alcohol intake: former Adopted: No Caregiver/support person: No Lives independently: No Household members: spouse Marital status: service: No Current occupational status: retired History of recent travel: No Current gender identity: Male Special key needs: No Agree to transfusion: Yes Vitals/I&O/Wt Last Vital Signs Temp 98.4 F 11/15/21 20:43 Pulse 68 11/16/21 01:39 Resp 18 11/16/21 01:39 BP 102/59 11/16/21 01:39 Pulse Ox 96 11/16/21 01:39 Weight last 48 hrs Weight 52.163 kg Physical Exam Narrative: - Left [id number] amputation -Right lower extremity, open sores, open cellulitic areas, erythema, slight tenderness extending from the forefoot, to the mid tibial shaft -No open fracture - Const: COMMON NORMALS: no acute distress and patient oriented x3 HENMT: COMMON NORMALS: normocephalic HEAD & SCALP: normocephalic Eye: COMMON NORMALS: Equal, round and reactive pupils present and EOMs intact bilaterally Neck/C-Spine: COMMON NORMALS: no JVD Resp: COMMON NORMALS: normal respiratory effort, No retractions, No use of accessory muscles and clear to auscultation bilaterally AUSCULTATION: clear to auscultation bilaterally Cardio: COMMON NORMALS: no JVD, regular rate, regular rhythm, S1 normal heart sound present and S2 normal heart sound present RATE: regular rate RHYTHM: regular rhythm HEART SOUNDS: S1 normal heart sound present and S2 normal heart sound present GI: PALPATION: Yes Soft to palpation OTHER: Abdomen nondistended, evidence of significant weight loss, abdominal mass p left lower quadrant, and right upper quadrant, pain pump in place, gastrostomy tube in place Extremity: COMMON NORMALS: no calf tenderness and no pedal edema Neuro: COMMON NORMALS: patient oriented x3, CN's II-XII intact bilaterally, moves all extremities and no focal motor deficits Psych: COMMON NORMALS: mental status grossly normal Data : 11/15/21 21:12 11/15/21 21:12 A&P Assessment and plan (1) Scrotal mass: Status: Acute (2) Cellulitis of right lower extremity: Status: Acute (3) Wound of right leg: Status: Acute (4) G tube feedings: Status: Acute (5) CHF (congestive heart failure): Status: Acute (6) History of angioplasty: Status: Acute (7) Urinary retention due to benign prostatic hyperplasia: Status: Acute (8) Bradycardia: Status: Acute (9) COPD (chronic obstructive pulmonary disease): Status: Acute Qualifiers: COPD type: unspecified COPD Qualified Code(s): J44.9 - Chronic obstructive pulmonary disease, unspecified (10) CAD (coronary artery disease): Status: Acute (11) Dysphagia, oropharyngeal: Status: Acute (12) Chest pain: Status: Acute (13) Weakness: Status: Acute (14) Weight loss: Status: Acute (15) Mass of right thigh: Status: Acute (16) DNR (do not resuscitate): Status: Acute (17) Fibula fracture: Status: Acute (18) Presence of intrathecal pump: Status: Acute Plan Steven Whitney is a 81 year old male with a past medical history of bradycardia, history of aspiration pneumonia history of urinary retention with UTI, history of COPD 5 L oxygen dependent, ADEOLA on CPAP, CAD status post CABG, history of Parkinson's disease, has a PEG tube in place etiology unclear, but patient denies a history of ALS, chronic diastolic CHF, history of bilateral renal cysts, history of right hemispheric stroke, 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 for fall, right foot pain, Fall -Likely deconditioning, has left above-knee amputation, now has a right fibular fracture -PT OT Right fibular fracture -Spoke to Dr. Tabares, no splinting needed, weightbearing as tolerated -PT OT -DNR/DNI -Lovenox for DVT prophylaxis Pain control -He has a intrathecal pain pump, he receives -3.426 mg/dayof hydromorphone -3.997 mg/day of bupivacaine -5.711 mcg/day of baclofen -In addition he takes 4 mg of hydromorphone every 4 hours as needed for breakthrough pain -Continue for now Right lower extremity cellulitis with open sores -Vancomycin for antibiotic coverage -Blood cultures -ESR, CRP, Pro-Manan -Consult podiatry service COPD, currently on 2 L, monitor not in exacerbation History of aspiration pneumonia, dysphagia, speech therapy Current weight loss over 20 pounds -Has G-tube in place, etiology uncertain possibly from Parkinson's disease, doubt ALS -Recently had G-tube replaced by Dr. Tadeo -Consult dietary for diet recommendations, he tells me he uses Ensure twice daily -We will get nutrition's consultation -General diet, speech therapy Chest pain -Nonspecific in etiology, he tells me more his shoulders hurt him -But chest pain is intermittent -Serial EKGs, serial troponins -Telemetry monitoring Multiple abdominal masses felt on palpation, with right inguinal lymphadenopathy concerning for neoplastic process, and scrotal nodules we will do CT scan abdomen pelvis -Patient has elected to not do a biopsy CAD status post CABG ADEOLA on CPAP, Attestations Medical Necessity Statement*: Patient requires hospitalization, outpatient with observation for right fibular fracture, right lower extremity cellulitis, chest pain, weight loss Coding Level of Care Code Acute Home Health Clinical Liaison for Chg Fwd Diagnoses Scrotal mass N50.89 Cellulitis of right lower extremity L03.115 Wound of right leg S81.801A G tube feedings Z93.1 CHF (congestive heart failure) I50.9 History of angioplasty Z98.62 Urinary retention due to benign prostatic hyperplasia N40.1; R33.8 Bradycardia R00.1 COPD (chronic obstructive pulmonary disease) J44.9 COPD type: unspecified COPD CAD (coronary artery disease) I25.10 Dysphagia, oropharyngeal R13.12 Chest pain R07.9 Weakness R53.1 Weight loss R63.4 Mass of right thigh R22.41 DNR (do not resuscitate) Z66 Fibula fracture S82.409A Presence of intrathecal pump Z97.8
[2021-11-16 09:55] LABS: Erythrocyte Sedimentation Rate 53 mm/hr (0-10)
[2021-11-16 10:02] LABS: C Reactive Protein 45.4 mg/L (0.0-4.9)
[2021-11-16 10:42] LABS: Basophils % 0.2 %; Eosinophils # 0.1 10^3/uL (0.0-0.8); Eosinophils % 0.9 %; Hematocrit 41.1 % (42.0-52.0); Hemoglobin 12.7 g/dL (11.7-16.6); Lymphocytes # 0.6 10^3/uL (0.8-4.8); Lymphocytes % 6.2 %; Mean Corpuscular HGB Conc 30.9 g/dL (30.0-36.0); Mean Corpuscular Hemoglobin 27.3 pg (28.0-34.0); Mean Corpuscular Volume 88.2 fl (80-94); Mean Platelet Volume 10.2 fL (7.4-10.4); Monocytes # 0.7 10^3/uL (0.2-0.9); Monocytes % 7.1 %; Neutrophils # 8.21 10^3/uL (1.8-7.7); Neutrophils % 85.2 %; Nucleated Red Blood Cells % 0 %; Platelet Count 177 10^3/cmm (130-400); Red Blood Count 4.66 10^6/uL (4.1-5.3); Red Cell Distribution Width 14.1 % (12.1-15.1); White Blood Count 9.6 10^3/uL (4.0-10.0)
[2021-11-16 11:01] LABS: INR 0.97 (0.8-1.2)
[2021-11-16 11:04] LABS: Lactic Sepsis W/Reflex 0.7 mmol/L (0.5-2.2)
[2021-11-16 11:05] LABS: Alanine Aminotransferase 9 U/L (0-41); Albumin Level 2.7 g/dL (3.5-5.2); Alkaline Phosphatase 103 IU/L (40-130); Aspartate Amino Transferase 13 U/L (0-40); Blood Urea Nitrogen 21 mg/dL (8-23); Calcium 8.2 mg/dL (8.5-10.5); Carbon Dioxide 29 mmol/L (22-29); Chloride 96 mmol/L (98-107); Globulin 3.1 g/dL (1.3-4.6); Glucose 99 mg/dL (65-115); Magnesium 2.4 mg/dL (1.7-2.3); Osmolality Calculated 281 mOsm/kg (285-295); Phosphorus 3.3 mg/dL (2.5-4.5); Sodium 134 mmol/L (136-145); Total Bilirubin 0.4 mg/dL (0.15-1.2); Total Protein 5.8 g/dL (6.6-8.7)
[2021-11-16 11:14] LABS: Thyroid Stimulating Hormone 0.62 uIU/mL (0.27-4.20)
[2021-11-16] MEDS: pantoprazole 40 mg SDV IVP (12:36)
[2021-11-16] MEDS: enoxaparin 40 mg/0.4 mL Syringe SUBCUT (12:37)
[2021-11-16] MEDS: vancomycin 750 MG in sodium chloride 0.9% 250 ML 250 MG IV (12:40)
--- NOTE | 2021-11-16 12:44 | P.CONIM_ITS ---
Providers/Reason For Consult Consulting Physician/Specialty*: Marbin chappell MD Reason for Consult*: Troponin elevation Requesting Physician: Dr Webster Attending Physician: Cyril Coreas MD Primary Care Provider: ROLANDO Jones History of Present Illness History of Present Illness Steven Whitney is a 81 year old male with PMH of CAD and had bypass surgery in in [place], Has left AKA, O2 dependent COPD, smoker, has a pain pump presented to hospital for leg pain after falling. he has fibula fracture. Cardiology was consulted as patient's troponin was mildly elevated. Has chronic chest pain that is unchanged from his baseline. Mostly positional. EKG not showing acute changes Review of Systems Const: Denies: fever(s), chills, fatigue or malaise Eyes: Denies: change in vision ENMT: Denies: nasal congestion Resp: Denies: dyspnea, productive cough, non-productive cough or wheezing GI: Denies: abdominal pain, nausea, vomiting, hematemesis, diarrhea, constipation, hematochezia or melena : Denies: flank pain, difficulty urinating, dysuria or urinary frequency Neuro: Denies: headache(s), dizziness or vertigo Psych: Denies: anxiety or depression Endo: Denies: polyuria Medications/Allergies Home Medications Medication Instructions Recorded Confirmed Last Taken Type nitroglycerin 0.4 mg sublingual 0.4 mg SUBLINGUAL Q5M PRN 07/14/19 11/15/21 Unknown History tablet hydromorphone 1 mg/mL oral liquid 4 mg FEEDING TUBE Q4H PRN 08/06/19 11/15/21 11/15/21 History tamsulosin 0.4 mg capsule 0.4 mg PO DAILY #90 cap 11/13/20 11/15/21 11/15/21 Rx triamcinolone acetonide 0.1 % 1 applic TOPICAL BID #80 g 01/30/21 11/15/21 11/15/21 Rx topical ointment clobetasol 0.05 % scalp solution 1 applic TOPICAL DAILY PRN 02/07/21 11/15/21 Unknown History erythromycin 5 mg/gram (0.5 %) eye 0.5 inch OPHTHALMIC (EYE) PRN 02/07/21 11/15/21 Unknown History ointment (3.5 gram tube) ketoconazole 1 % shampoo 1 applic TOPICAL Q3D PRN 02/07/21 11/15/21 Unknown History methylnaltrexone 8 mg/0.4 mL 8 mg SUBCUT DAILY PRN 02/07/21 11/15/21 Unknown History subcutaneous syringe (Relistor) miconazole nitrate 2 % topical 1 applic TOPICAL PRN 02/07/21 11/15/21 Unknown History cream water for irrigation, sterile 1 irrig IRRIGATION PRN 02/07/21 11/15/21 Unknown History (Aqua Care Sterile Water) fluticasone propionate 50 1 spray INTRANASAL BID #9.9 ml 04/03/21 11/15/21 11/15/21 Rx mcg/actuation nasal spray,suspension (Flonase Allergy Relief) potassium chloride 20 mEq/15 mL See Rx Instructions .ROUTE 04/16/21 11/15/21 11/15/21 Rx oral liquid .COMPLEX #675 ml hydrocortisone 2.5 % topical 1 applic TOPICAL BID PRN #28.35 g 08/17/21 11/15/21 Unknown Rx ointment pantoprazole 40 mg granules 40 mg PO DAILY #90 ea 09/12/21 11/15/21 11/15/21 Rx delayed-release for susp in packet (Protonix) finasteride 5 mg tablet See Rx Instructions .ROUTE 10/01/21 11/15/21 11/15/21 Rx .COMPLEX #90 tab furosemide 10 mg/mL oral solution See Rx Instructions .ROUTE 10/01/21 11/15/21 11/15/21 Rx .COMPLEX #360 ml arformoterol 15 mcg/2 mL solution See Rx Instructions .ROUTE 10/25/21 11/15/21 11/15/21 Rx for nebulization (Brovana) .COMPLEX #60 vial budesonide 0.5 mg/2 mL suspension See Rx Instructions .ROUTE 10/25/21 11/15/21 11/15/21 Rx for nebulization .COMPLEX #60 vial revefenacin 175 mcg/3 mL solution See Rx Instructions .ROUTE 10/25/21 11/15/21 Unknown Rx for nebulization (Yupelri) .COMPLEX #30 vial lactulose 10 gram/15 mL oral 15 ml PO DAILY PRN 11/15/21 11/15/21 Unknown History solution Allergies Allergy/AdvReac Type Severity Reaction Status Date / Time Iodinated Contrast Media Allergy ADR-Nausea Verified 11/07/21 08:51 Penicillins Allergy ALGY-Swell Verified 11/07/21 08:51 Lip/Tongue/Throat Current Medications Generic Name Dose Route Start Last Admin Trade Name Freq PRN Reason Stop Dose Admin Enoxaparin Sodium 40 mg 11/16/21 09:30 11/16/21 12:37 Enoxaparin 40 Mg/0.4 Ml Syringe SUBCUT 40 mg Q24H SHENG Administration Hydromorphone HCl 1 mg 11/16/21 11:11 11/16/21 11:24 Hydromorphone 1 Mg/Ml Inj 1 Ml IVP 1 mg Q4H PRN Administration pain Vancomycin HCl 750 mg/ Sodium 250 mls @ 250 mls/hr 11/16/21 12:00 11/16/21 12:40 Chloride IV 250 mls/hr Q24H SHENG Administration Protocol As Directed Pantoprazole Sodium 40 mg 11/16/21 10:00 11/16/21 12:36 Pantoprazole 40 Mg Sdv IVP 40 mg Q24H SHENG Administration PFSH Acute PFSH: Medical History Bacteriuria Benign prostatic hyperplasia with lower urinary tract symptoms CAD (coronary artery disease) Chronic headaches COPD (chronic obstructive pulmonary disease) Diastolic CHF DNR (do not resuscitate) GERD (gastroesophageal reflux disease) 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 Social History Smoking and tobacco status: current every day smoker cigarettes Packs smoked per day: 0.5 Years cigarettes smoked: 70 [ Other cigarette details: [id number] 70yr hx] Second hand smoke exposure: No Smoking risk assessment/counseling performed?: Yes Alcohol intake: former Adopted: No Caregiver/support person: No Lives independently: No Household members: spouse Marital status: service: No Current occupational status: retired History of recent travel: No Current gender identity: Male Special key needs: No Agree to transfusion: Yes Vitals/I&O/Wt Last Vital Signs Temp 98.8 F 11/16/21 09:57 Pulse 94 11/16/21 09:57 Resp 18 11/16/21 11:24 BP 102/65 11/16/21 09:57 Pulse Ox 90 11/16/21 11:34 Weight last 48 hrs Weight 115 lb Physical Exam Narrative: GENERAL: AAO X3 HEENT: Exam within normal limits. NECK: Supple without jugular vein distention. The carotid upstroke is normal without bruits. LUNGS: Decreased breath sounds, rales and rhonchi and wheezing HEART: Regular rate and rhythm. ABDOMEN: Soft EXTREMITIES: No edema. Urinary Catheter Management: Avilez: Cath Placed During This Visit: yes Urinary Catheter Date of Insertion: 11/16/21 Urinary Catheter Time of Insertion: 12:03 Data : 11/18/21 03:47 11/18/21 03:47 Micro: Microbiology 11/16/21 10:27 Blood Culture - Preliminary Blood SPECIMEN COLLECTED 11/16/21 10:32 Blood Culture - Preliminary Blood SPECIMEN COLLECTED A&P Assessment and plan (1) Fibula fracture: Status: Acute (2) CAD (coronary artery disease): Status: Acute Plan Patient's troponin elevation is secondary to demand ischemia. Denies active chest pain and has positional discomfort that is chronic. Conservative management at this time. No further cardiac work up at this time Cardiology will sign off. Please call with questions. Coding Level of Care Code Acute Tax Associate Attorney for Aniya Barrera Diagnoses Fibula fracture S82.409A CAD (coronary artery disease) I25.10
--- NOTE | 2021-11-16 12:55 | P.CONIM_ITS ---
Providers/Reason For Consult Consulting Physician/Specialty*: Hospital service Reason for Consult*: Ascending colon mass Attending Physician: Cyril Coreas MD Primary Care Provider: ROLANDO Jones History of Present Illness History of Present Illness Steven Whitney is a 81 year old male who presented to the ER after a fall and right lower extremity pain. I have known him for many years and he has a PEG tube in place. Patient had a CT abdomen pelvis which showed ascending colon mass. He denies any bleeding per rectum. He denies any abdominal pain, nausea, vomiting. Medications/Allergies Home Medications Medication Instructions Recorded Confirmed Last Taken Type nitroglycerin 0.4 mg sublingual 0.4 mg SUBLINGUAL Q5M PRN 07/14/19 11/15/21 Unknown History tablet hydromorphone 1 mg/mL oral liquid 4 mg FEEDING TUBE Q4H PRN 08/06/19 11/15/21 11/15/21 History tamsulosin 0.4 mg capsule 0.4 mg PO DAILY #90 cap 11/13/20 11/15/21 11/15/21 Rx triamcinolone acetonide 0.1 % 1 applic TOPICAL BID #80 g 01/30/21 11/15/21 11/15/21 Rx topical ointment clobetasol 0.05 % scalp solution 1 applic TOPICAL DAILY PRN 02/07/21 11/15/21 Unknown History erythromycin 5 mg/gram (0.5 %) eye 0.5 inch OPHTHALMIC (EYE) PRN 02/07/21 11/15/21 Unknown History ointment (3.5 gram tube) ketoconazole 1 % shampoo 1 applic TOPICAL Q3D PRN 02/07/21 11/15/21 Unknown History methylnaltrexone 8 mg/0.4 mL 8 mg SUBCUT DAILY PRN 02/07/21 11/15/21 Unknown History subcutaneous syringe (Relistor) miconazole nitrate 2 % topical 1 applic TOPICAL PRN 02/07/21 11/15/21 Unknown History cream water for irrigation, sterile 1 irrig IRRIGATION PRN 02/07/21 11/15/21 Unknown History (Aqua Care Sterile Water) fluticasone propionate 50 1 spray INTRANASAL BID #9.9 ml 04/03/21 11/15/21 11/15/21 Rx mcg/actuation nasal spray,suspension (Flonase Allergy Relief) potassium chloride 20 mEq/15 mL See Rx Instructions .ROUTE 04/16/21 11/15/21 11/15/21 Rx oral liquid .COMPLEX #675 ml hydrocortisone 2.5 % topical 1 applic TOPICAL BID PRN #28.35 g 08/17/21 11/15/21 Unknown Rx ointment pantoprazole 40 mg granules 40 mg PO DAILY #90 ea 09/12/21 11/15/21 11/15/21 Rx delayed-release for susp in packet (Protonix) finasteride 5 mg tablet See Rx Instructions .ROUTE 10/01/21 11/15/21 11/15/21 Rx .COMPLEX #90 tab furosemide 10 mg/mL oral solution See Rx Instructions .ROUTE 10/01/21 11/15/21 11/15/21 Rx .COMPLEX #360 ml arformoterol 15 mcg/2 mL solution See Rx Instructions .ROUTE 10/25/21 11/15/21 11/15/21 Rx for nebulization (Brovana) .COMPLEX #60 vial budesonide 0.5 mg/2 mL suspension See Rx Instructions .ROUTE 10/25/21 11/15/21 11/15/21 Rx for nebulization .COMPLEX #60 vial revefenacin 175 mcg/3 mL solution See Rx Instructions .ROUTE 10/25/21 11/15/21 Unknown Rx for nebulization (Yupelri) .COMPLEX #30 vial lactulose 10 gram/15 mL oral 15 ml PO DAILY PRN 11/15/21 11/15/21 Unknown History solution Allergies Allergy/AdvReac Type Severity Reaction Status Date / Time Iodinated Contrast Media Allergy ADR-Nausea Verified 11/07/21 08:51 Penicillins Allergy ALGY-Swell Verified 11/07/21 08:51 Lip/Tongue/Throat Current Medications Generic Name Dose Route Start Last Admin Trade Name Freq PRN Reason Stop Dose Admin Enoxaparin Sodium 40 mg 11/16/21 09:30 11/16/21 12:37 Enoxaparin 40 Mg/0.4 Ml Syringe SUBCUT 40 mg Q24H SHENG Administration Hydromorphone HCl 1 mg 11/16/21 11:11 11/16/21 11:24 Hydromorphone 1 Mg/Ml Inj 1 Ml IVP 1 mg Q4H PRN Administration pain Vancomycin HCl 750 mg/ Sodium 250 mls @ 250 mls/hr 11/16/21 12:00 11/16/21 12:40 Chloride IV 250 mls/hr Q24H SHENG Administration Protocol As Directed Pantoprazole Sodium 40 mg 11/16/21 10:00 11/16/21 12:36 Pantoprazole 40 Mg Sdv IVP 40 mg Q24H SHENG Administration PFSH Acute PFSH: Medical History Bacteriuria Benign prostatic hyperplasia with lower urinary tract symptoms CAD (coronary artery disease) Chronic headaches COPD (chronic obstructive pulmonary disease) Diastolic CHF DNR (do not resuscitate) GERD (gastroesophageal reflux disease) 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 Social History Smoking and tobacco status: current every day smoker cigarettes Packs smoked per day: 0.5 Years cigarettes smoked: 70 [ Other cigarette details: [id number] 70yr hx] Second hand smoke exposure: No Smoking risk assessment/counseling performed?: Yes Alcohol intake: former Adopted: No Caregiver/support person: No Lives independently: No Household members: spouse Marital status: service: No Current occupational status: retired History of recent travel: No Current gender identity: Male Special key needs: No Agree to transfusion: Yes Vitals/I&O/Wt Last Vital Signs Temp 98.8 F 11/16/21 09:57 Pulse 94 11/16/21 09:57 Resp 18 11/16/21 11:24 BP 102/65 11/16/21 09:57 Pulse Ox 90 11/16/21 11:34 Weight last 48 hrs Weight 115 lb Physical Exam Narrative: HEENT: Normocephalic Eye: Sclera /conjunctiva normal Abdomen: Soft to palpation tube and pain pump in the left upper quadrant, nontender, nondistended Neurological: Oriented to place person and time Skin: Intact, no lesions appreciated on gross exam, left BKA Urinary Catheter Management: Avilez: Cath Placed During This Visit: yes Urinary Catheter Date of Insertion: 11/16/21 Urinary Catheter Time of Insertion: 12:03 Data : 11/16/21 10:27 11/16/21 10:14 Micro: Microbiology 11/16/21 10:27 Blood Culture - Preliminary Blood SPECIMEN COLLECTED 11/16/21 10:32 Blood Culture - Preliminary Blood SPECIMEN COLLECTED A&P Assessment and plan (1) Colonic mass: 81-year-old male who presents after fall with right leg pain and was noted to have mildly displaced fibular fracture. Patient was noted to have a ascending colon mass on CT scan. No evidence of active GI bleed. He is on 5 L oxygen and on tube feeds with limited mobility. Discussed treatment options with the patient which would be no further work-up with hospice care/senior care placement, colonoscopy next week to confirm diagnosis or proceeding with further surgery after colonoscopy if there is malignancy. I have asked him to think about the options and let us know what he wants to do since he is at high risk for any surgical intervention considering his comorbidities and age. Status: Acute Coding Level of Care Code Acute Kitchen Utility Associate for Aniya Barrera Diagnoses Colonic mass K63.89
--- NOTE | 2021-11-16 13:17 | PC.NUTR ---
PEG tube consult received. Recommend 6 cartons or servings of Jevity 1.2, each to be 8 ounces or 237 mls. While in the hospital that will split nicely into 2 servings (16 ounces or 480 mls) for breakfast/ lunch/ dinner, with 60 mls flushes before and after each bolus feeding. There would also be allowance for 100-200 mls additional flushes if Pt wasn't feeling bloated or full. Details in RD assessment.
--- NOTE | 2021-11-16 16:15 | P.CONIM_ITS ---
Providers/Reason For Consult Consulting Physician/Specialty*: Shlomo Burton D.P.M. Reason for Consult*: Right lower extremity right fibular fracture. Right venous stasis wounds. Attending Physician: Cyril Coreas MD Primary Care Provider: ROLANDO Jones History of Present Illness History of Present Illness Steven Whitney is a 81 year old male presented to the ED for right leg pain, had a fall approximately a week ago. I was consulted for evaluation of right lower extremity pain and venous insufficiency wounds. Patient has above-knee amputation to the left lower extremity. Patient has significant past medical history with extensive comorbidities. PMH includes COPD is on 5 L of oxygen, coronary artery disease with history of coronary artery bypass graft, Parkinson's, PEG tube, CHF, chronic kidney disease and PAD. Long-term use of Dilaudid with pump. Patient utilizes a wheelchair as his primary means of ambulation. Stands on his right leg for transfers. Is unable to fully extend his right leg. Review of Systems General: Reports: 10 or more systems reviewed and unremarkable except in HPI and below Const: Denies: fever(s) or chills Card: Denies: chest pain or palpitations Resp: Denies: productive cough GI: Denies: abdominal pain, nausea or vomiting : Denies: flank pain Musc: Reports: extremity swelling, joint pain, joint stiffness, limited range of motion and deformity Skin/Breast: Reports: nail changes and change in hair; Denies: rash or sores Neuro: Reports: numbness in extremities, sensory changes and difficulty walking Psych: Denies: suicidal ideation [place]/Lymph: Denies: easy bruising Medications/Allergies Home Medications Medication Instructions Recorded Confirmed Last Taken Type nitroglycerin 0.4 mg sublingual 0.4 mg SUBLINGUAL Q5M PRN 07/14/19 11/15/21 Unknown History tablet hydromorphone 1 mg/mL oral liquid 4 mg FEEDING TUBE Q4H PRN 08/06/19 11/15/21 11/15/21 History tamsulosin 0.4 mg capsule 0.4 mg PO DAILY #90 cap 11/13/20 11/15/21 11/15/21 Rx triamcinolone acetonide 0.1 % 1 applic TOPICAL BID #80 g 01/30/21 11/15/21 11/15/21 Rx topical ointment clobetasol 0.05 % scalp solution 1 applic TOPICAL DAILY PRN 02/07/21 11/15/21 Unknown History erythromycin 5 mg/gram (0.5 %) eye 0.5 inch OPHTHALMIC (EYE) PRN 02/07/21 11/15/21 Unknown History ointment (3.5 gram tube) ketoconazole 1 % shampoo 1 applic TOPICAL Q3D PRN 02/07/21 11/15/21 Unknown History methylnaltrexone 8 mg/0.4 mL 8 mg SUBCUT DAILY PRN 02/07/21 11/15/21 Unknown History subcutaneous syringe (Relistor) miconazole nitrate 2 % topical 1 applic TOPICAL PRN 02/07/21 11/15/21 Unknown History cream water for irrigation, sterile 1 irrig IRRIGATION PRN 02/07/21 11/15/21 Unknown History (Aqua Care Sterile Water) fluticasone propionate 50 1 spray INTRANASAL BID #9.9 ml 04/03/21 11/15/21 11/15/21 Rx mcg/actuation nasal spray,suspension (Flonase Allergy Relief) potassium chloride 20 mEq/15 mL See Rx Instructions .ROUTE 04/16/21 11/15/21 11/15/21 Rx oral liquid .COMPLEX #675 ml hydrocortisone 2.5 % topical 1 applic TOPICAL BID PRN #28.35 g 08/17/21 11/15/21 Unknown Rx ointment pantoprazole 40 mg granules 40 mg PO DAILY #90 ea 09/12/21 11/15/21 11/15/21 Rx delayed-release for susp in packet (Protonix) finasteride 5 mg tablet See Rx Instructions .ROUTE 10/01/21 11/15/21 11/15/21 Rx .COMPLEX #90 tab furosemide 10 mg/mL oral solution See Rx Instructions .ROUTE 10/01/21 11/15/21 11/15/21 Rx .COMPLEX #360 ml arformoterol 15 mcg/2 mL solution See Rx Instructions .ROUTE 10/25/21 11/15/21 11/15/21 Rx for nebulization (Brovana) .COMPLEX #60 vial budesonide 0.5 mg/2 mL suspension See Rx Instructions .ROUTE 10/25/21 11/15/21 11/15/21 Rx for nebulization .COMPLEX #60 vial revefenacin 175 mcg/3 mL solution See Rx Instructions .ROUTE 10/25/21 11/15/21 Unknown Rx for nebulization (Yupelri) .COMPLEX #30 vial lactulose 10 gram/15 mL oral 15 ml PO DAILY PRN 11/15/21 11/15/21 Unknown History solution Allergies Allergy/AdvReac Type Severity Reaction Status Date / Time Iodinated Contrast Media Allergy ADR-Nausea Verified 11/07/21 08:51 Penicillins Allergy ALGY-Swell Verified 11/07/21 08:51 Lip/Tongue/Throat Current Medications Generic Name Dose Route Start Last Admin Trade Name Freq PRN Reason Stop Dose Admin Enoxaparin Sodium 40 mg 11/16/21 09:30 11/16/21 12:37 Enoxaparin 40 Mg/0.4 Ml Syringe SUBCUT 40 mg Q24H SHENG Administration Finasteride 5 mg 11/16/21 09:30 11/16/21 14:05 Finasteride 5 Mg Tablet PEG-TUBE Not Given DAILY SHENG Hydromorphone HCl 1 mg 11/16/21 14:40 11/16/21 15:15 Hydromorphone 1 Mg/Ml Inj 1 Ml IVP 1 mg Q3H PRN Administration pain Vancomycin HCl 750 mg/ Sodium 250 mls @ 250 mls/hr 11/16/21 12:00 11/16/21 13 :40 Chloride IV Infused Q24H SHENG Infusion Protocol As Directed Non-Formulary 0 each 11/16/21 11:00 11/16/21 13:31 Medication (Pain XX Not Given Pump) CONT HSENG Pantoprazole Sodium 40 mg 11/16/21 10:00 11/16/21 12:36 Pantoprazole 40 Mg Sdv IVP 40 mg Q24H SHENG Administration Polyethylene Glycol 17 gm 11/16/21 10:30 11/16/21 13:31 Polyethylene Glycol 3350 Pkt 17 Gm PO Not Given DAILY SHENG Senna/Docusate Sodium 1 tab 11/16/21 10:30 11/16/21 13:31 Sennosides-Docusate Tablet PO Not Given DAILY SHENG PFSH Acute PFSH: Medical History Bacteriuria Benign prostatic hyperplasia with lower urinary tract symptoms CAD (coronary artery disease) Chronic headaches COPD (chronic obstructive pulmonary disease) Diastolic CHF DNR (do not resuscitate) GERD (gastroesophageal reflux disease) 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 Social History Smoking and tobacco status: current every day smoker cigarettes Packs smoked per day: 0.5 Years cigarettes smoked: 70 [ Other cigarette details: [id number] 70yr hx] Second hand smoke exposure: No Smoking risk assessment/counseling performed?: Yes Alcohol intake: former Adopted: No Caregiver/support person: No Lives independently: No Household members: spouse Marital status: service: No Current occupational status: retired History of recent travel: No Current gender identity: Male Special key needs: No Agree to transfusion: Yes Vitals/I&O/Wt Last Vital Signs Temp 98.4 F 11/16/21 13:28 Pulse 61 11/16/21 15:55 Resp 18 11/16/21 15:55 BP 125/67 11/16/21 15:55 Pulse Ox 92 11/16/21 15:55 11/16/21 11/16/21 11/16/21 06:59 14:59 22:59 Intake Total 250 / 250 Balance 250 / 250 Weight last 48 hrs Weight 115 lb Physical Exam Narrative: GENERAL: Patient is alert and oriented ?3 and in no acute distress. The following is a focused right lower extremity exam. VASCULAR: Dorsalis pedis palpable +2 at the right, posterior tibial artery faintly palpable at the right Capillary refill time less than 5 seconds to the distal right hallux. Decreased pedal hair growth. NEUROLOGICAL: Protective sensation intact 0/10 sites, tested with Sullivan Laith monofilament to right foot. DERMATOLOGICAL: Superficial wounds limited to breakdown of skin to the right leg, no drainage at this time, no erythema, no cellulitis or warmth. Skin is indurated with fibrosing and chronic skin pigmentation changes, significant dry flaking skin. Maggots within the right third webspace. No wound within webspaces 1 through 4 of the right foot. MUSCULOSKELETAL: Mild tenderness at the right proximal fibula. Unable to extend his right knee, remains approximately 30 degrees flexed with osseous and range of motion. Urinary Catheter Management: Avilez: Cath Placed During This Visit: yes Urinary Catheter Date of Insertion: 11/16/21 Urinary Catheter Time of Insertion: 12:03 Data : 11/17/21 04:30 11/17/21 04:30 Micro: Microbiology 11/16/21 10:27 Blood Culture - Preliminary Blood SPECIMEN COLLECTED 11/16/21 10:32 Blood Culture - Preliminary Blood SPECIMEN COLLECTED A&P Assessment and plan (1) Maisonneuve fracture of right fibula: Status: Acute (2) Peripheral arterial disease: Status: Acute (3) Chronic venous insufficiency: Status: Acute (4) Stasis dermatitis: Status: Acute Plan [place]isonneuve fracture right fibula is nondisplaced, fracture is nonoperative, he may bear weight for transfers on the right lower extremity. Maggots were removed from the right third webspace, thorough inspection shows no wound or breakdown in skin and webspaces 1 through 4 the right foot. Foot was cleansed. Aquacel AG flossed within the webspaces to further wick moisture. Superficial cracks limited to breakdown of skin secondary to chronic venous insufficiency, mild dermatitis also present. Unna's boot applied to the right lower extremity followed by Kerlix and tape, no compression secondary to PAD. Unna boot can remain in place for 7 days. Aquacel Ag to be changed once daily at the webspace. Podiatry will follow while he is hospitalized and may follow-up in podiatry clinic outpatient. Coding Level of Care Code Acute Front Counter Attendant for Aniya Barrera Diagnoses Maisonneuve fracture of right fibula S82.861A Peripheral arterial disease I73.9 Chronic venous insufficiency I87.2 Stasis dermatitis I87.2 Comment CPT 67383 CPT 23544
--- NOTE | 2021-11-16 19:01 | PC.NURSE ---
ROUNDING NOTE Will be pt care nurse as well as 1:1 sitter freda. Pt is alert & oriented. Tells me he hurts all over but hola right leg. Is coop and requested a soda to drink. Is talking about maybe having a colonoscopy to see if he has a colon tumor. Did c/o right heel hurting. Placed a foam heel protecter and pillow placed under heel to elevate off bed. Says does help some. Denies any suicidal ideation at this time.
--- NOTE | 2021-11-16 20:21 | PC.NURSE ---
FEEDING Jevity TF started at ml/hr rate per new order. Pt not very happy about this. Is afraid will keep him from having a Colonoscopy because it will fill my bowels up and I won't be able to have it Reassured will not affect a procedure but he still was not very happy about it. Did allow feeding to start. Enc to discuss further with in the morning
[2021-11-16] MEDS: ipratropium-albuterol 3 mL Neb INHALATION (20:48)
[2021-11-17] VITALS (18 sets, daily range): BP systolic 95–121; BP diastolic 49–78; PULSE 62–78; RESP 16–20; TEMP 36.7–37.7; O2SAT 90–95
[2021-11-17] MEDS: HYDROmorphone 1 mg/mL INJ 1 mL IVP ×3 (01:02→09:09)
[2021-11-17] MEDS: ipratropium-albuterol 3 mL Neb INHALATION ×3 (03:40→16:27)
[2021-11-17 05:00] LABS: Basophils % 0.2 %; Eosinophils # 0.1 10^3/uL (0.0-0.8); Eosinophils % 0.5 %; Hematocrit 40.9 % (42.0-52.0); Hemoglobin 12.7 g/dL (11.7-16.6); Lymphocytes # 0.6 10^3/uL (0.8-4.8); Lymphocytes % 4.2 %; Mean Corpuscular HGB Conc 31.1 g/dL (30.0-36.0); Mean Corpuscular Hemoglobin 27.6 pg (28.0-34.0); Mean Corpuscular Volume 88.9 fl (80-94); Monocytes # 1.1 10^3/uL (0.2-0.9); Monocytes % 8.2 %; Neutrophils # 11.54 10^3/uL (1.8-7.7); Neutrophils % 86.5 %; Nucleated Red Blood Cells % 0 %; Platelet Count 191 10^3/cmm (130-400); Red Cell Distribution Width 14.2 % (12.1-15.1); White Blood Count 13.3 10^3/uL (4.0-10.0)
[2021-11-17 05:19] LABS: Alanine Aminotransferase 9 U/L (0-41); Albumin Level 2.8 g/dL (3.5-5.2); Alkaline Phosphatase 108 IU/L (40-130); Anion Gap 12.4 (5-19); Aspartate Amino Transferase 11 U/L (0-40); Blood Urea Nitrogen 22 mg/dL (8-23); Calcium 7.5 mg/dL (8.5-10.5); Carbon Dioxide 29 mmol/L (22-29); Chloride 98 mmol/L (98-107); Globulin 2.5 g/dL (1.3-4.6); Glucose 91 mg/dL (65-115); Osmolality Calculated 283 mOsm/kg (285-295); Potassium 4.4 mmol/L (3.5-5.1); Sodium 135 mmol/L (136-145); Total Bilirubin 0.3 mg/dL (0.15-1.2); Total Protein 5.3 g/dL (6.6-8.7)
--- NOTE | 2021-11-17 08:19 | P.NPUCON_ITS ---
Providers/Reason for Consult Consulting Physican/Specialty*: Rafat Mclaughlin MD. Psychiatry. Reason for Consult*: Concern for suicidal ideation. Attending Physician: Cyril Coreas MD Primary Care Provider: ROLANDO Jones Psych Consult HPI History of Present Illness Steven Whitney is a 81 year old male who presented to the emergency department the following report: Chief Complaint: Chest Pain Stated Complaint: CP/ LEG PAIN/ SI Time Seen by Provider: 11/15/21 20:30 History of Present Illness: Mr. Whitney is an 81-year-old gentleman with complex past medical history including hypertension, hyperlipidemia, COPD with chronic hypoxic respiratory failure, CAD, CHF, G-tube present, and chronic wounds who presents to the emergency department due to chest pain and fall as well as suicidal thoughts. He reports intermittent history of chest pressure in the middle of his chest which does not significantly radiate. This is typically with exertion however there are no other typical cardiac features. Additionally endorses a fall while trying to get into bed last night landing on his right hip. He has since had pain which is sharp and moderate to severe in intensity despite treatment at home. He does think that he may have hit his head but did not lose consciousness and is not on anticoagulation. Symptoms are worse with movement. Additionally he reports intermittent suicidal thoughts which are currently present. These are worse than they have been in the past. He is frustrated with his baseline health and sees no reason to live. He is not currently on any medications for depression. Onset (ago): day(s) Prior episodes: Yes Pain location: substernal Severity: moderate Quality: aching He was admitted to the med surg unit for definitive treatment of those issues. It was determined that he has a mass in his colon possibly consistent with colon cancer and the appropriate consults and treatment measures have been initiated. He presents today reporting he did make the statements that were reported in the emergency department that he would rather or wished he was secondary to the pain but he presents today reporting that?s all that it was, was that he was in so much pain and didn?t know if there was going to be any relief and he made that statement. He denied any interest in harming himself. He reports that they have been managing his pain wonderfully and that he is coping well and is not having those thoughts anymore. He reports that he has been hospitalized once in his life, a long, long time ago back in [place] in the [place] area in a [facility] facility. He reports he was in there for ?mental break down? but denies any subsequent hospitalizations, denies any ongoing outpatient psychiatric treatment throughout his life, and denies taking any medications since that time. He reports any significant or contributory addictions issues. He reports that he is aware that they are concerned that he has colon cancer and reports that he is prepared to have the colonoscopy on friday and see what happens from that biopsy. He reports that otherwise, he feels much better now that he has an explanation of what is going on. He reports his is really supportive and will work through this and deal with this whatever comes, what may. He denies any interest in any medications or counseling at this time. He reports that he will follow up as scheduled and make decisions crossing bridges when he comes to them. Meds Home Medications and Allergies Home Medications Medication Instructions Recorded Confirmed Last Taken Type nitroglycerin 0.4 mg sublingual 0.4 mg SUBLINGUAL Q5M PRN 07/14/19 11/15/21 Unknown History tablet hydromorphone 1 mg/mL oral liquid 4 mg FEEDING TUBE Q4H PRN 08/06/19 11/15/21 11/15/21 History tamsulosin 0.4 mg capsule 0.4 mg PO DAILY #90 cap 11/13/20 11/15/21 11/15/21 Rx triamcinolone acetonide 0.1 % 1 applic TOPICAL BID #80 g 01/30/21 11/15/21 11/15/21 Rx topical ointment clobetasol 0.05 % scalp solution 1 applic TOPICAL DAILY PRN 02/07/21 11/15/21 Unknown History erythromycin 5 mg/gram (0.5 %) eye 0.5 inch OPHTHALMIC (EYE) PRN 02/07/21 11/15/21 Unknown History ointment (3.5 gram tube) ketoconazole 1 % shampoo 1 applic TOPICAL Q3D PRN 02/07/21 11/15/21 Unknown History methylnaltrexone 8 mg/0.4 mL 8 mg SUBCUT DAILY PRN 02/07/21 11/15/21 Unknown History subcutaneous syringe (Relistor) miconazole nitrate 2 % topical 1 applic TOPICAL PRN 02/07/21 11/15/21 Unknown History cream water for irrigation, sterile 1 irrig IRRIGATION PRN 02/07/21 11/15/21 Unknown History (Aqua Care Sterile Water) fluticasone propionate 50 1 spray INTRANASAL BID #9.9 ml 04/03/21 11/15/21 11/15/21 Rx mcg/actuation nasal spray,suspension (Flonase Allergy Relief) potassium chloride 20 mEq/15 mL See Rx Instructions .ROUTE 04/16/21 11/15/21 11/15/21 Rx oral liquid .COMPLEX #675 ml hydrocortisone 2.5 % topical 1 applic TOPICAL BID PRN #28.35 g 08/17/21 11/15/21 Unknown Rx ointment pantoprazole 40 mg granules 40 mg PO DAILY #90 ea 09/12/21 11/15/21 11/15/21 Rx delayed-release for susp in packet (Protonix) finasteride 5 mg tablet See Rx Instructions .ROUTE 10/01/21 11/15/21 11/15/21 Rx .COMPLEX #90 tab furosemide 10 mg/mL oral solution See Rx Instructions .ROUTE 10/01/21 11/15/21 11/15/21 Rx .COMPLEX #360 ml arformoterol 15 mcg/2 mL solution See Rx Instructions .ROUTE 10/25/21 11/15/21 11/15/21 Rx for nebulization (Brovana) .COMPLEX #60 vial budesonide 0.5 mg/2 mL suspension See Rx Instructions .ROUTE 10/25/21 11/15/21 11/15/21 Rx for nebulization .COMPLEX #60 vial revefenacin 175 mcg/3 mL solution See Rx Instructions .ROUTE 10/25/21 11/15/21 Unknown Rx for nebulization (Yupelri) .COMPLEX #30 vial lactulose 10 gram/15 mL oral 15 ml PO DAILY PRN 11/15/21 11/15/21 Unknown History solution Allergies Allergy/AdvReac Type Severity Reaction Status Date / Time Iodinated Contrast Media Allergy ADR-Nausea Verified 11/07/21 08:51 Penicillins Allergy ALGY-Swell Verified 11/07/21 08:51 Lip/Tongue/Throat Current Medications Current Medications Generic Name Dose Route Start Last Admin Trade Name Freq PRN Reason Stop Dose Admin Albuterol/Ipratropium 3 ml 11/16/21 09:52 11/17/21 03:40 Ipratropium-Albuterol 3 Ml Neb INHALATION 3 ml Q6H PRN Administration SHORTNESS OF BREATH Enoxaparin Sodium 40 mg 11/16/21 09:30 11/16/21 12:37 Enoxaparin 40 Mg/0.4 Ml Syringe SUBCUT 40 mg Q24H SHENG Administration Finasteride 5 mg 11/16/21 09:30 11/16/21 14:05 Finasteride 5 Mg Tablet PEG-TUBE Not Given DAILY SHENG Hydromorphone HCl 1 mg 11/16/21 14:40 11/17/21 04:31 Hydromorphone 1 Mg/Ml Inj 1 Ml IVP 1 mg Q3H PRN Administration pain Vancomycin HCl 750 mg/ Sodium 250 mls @ 250 mls/hr 11/16/21 12:00 11/16/21 13:40 Chloride IV Infused Q24H SHENG Infusion Protocol As Directed Non-Formulary 0 each 11/16/21 11:00 11/16/21 13:31 Medication (Pain XX Not Given Pump) CONT SHENG Pantoprazole Sodium 40 mg 11/16/21 10:00 11/16/21 12:36 Pantoprazole 40 Mg Sdv IVP 40 mg Q24H SHENG Administration Polyethylene Glycol 17 gm 11/16/21 10:30 11/16/21 13:31 Polyethylene Glycol 3350 Pkt 17 Gm PO Not Given DAILY SHENG Senna/Docusate Sodium 1 tab 11/16/21 10:30 11/16/21 13:31 Sennosides-Docusate Tablet PO Not Given DAILY SHENG PFSH NPU PFSH: Medical History Bacteriuria Benign prostatic hyperplasia with lower urinary tract symptoms CAD (coronary artery disease) Chronic headaches COPD (chronic obstructive pulmonary disease) Diastolic CHF DNR (do not resuscitate) GERD (gastroesophageal reflux disease) 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 Social History Smoking and tobacco status: current every day smoker cigarettes Packs smoked per day: 0.5 Years cigarettes smoked: 70 [ Other cigarette details: [id number] [id number]] Second hand smoke exposure: No Smoking risk assessment/counseling performed?: Yes Alcohol intake: former Adopted: No Caregiver/support person: No Lives independently: No Household members: spouse Marital status: service: No Current occupational status: retired History of recent travel: No Current gender identity: Male Special key needs: No Agree to transfusion: Yes Mental Status Exam MSE Comments: This is a overweight white male looking slightly older than his stated age with hospital gown on with limited grooming and eye contact. Often talking with his eyes closed. No abnormal movements. Cooperative with exam in no acute distress. Speech was normal rate and volume but with significant dysarthria likely secondary to absent dentition. Mood described as ?as good as can be expected?, affect congruent. Thought process, organized. Thought content: patient denies suicidal or homicidal ideation, no delusions reported or noted and denies any auditory or visual hallucinations. Attention and concentration are intact and memory is reliable though none were formally tested. He is alert and oriented three times. Insight and judgment are fair. Impulse control is fair to good. Vitals/I&O/Wt Last Vital Signs Temp 98.0 F 11/17/21 03:44 Pulse 62 11/17/21 05:57 Resp 18 11/17/21 04:31 BP 114/51 11/17/21 03:44 Pulse Ox 92 11/17/21 03:44 11/16/21 11/16/21 11/17/21 14:59 22:59 06:59 Intake Total 250 / 250 210 / 460 95 / 555 Output Total 500 / 500 Balance 250 / 250 210 / 460 -405 / 55 Weight last 48 hrs Weight 52.163 kg Physical Exam Urinary Catheter Management: Avilez: Cath Placed During This Visit: yes Reason for Continuing Indwelling Catheter: Required Immobilization for Trauma or Surgery or Anesthesia Urinary Catheter Date of Insertion: 11/16/21 Urinary Catheter Time of Insertion: 12:03 Data NPU : 11/17/21 04:30 11/17/21 04:30 Micro: Microbiology 11/16/21 10:27 Blood Culture - Preliminary Blood SPECIMEN COLLECTED 11/16/21 10:32 Blood Culture - Preliminary Blood SPECIMEN COLLECTED Microbiology 11/16/21 10:27 Blood Blood Culture - Preliminary SPECIMEN COLLECTED 11/16/21 10:32 Blood Blood Culture - Preliminary SPECIMEN COLLECTED A&P Assessment and plan (1) Colonic mass: Status: Acute (2) Suicidal ideation: Status: Acute (3) Chronic pain: Status: Acute Qualifiers: Chronic pain type: other chronic pain Qualified Code(s): G89.29 - Other chronic pain (4) Adjustment disorder with mixed disturbance of emotions and conduct: Status: Acute Plan This is a 81 year old white male with a distant history of mental health challenges and inpatient services but denying any recently, who presents reporting the suicidal statement that he made was just an impulsive statement that had no suicidal thinking or significance behind it, denying any need for psychiatric services. 1. Continue current medications 2. Reasonable to proceed with treatment of his presenting concern without any psychiatric intervention but could provide for him information for resources if he were to consider therapy but no signs or symptoms suggesting need for medication intervention which could change. 3. Agree with discharge when medically appropriate. Attestations NPU Medical Necessity Statement*: N/A. Please see primary team note for medical necessity. 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
[2021-11-17] MEDS: pantoprazole 40 mg SDV IVP (09:09)
[2021-11-17] MEDS: tamsulosin 0.4 mg Capsule PO (09:18)
[2021-11-17] MEDS: sennosides-docusate Tablet 1 TAB PO (09:18)
[2021-11-17] MEDS: enoxaparin 40 mg/0.4 mL Syringe SUBCUT (09:18)
[2021-11-17] MEDS: finasteride 5 mg Tablet PEG-TUBE (09:18)
--- NOTE | 2021-11-17 11:44 | PM.PN ---
Subjective Subjective: Patient was seen this morning -Currently on 5 L, enjoying his breakfast -He has a couple concerns, he is concerned about his continuous tube feedings that he is getting, he is wondering if he can get his home bolus tube feedings -Yesterday it was discovered that he had an ascending colonic mass, concerning for malignancy, after discussing the risk and benefits, he is agreeable to proceeding with colonoscopy -He also tells me that his pain is not well controlled, the Dilaudid that were giving to him is not helping -He also tells me that he wants me to talk to his , he thinks that going to skilled nursing for rehab would be a good option, as his is currently undergoing treatment for her cancer, and after his fall and his weakness he thinks that he would benefit from physical therapy Vitals/I&O/Wt Last Vital Signs Temp 98.3 F 11/17/21 07:29 Pulse 78 11/17/21 08:00 Resp 17 11/17/21 09:09 BP 115/60 11/17/21 07:29 Pulse Ox 92 11/17/21 08:00 11/16/21 11/17/21 11/17/21 22:59 06:59 14:59 Intake Total 210 / 460 95 / 555 Output Total 500 / 500 Balance 210 / 460 -405 / 55 Weight last 48 hrs Weight 52.163 kg Physical Exam Const: COMMON NORMALS: no acute distress and patient oriented x3 Resp: COMMON NORMALS: normal respiratory effort, No retractions and No use of accessory muscles AUSCULTATION: wheezes Cardio: COMMON NORMALS: regular rate, regular rhythm, S1 normal heart sound present and S2 normal heart sound present RATE: regular rate RHYTHM: regular rhythm HEART SOUNDS: S1 normal heart sound present and S2 normal heart sound present GI: COMMON NORMALS: Normal to inspection, nondistended, normoactive bowel sounds present, Soft to palpation and non-tender PALPATION: Yes Soft to palpation Extremity: NARRATIVE EXTREMITY EXAM: Right lower extremity, cellulitic areas, improving Neuro: COMMON NORMALS: patient oriented x3 Psych: COMMON NORMALS: mental status grossly normal Urinary Catheter Management: Avilez: Cath Placed During This Visit: yes Reason for Continuing Indwelling Catheter: Required Immobilization for Trauma or Surgery or Anesthesia Urinary Catheter Date of Insertion: 11/16/21 Urinary Catheter Time of Insertion: 12:03 Data : 11/17/21 04:30 11/17/21 04:30 Micro: Microbiology 11/16/21 10:27 Blood Culture - Preliminary Blood NEGATIVE TO DATE 11/16/21 10:32 Blood Culture - Preliminary Blood NEGATIVE TO DATE A&P Assessment and plan (1) Scrotal mass: Status: Acute (2) Cellulitis of right lower extremity: Status: Acute (3) Wound of right leg: Status: Acute (4) G tube feedings: Status: Acute (5) CHF (congestive heart failure): Status: Acute (6) History of angioplasty: Status: Acute (7) Urinary retention due to benign prostatic hyperplasia: Status: Acute (8) Bradycardia: Status: Acute (9) COPD (chronic obstructive pulmonary disease): Status: Acute Qualifiers: COPD type: unspecified COPD Qualified Code(s): J44.9 - Chronic obstructive pulmonary disease, unspecified (10) CAD (coronary artery disease): Status: Acute (11) Dysphagia, oropharyngeal: Status: Acute (12) Chest pain: Status: Acute (13) Weakness: Status: Acute (14) Weight loss: Status: Acute (15) Mass of right thigh: Status: Acute (16) DNR (do not resuscitate): Status: Acute (17) Fibula fracture: Status: Acute (18) Presence of intrathecal pump: Status: Acute (19) Colonic mass: Status: Acute (20) Muscular deconditioning: Status: Acute (21) Protein calorie malnutrition: Status: Acute (22) Recurrent falls: Status: Acute Plan Steven Whitney is a 81 year old male with a past medical history of bradycardia, history of aspiration pneumonia history of urinary retention with UTI, history of COPD 5 L oxygen dependent, ADEOLA on CPAP, CAD status post CABG, history of Parkinson's disease, has a PEG tube in place etiology unclear, but patient denies a history of ALS, chronic diastolic CHF, history of bilateral renal cysts, history of right hemispheric stroke, 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, history of CKD, history of right lower extremity cellulitis, history of peripheral arterial disease, chronic pain with a Dilaudid pain pump, recent history of gastrostomy tube placement, recent history of right inguinal lymphadenopathy concerning for neoplastic process, with scrotal nodules concerning for neoplastic process, patient electing for conservative intervention no biopsy, who presents [facility] for [facility], right foot pain, Protein calorie malnutrition, deconditioning, PT OT, likely will require skilled nursing placement for skilled rehab Fall -Likely deconditioning, has left above-knee amputation, now has a right fibular fracture -PT OT Right fibular fracture -Spoke to Dr. Tabares, no splinting needed, weightbearing as tolerated -PT OT -DNR/DNI -Lovenox for DVT prophylaxis Pain control -He has a intrathecal pain pump, he receives -3.426 mg/dayof hydromorphone -3.997 mg/day of bupivacaine -5.711 mcg/day of baclofen -In addition he takes 4 mg of hydromorphone every 4 hours as needed for breakthrough pain -As pain continues to not be well controlled, add oxycodone 10/30/2024 every 4 hours. For pain Right lower extremity cellulitis with open sores, maggots found in third webspace, no skin breakdown -Podiatry on consult -Vancomycin for antibiotic coverage -Aniyah bonds, for heel ulcer -Consult podiatry service COPD, currently on 2 L, monitor not in exacerbation Does have wheezing on exam, evidence of fluid overload, Lasix 1 dose History of aspiration pneumonia, dysphagia, speech therapy Colonic mass, ascending, -Consulted Dr. Tadeo -Patient is agreeable for colonoscopy -Plans on colonoscopy on Friday, will start bowel prep tomorrow, n.p.o. midnight tomorrow Current weight loss over 20 pounds -Has G-tube in place, etiology uncertain possibly from Parkinson's disease, doubt ALS -Recently had G-tube replaced by Dr. Tadeo -Consult dietary for diet recommendations, he tells me he uses Ensure twice daily -Consulted nutrition, bolus tube feedings -General diet, speech therapy Chest pain -Nonspecific in etiology, he tells me more his shoulders hurt him -But chest pain is intermittent -Serial EKGs, serial troponins -Telemetry monitoring CAD status post CABG Suicidal ideation, currently no active suicidal ideation, Dr. 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 [employer] Diagnoses Scrotal mass N50.89 Cellulitis of right lower extremity L03.115 Wound of right leg S81.801A G tube feedings Z93.1 CHF (congestive heart failure) I50.9 History of angioplasty Z98.62 Urinary retention due to benign prostatic hyperplasia N40.1; R33.8 Bradycardia R00.1 COPD (chronic obstructive pulmonary disease) J44.9 COPD type: unspecified COPD CAD (coronary artery disease) I25.10 Dysphagia, oropharyngeal R13.12 Chest pain R07.9 Weakness R53.1 Weight loss R63.4 Mass of right thigh R22.41 DNR (do not resuscitate) Z66 Fibula fracture S82.409A Presence of intrathecal pump Z97.8 Colonic mass K63.89 Muscular deconditioning R29.898 Protein calorie malnutrition E46 Recurrent falls R29.6
[2021-11-17] MEDS: oxyCODONE-APAP 5-325 mg Tablet 1 TAB PO (12:05)
[2021-11-17] MEDS: vancomycin 750 MG in sodium chloride 0.9% 250 ML 250 MG IV (12:08)
--- NOTE | 2021-11-17 12:10 | XRR_ITS ---
PROCEDURE INFORMATION: Exam: XR Left Shoulder Exam date and time: 11/17/2021 1:41 PM Age: 81 years old Clinical indication: Pain; Upper arm; Left; Additional info: Pain, fall TECHNIQUE: Imaging protocol: XR Left shoulder. Views: 1 view. COMPARISON: CR XR chest 1V portable [id number] 11/15/2021 9:21 PM FINDINGS: Bones/joints: Fracture in the distal left clavicle appears old and healed, but is new since 01/19/2020. The other bones are intact and in normal alignment. Mild degenerative changes of the left acromioclavicular joint. Lungs: Consolidation in the central and lower left lung. Pleural space: Left pleural effusion. Soft tissues: Normal. XR/XR shoulder LT 1V [id number] IMPRESSION: 1. No acute skeletal finding. 2. Pulmonary edema versus pneumonia in the left lung with left pleural effusion.
--- NOTE | 2021-11-17 12:10 | XRR_ITS ---
PROCEDURE INFORMATION: Exam: XR Right Shoulder Exam date and time: 11/17/2021 1:43 PM Age: 81 years old Clinical indication: Injury or trauma; Fall; Blunt trauma (contusions or hematomas); Shoulder; Right; Additional info: Pain, fall TECHNIQUE: Imaging protocol: XR Right shoulder. Views: 1 view. COMPARISON: CR XR chest 1V portable [id number] 11/15/2021 9:21 PM FINDINGS: Bones/joints: Single AP view of the right shoulder. The bones are intact and in normal alignment. Mild degenerative changes. Old right lateral rib fractures. Posterior dislocations cannot be excluded on AP views only. Soft tissues: Normal. XR/XR shoulder RT 1V [id number] IMPRESSION: No acute finding.
[2021-11-17] MEDS: FUROsemide 10 mg/mL SDV 4mL 40 MG IVP (12:15)
--- NOTE | 2021-11-17 16:16 | XRR_ITS ---
PROCEDURE INFORMATION: Exam: XR Right Foot Exam date and time: 11/17/2021 6:37 PM Age: 81 years old Clinical indication: Pain; Heel; Right; Additional info: Heel pain, please get images of calcaneus TECHNIQUE: Imaging protocol: XR Right foot. Views: 3 or more views. COMPARISON: CR XR tibia fibula RT 2V [id number] 11/15/2021 9:21 PM FINDINGS: Bones/joints: The bones appear intact and in normal alignment. Fine bone detail is obscured by artifact from the cast material. Degenerative changes of the 1st MTP and IP joints. Soft tissues: Normal. Other findings: Cast in place. XR/XR foot RT min 3V* [id number] IMPRESSION: No definite acute finding. Evaluation is limited by the cast material.
--- NOTE | 2021-11-17 16:19 | P.CONIM_ITS ---
Providers/Reason For Consult Consulting Physician/Specialty*: hospitalist Reason for Consult*: fibula fracture Attending Physician: Cyril Coreas MD Primary Care Provider: ROLANDO Jones History of Present Illness History of Present Illness Steven Whitney is a 81 year old male Complaint of pain in the shoulder leg heel. He fell approximately 1 week ago. Patient has significant past medical history with extensive comorbidities.? PMH includes COPD is on 5 L of oxygen, coronary artery disease with history of coronary artery bypass graft, Parkinson's, PEG tube, CHF, chronic kidney disease and PAD.? Long-term use of Dilaudid with pump.? Patient utilizes a wheelchair as his primary means of ambulation.? Stands on his right leg for transfers.? Is unable to fully extend his right leg. Review of Systems General: Reports: 10 or more systems reviewed and unremarkable except in HPI and below Const: Denies: fever(s) or chills Card: Denies: chest pain or palpitations Resp: Denies: productive cough GI: Denies: abdominal pain, nausea or vomiting : Denies: flank pain Musc: Reports: extremity swelling, joint pain, joint stiffness, limited range of motion and deformity Skin/Breast: Reports: nail changes and change in hair; Denies: rash or sores Neuro: Reports: numbness in extremities, sensory changes and difficulty walking Psych: Denies: suicidal ideation [place]/Lymph: Denies: easy bruising Medications/Allergies Home Medications Medication Instructions Recorded Confirmed Last Taken Type nitroglycerin 0.4 mg sublingual 0.4 mg SUBLINGUAL Q5M PRN 07/14/19 11/15/21 Unknown History tablet hydromorphone 1 mg/mL oral liquid 4 mg FEEDING TUBE Q4H PRN 08/06/19 11/15/21 11/15/21 History tamsulosin 0.4 mg capsule 0.4 mg PO DAILY #90 cap 11/13/20 11/15/21 11/15/21 Rx triamcinolone acetonide 0.1 % 1 applic TOPICAL BID #80 g 01/30/21 11/15/21 11/15/21 Rx topical ointment clobetasol 0.05 % scalp solution 1 applic TOPICAL DAILY PRN 02/07/21 11/15/21 Unknown History erythromycin 5 mg/gram (0.5 %) eye 0.5 inch OPHTHALMIC (EYE) PRN 02/07/21 11/15/21 Unknown History ointment (3.5 gram tube) ketoconazole 1 % shampoo 1 applic TOPICAL Q3D PRN 02/07/21 11/15/21 Unknown History methylnaltrexone 8 mg/0.4 mL 8 mg SUBCUT DAILY PRN 02/07/21 11/15/21 Unknown History subcutaneous syringe (Relistor) miconazole nitrate 2 % topical 1 applic TOPICAL PRN 02/07/21 11/15/21 Unknown History cream water for irrigation, sterile 1 irrig IRRIGATION PRN 02/07/21 11/15/21 Unknown History (Aqua Care Sterile Water) fluticasone propionate 50 1 spray INTRANASAL BID #9.9 ml 04/03/21 11/15/21 Rx mcg/actuation nasal spray,suspension (Flonase Allergy Relief) potassium chloride 20 mEq/15 mL See Rx Instructions .ROUTE 04/16/21 11/15/21 11/15/21 Rx oral liquid .COMPLEX #675 ml hydrocortisone 2.5 % topical 1 applic TOPICAL BID PRN #28.35 g 08/17/21 11/15/21 Unknown Rx ointment pantoprazole 40 mg granules 40 mg PO DAILY #90 ea 09/12/21 11/15/21 11/15/21 Rx delayed-release for susp in packet (Protonix) finasteride 5 mg tablet See Rx Instructions .ROUTE 10/01/21 11/15/21 11/15/21 Rx .COMPLEX #90 tab furosemide 10 mg/mL oral solution See Rx Instructions .ROUTE 10/01/21 11/15/21 11/15/21 Rx .COMPLEX #360 ml arformoterol 15 mcg/2 mL solution See Rx Instructions .ROUTE 10/25/21 11/15/21 11/15/21 Rx for nebulization (Brovana) .COMPLEX #60 vial budesonide 0.5 mg/2 mL suspension See Rx Instructions .ROUTE 10/25/21 11/15/21 11/15/21 Rx for nebulization .COMPLEX #60 vial revefenacin 175 mcg/3 mL solution See Rx Instructions .ROUTE 10/25/21 11/15/21 Unknown Rx for nebulization (Yupelri) .COMPLEX #30 vial lactulose 10 gram/15 mL oral 15 ml PO DAILY PRN 11/15/21 11/15/21 Unknown History solution Allergies Allergy/AdvReac Type Severity Reaction Status Date / Time Iodinated Contrast Media Allergy ADR-Nausea Verified 11/07/21 08:51 Penicillins Allergy ALGY-Swell Verified 11/07/21 08:51 Lip/Tongue/Throat Current Medications Generic Name Dose Route Start Last Admin Trade Name Freq PRN Reason Stop Dose Admin Albuterol/Ipratropium 3 ml 11/16/21 09:52 11/17/21 08:54 Ipratropium-Albuterol 3 Ml Neb INHALATION 3 ml Q6H PRN Administration SHORTNESS OF BREATH Enoxaparin Sodium 40 mg 11/16/21 09:30 11/17/21 09:18 Enoxaparin 40 Mg/0.4 Ml Syringe SUBCUT 40 mg Q24H SHENG Administration Finasteride 5 mg 11/16/21 09:30 11/17/21 09:18 Finasteride 5 Mg Tablet PEG-TUBE 5 mg DAILY SHENG Administration Vancomycin HCl 750 mg/ Sodium 250 mls @ 250 mls/hr 11/16/21 12:00 11/17/21 13:08 Chloride IV Infused Q24H SHENG Infusion Protocol As Directed Non-Formulary 0 each 11/16/21 11:00 11/17/21 11:49 Medication (Pain XX 13 each Pump) CONT SHENG Administration Pantoprazole Sodium 40 mg 11/16/21 10:00 11/17/21 09:09 Pantoprazole 40 Mg Sdv IVP 40 mg Q24H SHENG Administration Polyethylene Glycol 17 gm 11/17/21 10:45 11/17/21 10:54 Polyethylene Glycol 3350 Pkt 17 Gm PEG-TUBE Not Given DAILY SHENG Senna/Docusate Sodium 1 tab 11/16/21 10:30 11/17/21 09:18 Sennosides-Docusate Tablet PO 1 tab DAILY SHENG Administration Tamsulosin HCl 0.4 mg 11/17/21 09:00 11/17/21 09:18 Tamsulosin 0.4 Mg Capsule PO 0.4 mg DAILY SHENG Administration PFSH Acute PFSH: Medical History Bacteriuria Benign prostatic hyperplasia with lower urinary tract symptoms CAD (coronary artery disease) Chronic headaches COPD (chronic obstructive pulmonary disease) Diastolic CHF DNR (do not resuscitate) GERD (gastroesophageal reflux disease) 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 Social History Smoking and tobacco status: current every day smoker cigarettes Packs smoked per day: 0.5 Years cigarettes smoked: 70 [ Other cigarette details: [id number] 70yr hx] Second hand smoke exposure: No Smoking risk assessment/counseling performed?: Yes Alcohol intake: former Adopted: No Caregiver/support person: No Lives independently: No Household members: spouse Marital status: service: No Current occupational status: retired History of recent travel: No Current gender identity: Male Special key needs: No Agree to transfusion: Yes Vitals/I&O/Wt Last Vital Signs Temp 98.0 F 11/17/21 12:00 Pulse 73 11/17/21 12:00 Resp 18 11/17/21 12:05 BP 121/78 11/17/21 12:00 Pulse Ox 93 11/17/21 12:05 11/17/21 11/17/21 11/17/21 06:59 14:59 22:59 Intake Total 95 / 555 1110 / 1110 Output Total 500 / 500 Balance -405 / 55 1110 / 1110 Weight last 48 hrs Weight 115 lb Physical Exam Narrative: patient has pain in his lower extremity. To palpation he has minimal tenderness. At this point patient's leg is wrapped with multiple wounds. I did not evaluate any of these wounds. At this point Urinary Catheter Management: Avilez: Cath Placed During This Visit: yes Reason for Continuing Indwelling Catheter: Required Immobilization for Trauma or Surgery or Anesthesia Urinary Catheter Date of Insertion: 11/16/21 Urinary Catheter Time of Insertion: 12:03 Data : 11/17/21 04:30 11/17/21 04:30 Micro: Microbiology 11/16/21 10:27 Blood Culture - Preliminary Blood NEGATIVE TO DATE 11/16/21 10:32 Blood Culture - Preliminary Blood NEGATIVE TO DATE A&P Assessment and plan (1) Fracture of fibula, proximal: This point patient at this point patient was complaining of heel pain I ordered an x-ray of his foot. Fibula fracture is nondisplaced. Patient can weight-bear as tolerated. Patient follow-up in the clinic in 2 weeks for an x-ray. At this point please give me a call if anything is further needed. Status: Acute Coding Level of Care Code Acute Test Engineering Intern for Aniya Barrera Diagnoses Fracture of fibula, proximal S82.839A
[2021-11-17] MEDS: fluticasone nasal spray 16gm Btl 1 SPRAY NASAL (17:56)
--- NOTE | 2021-11-17 21:01 | PC.NURSE ---
Addendum entered by Dena Shah LPN 11/17/21 21:07: patient positioned to left side to alleviate pain to right shoulder, pt, verbalized some relief and apologized for being a pain per pt. Original Note: patient requested for big oily pin hammer, patient awaken and right shoulder causing pain, when asked why the hammer pt stated so I can just konk myself in the head . denied suicidal thoughts, just wants to peace per pt.
[2021-11-18] VITALS (11 sets, daily range): BP systolic 94–119; BP diastolic 49–69; PULSE 68–85; RESP 16–19; TEMP 36.8–37.6; O2SAT 88–97
[2021-11-18 04:21] LABS: Basophils % 0.2 %; Eosinophils # 0.1 10^3/uL (0.0-0.8); Eosinophils % 0.7 %; Hematocrit 39.4 % (42.0-52.0); Hemoglobin 12.2 g/dL (11.7-16.6); Lymphocytes # 0.7 10^3/uL (0.8-4.8); Mean Corpuscular Hemoglobin 27.2 pg (28.0-34.0); Mean Corpuscular Volume 87.9 fl (80-94); Mean Platelet Volume 10.1 fL (7.4-10.4); Monocytes # 1.3 10^3/uL (0.2-0.9); Monocytes % 7.4 %; Neutrophils # 14.94 10^3/uL (1.8-7.7); Neutrophils % 87.2 %; Nucleated Red Blood Cells % 0 %; Platelet Count 188 10^3/cmm (130-400); Red Blood Count 4.48 10^6/uL (4.1-5.3); Red Cell Distribution Width 13.8 % (12.1-15.1); White Blood Count 17.2 10^3/uL (4.0-10.0)
[2021-11-18 04:38] LABS: Alanine Aminotransferase 9 U/L (0-41); Albumin Level 2.6 g/dL (3.5-5.2); Alkaline Phosphatase 102 IU/L (40-130); Anion Gap 10.6 (5-19); Aspartate Amino Transferase 11 U/L (0-40); Blood Urea Nitrogen 29 mg/dL (8-23); Calcium 7.9 mg/dL (8.5-10.5); Carbon Dioxide 29 mmol/L (22-29); Chloride 100 mmol/L (98-107); Globulin 2.9 g/dL (1.3-4.6); Glucose 87 mg/dL (65-115); Magnesium 2.2 mg/dL (1.7-2.3); Osmolality Calculated 285 mOsm/kg (285-295); Phosphorus 3.3 mg/dL (2.5-4.5); Potassium 4.6 mmol/L (3.5-5.1); Sodium 135 mmol/L (136-145); Total Bilirubin 0.3 mg/dL (0.15-1.2); Total Protein 5.5 g/dL (6.6-8.7)
--- NOTE | 2021-11-18 08:02 | XRR_ITS ---
PROCEDURE INFORMATION: Exam: XR Chest Exam date and time: 11/18/2021 3:04 PM Age: 81 years old Clinical indication: Shortness of breath; Additional info: SOB TECHNIQUE: Imaging protocol: XR of the chest. Views: 1 view. COMPARISON: CR XR chest 1V portable [id number] 11/15/2021 9:21 PM FINDINGS: Lungs: Consolidation in the left mid and lower lung. Pleural spaces: No pleural effusion. No pneumothorax. Heart/Mediastinum: Sequela of prior CABG with sternotomy wires and mediastinal clips. Similar cardiomegaly. Bones/joints: Visualized osseous structures are intact. XR/XR chest 1V portable [id number] IMPRESSION: Consolidation in the left mid and lower lung suspicious for pneumonia.
[2021-11-18] MEDS: ipratropium-albuterol 3 mL Neb INHALATION ×2 (08:29→15:07)
[2021-11-18 08:34] LABS: Procalcitonin 0.47 ng/mL (0-0.5)
[2021-11-18 08:46] LABS: C Reactive Protein 139.2 mg/L (0.0-4.9)
[2021-11-18] MEDS: sennosides-docusate Tablet 1 TAB PO (08:50)
[2021-11-18] MEDS: finasteride 5 mg Tablet PEG-TUBE (08:50)
[2021-11-18] MEDS: enoxaparin 40 mg/0.4 mL Syringe SUBCUT (08:50)
[2021-11-18] MEDS: tamsulosin 0.4 mg Capsule PO (08:51)
[2021-11-18] MEDS: pantoprazole 40 mg SDV IVP (08:51)
[2021-11-18] MEDS: polyethylene glycol 3350 Pkt 17 gm PEG-TUBE (08:51)
--- NOTE | 2021-11-18 09:33 | P.PN_ITS ---
Subjective Subjective: Patient seen bedside this morning. Dressings to the right lower extremity are clean, dry and intact. No strikethrough. Vitals/I&O/Wt Last Vital Signs Temp 99.7 F H 11/18/21 07:51 Pulse 85 11/18/21 08:00 Resp 18 11/18/21 08:00 BP 94/57 11/18/21 07:51 Pulse Ox 97 11/18/21 08:00 11/17/21 11/18/21 11/18/21 22:59 06:59 14:59 Intake Total 900 / 2010 120 / 2130 360 / 360 Output Total 375 / 375 250 / 625 Balance 525 / 1635 -130 / 1505 360 / 360 Physical Exam Narrative: Patient is alert and oriented ?3 and in no acute distress.? The following is a focused right lower extremity exam. VASCULAR: Dorsalis pedis palpable +2 at the right, posterior tibial artery faintly palpable at the right? Capillary refill time less than 5 seconds to the distal right hallux.? Decreased pedal hair growth. NEUROLOGICAL: Protective sensation intact 0/10 sites, tested with [place] monofilament to right foot. DERMATOLOGICAL: Superficial wounds limited to breakdown of skin to the right leg, no drainage at this time, no erythema, no cellulitis or warmth.? Skin is indurated with fibrosing and chronic skin pigmentation changes, significant dry flaking skin.? Maggots within the right third webspace.? No wound within webspaces 1 through 4 of the right foot. MUSCULOSKELETAL: Mild tenderness at the right proximal fibula.? Unable to extend his right knee, remains approximately 30 degrees flexed with osseous and range of motion. Urinary Catheter Management: Avilez: Cath Placed During This Visit: yes Reason for Continuing Indwelling Catheter: Acute Urinary Retention or Ob struction Urinary Catheter Date of Insertion: 11/16/21 Urinary Catheter Time of Insertion: 12:03 Data : 11/18/21 03:47 11/18/21 03:47 Micro: Microbiology 11/16/21 10:27 Blood Culture - Preliminary Blood NEGATIVE TO DATE 11/16/21 10:32 Blood Culture - Preliminary Blood NEGATIVE TO DATE A&P Assessment and plan (1) Stasis dermatitis: Status: Acute (2) Peripheral arterial disease: Status: Acute (3) Chronic venous insufficiency: Status: Acute (4) Maisonneuve fracture of right fibula: Status: Acute Plan Maisonneuve fracture right fibula is nondisplaced, fracture is nonoperative, he may bear weight for transfers on the right lower extremity.? Maggots were removed from the right third webspace, thorough inspection shows no wound or breakdown in skin and webspaces 1 through 4 the right foot.? Foot was cleansed.? Aquacel AG flossed within the webspaces to further wick moisture.? Superficial c racks limited to breakdown of skin secondary to chronic venous insufficiency, mild dermatitis also present.? Unna's boot applied to the right lower extremity followed by Kerlix and tape, no compression secondary to PAD.? Unna boot can remain in place for 7 days.? Aquacel Ag to be changed once daily at the [facility].? Podiatry will follow while he is hospitalized and may follow-up in podiatry clinic outpatient. Changed Maxorb AG at [facility] right foot x4, webspaces are stable, no wound or infection. Will continue with this daily. Ordered leg foam offloading block for offloading of the heel to keep his right heel suspended, this will be dispensed by PT today. Podiatry will follow Attestations Medical Necessity Statement*: Right lower extremity pain Coding Level of Care Code Acute Php Software Engineer for Aniya Barrera Diagnoses Stasis dermatitis I87.2 Peripheral arterial disease I73.9 Chronic venous insufficiency I87.2 Maisonneuve fracture of right fibula S82.863U
[2021-11-18] MEDS: vancomycin 750 MG in sodium chloride 0.9% 250 ML 250 MG IV (11:42)
--- NOTE | 2021-11-18 13:13 | PM.PN ---
Subjective Subjective: Patient was seen this morning, he is concerned about being on a clear liquid diet, denies any fever night, but has a cough, no abdominal pain, no nausea, no vomiting, is on 6 L Vitals/I&O/Wt Last Vital Signs Temp 98.4 F 11/18/21 12:00 Pulse 71 11/18/21 12:00 Resp 19 H 11/18/21 12:00 BP 109/69 11/18/21 12:00 Pulse Ox 97 11/18/21 12:00 11/17/21 11/18/21 11/18/21 22:59 06:59 14:59 Intake Total 900 / 2010 120 / 2130 360 / 360 Output Total 375 / 375 250 / 625 Balance 525 / 1635 -130 / 1505 360 / 360 Physical Exam Const: COMMON NORMALS: no acute distress and patient oriented x3 HENMT: COMMON NORMALS: normocephalic HEAD & SCALP: normocephalic Resp: COMMON NORMALS: normal respiratory effort, No retractions and No use of accessory muscles AUSCULTATION: crackles and wheezes Cardio: COMMON NORMALS: regular rate, regular rhythm, S1 normal heart sound present and S2 normal heart sound present RATE: regular rate RHYTHM: regular rhythm HEART SOUNDS: S1 normal heart sound present and S2 normal heart sound present GI: COMMON NORMALS: Normal to inspection, nondistended, normoactive bowel sounds present, Soft to palpation and non-tender PALPATION: Yes Soft to palpation Extremity: COMMON NORMALS: no pedal edema Neuro: COMMON NORMALS: patient oriented x3 Psych: COMMON NORMALS: mental status grossly normal Urinary Catheter Management: Avilez: Cath Placed During This Visit: yes Reason for Continuing Indwelling Catheter: Acute Urinary Retention or Obstruction Urinary Catheter Date of Insertion: 11/16/21 Urinary Catheter Time of Insertion: 12:03 Data : 11/18/21 03:47 11/18/21 03:47 Micro: Microbiology 11/16/21 10:27 Blood Culture - Preliminary Blood NEGATIVE TO DATE 11/16/21 10:32 Blood Culture - Preliminary Blood NEGATIVE TO DATE A&P Assessment and plan (1) Scrotal mass: Status: Acute (2) Cellulitis of right lower extremity: Status: Acute (3) Wound of right leg: Status: Acute (4) G tube feedings: Status: Acute (5) CHF (congestive heart failure): Status: Acute (6) History of angioplasty: Status: Acute (7) Urinary retention due to benign prostatic hyperplasia: Status: Acute (8) Bradycardia: Status: Acute (9) COPD (chronic obstructive pulmonary disease): Status: Acute Qualifiers: COPD type: unspecified COPD Qualified Code(s): J44.9 - Chronic obstructive pulmonary disease, unspecified (10) CAD (coronary artery disease): Status: Acute (11) Dysphagia, oropharyngeal: Status: Acute (12) Chest pain: Status: Acute (13) Weakness: Status: Acute (14) Weight loss: Status: Acute (15) Mass of right thigh: Status: Acute (16) DNR (do not resuscitate): Status: Acute (17) Fibula fracture: Status: Acute (18) Presence of intrathecal pump: Status: Acute (19) Colonic mass: Status: Acute (20) Muscular deconditioning: Status: Acute (21) Protein calorie malnutrition: Status: Acute (22) Recurrent falls: Status: Acute Plan Steven Whitney is a 81 year old male with a past medical history of bradycardia, history of aspiration pneumonia history of urinary retention with UTI, history of COPD 5 L oxygen dependent, ADEOLA on CPAP, CAD status post CABG, history of Parkinson's disease, has a PEG tube in place etiology unclear, but patient denies a history of ALS, chronic diastolic CHF, history of bilateral renal cysts, history of right hemispheric stroke, 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, history of CKD, history of right lower extremity cellulitis, history of peripheral arterial disease, chronic pain with a Dilaudid pain pump, recent history of gastrostomy tube placement, recent history of right inguinal lymphadenopathy concerning for neoplastic process, with scrotal nodules concerning for neoplastic process, patient electing for conservative intervention no biopsy, who presents [facility] for fall, right foot pain, Protein calorie malnutrition, deconditioning, PT OT, likely will require assisted placement for skilled rehab Fall -Likely deconditioning, has left above-knee amputation, now has a right fibular fracture -PT OT Right fibular fracture -Spoke to Dr. Tabares, no splinting needed, weightbearing as tolerated -PT OT -DNR/DNI -Lovenox for DVT prophylaxis Pain control -He has a intrathecal pain pump, he receives -3.426 mg/dayof hydromorphone -3.997 mg/day of bupivacaine -5.711 mcg/day of baclofen -Percocet is not helping for his pain, resume Dilaudid Right lower extremity cellulitis with open sores, maggots found in third webspace, no skin breakdown -Podiatry on consult -Vancomycin for antibiotic coverage -Aniyah bonds, for heel ulcer -Consult podiatry service COPD, currently on 2 L, does have exacerbation, continue nebulizer treatments Does have wheezing on exam, concerning for aspiration pneumonia, patient refuses diet changes, wants to be in a regular diet aspiration precautions, start Primaxin, monitor respiratory status closely History of aspiration pneumonia, dysphagia, speech therapy Colonic mass, ascending, -Consulted Dr. Tadeo -Patient is agreeable for colonoscopy today, bowel regimen today, n.p.o. midnight tonight Current weight loss over 20 pounds -Has G-tube in place, etiology uncertain possibly from Parkinson's disease, doubt ALS -Recently had G-tube replaced by Dr. Tadeo -Consult dietary for diet recommendations, he tells me he uses Ensure twice daily -Consulted nutrition, bolus tube feedings -General diet, speech therapy Chest pain -Nonspecific in etiology, he tells me more his shoulders hurt him -But chest pain is intermittent -Serial EKGs, serial troponins -Telemetry monitoring CAD status post CABG Suicidal ideation, currently no active suicidal ideation, Dr. Mclaughlin to see ADEOLA on CPAP, Attestations Medical Necessity Statement*: Patient requires hospitalization for protein calorie malnutrition, deconditioning, with evidence of aspiration pneumonia, clinically Coding Level of Care Code Acute Baggage Clerk for Chg Fwd Diagnoses Scrotal mass N50.89 Cellulitis of right lower extremity L03.115 Wound of right leg S81.801A G tube feedings Z93.1 CHF (congestive heart failure) I50.9 History of angioplasty Z98.62 Urinary retention due to benign prostatic hyperplasia N40.1; R33.8 Bradycardia R00.1 COPD (chronic obstructive pulmonary disease) J44.9 COPD type: unspecified COPD CAD (coronary artery disease) I25.10 Dysphagia, oropharyngeal R13.12 Chest pain R07.9 Weakness R53.1 Weight loss R63.4 Mass of right thigh R22.41 DNR (do not resuscitate) Z66 Fibula fracture S82.409A Presence of intrathecal pump Z97.8 Colonic mass K63.89 Muscular deconditioning R29.898 Protein calorie malnutrition E46 Recurrent falls R29.6
[2021-11-18] MEDS: magnesium citrate Btl 296 mL PEG-TUBE (15:08)
[2021-11-18] MEDS: fluticasone nasal spray 16gm Btl 1 SPRAY NASAL (21:59)
[2021-11-19] VITALS (14 sets, daily range): BP systolic 99–114; BP diastolic 49–66; PULSE 61–81; RESP 16–22; TEMP 36.4–37.1; O2SAT 89–93
--- NOTE | 2021-11-19 03:14 | PC.NURSE ---
Pt. refused enema , unable to know if patient's bowels are clear or not. Pt. states, He doesn't waant enema and not concerned whether his bowels are clear or not. He states Doesn't care if colonoscopy done or not, and refused having any enema done.
[2021-11-19 04:16] LABS: Basophils % 0.2 %; Eosinophils # 0.1 10^3/uL (0.0-0.8); Eosinophils % 0.5 %; Hematocrit 37.4 % (42.0-52.0); Hemoglobin 11.3 g/dL (11.7-16.6); Lymphocytes % 6.2 %; Mean Corpuscular HGB Conc 30.2 g/dL (30.0-36.0); Mean Corpuscular Volume 89.3 fl (80-94); Mean Platelet Volume 9.6 fL (7.4-10.4); Monocytes % 5.7 %; Neutrophils # 14.58 10^3/uL (1.8-7.7); Nucleated Red Blood Cells % 0 %; Platelet Count 171 10^3/cmm (130-400); Red Blood Count 4.19 10^6/uL (4.1-5.3); Red Cell Distribution Width 13.9 % (12.1-15.1); White Blood Count 16.8 10^3/uL (4.0-10.0)
[2021-11-19 04:36] LABS: Alanine Aminotransferase 7 U/L (0-41); Albumin Level 2.2 g/dL (3.5-5.2); Alkaline Phosphatase 86 IU/L (40-130); Anion Gap 9.4 (5-19); Aspartate Amino Transferase 11 U/L (0-40); Blood Urea Nitrogen 32 mg/dL (8-23); Calcium 7.6 mg/dL (8.5-10.5); Carbon Dioxide 29 mmol/L (22-29); Chloride 103 mmol/L (98-107); Glucose 76 mg/dL (65-115); Magnesium 3.2 mg/dL (1.7-2.3); Osmolality Calculated 290 mOsm/kg (285-295); Phosphorus 3.6 mg/dL (2.5-4.5); Potassium 4.4 mmol/L (3.5-5.1); Sodium 137 mmol/L (136-145); Total Bilirubin 0.3 mg/dL (0.15-1.2); Total Protein 5.2 g/dL (6.6-8.7)
--- NOTE | 2021-11-19 07:42 | PC.SOCIAL ---
IMM Update Pg. 2 of IMM updated and reviewed with patient, who verbalized understanding. Copy provided.
--- NOTE | 2021-11-19 08:23 | PC.NURSE ---
PER DR. FLOWER, COLONOSCOPY CANCELLED FOR TODAY. PATIENT REFUSED PREP FOR PROCEDURE. VERIFIED WITH ZACK CRUZ.
[2021-11-19] MEDS: pantoprazole 40 mg SDV IVP (09:46)
[2021-11-19] MEDS: finasteride 5 mg Tablet PEG-TUBE (09:47)
[2021-11-19] MEDS: fluticasone nasal spray 16gm Btl 1 SPRAY NASAL (09:47)
[2021-11-19] MEDS: tamsulosin 0.4 mg Capsule PO (09:47)
[2021-11-19] MEDS: sennosides-docusate Tablet 1 TAB PO (09:48)
[2021-11-19] MEDS: enoxaparin 40 mg/0.4 mL Syringe SUBCUT (09:54)
--- NOTE | 2021-11-19 10:20 | PM.PN ---
Subjective Subjective: Patient had been admitted with shortness of breath after a fall and was noted to have a mass in the colon on CT abdomen pelvis. Over the weekend patient had chosen to undergo colonoscopy but today he changed his mind Vitals/I&O/Wt Last Vital Signs Temp 98.1 F 11/19/21 07:14 Pulse 63 11/19/21 08:00 Resp 17 11/19/21 08:00 BP 99/49 11/19/21 07:14 Pulse Ox 89 L 11/19/21 09:01 11/18/21 11/19/21 11/19/21 22:59 06:59 14:59 Intake Total 340 / 1620 100 / 1620 350 / 350 Output Total 600 / 600 Balance 340 / 1020 -500 / 1020 350 / 350 Physical Exam Narrative: Patient is not in any acute distress Abdomen: Soft Urinary Catheter Management: Avilez: Cath Placed During This Visit: yes Reason for Continuing Indwelling Catheter: Acute Urinary Retention or Obstruction Urinary Catheter Date of Insertion: 11/16/21 Urinary Catheter Time of Insertion: 12:03 Data : 11/19/21 04:03 11/19/21 04:03 A&P Assessment and plan (1) Colonic mass: 81-year-old male who presents after fall with right leg pain and was noted to have mildly displaced fibular fracture. Patient was noted to have a ascending colon mass on CT scan. No evidence of active GI bleed. He is on 5 L oxygen and on tube feeds with limited mobility. Discussed treatment options with the patient and while he initially wanted to have a colonoscopy he has changed his mind which is reasonable considering his age and comorbidities, he does not want any further intervention. Discussed with the hospitalist service about arranging long-term/hospice care. Status: Acute Attestations Medical Necessity Statement*: As per primary Coding Level of Care Code Acute Tariff Compiler for Aniya Barrera Diagnoses Colonic mass K63.89
[2021-11-19 11:20] LABS: Vancomycin Trough 19.1 ug/mL (10-15)
[2021-11-19] MEDS: vancomycin 750 MG in sodium chloride 0.9% 250 ML 250 MG IV (12:19)
--- NOTE | 2021-11-19 12:51 | PC.NUTR ---
For home feedings recommend 8 ounce cartons of Jevity 1.2 with a total of 6 cartons per day (each carton is 8 ounces or 237 mls). Bolus feedings TID with each feeding to be 2 cartons (16 ounces of 480 mls total), with 60 ml flushes before and after. Details in RD assessment.
--- NOTE | 2021-11-19 18:20 | PM.PN ---
Subjective Subjective: States he is doing okay. He discussed with surgery today and declined to proceed with colonoscopy. He states that he does not feel that it would make a good difference, and feels he would be too high risk also to proceed given his general poor health, also feels he would not proceed with treatment in case there was something found, as he would not have surgery or chemotherapy. Similarly he request to liberalize his oral intake as well as he understands that he may be at risk of aspiration. He states that he has learned to avoid foods which may cause aspiration, and still understands that aspiration may shorten his life, but states he would rather enjoy what he has left. He states he is hungry. Denies abdominal pain. Denies being more short of breath. Vitals/I&O/Wt Last Vital Signs Temp 98.6 F 11/19/21 15:12 Pulse 73 11/19/21 15:12 Resp 17 11/19/21 15:12 BP 102/50 11/19/21 15:12 Pulse Ox 90 11/19/21 15:12 11/19/21 11/19/21 11/19/21 06:59 14:59 22:59 Intake Total 100 / 1620 700 / 700 580 / 1280 Output Total 600 / 600 400 / 400 Balance -500 / 1020 700 / 700 180 / 880 Physical Exam Const: COMMON NORMALS: alert GENERAL APPEARANCE: cooperative and frail appearing ORIENTATION/CONSCIOUSNESS: Yes awake HENMT: COMMON NORMALS: normocephalic, EAC's normal, Normal external nose present and moist oral mucous membranes HEAD & SCALP: normocephalic NOSE: Normal external nose present EXTERNAL AUDITORY CANAL: EAC's normal Neck/C-Spine: COMMON NORMALS: no meningeal signs Chest: CHEST: Yes Symmetrical chest wall rise Resp: AUSCULTATION: wheezes Cardio: COMMON NORMALS: regular rate, regular rhythm and No murmurs present (Cardio) RATE: regular rate RHYTHM: regular rhythm GI: COMMON NORMALS: Normal to inspection, nondistended, normoactive bowel sounds present, Soft to palpation and non-tender PALPATION: Yes Soft to palpation OTHER: PEG w normal appearance RLQ pain pump Back/Pelvis: OTHER: Kyphosis Extremity: COMMON NORMALS: no pedal edema Neuro: COMMON NORMALS: moves all extremities SENSORIUM/ORIENTATION: Yes alert MENINGEAL SIGNS: Yes no meningeal signs Psych: COMMON NORMALS: mental status grossly normal Skin: COMMON NORMALS: no wounds RASHES: no rashes Urinary Catheter Management: Avilez: Cath Placed During This Visit: yes Reason for Continuing Indwelling Catheter: Acute Urinary Retention or Obstruction Urinary Catheter Date of Insertion: 11/16/21 Urinary Catheter Time of Insertion: 12:03 Data : 11/19/21 04:03 11/19/21 04:03 A&P Assessment and plan (1) Colonic mass: He declined to pursue colonoscopy. Discussed with him if he changes his mind to follow-up with surgery on outpatient side. Please see above for additional discussion. He notes he would not pursue additional treatment even if diagnosis was obtained and malignancy was found. Status: Acute (2) Protein calorie malnutrition: Similarly he would like to pursue comfort self things even if he is at risk of aspiration. He would like to liberalize oral intake. Continue mechanical soft diet. He understands he is at risk, but just wants to enjoy what he is eating. Moderate protein calorie malnutrition, with muscle wasting, generalized deconditioning. Weight loss. Bedridden. Continue liberalized oral intake. Tube feeds. Status: Acute (3) Cellulitis of right lower extremity: Continue Primaxin, vancomycin. Status: Acute (4) Wound of right leg: Continue antibiotics as above. Wound care. Maxorb [facility] at [facility] right foot x4 daily. Right leg foam offloading block. Follow-up with podiatry. Status: Acute (5) Scrotal mass: Status: Acute (6) G tube feedings: Status: Acute (7) CHF (congestive heart failure): Status: Acute (8) History of angioplasty: Status: Acute (9) Urinary retention due to benign prostatic hyperplasia: Status: Acute (10) Bradycardia: Status: Acute (11) COPD (chronic obstructive pulmonary disease): Status: Acute Qualifiers: COPD type: unspecified COPD Qualified Code(s): J44.9 - Chronic obstructive pulmonary disease, unspecified (12) CAD (coronary artery disease): Status: Acute (13) Dysphagia, oropharyngeal: Status: Acute (14) Chest pain: Status: Acute (15) Weakness: Status: Acute (16) Weight loss: Status: Acute (17) Mass of right thigh: Status: Acute (18) DNR (do not resuscitate): Status: Acute (19) Fibula fracture: Status: Acute (20) Presence of intrathecal pump: Status: Acute (21) Muscular deconditioning: Status: Acute (22) Recurrent falls: Status: Acute Plan Steven Whitney is a 81 year old male with a past medical history of bradycardia, history of aspiration pneumonia history of urinary retention with UTI, history of COPD 5 L oxygen dependent, ADEOLA on CPAP, CAD status post CABG, history of Parkinson's disease, has a PEG tube in place etiology unclear, but patient denies a history of ALS, chronic diastolic CHF, history of bilateral renal cysts, history of right hemispheric stroke, 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, history of CKD, history of right lower extremity cellulitis, history of peripheral arterial disease, chronic pain with a Dilaudid pain pump, recent history of gastrostomy tube placement, recent history of right inguinal lymphadenopathy concerning for neoplastic process, with scrotal nodules concerning for neoplastic process, patient electing for conservative intervention no biopsy, who presents [facility] for fall, right foot pain, Fall -Likely deconditioning, has left above-knee amputation, now has a right fibular fracture -PT OT Continue arrangements for placement to skilled nurse facility for rehabilitation. Right fibular fracture no splinting needed, weightbearing as tolerated -PT OT -DNR/DNI -Lovenox for DVT prophylaxis Pain control -He has a intrathecal pain pump, he receives -3.426 mg/dayof hydromorphone -3.997 mg/day of bupivacaine -5.711 mcg/day of baclofen -Percocet is not helping for his pain, resume Dilaudid COPD, currently on 2 L, does have exacerbation, continue nebulizer treatments History of aspiration pneumonia: Declines dysphagia diet beyond soft mechanical, understands he is at risk of aspiration and choking. Current weight loss over 20 pounds -Has G-tube in place, etiology uncertain possibly from Parkinson's disease, doubt ALS And p.o. intake. Chest pain -Nonspecific in etiology, he tells me more his shoulders hurt him -But chest pain is intermittent -Serial EKGs, serial troponins with mild elevation, not suggestive of acute SC. -Telemetry monitoring CAD status post CABG Suicidal ideation, currently no active suicidal ideation, Dr. Mclaughlin to see ADEOLA on CPAP, Attestations Medical Necessity Statement*: Continue trial of oral intake with risk of aspiration, tube feeds, continue treatment of right lower extremity cellulitis, wound infection, and arrangements for SNF. Coding Level of Care Code Acute Pasting Inspector for Chg Fwd Diagnoses Scrotal mass N50.89 Cellulitis of right lower extremity L03.115 Wound of right leg S81.801A G tube feedings Z93.1 CHF (congestive heart failure) I50.9 History of angioplasty Z98.62 Urinary retention due to benign prostatic hyperplasia N40.1; R33.8 Bradycardia R00.1 COPD (chronic obstructive pulmonary disease) J44.9 COPD type: unspecified COPD CAD (coronary artery disease) I25.10 Dysphagia, oropharyngeal R13.12 Chest pain R07.9 Weakness R53.1 Weight loss R63.4 Mass of right thigh R22.41 DNR (do not resuscitate) Z66 Fibula fracture S82.409A Presence of intrathecal pump Z97.8 Colonic mass K63.89 Muscular deconditioning R29.898 Protein calorie malnutrition E46 Recurrent falls R29.6
[2021-11-19] MEDS: ipratropium-albuterol 3 mL Neb INHALATION (21:09)
[2021-11-20] VITALS (7 sets, daily range): BP systolic 103–113; BP diastolic 57–80; PULSE 53–77; RESP 14–20; TEMP 36.6–36.9; O2SAT 90–94
[2021-11-20 05:27] LABS: Basophils % 0.3 %; Eosinophils # 0.4 10^3/uL (0.0-0.8); Eosinophils % 3.8 %; Hematocrit 38.2 % (42.0-52.0); Hemoglobin 11.2 g/dL (11.7-16.6); Lymphocytes # 0.8 10^3/uL (0.8-4.8); Lymphocytes % 7.5 %; Mean Corpuscular HGB Conc 29.3 g/dL (30.0-36.0); Mean Corpuscular Hemoglobin 26.6 pg (28.0-34.0); Mean Corpuscular Volume 90.7 fl (80-94); Mean Platelet Volume 9.9 fL (7.4-10.4); Monocytes # 0.8 10^3/uL (0.2-0.9); Monocytes % 7.4 %; Neutrophils # 8.53 10^3/uL (1.8-7.7); Neutrophils % 80.5 %; Nucleated Red Blood Cells % 0 %; Platelet Count 183 10^3/cmm (130-400); Red Blood Count 4.21 10^6/uL (4.1-5.3); Red Cell Distribution Width 14.1 % (12.1-15.1); White Blood Count 10.6 10^3/uL (4.0-10.0)
[2021-11-20 05:58] LABS: Alanine Aminotransferase 6 U/L (0-41); Albumin Level 2.1 g/dL (3.5-5.2); Alkaline Phosphatase 87 IU/L (40-130); Anion Gap 10.6 (5-19); Aspartate Amino Transferase 9 U/L (0-40); Blood Urea Nitrogen 30 mg/dL (8-23); Calcium 7.9 mg/dL (8.5-10.5); Carbon Dioxide 27 mmol/L (22-29); Chloride 103 mmol/L (98-107); Globulin 3.2 g/dL (1.3-4.6); Glucose 76 mg/dL (65-115); Magnesium 2.9 mg/dL (1.7-2.3); Osmolality Calculated 287 mOsm/kg (285-295); Phosphorus 2.7 mg/dL (2.5-4.5); Potassium 4.6 mmol/L (3.5-5.1); Sodium 136 mmol/L (136-145); Total Bilirubin 0.2 mg/dL (0.15-1.2); Total Protein 5.3 g/dL (6.6-8.7)
[2021-11-20] MEDS: enoxaparin 40 mg/0.4 mL Syringe SUBCUT (09:57)
[2021-11-20] MEDS: fluticasone nasal spray 16gm Btl 1 SPRAY NASAL (09:58)
[2021-11-20] MEDS: sennosides-docusate Tablet 1 TAB PO (09:58)
[2021-11-20] MEDS: finasteride 5 mg Tablet PEG-TUBE (09:58)
[2021-11-20] MEDS: pantoprazole 40 mg SDV IVP (09:58)
[2021-11-20] MEDS: tamsulosin 0.4 mg Capsule PO (09:58)
[2021-11-20] MEDS: vancomycin 750 MG in sodium chloride 0.9% 250 ML 250 MG IV (12:39)
[2021-11-20 12:52] LABS: SARS Covid-2 Antigen Negative (Negative)
--- NOTE | 2021-11-20 13:53 | P.DS_ITS ---
Discharge Providers Date of Admission: 11/16/21 10:05 Date of Discharge: November 20, 2021 Attending Provider at Admission: Cyril Coreas MD Attending Provider at Discharge: Abhijit Ramirez Primary Care Provider: ROLANDO Jones Diagnoses at Discharge Discharge Diagnosis (1) Colonic mass: Status: Acute (2) Protein calorie malnutrition: Status: Acute (3) Cellulitis of right lower extremity: Status: Acute (4) Wound of right leg: Status: Acute (5) Scrotal mass: Status: Acute (6) G tube feedings: Status: Acute (7) CHF (congestive heart failure): Status: Acute (8) History of angioplasty: Status: Acute Permanent problem details: WITH 9 STENTS (9) Urinary retention due to benign prostatic hyperplasia: Status: Acute (10) Bradycardia: Status: Acute Permanent problem details: -noted persistent bradycardia, HRs in the 40-50 range; seems to be more stable in the 50-60 range -has been on dopamine drip, weaned off on 09/12 -telemetry monitoring -Cardiology consult by Dr. Lopez appreciated -continue to monitor vital signs -BB on hold -nuclear stress testing done which is negative -Echo (05/2019): EF=55%, no RWMA, G2DD, moderate TR, normal PSP (11) COPD (chronic obstructive pulmonary disease): Status: Acute Qualifiers: COPD type: unspecified COPD Qualified Code(s): J44.9 - Chronic obstructive pulmonary disease, unspecified (12) CAD (coronary artery disease): Status: Acute (13) Dysphagia, oropharyngeal: Status: Acute (14) Chest pain: Status: Acute (15) Weakness: Status: Acute (16) Weight loss: Status: Acute (17) Mass of right thigh: Status: Acute (18) DNR (do not resuscitate): Status: Acute (19) Fibula fracture: Status: Acute (20) Presence of intrathecal pump: Status: Acute (21) Muscular deconditioning: Status: Acute (22) Recurrent falls: Status: Acute Reason for Visit Reason for Visit: CP/ LEG PAIN/ SI Hospital Course Hospital Course 81-year-old gentleman with history of bradycardia, aspiration pneumonia, weight loss, status post PEG tube placement history of urinary retention with UTI, COPD on 5 L nasal can oxygen, ADEOLA on CPAP, CAD status post CABG, Parkinson's disease, chronic pain with pain pump, Dilaudid as needed for breakthrough pain, chronic diastolic CHF, bilateral renal cysts, history of hemiparetic stroke, 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 On presentation reporting that severity of pain made him think about killing himself, due to which during hospitalization was assessed by psychiatry, with finding of adjustment disorder, long-term if will be agreeable may benefit from referral for therapy without medication changes. Intermittent chest pain thought to be noncardiac, with with cardiac studies not suggesting acute NC. On evaluation noted to have right lower mildly displaced fracture. In the left foot noted to have cellulitis with open wounds, fadumo. Was started on treatment with antibiotic with vancomycin, Zosyn. Assessed by podiatry, with wound care, as well as recommendation of offloading with foam block, currently arrangements for boot with [facility]AY[facility] given very high risk of developing pressure wound. Continue wound care, follow-up with podiatry. Per orthopedics no need for splinting of the right fibular fracture, with weightbearing as tolerating. Follow-up in 2 weeks in office for x-ray. Antibiotics provided coverage also for possibility of pneumonia in left lower lobe, versus scarring. Was assessed by speech therapy but declines any further dysphagia diet beyond mechanical soft, states will take oral intake as tolerating realizing that he is at risk of aspiration, choking, disability and . Was seen by surgery for discussion of evaluation by endoscopy of colonic mass, however, on further consideration declined to proceed stating he would not undergo surgery or other treatment regardless of result states given consideration of his age and overall health. Similarly stating he would prefer to focus more on enjoyment of life, and doing liberal oral intake in addition to tube feeds even if at risk of aspiration. Given deconditioning and need for further skilled care he is discharging at this time to skilled respiratory for rehabilitation, wound care. Given overall condition continue discussions regarding goals of care, including with long-term consideration, consideration of hospice care when he is ready. Physical Exam Narrative: Reports today he is feeling well. He is not having trouble breathing. He is happy with his diet. He is bothered by intermittent pain in different locations. He wants to resume his usual pain medication dose for breakthrough pain. Otherwise he feels ready to proceed to rehabilitation at SNF. Const: COMMON NORMALS: alert GENERAL APPEARANCE: cooperative and frail appearing ORIENTATION/CONSCIOUSNESS: Yes awake HENMT: COMMON NORMALS: normocephalic, EAC's normal, Normal external nose present and moist oral mucous membranes HEAD & SCALP: normocephalic NOSE: Normal external nose present EXTERNAL AUDITORY CANAL: EAC's normal Neck/C-Spine: COMMON NORMALS: no meningeal signs Chest: CHEST: Yes Symmetrical chest wall rise Resp: AUSCULTATION: wheezes Cardio: COMMON NORMALS: regular rate, regular rhythm and No murmurs present (Cardio) RATE: regular rate RHYTHM: regular rhythm GI: COMMON NORMALS: Normal to inspection, nondistended, normoactive bowel sounds present, Soft to palpation and non-tender PALPATION: Yes Soft to palpation OTHER: PEG w normal appearance RLQ pain pump Back/Pelvis: OTHER: Kyphosis Extremity: COMMON NORMALS: no pedal edema Neuro: COMMON NORMALS: moves all extremities SENSORIUM/ORIENTATION: Yes alert MENINGEAL SIGNS: Yes no meningeal signs Psych: COMMON NORMALS: mental status grossly normal Skin: COMMON NORMALS: no wounds RASHES: no rashes Urinary Catheter Management: Avilez: Cath Placed During This Visit: yes Reason for Continuing Indwelling Catheter: Hospice/Comfort/Palliative Care Urinary Catheter Date of Insertion: 11/16/21 Urinary Catheter Time of Insertion: 12:03 Discharge Data Studies Completed and Pending Completed Studies During Hospitalization Category Date Time Status CT abdomen pelvis w con* [id number] Urgent Cat Scan 11/16/21 08:55 Completed XR KUB portable [id number] Stat Exams 11/16/21 08:04 Completed XR chest 1V portable [id number] Routine Exams 11/18/21 08:02 Completed XR chest 1V portable [id number] Stat Exams 11/15/21 20:52 Completed XR femur RT min 2V* [id number] Urgent Exams 11/15/21 20:52 Completed XR foot RT min 3V* [id number] Routine Exams 11/17/21 16:16 Completed XR hip BI 3-4V wo/w pel [id number] Routine Exams 11/15/21 Completed XR shoulder LT 1V [id number] Routine Exams 11/17/21 12:10 Completed XR shoulder RT 1V [id number] Routine Exams 11/17/21 12:10 Completed XR tibia fibula RT 2V [id number] Urgent Exams 11/15/21 20:52 Completed Pending at discharge Category Date Time Status Blood Culture Stat Lab 11/16/21 10:27 Results Radiology Impressions Femur X-Ray 11/15/21 20:52 IMPRESSION: 1. No femur fracture identified. 2. Mildly displaced proximal right fibula fracture. Tibia/Fibula X-Ray 11/15/21 20:52 IMPRESSION: Mildly displaced proximal right fibula fracture. KUB X-Ray 11/16/21 08:04 Impression: Moderate generalized ileus. Abdomen/Pelvis CT 11/16/21 08:55 IMPRESSION: 1. Soft tissue mass associated with the ascending colon extends over a length of 5.6 cm. Concerning for colonic neoplasm until proven otherwise. Colonic lumen is narrowed but at this time there is no obstruction. No adjacent adenopathy identified. 2. Bilateral renal masses. Some of these are cysts while others are indeterminate and could be neoplasms. 3. PEG tube. 4. Prior cholecystectomy. 5. Normal appendix. 6. Mildly prominent RIGHT inguinal lymph nodes. Very similar in appearance to 2015. 7. Large hiatal hernia. 8. Subsegmental atelectasis LEFT lung base. Shoulder X-Ray 11/17/21 12:10 IMPRESSION: 1. No acute skeletal finding. 2. Pulmonary edema versus pneumonia in the left lung with left pleural effusion. Foot X-Ray 11/17/21 16:16 IMPRESSION: No definite acute finding. Evaluation is limited by the cast material. Chest X-Ray 11/18/21 08:02 IMPRESSION: Consolidation in the left mid and lower lung suspicious for pneumonia. Laboratory Results WBC 10.6 10^3/uL (4.0-10.0) H 11/20/21 05:00 RBC 4.21 10^6/uL (4.1-5.3) 11/20/21 05:00 Hgb 11.2 g/dL (11.7-16.6) L 11/20/21 05:00 Hct 38.2 % (42.0-52.0) L 11/20/21 05:00 MCV 90.7 fl (80-94) 11/20/21 05:00 MCH 26.6 pg (28.0-34.0) L 11/20/21 05:00 MCHC 29.3 g/dL (30.0-36.0) L 11/20/21 05:00 RDW 14.1 % (12.1-15.1) 11/20/21 05:00 Plt Count 183 10^3/cmm (130-400) 11/20/21 05:00 MPV 9.9 fL (7.4-10.4) 11/20/21 05:00 Neut % (Auto) 80.5 % 11/20/21 05:00 Lymph % (Auto) 7.5 % 11/20/21 05:00 [place] % (Auto) 7.4 % 11/20/21 05:00 Eos % (Auto) 3.8 % 11/20/21 05:00 Baso % (Auto) 0.3 % 11/20/21 05:00 Neut # (Auto) 8.53 10^3/uL (1.8-7.7) H 11/20/21 05:00 Lymph # (Auto) 0.8 10^3/uL (0.8-4.8) 11/20/21 05:00 [place] # (Auto) 0.8 10^3/uL (0.2-0.9) 11/20/21 05:00 Eos # (Auto) 0.4 10^3/uL (0.0-0.8) 11/20/21 05:00 Baso # (Auto) 0.0 10^3/uL (0.0-0.1) 11/20/21 05:00 Nucleated RBC % (auto) 0 % 11/20/21 05:00 Nucleated RBCs # 0.0 /100WBC 11/20/21 05:00 ESR 53 mm/hr (0-10) H 11/15/21 21:12 PT 13.20 SECONDS (12.1-14.9) 11/16/21 10:27 INR 0.97 (0.8-1.2) 11/16/21 10:27 Sodium 136 mmol/L (136-145) 11/20/21 05:00 Potassium 4.6 mmol/L (3.5-5.1) 11/20/21 05:00 Chloride 103 mmol/L (98-107) 11/20/21 05:00 Carbon Dioxide 27 mmol/L (22-29) 11/20/21 05:00 Anion Gap 10.6 (5-19) 11/20/21 05:00 BUN 30 mg/dL (8-23) H 11/20/21 05:00 Creatinine 1.4 mg/dL (0.7-1.2) H 11/20/21 05:00 GFR Calculation Not Reportable 11/20/21 05:00 Glucose 76 mg/dL (65-115) 11/20/21 05:00 Calculated Osmolality 287 mOsm/kg (285-295) 11/20/21 05:00 Lactic Acid 0.7 mmol/L (0.5-2.2) 11/16/21 10:27 Calcium 7.9 mg/dL (8.5-10.5) L 11/20/21 05:00 Phosphorus 2.7 mg/dL (2.5-4.5) 11/20/21 05:00 Magnesium 2.9 mg/dL (1.7-2.3) H 11/20/21 05:00 Total Bilirubin 0.2 mg/dL (0.15-1.2) 11/20/21 05:00 AST 9 U/L (0-40) 11/20/21 05:00 ALT 6 U/L (0-41) 11/20/21 05:00 Alkaline Phosphatase 87 IU/L (40-130) 11/20/21 05:00 Troponin T Baseline 35 ng/L (0-15) H 11/15/21 21:12 Troponin T 120 Minute 31.69 ng/L (0-15) H 11/15/21 23:05 Delta Troponin T -3.31 ABS# (0-10) L 11/15/21 23:05 Troponin T Hi Sens 6Hr 42.39 ng/L (0-15) H 11/16/21 05:10 Troponin T Hi Sens 6Hr Delta 7.39 ng/L (0-12) 11/16/21 05:10 C-Reactive Protein 139.2 mg/L (0.0-4.9) H 11/18/21 03:47 NT-Pro-B Natriuret Pep 973 pg/mL (0-450) H 11/15/21 21:12 Total Protein 5.3 g/dL (6.6-8.7) L 11/20/21 05:00 Albumin 2.1 g/dL (3.5-5.2) L 11/20/21 05:00 Globulin 3.2 g/dL (1.3-4.6) 11/20/21 05:00 Lipase 15 U/L (13-60) 11/15/21 21:12 Procalcitonin 0.47 ng/mL (0-0.5) 11/18/21 03:47 TSH 0.62 uIU/mL (0.27-4.20) 11/16/21 10:27 Urine Color Yellow (Yellow) 11/15/21 23:15 Urine Appearance Clear (CLEAR) 11/15/21 23:15 Urine pH 6 (5-7) 11/15/21 23:15 Ur Specific [place] 1.010 (1.005-1.030) 11/15/21 23:15 Urine Protein 3+ (Negative) H 11/15/21 23:15 Urine Glucose (UA) Trace (Normal) H 11/15/21 23:15 Urine Ketones Negative (Negative) 11/15/21 23:15 Urine Blood Neg (Negative) 11/15/21 23:15 Urine Nitrate Negative (Negative) 11/15/21 23:15 Urine Bilirubin Neg (Negative) 11/15/21 23:15 Urine Urobilinogen Norm mg/dL (Negative) 11/15/21 23:15 Ur Leukocyte Esterase Negative (Negative) 11/15/21 23:15 Urine RBC 0-4 /hpf (0-2) H 11/15/21 23:15 Urine WBC 0-4 /hpf (0-5) H 11/15/21 23:15 Ur Squamous Epith Cells 0-4 /hpf (0-5) H 11/15/21 23:15 Amorphous Sediment Not Reportable 11/15/21 23:15 Urine Bacteria Trace /hpf (NONE) 11/15/21 23:15 Vancomycin Trough 19.1 ug/mL (10-15) H 11/19/21 10:44 Salicylates < 0.3 mg/dL (3-10) L 11/15/21 21:12 Urine Opiates Screen Positive ng/mL (Negative) H 11/15/21 23:15 Acetaminophen < 5.0 ug/mL (10-30) L 11/15/21 21:12 Ur Barbiturates Screen Negative ng/mL (Negative) 11/15/21 23:15 Ur Phencyclidine Scrn Negative ng/mL (Negative) 11/15/21 23:15 Ur Amphetamines Screen Negative ng/mL (Negative) 11/15/21 23:15 U Benzodiazepines Scrn Negative ng/mL (Negative) 11/15/21 23:15 Urine Cocaine Screen Negative ng/mL (Negative) 11/15/21 23:15 U Marijuana (THC) Screen Negative ng/mL (Negative) 11/15/21 23:15 Ethyl Alcohol < 10 mg/dL (0-10) 11/15/21 21:12 SARS-CoV-2 Ag (Rapid) Negative (Negative) 11/20/21 11:30 Vitals Last Vital Signs Temp 98.3 F 11/20/21 12:00 Pulse 53 L 11/20/21 12:00 Resp 18 11/20/21 10:16 BP 107/61 11/20/21 12:00 Pulse Ox 93 11/20/21 12:00 Discharge Plan Discharge Patient Disposition: Xfer SNF Condition: Stable Prescriptions: New ciprofloxacin HCl 500 mg tablet 500 mg PO BID Qty: 10 0RF doxycycline hyclate 100 mg capsule 100 mg PO BID 5 Days Qty: 10 0RF Continued pantoprazole [Protonix] [address] for susp in packet 40 mg PO DAILY Qty: 90 1RF Rx Instructions: DISOLVE 1 PACKET DAILY IN JUICE AND ADMINISTER THRU G-TUBE nitroglycerin 0.4 mg tablet, sublingual 0.4 mg SUBLINGUAL Q5M PRN (Reason: Chest Pain) 0RF triamcinolone acetonide 0.1 % ointment 1 applic topical BID Qty: 80 2RF Rx Instructions: to itchy area on right flank no more than 3 wks/mo prn tamsulosin 0.4 mg capsule 0.4 mg PO DAILY Qty: 90 2RF fluticasone propionate [Flonase Allergy Relief] 50 mcg/actuation spray,suspension 1 spray intranasal BID Qty: 9.9 5RF Rx Instructions: administer into each nostril potassium chloride 20 mEq/15 mL liquid See Rx Instructions .ROUTE .COMPLEX Qty: 675 1RF Dose Instruction: MIX 7.5ML IN 3 OUNCES OF LIQUID AND GIVE VIA PEG TUBE ONE TIME DAILY DIRECTED Rx Instructions: MIX 7.5ML IN 3 OUNCES OF LIQUID AND GIVE VIA PEG TUBE ONE TIME DAILY DIRECTED hydrocortisone 2.5 % ointment 1 applic topical BID PRN (Reason: skin irritation) Qty: 28.35 2RF furosemide 10 mg/mL solution See Rx Instructions .ROUTE .COMPLEX Qty: 360 0RF Dose Instruction: TAKE 4 ML EVERY DAY DIRECTED Rx Instructions: TAKE 4 ML EVERY DAY DIRECTED finasteride 5 mg tablet See Rx Instructions .ROUTE .COMPLEX Qty: 90 0RF Dose Instruction: CRUSH ONE TABLET AND GIVE VIA PEG TUBE DAILY DIRECTED Rx Instructions: CRUSH ONE TABLET AND GIVE VIA PEG TUBE DAILY DIRECTED Brovana 15 mcg/2 mL solution for nebulization See Rx Instructions .ROUTE .COMPLEX Qty: 60 11RF Dose Instruction: USE 1 VIAL IN NEBULIZER TWICE DAILY - morning and evening Rx Instructions: USE 1 VIAL IN NEBULIZER TWICE DAILY - morning and evening budesonide 0.5 mg/2 mL suspension for nebulization See Rx Instructions .ROUTE .COMPLEX Qty: 60 11RF Dose Instruction: USE 1 VIAL IN NEBULIZER TWICE DAILY - rinse mouth after treatment Rx Instructions: USE 1 VIAL IN NEBULIZER TWICE DAILY - rinse mouth after treatment Yupelri 175 mcg/3 mL solution for nebulization See Rx Instructions .ROUTE .COMPLEX Qty: 30 11RF Dose Instruction: USE 1 VIAL IN NEBULIZER DAILY Rx Instructions: USE 1 VIAL IN NEBULIZER DAILY Relistor 8 mg/0.4 mL Syringe 8 mg SUBCUT DAILY PRN (Reason: Constipation) 0RF miconazole nitrate 2 % cream 1 applic topical PRN 0RF water for irrigation, sterile [Aqua Care Sterile Water] Solution 1 irrig IRRIGATION PRN 0RF erythromycin 5 mg/gram (0.5 %) ointment 0.5 inch ophthalmic (eye) PRN 0RF clobetasol 0.05 % solution 1 applic topical DAILY PRN (Reason: UNKNOWN) 0RF Rx Instructions: Apply a few drops to affected areas on scalp daily as needed ketoconazole 1 % shampoo 1 applic topical Q3D PRN (Reason: Rash) 0RF lactulose 10 gram/15 mL Solution 15 ml PO DAILY PRN (Reason: Constipation) 0RF hydromorphone 1 mg/mL liquid 4 mg feeding tube Q4H PRN (Reason: Pain) Qty: 473 0RF Discharge Orders: Discharge Order (Routine); Ordered 11/20/21 Ordered By: Abhijit Ramirez Referrals: Primary, provider [Other] - 4-7 days [facility] [Outside] Cezar Tabares DO [Physician] - 2 weeks (For XR R fib Fx) Shlomo Burton DPM [Physician] - 1 week Beba Desir FNP [Primary Care Provider] - Discharge Diet: Soft Mechanical and Start new tube feeds as directed Discharge Activity: Increase activity as tolerated, As per PT/OT instructions, Oxygen as instructed and Cpap/Bipap as instructed Patient Instructions: Ciprofloxacin (By mouth), Doxycycline (By mouth), GI Discharge Instructions, Opioid Safety Activity Restrictions/Additional Instructions: Maintain aspiration precautions, complete antibiotics for cellulitis, wound infection and pneumonia with suspected aspiration. Mechanical soft diet. And continue tube feeds, 8 ounce cartons of Jevity 1.2 with a total of 6 cartons per day (each carton is 8 ounces or 237 mL). Bolus feedings 3 times a day with each feeding tube equal to cartons (16 ounces of 480 mL total), with 60 mL water flushes before and after. Continue oxygen 5L NC, wean down as tolerating. CPAP nightly for ADEOLA. Continue wound care for left lower extremity wounds. Offload with foam block. Follow-up with podiatry. ?[employer] at [facility] right foot daily Weightbearing as tolerated with regards to right fibular fracture. Follow-up with orthopedics in clinic in 2 weeks for an x-ray. In case you change your mind regarding work-up of colon mass, follow-up with surgery regarding endoscopic evaluation in the setting of inguinal lymphadenopathy. Consider referral for therapy for adjustment disorder if may be agreeable. Continue follow-up regarding intrathecal pain pump. Monitor for any symptoms of urinary retention. Continue goals of care discussions and further consideration. Long-term consideration, consideration of hospice care. Discharge Attestations Time Spent in Discharge Care*: greater than 30 min Status at Discharge: Cognitive status at discharge: cognitively intact , Behavioral status at discharge: cooperative , Quality Metrics Clinical Quality Measures [ No reported AMI, CVA or VTE this stay] Coding Level of Care Code Acute Chg FW DC note Diagnoses Colonic mass K63.89 Protein calorie malnutrition E46 Cellulitis of right lower extremity L03.115 Wound of right leg S81.801A Scrotal mass N50.89 G tube feedings Z93.1 CHF (congestive heart failure) I50.9 History of angioplasty Z98.62 Urinary retention due to benign prostatic hyperplasia N40.1; R33.8 Bradycardia R00.1 COPD (chronic obstructive pulmonary disease) J44.9 COPD type: unspecified COPD CAD (coronary artery disease) I25.10 Dysphagia, oropharyngeal R13.12 Chest pain R07.9 Weakness R53.1 Weight loss R63.4 Mass of right thigh R22.41 DNR (do not resuscitate) Z66 Fibula fracture S82.409A Presence of intrathecal pump Z97.8 Muscular deconditioning R29.898 Recurrent falls R29.6
--- NOTE | 2021-11-20 14:56 | PC.OT ---
OT TREATMENT HELD TODAY DUE TO SCHEDULED PATIENT DISCHARGE TO SNF
== END 2021-11-20 16:00 | disposition skilled nursing facility (03) | DRG 602 ==
LOC: ER 11-16 07:20 → MEDSURG 11-16 11:02
PROVIDERS: Emergency Medicine; Admitting Provider Family Medicine; Emergency Provider Family Medicine; PCP Nurse Practitioner Family; Visit Provider Internal Medicine
DX: L03.115 Cellulitis of right lower limb (principal); J69.0 Pneumonitis due to inhalation of food and vomit; I50.32 Chronic diastolic (congestive) heart failure; J44.0 Chronic obstructive pulmonary disease with (acute) lower respiratory infection; J96.11 Chronic respiratory failure with hypoxia; R45.851 Suicidal ideations; I69.954 Hemiplegia and hemiparesis following unspecified cerebrovascular disease affecting left non-dominant side; I24.8 Other forms of acute ischemic heart disease; E44.0 Moderate protein-calorie malnutrition; Z68.1 Body mass index [BMI] 19.9 or less, adult; I11.0 Hypertensive heart disease with heart failure; E78.5 Hyperlipidemia, unspecified; I25.10 Atherosclerotic heart disease of native coronary artery without angina pectoris; Z95.5 Presence of coronary angioplasty implant and graft; Z95.1 Presence of aortocoronary bypass graft; Z93.1 Gastrostomy status; M25.551 Pain in right hip; N40.1 Benign prostatic hyperplasia with lower urinary tract symptoms; R33.8 Other retention of urine; Z66 Do not resuscitate; K21.9 Gastro-esophageal reflux disease without esophagitis; G47.33 Obstructive sleep apnea (adult) (pediatric); Z89.612 Acquired absence of left leg above knee; L89.619 Pressure ulcer of right heel, unspecified stage; G89.29 Other chronic pain; F43.25 Adjustment disorder with mixed disturbance of emotions and conduct; Z79.891 Long term (current) use of opiate analgesic; L30.9 Dermatitis, unspecified; B87.0 Cutaneous myiasis; K63.9 Disease of intestine, unspecified; Z97.8 Presence of other specified devices; R13.10 Dysphagia, unspecified; R00.1 Bradycardia, unspecified; Z99.3 Dependence on wheelchair; N49.2 Inflammatory disorders of scrotum; I73.9 Peripheral vascular disease, unspecified; G20 Parkinson's disease; Z99.81 Dependence on supplemental oxygen; Z87.01 Personal history of pneumonia (recurrent); Z87.440 Personal history of urinary (tract) infections; S82.864A Nondisplaced Maisonneuve's fracture of right leg, initial encounter for closed fracture; W05.0XXA Fall from non-moving wheelchair, initial encounter
CPT/HCPCS: 36415; 51702; 71045; 73020; 73521; 73522; 73552; 73590; 73630; 74018; 74177; 80053; 80202; 80306; 80307; 81001; 83605; 83690; 83735; 83880; 84100; 84145; 84443; 84484; 85025; 85610; 85651; 86140; 87040; 87426; 92526; 92610; 93005; 94640; 94664; 96365; 96372; 96375; 96376; 97110; 97161; 97165; 97530; 97535; 99291; C9113; J0743; J1170; J1650; J1940; J3370; J7050; Q9967

== ENCOUNTER → 2021-11-29 12:57 | Outpatient (BNVA) | payer MEDICARE, OTHER, SELFPAY | PROVIDERS: PCP Internal Medicine; Visit Provider Podiatrist Foot & Ankle Surgery | DX: S82.864D Nondisplaced Maisonneuve's fracture of right leg, subsequent encounter for closed fracture with routine healing (principal); X58.XXXD Exposure to other specified factors, subsequent encounter | CPT/HCPCS: 73590; 99213; 99214 ==

== ENCOUNTER → 2021-12-03 13:51 | Outpatient (BNVA) | payer MEDICARE, OTHER, SELFPAY | PROVIDERS: PCP Internal Medicine; Visit Provider Thoracic Surgery (Cardiothoracic Vascular Surgery) | DX: L97.811 Non-pressure chronic ulcer of other part of right lower leg limited to breakdown of skin (principal) | CPT/HCPCS: 99212 ==

== ENCOUNTER → 2021-12-20 14:09 | Outpatient (BNVA) | payer MEDICARE, OTHER, SELFPAY | PROVIDERS: PCP Internal Medicine; Visit Provider Podiatrist Foot & Ankle Surgery | DX: S82.864D Nondisplaced Maisonneuve's fracture of right leg, subsequent encounter for closed fracture with routine healing (principal); X58.XXXD Exposure to other specified factors, subsequent encounter; Z89.612 Acquired absence of left leg above knee | CPT/HCPCS: 73590; 99214 ==

== ENCOUNTER → 2022-01-22 10:10 | Outpatient (BNVA) | payer MEDICARE, OTHER, SELFPAY | PROVIDERS: PCP Internal Medicine; Visit Provider Surgery | DX: K94.23 Gastrostomy malfunction (principal); K63.89 Other specified diseases of intestine; R59.1 Generalized enlarged lymph nodes; N40.1 Benign prostatic hyperplasia with lower urinary tract symptoms; N48.1 Balanitis; N50.9 Disorder of male genital organs, unspecified | CPT/HCPCS: 43762; 99213; 99214 ==

== ENCOUNTER → 2022-02-05 10:00 | Outpatient (BNVA) | payer MEDICARE, OTHER, SELFPAY | PROVIDERS: PCP Internal Medicine; Visit Provider Podiatrist Foot & Ankle Surgery | DX: Z89.612 Acquired absence of left leg above knee (principal); X58.XXXD Exposure to other specified factors, subsequent encounter; S82.864D Nondisplaced Maisonneuve's fracture of right leg, subsequent encounter for closed fracture with routine healing | CPT/HCPCS: 99213 ==

== ENCOUNTER → 2022-02-21 13:20 | Outpatient (BNVA) | payer MEDICARE, OTHER, SELFPAY | PROVIDERS: PCP Internal Medicine; Visit Provider Nurse Practitioner Family | DX: R53.83 Other fatigue (principal); E55.9 Vitamin D deficiency, unspecified; E46 Unspecified protein-calorie malnutrition; I95.9 Hypotension, unspecified; H91.93 Unspecified hearing loss, bilateral | CPT/HCPCS: 80053; 80061; 82306; 82607; 84439; 84443; 85025 ==

== ENCOUNTER → 2022-05-08 10:31 | Outpatient (BNVA) | payer MEDICARE, OTHER, SELFPAY | PROVIDERS: PCP Nurse Practitioner Family; Visit Provider Nurse Practitioner Family | DX: S81.801A Unspecified open wound, right lower leg, initial encounter (principal); X58.XXXA Exposure to other specified factors, initial encounter | CPT/HCPCS: 87070; 87075; 87077; 87184; 87205 ==

== ENCOUNTER → 2022-05-16 11:59 | Outpatient (BNVA) | payer MEDICARE, OTHER, SELFPAY | PROVIDERS: PCP Nurse Practitioner Family; Visit Provider Nurse Practitioner Family | DX: S81.801A Unspecified open wound, right lower leg, initial encounter (principal); X58.XXXA Exposure to other specified factors, initial encounter | CPT/HCPCS: 87070; 87075; 87077; 87184; 87205 ==

== ENCOUNTER → 2022-05-20 09:53 | Outpatient (BNVA) | payer MEDICARE, OTHER, SELFPAY | PROVIDERS: PCP Nurse Practitioner Family; Visit Provider Nurse Practitioner Family | DX: I96 Gangrene, not elsewhere classified (principal); L89.892 Pressure ulcer of other site, stage 2 | CPT/HCPCS: 11042; 99213; A6212 ×2 ==

== ENCOUNTER → 2022-06-03 10:11 | Outpatient (BNVA) | payer MEDICARE, OTHER, SELFPAY | PROVIDERS: PCP Nurse Practitioner Family; Visit Provider Nurse Practitioner Family | DX: I73.9 Peripheral vascular disease, unspecified (principal); L97.822 Non-pressure chronic ulcer of other part of left lower leg with fat layer exposed | CPT/HCPCS: 11042; 11045; A6252 ==

== ENCOUNTER → 2022-06-05 13:39 | Outpatient (BNVA) | payer MEDICARE, OTHER, SELFPAY | PROVIDERS: PCP Nurse Practitioner Family; Visit Provider Nurse Practitioner Family | DX: E55.9 Vitamin D deficiency, unspecified (principal); E46 Unspecified protein-calorie malnutrition; S81.801A Unspecified open wound, right lower leg, initial encounter; R25.1 Tremor, unspecified; R41.3 Other amnesia | CPT/HCPCS: 80053; 80061; 82306; 82607; 83735; 85025 ==

== ENCOUNTER → 2022-06-17 10:04 | Outpatient (BNVA) | payer MEDICARE, OTHER, SELFPAY | PROVIDERS: PCP Nurse Practitioner Family; Visit Provider Thoracic Surgery (Cardiothoracic Vascular Surgery) | DX: I96 Gangrene, not elsewhere classified (principal); L89.892 Pressure ulcer of other site, stage 2 | CPT/HCPCS: 97597; 97598; A6197 ==

== ENCOUNTER 2022-06-19 08:46 | Emergency (ER) | payer MEDICARE, OTHER, SELFPAY ==
--- NOTE | 2022-06-19 08:48 | ED_ITS ---
HPI - Fall General: Chief Complaint: Extremity Injury, Lower Stated Complaint: SWELLING TO FACE/ AMPUTATED STUMP PAIN Time Seen by Provider: 06/19/22 08:48 History of Present Illness: Mr. Whitney is a 82-year-old gentleman with very complex past medical history presenting to the emergency department due to fall with pain. He has a history of left above-knee amputation and fell as his dog tripped him up in his wheelchair last night. He did have prolonged downtime overnight and describes a distal phantom pain sensation worse with movement and palpation. Additionally he has pain generalized. Per EMS patient also had facial swelling with tongue protrusion which is improved with Benadryl, unknown if new environmental or medication exposure. Intensity symptoms is moderate. Course has persisted. No other specific changes in health, exacerbating, or alleviating factors identified. Onset (ago): hour(s) Fall from: wheelchair Fall witnessed: no Place fall occurred: home Loss of consciousness: None Prolonged down time: yes and hour(s) Symptoms prior to fall: none Context: tripped/slipped Location of injury - extremities: Left: thigh Severity: moderate Quality: sharp, stabbing and aching Review of Systems General: Reports: 10 or more systems reviewed and unremarkable except in HPI and below PFSH ED PFSH: Medical History Bacteriuria Benign prostatic hyperplasia with lower urinary tract symptoms Bradycardia -noted persistent bradycardia, HRs in the 40-50 range; seems to be more stable in the 50-60 range -has been on dopamine drip, weaned off on 09/12 -telemetry monitoring -Cardiology consult by Dr. 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 Social History Smoking and tobacco status: current every day smoker cigarettes Packs smoked per day: 0.5 Years cigarettes smoked: 70 [ Other cigarette details: [id number] 70yr hx] Second hand smoke exposure: No Smoking risk assessment/counseling performed?: Yes Alcohol intake: current Alcohol intake frequency: holidays/special occasions only Adopted: No Caregiver/support person: No Lives independently: No Household members: spouse Marital status: service: No Current occupational status: retired History of recent travel: No Current gender identity: Male Special key needs: No Agree to transfusion: Yes Physical Exam Const: COMMON NORMALS: alert GENERAL APPEARANCE: cooperative, well developed and ill appearing (Chronically) HENMT: COMMON NORMALS: normocephalic and atraumatic HEAD & SCALP: normocephalic and atraumatic THROAT: posterior oropharynx normal OTHER: No vernon signs or raccoon eyes. No hemotympanum. No otorrhea or rhinorrhea. Jaw alignment normal. Dentition baseline. No obvious bony step-offs. No septal hematoma. No evidence of ocular entrapment. Eye: COMMON NORMALS: conjunctivae normal CONJUNCTIVA: Yes conjunctivae normal SCLERA: sclerae normal Neck/C-Spine: COMMON NORMALS: supple GENERAL: Yes trachea midline Resp: COMMON NORMALS: clear to auscultation bilaterally EFFORT & INSPECTION: Yes able to speak in complete sentences AUSCULTATION: clear to auscultation bilaterally Cardio: COMMON NORMALS: regular rate and regular rhythm RATE: regular rate RHYTHM: regular rhythm GI: COMMON NORMALS: Soft to palpation PALPATION: Yes Soft to palpation, Yes Tenderness to palpation present (GI), No Guarding due to palpation present (GI) and No Rigid due to palpation Extremity: NARRATIVE EXTREMITY EXAM: Left leg stump appears intact, tender to palpation. Right leg with edema and tenderness palpation upper and lower leg. No obvious deformities or step-offs. CMS intact GENERAL: Yes normal exam except as noted and Yes edema Neuro: COMMON NORMALS: moves all extremities SENSORIUM/ORIENTATION: Yes alert and No Orientation impaired Psych: COMMON NORMALS: mental status grossly normal and Normal thought process present THOUGHT PROCESS: Normal thought process present Course Vital Signs: Vital signs: Vital Signs Temperature 98.3 F 06/19/22 08:52 Pulse Rate 79 06/19/22 17:17 Respiratory Rate 18 06/19/22 17:17 Blood Pressure 107/79 06/19/22 11:30 Pulse Oximetry 90 06/19/22 17:17 Oxygen Delivery Me thod 06/19/22 11:30 Oxygen Flow Rate 2 06/19/22 11:30 MDM - Fall Medical Decision Making 82-year-old gentleman with complex history presenting due to fall. Exam as above. Numerous chronic findings identified on exam. Labs notable for minimal leukocytosis, hemoglobin is normal as is platelet count. Metabolic panel without acute electrolyte derangement, creatinine is similar to recent baseline though not elevated. BNP is mild elevated Given limitations due to chronic conditions is very difficult to rule out acute pathology based on physical exam. Therefore, CT imaging is felt to be warranted. CTs and x-rays were reviewed and negative for acute traumatic injury. Numerous incidental findings were discussed with patient. Upon serial reassessment of patient he feels improved. I am unsure of the EMS noted facial swelling and the patient himself denies any new swelling. Patient does not have any new environmental exposures and certainly symptoms have improved since initial presentation. Regardless I will plan to treat the patient. The results of ED evaluation were discussed with the patient including prescriptions and/or symptomatic cares (if applicable) including appropriate and responsible use, followup plan, and return precautions. The patient verbalized understanding and felt safe for discharge. Medical Records I reviewed the patient's medical records. Lab Data I reviewed the patient's lab results. 06/19/22 10:04 06/19/22 10:04 Radiology Impressions Abdomen/Pelvis CT 06/19/22 09:02 IMPRESSION: 1. Extremely limited and difficult evaluation of the abdomen and pelvis due to patient's condition. 2. No acute findings are identified. 3. Prior cholecystectomy. 4. Diffuse constipation. 5. PEG tube remains in good position. 6. Soft tissue anasarca. 7. Extensive atherosclerosis aorta. 8. Marked prostate gland enlargement encroaching into the bladder. 9. Numerous bilateral renal masses of variable density. Probably representing simple cysts and hemorrhagic cysts. Solid mass is not excluded. Similar findings noted on a study of 11/16/2021. Cervical Spine CT 06/19/22 09:02 IMPRESSION: 1. Extremely difficult and limited evaluation of the cervical spine due to patient's condition. 2. Osteopenia. 3. Facet joint arthritis and disc disease. 4. No fractures are identified. 5. Debris within the upper esophagus. Patient at risk for aspiration. Femur X-Ray 06/19/22 09:02 IMPRESSION: 1. No acute femoral fracture or dislocation. Head CT 06/19/22 09:02 IMPRESSION: 1. No acute intracranial hemorrhage or edema. 2. Mild soft tissue edema centered over the LEFT temporal region. No fracture. 3. Extensive atherosclerosis intracranial carotid arteries. Tibia/Fibula X-Ray 06/19/22 09:02 IMPRESSION: 1. No acute fracture or dislocation. Old healed proximal fibular fracture. Laboratory Results WBC 10.4 10^3/uL (4.0-10.0) H 06/19/22 10:04 RBC 5.41 10^6/uL (4.1-5.3) H 06/19/22 10:04 Hgb 14.4 g/dL (11.7-16.6) 06/19/22 10:04 Hct 47.3 % (42.0-52.0) 06/19/22 10:04 MCV 87.4 fl (80-94) 06/19/22 10:04 MCH 26.6 pg (28.0-34.0) L 06/19/22 10:04 MCHC 30.4 g/dL (30.0-36.0) 06/19/22 10:04 RDW 15.8 % (12.1-15.1) H 06/19/22 10:04 Plt Count 195 10^3/cmm (130-400) 06/19/22 10:04 MPV 9.8 fL (7.4-10.4) 06/19/22 10:04 Neut % (Auto) 92.3 % 06/19/22 10:04 Lymph % (Auto) 3.3 % 06/19/22 10:04 [place] % (Auto) 3.9 % 06/19/22 10:04 Eos % (Auto) 0.0 % 06/19/22 10:04 Baso % (Auto) 0.1 % 06/19/22 10:04 Neut # (Auto) 9.64 10^3/uL (1.8-7.7) H 06/19/22 10:04 Lymph # (Auto) 0.3 10^3/uL (0.8-4.8) L 06/19/22 10:04 [place] # (Auto) 0.4 10^3/uL (0.2-0.9) 06/19/22 10:04 Eos # (Auto) 0.0 10^3/uL (0.0-0.8) 06/19/22 10:04 Baso # (Auto) 0.0 10^3/uL (0.0-0.1) 06/19/22 10:04 Nucleated RBC % (auto) 0 % 06/19/22 10:04 Nucleated RBCs # 0.0 /100WBC 06/19/22 10:04 Sodium 141 mmol/L (136-145) 06/19/22 10:04 Potassium 4.7 mmol/L (3.5-5.1) 06/19/22 10:04 Chloride 107 mmol/L (98-107) 06/19/22 10:04 Carbon Dioxide 23 mmol/L (22-29) 06/19/22 10:04 Anion Gap 15.7 (5-19) 06/19/22 10:04 BUN 26 mg/dL (8-23) H 06/19/22 10:04 Creatinine 1.6 mg/dL (0.7-1.2) H 06/19/22 10:04 GFR Calculation Not Reportable 06/19/22 10:04 Glucose 99 mg/dL (65-115) 06/19/22 10:04 Calculated Osmolality 297 mOsm/kg (285-295) H 06/19/22 10:04 Calcium 8.1 mg/dL (8.5-10.5) L 06/19/22 10:04 Total Bilirubin 0.5 mg/dL (0.15-1.2) 06/19/22 10:04 AST 20 U/L (0-40) 06/19/22 10:04 ALT 17 U/L (0-41) 06/19/22 10:04 Alkaline Phosphatase 101 U/L (40-130) 06/19/22 10:04 Creatine Kinase 264 U/L (39-308) 06/19/22 10:04 NT-Pro-B Natriuret Pep 3008 pg/mL (0-450) H 06/19/22 10:04 Total Protein 5.9 g/dL (6.6-8.7) L 06/19/22 10:04 Albumin 2.9 g/dL (3.5-5.2) L 06/19/22 10:04 Globulin 3.0 g/dL (1.3-4.6) 06/19/22 10:04 TSH 0.94 uIU/mL (0.27-4.20) 06/19/22 10:04 Discharge Plan Discharge Patient Disposition: Home Clinical Impression: Fall, Multiple contusions, Facial swelling, Constipation, GERD without esophagitis Condition: Stable Prescriptions: No Action pantoprazole [Protonix] [address] for susp in packet 40 mg PO DAILY Qty: 90 1RF Rx Instructions: DISOLVE 1 PACKET DAILY IN JUICE AND ADMINISTER THRU G-TUBE nitroglycerin 0.4 mg tablet, sublingual 0.4 mg SUBLINGUAL Q5M PRN (Reason: Chest Pain) nystatin-triamcinolone 100,000-0.1 unit/g-% cream 1 applic topical BID Qty: 30 0RF Rx Instructions: apply to penis twice a day guaifenesin [Adult Tussin Chest Congestion] 100 mg/5 mL liquid 200 mg PO Q4H PRN (Reason: congestion) 90 Days Qty: 500 3RF hydrocortisone [Anti-Itch (HC)] 1 % ointment 1 applic topical BID PRN (Reason: skin irritation) Qty: 28.35 2RF (DME) General Wheel chair repair See Rx Instructions .Route .MEDSUPPLY Qty: 1 0RF Rx Instructions: As directed (DME) seat cushion for wheelchair See Rx Instructions .Route .MEDSUPPLY Qty: 1 0RF Rx Instructions: As directed fluorouracil 0.5 % cream 1 applic topical DAILY 14 Days Qty: 30 0RF vits A and D-white pet-lanolin [A and D (rossi, pet)] Ointment 1 applic topical DAILY PRN (Reason: skin irritation) Qty: 425 1RF (DME) ensure See Rx Instructions .Route .MEDSUPPLY Qty: 180 12RF Rx Instructions: use 6 cans per day as directed in feeding tube hydrocortisone 2.5 % ointment 1 applic topical BID PRN (Reason: skin irritation) Qty: 28.35 2RF furosemide 10 mg/mL solution See Rx Instructions .ROUTE .COMPLEX Qty: 360 0RF Dose Instruction: TAKE 4 ML EVERY DAY DIRECTED Rx Instructions: TAKE 4 ML EVERY DAY DIRECTED finasteride 5 mg tablet See Rx Instructions .ROUTE .COMPLEX Qty: 90 0RF Dose Instruction: CRUSH ONE TABLET AND GIVE VIA PEG TUBE DAILY DIRECTED Rx Instructions: CRUSH ONE TABLET AND GIVE VIA PEG TUBE DAILY DIRECTED Fleet Bisacodyl 10 mg/30 mL enema 10 mg AR DAILY PRN (Reason: constipation) Qty: 37 6RF potassium chloride 20 mEq/15 mL liquid See Rx Instructions .ROUTE .COMPLEX Qty: 675 1RF Dose Instruction: MIX 7.5ML IN 3 OUNCES OF LIQUID AND GIVE VIA PEG TUBE ONE TIME DAILY DIRECTED Rx Instructions: MIX 7.5ML IN 3 OUNCES OF LIQUID AND GIVE VIA PEG TUBE ONE TIME DAILY DIRECTED Relistor 8 mg/0.4 mL Syringe 8 mg SUBCUT DAILY PRN (Reason: Constipation) tamsulosin 0.4 mg capsule 0.4 mg PO DAILY Fleet Enema 19-7 gram/118 mL Enema 118 ml AR DAILY PRN (Reason: Constipation) lactulose 10 gram/15 mL Solution 15 ml PO DAILY PRN (Reason: Constipation) hydromorphone 1 mg/mL liquid 4 mg feeding tube Q4H PRN (Reason: Pain) Qty: 473 0RF Discharge Orders: Discharge ED (Routine); Ordered 06/19/22 Ordered By: Jerry Chauhan Referrals: Beba Desir FNP [Primary Care Provider] - Discharge Diet: Usual diet Discharge Activity: Increase activity as tolerated Patient Instructions: Contusion in Adults (ED), Fall Prevention (ED), Opioid Safety, Pain Management Activity Restrictions/Additional Instructions: Thank you for visiting the emergency department. You were seen and evaluated for pain of related to fall. Also questionable facial swelling. No acute fractures were identified. You have multiple chronic findings on imaging which should have continued follow-up in the outpatient setting. Please follow-up with your primary care provider. Please return to the emergency department for worsening symptoms, shortness of breath, hoarse facial swelling, difficulty swallowing, uncontrolled pain, recurrent falls, or anything else that you are concerned about a feel needs emergency department evaluation. 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
[2022-06-19 08:52] VITALS: BP 125/66; PULSE 79; RESP 16; TEMP 36.8; O2SAT 95; BMI 19.3
[2022-06-19 08:57] VITALS: BP 125/66; PULSE 72; RESP 18; O2SAT 95
--- NOTE | 2022-06-19 09:02 | XR_ITS ---
WS: [id number] Exam: XR femur LT min 2V* [id number] Date/Time of Exam: 06/19/2022 9:02 AM Reason For Exam: fall No fracture or dislocation noted. There is a midshaft amputation of the left femur. Soft tissue calci fications noted medially. Osteopenia. XR/XR femur LT min 2V* [id number] IMPRESSION: 1. Midshaft femoral amputation. No fracture, bone destruction or other signific ant finding.
--- NOTE | 2022-06-19 09:02 | XR_ITS ---
WS: [id number] Exam: XR femur RT min 2V* [id number] Date/Time of Exam: 06/19/2022 9:02 AM Reason For Exam: fall No acute fracture or dislocation. Osteopenia. Vascular calcifications in the soft tissues. XR/XR femur RT min 2V* [id number] IMPRESSION: 1. No acute femoral fracture or dislocation.
--- NOTE | 2022-06-19 09:02 | CT_ITS ---
WS: [id number] CT HEAD NONCONTRAST HISTORY: fall TECHNIQUE: Contiguous axial imaging performed through the brain in 2.5 mm imaging. Bone and soft tiss ue windows. Sagittal and coronal reformats reviewed. All CT scans at [facility] use at least one of these dose optimization techniques: automated exposure control; mA and/or kV adjustment per pa tient size (includes targeted exams where dose is matched to clinical indication); or iterative recon struction. DLP: 1262.87 mGy.cm COMPARISON: 05/20/2017 No acute intracranial hemorrhage, midline shift or mass effect. Moderate atrophy and small vessel ischemic disease. Ventricles: Normal size with no hydrocephalus. No inferior displacement of the cerebellar tonsils. Paranasal sinuses: Moderate mucoperiosteal thickening in the LEFT maxillary sinus. Mastoid air cells: Well pneumatized. Calvarium and scalp: Skull is intact with no soft tissue edema or swelling. Mild soft tissue thickening consistent with a hematoma over the LEFT temporal region. CT/CT head wo con* [id number] IMPRESSION: 1. No acute intracranial hemorrhage or edema. 2. Mild soft tissue edema centered over the LEFT temporal region. No fracture. 3. Extensive atherosclerosis intracranial carotid arteries.
--- NOTE | 2022-06-19 09:02 | CT_ITS ---
WS: [id number] CT ABDOMEN AND PELVIS NONCONTRAST HISTORY: fall TECHNIQUE: Imaging performed through the abdomen and pelvis. Coronal and sagittal reformats are submi tted. All CT scans at [facility] use at least one of these dose optimization techniques: auto mated exposure control; mA and/or kV adjustment per patient size (includes targeted exams where dose is matched to clinical indication); or iterative reconstruction. DLP: 624.33 mGy.cm COMPARISON: 11/16/2021 Lower thorax: Lung bases are clear. There is a soft tissue nodule in the RIGHT chest wall was may be associated gynecomastia. Also similar to the study of 11/16/2021. Heart size is normal. Small hiatal h ernia. Liver: Normal size liver. No mass or bile duct dilatation. Gallbladder: Prior cholecystectomy. Pancreas: Marked atrophy. Spleen: Normal. Adrenal glands: Normal. No mass. Right kidney: Mild atrophy with numerous masses of variable density. No obstruction. Left kidney: Mild atrophy with numerous masses of variable density. Aorta: Mild atherosclerosis abdominal aorta with no aneurysm. No free fluid, intraperitoneal air or significant lymphadenopathy. GI tract: PEG tube remains in good position. Marked fecal retention and constipation. Previously desc ribed mass involving the RIGHT colon is not identified today. There is less colonic wall thickening a nd enhancement. Abdominal wall: Pain possible over the mid abdomen. No hernia. Soft tissue anasarca. Pelvis: Well-distended urinary bladder. Soft tissue mass contiguous with the prostate extends into th e urinary bladder. Prostate is enlarged with central calcifications. Osseous structures: Osteopenia. Scoliosis. CT/CT abdomen pelvis wo con [id number] IMPRESSION: 1. Extremely limited and difficult evaluation of the abdomen and pelvis due to patient's condition. 2. No acute findings are identified. 3. Prior cholecystectomy. 4. Diffuse constipation. 5. PEG tube remains in good position. 6. Soft tissue anasarca. 7. Extensive atherosclerosis aorta. 8. Marked prostate gland enlargement encroaching into the bladder. 9. Numerous bilateral renal masses of variable density. Probably representing simple cysts and hemorrhagic cysts. Solid mass is not excluded. Similar finding s noted on a study of 11/16/2021.
--- NOTE | 2022-06-19 09:02 | XR_ITS ---
WS: [id number] Exam: XR tibia fibula RT 2V [id number] Date/Time of Exam: 06/19/2022 9:02 AM Reason For Exam: fall No acute fracture or dislocation. Old healed fracture of the proximal fibula. Articular relationships at the knee and ankle are intact. Osteopenia. Vascular calcifications in the soft tissues. XR/XR tibia fibula RT 2V [id number] IMPRESSION: 1. No acute fracture or dislocation. Old healed proximal fibular fracture.
--- NOTE | 2022-06-19 09:02 | CT_ITS ---
WS: [id number] CT CERVICAL SPINE HISTORY: fall TECHNIQUE: Contiguous 2.5 mm axial imaging performed through the entire cervical spine. Sagittal and coronal reformats also performed. All CT scans at [facility] use at least one of these dose o ptimization techniques: automated exposure control; mA and/or kV adjustment per patient size (include s targeted exams where dose is matched to clinical indication); or iterative reconstruction. DLP: 1262.87 mGy.cm COMPARISON: Neck CT 02/14/2022 Very limited evaluation of the cervical spine due to patient's condition. Diffuse osteopenia. Cranioc ervical junction is normally aligned. Facet joints are narrowed. Disc space narrowing is moderate at C5-6 and C6-7. Lateral masses of C1 and C2 are aligned. The odontoid is intact. Debris in the esophagus above the mark. RIGHT thyroid nodule 1.[address]/CT cervical spin wo con* [id number] IMPRESSION: 1. Extremely difficult and limited evaluation of the cervical spine due to pat ient's condition. 2. Osteopenia. 3. Facet joint arthritis and disc disease. 4. No fractures are identified. 5. Debris within the upper esophagus. Patient at risk for aspiration.
--- NOTE | 2022-06-19 09:20 | PC.NURSE ---
PT STATES HE NORMALLY SATS BETWEEN 89 AND 92% ROOM AIR AND ONLY WEARS HIS OXYGEN WHEN HE IS UP AND MOVING AROUND
[2022-06-19 10:15] LABS: Basophils % 0.1 %; Hematocrit 47.3 % (42.0-52.0); Hemoglobin 14.4 g/dL (11.7-16.6); Lymphocytes # 0.3 10^3/uL (0.8-4.8); Lymphocytes % 3.3 %; Mean Corpuscular HGB Conc 30.4 g/dL (30.0-36.0); Mean Corpuscular Hemoglobin 26.6 pg (28.0-34.0); Mean Corpuscular Volume 87.4 fl (80-94); Mean Platelet Volume 9.8 fL (7.4-10.4); Monocytes # 0.4 10^3/uL (0.2-0.9); Monocytes % 3.9 %; Neutrophils # 9.64 10^3/uL (1.8-7.7); Neutrophils % 92.3 %; Nucleated Red Blood Cells % 0 %; Platelet Count 195 10^3/cmm (130-400); Red Blood Count 5.41 10^6/uL (4.1-5.3); Red Cell Distribution Width 15.8 % (12.1-15.1); White Blood Count 10.4 10^3/uL (4.0-10.0)
[2022-06-19 10:25] VITALS: BP 112/71; PULSE 75; O2SAT 88
[2022-06-19 10:48] LABS: Alanine Aminotransferase 17 U/L (0-41); Albumin Level 2.9 g/dL (3.5-5.2); Alkaline Phosphatase 101 U/L (40-130); Anion Gap 15.7 (5-19); Aspartate Amino Transferase 20 U/L (0-40); Blood Urea Nitrogen 26 mg/dL (8-23); Calcium 8.1 mg/dL (8.5-10.5); Carbon Dioxide 23 mmol/L (22-29); Chloride 107 mmol/L (98-107); Creatine Phosphokinase 264 U/L (39-308); Glucose 99 mg/dL (65-115); NT Pro B Type Natriuretic Pept 3008 pg/mL (0-450); Osmolality Calculated 297 mOsm/kg (285-295); Potassium 4.7 mmol/L (3.5-5.1); Sodium 141 mmol/L (136-145); Thyroid Stimulating Hormone 0.94 uIU/mL (0.27-4.20); Total Bilirubin 0.5 mg/dL (0.15-1.2); Total Protein 5.9 g/dL (6.6-8.7)
[2022-06-19 11:30] VITALS: BP 107/79; PULSE 70; O2SAT 96
[2022-06-19 17:17] VITALS: PULSE 79; RESP 18; O2SAT 90
== END 2022-06-19 17:17 | disposition home or self-care (01) ==
PROVIDERS: Emergency Provider Emergency Medicine; PCP Nurse Practitioner Family
DX: S70.12XA Contusion of left thigh, initial encounter (principal); W18.31XA Fall on same level due to stepping on an object, initial encounter; R22.0 Localized swelling, mass and lump, head; K59.00 Constipation, unspecified; K21.9 Gastro-esophageal reflux disease without esophagitis; I25.10 Atherosclerotic heart disease of native coronary artery without angina pectoris
CPT/HCPCS: 70450; 72125; 73552; 73590; 74176; 80053; 82550; 83880; 84443; 85025; 99284

== ENCOUNTER 2022-06-22 13:16 | Inpatient (IN) | payer MEDICARE, OTHER, SELFPAY ==
[2022-06-22] VITALS (83 sets, daily range): BP systolic 56–122; BP diastolic 36–73; PULSE 74–143; RESP 14–32; TEMP 36.4; O2SAT 73–97; BMI 29.4
--- NOTE | 2022-06-22 13:28 | ED_ITS ---
HPI - SOB/Dyspnea General: Chief Complaint: Shortness of Breath/Dyspnea Stated Complaint: SOB; PAIN ALL OVER Time Seen by Provider: 06/22/22 13:21 History of Present Illness: HPI Narrative: Mr. Whitney is an 82-year-old gentleman with complex past medical history including COPD with likely restrictive component, left above-knee amputation, severe debility, chronic wounds presenting to the emergency department due to generalized body pain and shortness of breath. Onset of symptoms is somewhat vague though likely over the past few days. Endorses generalized body pain including frequent falls. Per EMS initial oxygen saturation on supplemental oxygen 60% and patient only mildly improved on 4 L nasal cannula. Lives at home and believes that he is receiving inadequate assistance. He reports last time dressing was changed on his right lower extremity was 5 days ago. He presents in the same shirt that he presented due to fall and other symptoms on 06/19. No other specific changes in health, exacerbating, or alleviating factors identified. Onset (ago): day(s) Timing: progressively worsening Severity: severe Review of Systems General: Reports: 10 or more systems reviewed and unremarkable except in HPI and below PFSH ED PFSH: Medical History Bacteriuria Benign prostatic hyperplasia with lower urinary tract symptoms Bradycardia -noted persistent bradycardia, HRs in the 40-50 range; seems to be more stable in the 50-60 range -has been on dopamine drip, weaned off on 09/12 -telemetry monitoring -Cardiology consult by Dr. 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 Social History Smoking and tobacco status: current every day smoker cigarettes Packs smoked per day: 0.5 Years cigarettes smoked: 70 [ Other cigarette details: [id number] 68yr hx] Second hand smoke exposure: No Smoking risk assessment/counseling performed?: Yes Alcohol intake: current Alcohol intake frequency: holidays/special occasions only Adopted: No Caregiver/support person: No Lives independently: No Household members: spouse Marital status: service: No Current occupational status: retired History of recent travel: No Current gender identity: Male Special key needs: No Agree to transfusion: Yes Physical Exam Const: COMMON NORMALS: alert GENERAL APPEARANCE: cooperative, disheveled and ill appearing HENMT: COMMON NORMALS: normocephalic and atraumatic HEAD & SCALP: normocephalic and atraumatic Eye: COMMON NORMALS: conjunctivae normal CONJUNCTIVA: Yes conjunctivae normal SCLERA: sclerae normal Neck/C-Spine: COMMON NORMALS: supple GENERAL: Yes trachea midline Resp: EFFORT & INSPECTION: Yes tachypneic AUSCULTATION: rales and rhonchi Cardio: COMMON NORMALS: regular rate and regular rhythm RATE: regular rate RHYTHM: regular rhythm GI: COMMON NORMALS: Soft to palpation PALPATION: Yes Soft to palpation and No Tenderness to palpation present (GI) Extremity: NARRATIVE EXTREMITY EXAM: Left above-knee amputation. Right lower extremity with green purulent drainage and adherent material with desquamation of this material upon dressing removal. Green-colored wound drainage. GENERAL: Yes normal exam except as noted and No edema Neuro: COMMON NORMALS: moves all extremities SENSORIUM/ORIENTATION: Yes alert and No Orientation impaired Psych: COMMON NORMALS: mental status grossly normal and Normal thought process present THOUGHT PROCESS: Normal thought process present Course Vital Signs: Vital signs: Vital Signs Temperature 97.0 F L 06/28/22 07:36 Pulse Rate 77 06/28/22 12:05 Respiratory Rate 20 H 06/28/22 12:05 Blood Pressure 126/65 06/28/22 07:36 Pulse Oximetry 74 L 06/28/22 12:05 Oxygen Delivery Me thod 06/28/22 09:03 Oxygen Flow Rate 5 06/28/22 09:03 Fraction of Inspir ed Oxygen 50 06/27/22 15:57 MDM - SOB/Dyspnea Medical Decision Making 82-year-old gentleman with complex history presenting with shortness of breath and hypoxemia. He also endorses increased pain. He personally wearing the same shirt as previous ED encounter and reports inadequate assistance at home. He is nontoxic in appearance. EKG notable for sinus rhythm and nonspecific ST segment abnormalities as well as electrolyte. ABG with acidemia and hypoxemia. Labs notable for leukocytosis, hemoglobin similar to prior. Metabolic panel with CLAUDIO, glucose low and patient tolerated p.o. intake. 2-hour delta troponin is negative. BNP elevated compared to prior. Procalcitonin is elevated. Viral panel negative. Chest x-ray with left hemithorax opacification. Right lower extremity arterial studies negative for acute occlusion. CT chest with left lung consolidation. No evidence of significant effusion. Case discussed with pulmonology. During ED course patient treated with BiPAP, RT treatment, fluids and antibiotics as well as Lasix. Most likely etiology of patient symptoms is multifactorial including possible pneumonia or other infection such as acute cellulitis in the context of chronic wounds, and respiratory distress with evidence of acute on chronic respiratory failure. The results of ED evaluation were discussed with the patient including plan for admission due to requirement for level of care not available if discharged to prevent significant worsening/deterioration. Patient agreeable with plan. Discussed with hospitalist service who was agreeable to admit patient. Medical Records I reviewed the patient's medical records. Lab Data I reviewed the patient's lab results. 06/22/22 13:47 06/22/22 13:47 Labs/Radiology: Radiology Impressions Duplex Scan Lower Extremity Artery 06/22/22 13:39 IMPRESSION: No stenosis or occlusion. Chest CT 06/22/22 13:52 IMPRESSION: 1. Complete opacity with apparent lobar collapse in the left lung. 2. Hyper expanded right lung otherwise clear 3. Volume loss left hemithorax. 4. Metallic sternotomy wires are present. 5. Heavy coronary artery calcifications. 6. Multiple benign renal cyst 7. 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 8. Multiple benign bilateral renal cyst. 9. Gastrostomy tube is within the stomach 10. Status post cholecystectomy COMMENTS: Consistent with the [employer]'s Incidental Findings Committee white paper (J Am Billy Radiol 2018): Any incidental renal lesion less than 1 cm or classified as too small to characterize, or any incidental cystic renal lesion characterized as simple-appearing, is likely benign. No follow-up imaging is recommended for these lesions per consensus recommendations based on imaging criteria. Venous Duplex 06/22/22 18:31 IMPRESSION: No evidence of deep vein thrombosis. Chest X-Ray 06/26/22 08:12 IMPRESSION: Worsening bilateral pulmonary infiltrates and atelectasis especially in the left lung base.. Head CT 06/26/22 13:08 IMPRESSION: 1. No acute intracranial abnormality. 2. Right mastoid effusion. Laboratory Results WBC 18.8 10^3/uL (4.0-10.0) H 06/22/22 13:47 RBC 5.54 10^6/uL (4.1-5.3) H 06/22/22 13:47 Hgb 14.8 g/dL (11.7-16.6) 06/22/22 13:47 Hct 48.8 % (42.0-52.0) 06/22/22 13:47 MCV 88.1 fl (80-94) 06/22/22 13:47 MCH 26.7 pg (28.0-34.0) L 06/22/22 13:47 MCHC 30.3 g/dL (30.0-36.0) 06/22/22 13:47 RDW 15.9 % (12.1-15.1) H 06/22/22 13:47 Plt Count 229 10^3/cmm (130-400) 06/22/22 13:47 MPV 9.9 fL (7.4-10.4) 06/22/22 13:47 Neut % (Auto) 92.4 % 06/22/22 13:47 Lymph % (Auto) 2.1 % 06/22/22 13:47 [place] % (Auto) 4.9 % 06/22/22 13:47 Eos % (Auto) 0.0 % 06/22/22 13:47 Baso % (Auto) 0.2 % 06/22/22 13:47 Neut # (Auto) 17.40 10^3/uL (1.8-7.7) H 06/22/22 13:47 Lymph # (Auto) 0.4 10^3/uL (0.8-4.8) L 06/22/22 13:47 [place] # (Auto) 0.9 10^3/uL (0.2-0.9) 06/22/22 13:47 Eos # (Auto) 0.0 10^3/uL (0.0-0.8) 06/22/22 13:47 Baso # (Auto) 0.0 10^3/uL (0.0-0.1) 06/22/22 13:47 Nucleated RBC % (auto) 0 % 06/22/22 13:47 Nucleated RBCs # 0.0 /100WBC 06/22/22 13:47 ESR 38 mm/hr (0-10) H 06/22/22 13:47 PT 13.00 SECONDS (12.1-14.9) 06/22/22 13:47 INR 0.96 (0.8-1.2) 06/22/22 13:47 APTT 30.9 SECONDS (23.9-36.7) 06/22/22 13:47 D-Dimer 1.50 ug/mIFEU (0-0.59) H 06/22/22 13:47 Specimen Type Arterial 06/22/22 16:13 Sample Site Brachial, left 06/22/22 16:13 ABG pH 7.19 (7.35-7.45) L 06/22/22 16:13 ABG pCO2 43.7 mmHg (35-45) 06/22/22 16:13 ABG pO2 54.0 mmHg (80.0-100.0) L 06/22/22 16:13 ABG HCO3 16.7 mmol/L (22-26) L 06/22/22 16:13 ABG Base Excess -11.2 mmol/L (-2.0-2.0) L 06/22/22 16:13 Jose Test Pos 06/22/22 16:13 Hematocrit 42.9 % (42-52) 06/22/22 16:13 Hgb O2 Saturation 69.9 % (95-100) L 06/22/22 13:39 Carboxyhemoglobin 1.4 %THgb (0.4-20.1) 06/22/22 13:39 Methemoglobin 0.7 % (0.4-1.5) 06/22/22 13:39 Total Hemoglobin 14.8 g/dL (14-18) 06/22/22 13:39 O2 Delivery Device Hag 06/22/22 16:13 O2 Liters/Min 50.0 % 06/22/22 16:13 FiO2 84.0 % 06/22/22 16:13 Bi Specialist ID Cak 06/22/22 16:13 Sodium 143 mmol/L (136-145) 06/22/22 13:47 Potassium 4.3 mmol/L (3.5-5.1) 06/22/22 13:47 Chloride 105 mmol/L (98-107) 06/22/22 13:47 Carbon Dioxide 19 mmol/L (22-29) L 06/22/22 13:47 Anion Gap 23.3 (5-19) H 06/22/22 13:47 BUN 40 mg/dL (8-23) H 06/22/22 13:47 Creatinine 2.0 mg/dL (0.7-1.2) H 06/22/22 13:47 GFR Calculation Not Reportable 06/22/22 13:47 Glucose 61 mg/dL (65-115) L 06/22/22 13:47 Calculated Osmolality 304 mOsm/kg (285-295) H 06/22/22 13:47 Lactic Acid 1.9 mmol/L (0.5-2.2) 06/22/22 13:47 Calcium 8.4 mg/dL (8.5-10.5) L 06/22/22 13:47 Total Bilirubin 0.5 mg/dL (0.15-1.2) 06/22/22 13:47 AST 52 U/L (0-40) H 06/22/22 13:47 ALT 31 U/L (0-41) 06/22/22 13:47 Alkaline Phosphatase 97 U/L (40-130) 06/22/22 13:47 Troponin T Baseline 87 ng/L (0-15) H 06/22/22 13:47 Troponin T 120 Minute 86.45 ng/L (0-15) H 06/22/22 14:55 Delta Troponin T -0.55 ABS# (0-10) L 06/22/22 14:55 C-Reactive Protein 74.4 mg/L (0.0-4.9) H 06/22/22 13:47 NT-Pro-B Natriuret Pep 9874 pg/mL (0-450) H 06/22/22 13:47 Total Protein 6.0 g/dL (6.6-8.7) L 06/22/22 13:47 Albumin 2.6 g/dL (3.5-5.2) L 06/22/22 13:47 Globulin 3.4 g/dL (1.3-4.6) 06/22/22 13:47 Procalcitonin 0.56 ng/mL (0-0.5) H 06/22/22 13:47 Random Cortisol 62.78 ug/dL (2.47-19.5) H 06/22/22 14:55 Coronavirus 229E (PCR) Not detected (NOT DETECT) 06/22/22 13:48 SARS-CoV-2 (PCR) Not detected (NOT DETECT) 06/22/22 13:48 Critical Care Time Critical Care Time: Critical Care Time: Yes Total Critical Care Time: 55 Attestation: Due to a high probability of clinically significant, possibly life threatening deterioration, the patient required my highest level of attention and prepa redness to intervene emergently and I personally spent this critical care time directly and personally managing the patient. This critical care time included obtaining a history; examining the patient; pulse oximetry; ordering and review of laboratory and imaging studies; arranging urgent treatment with development of a management plan; evaluation of patient's response to treatment; frequent reassessment; and, discussions with other providers as applicable. It was exclusive of separately billable procedures. Primary system involved is respiratory and cardiac. Discharge Plan Discharge Patient Disposition: Admitted As Inpatient Admit Provider: Abhijit Ramirez Clinical Impression: Acute on chronic respiratory failure with hypoxia and hypercapnia, Pneumonia, Cellulitis, Acute kidney injury superimposed on chronic kidney disease, Acute on chronic congestive heart failure Condition: Coding Level of Care Code ED Product Manager Medical Device for [facility] Fwd Exam Comprehensive
--- NOTE | 2022-06-22 13:29 | XRR_ITS ---
PROCEDURE INFORMATION: Exam: XR Chest Exam date and time: 06/22/2022 1:48 PM Age: 82 years old Clinical indication: Shortness of breath; Prior surgery; Additional info: SOB TECHNIQUE: Imaging protocol: Radiologic exam of the chest. Views: 1 view. COMPARISON: CR XR chest 1V portable [id number] 11/18/2021 3:04 PM FINDINGS: Lungs: There is complete opacity in the left hemithorax with volume loss. This finding has increased since prior examination. Metallic surgical clips seen in the left upper chest. Hyperexpanded right lung is present. Pleural spaces: Unremarkable. No pleural effusion. No pneumothorax. Heart/Mediastinum: Unremarkable. No cardiomegaly. Bones/joints: Metallic sternotomy wires are present. XR/XR chest 1V portable [id number] IMPRESSION: 1. A completely opacified left hemithorax with increased density since prior 2. Volume loss in the left hemithorax. 3. Metallic sternotomy wires are place in place
--- NOTE | 2022-06-22 13:36 | ECG_ITS ---
[facility] Test Date: 2022-06-22 Pat Name: Steven Whitney Department: Room: Gender: Male Instructional Support Specialist: : 1940 Requested By: Jerry Chauhan Order Number: [id number] Jerry MD: Lety Milan M.D. Measurements Intervals [place] Rate: 97 P: 41 MN: 154 QRS: 76 QRSD: 90 T: -31 QT: 351 QTc: 447 Interpretive Statements SINUS RHYTHM LOW QRS VOLTAGE IN EXTREMITY LEADS [QRS DEFLECTION < 0.5 mV IN LIMB LEADS] POSSIBLE ANTERIOR MYOCARDIAL INFARCTION , PROBABLY OLD [30 ms Q WAVE IN V3/V4, OR R < 0.2 mV IN V4] Compared to ECG 11/16/2021 00:34:24 Low QRS voltage now present Left ventricular hypertrophy no longer present Myocardial infarct finding still present Electronically Signed On 06-23-2022 8:21:04 DIE FORGER by Lety Milan M.D. [id number]
--- NOTE | 2022-06-22 13:39 | USR_ITS ---
PROCEDURE INFORMATION: Exam: US Duplex Right Lower Extremity Arteries Or Arterial Bypass Grafts Exam date and time: 06/22/2022 2:31 PM Age: 82 years old Clinical indication: Other: Wounds, discoloration TECHNIQUE: Imaging protocol: Right Real-time duplex scan of the arteries or arterial bypass grafts of the right lower extremity with 2-D gunn scale, color Doppler flow and spectral waveform analysis. Images documented and saved. COMPARISON: US soft tissue/extremity [id number] 05/10/2021 3:37 PM FINDINGS: Right common femoral artery: No occlusion or significant stenosis. Normal waveform. No pseudoaneurysm in the inguinal region. PSV 118 cm/s Right superficial femoral artery: No occlusion or significant stenosis. Monophasic waveform. PSV 142 cm/s Right popliteal artery: No occlusion or significant stenosis. Monophasic waveform. PSV 183 cm/s. Scattered plaque is present Right calf/foot arteries: No occlusion or significant stenosis in the visualized arteries. Monophasic waveforms. Dorsalis pedis artery PSV 37 cm/s Soft tissues: No hematoma or [place]. US/[place] [id number] IMPRESSION: No stenosis or occlusion.
[2022-06-22 13:51] LABS: ABG PCO2 45.1 mmHg (35-45); ABG PH Result 7.21 (7.35-7.45); Arterial Blood Gas Hematocrit 45.2 % (42-52); Blood Gas Allen Test Pos; Blood Gas Operator Identificat CAK; Blood Gas Sample Site Brachial, left; Blood Gas Sample Type Arterial; Carboxyhemoglobin 1.4 %THgb (0.4-20.1); HCO3 ABG 17.8 mmol/L (22-26); HGB O2 Sat 69.9 % (95-100); Methemoglobin 0.7 % (0.4-1.5); Oxygen Device BIPAP; PO2 ABG 37.3 mmHg (80.0-100.0); Total Hemoglobin 14.8 g/dL (14-18)
--- NOTE | 2022-06-22 13:52 | CTR_ITS ---
PROCEDURE INFORMATION: Exam: CT Chest Without Contrast; Diagnostic Exam date and time: 06/22/2022 2:09 PM Age: 82 years old Clinical indication: Shortness of breath; Prior surgery; Additional info: Abnormal cxr, resp distress TECHNIQUE: Imaging protocol: Diagnostic computed tomography of the chest without contrast. Radiation optimization: All CT scans at this facility use at least one of these dose optimization techniques: automated exposure control; mA and/or kV adjustment per patient size (includes targeted exams where dose is matched to clinical indication); or iterative reconstruction. COMPARISON: CT chest wo con [id number] 06/25/2019 9:50 PM RADIATION DOSE METRICS: Total DLP (mGy-cm): 508.01 FINDINGS: Lungs: Opacity and no clearly visible intrabronchial lesion is documented. A collapse seen in the left hemithorax. No consolidation. No masses. Hyperexpanded right lung otherwise clear Pleural spaces: Unremarkable. No pneumothorax. No pleural effusion. Heart: Heavy coronary artery calcifications. No cardiomegaly. No pericardial effusion. Lymph nodes: Unremarkable. No enlarged lymph nodes. Vasculature: Unremarkable. No aortic aneurysm. Bones/joints: Metallic sternotomy wires are present. No acute fracture. There is osteoarthritis and kyphosis of the dorsal spine Soft tissues: Multiple benign bilateral renal cyst. There is a gastrostomy tube in place in good position. Evidence of cholecystectomy is seen. CT/CT chest wo con [id number] IMPRESSION: 1. Complete opacity with apparent lobar collapse in the left lung. 2. Hyper expanded right lung otherwise clear 3. Volume loss left hemithorax. 4. Metallic sternotomy wires are present. 5. Heavy coronary artery calcifications. 6. Multiple benign renal cyst 7. 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 8. Multiple benign bilateral renal cyst. 9. Gastrostomy tube is within the stomach 10. Status post cholecystectomy COMMENTS: Consistent with the [place] [employer]'s Incidental Findings Committee white paper (J Am Billy Radiol 2018): Any incidental renal lesion less than 1 cm or classified as too small to characterize, or any incidental cystic renal lesion characterized as simple-appearing, is likely benign. No follow-up imaging is recommended for these lesions per consensus recommendations based on imaging criteria.
[2022-06-22 13:58] LABS: Basophils % 0.2 %; Hematocrit 48.8 % (42.0-52.0); Hemoglobin 14.8 g/dL (11.7-16.6); Lymphocytes # 0.4 10^3/uL (0.8-4.8); Lymphocytes % 2.1 %; Mean Corpuscular HGB Conc 30.3 g/dL (30.0-36.0); Mean Corpuscular Hemoglobin 26.7 pg (28.0-34.0); Mean Corpuscular Volume 88.1 fl (80-94); Mean Platelet Volume 9.9 fL (7.4-10.4); Monocytes # 0.9 10^3/uL (0.2-0.9); Monocytes % 4.9 %; Neutrophils % 92.4 %; Nucleated Red Blood Cells % 0 %; Platelet Count 229 10^3/cmm (130-400); Red Blood Count 5.54 10^6/uL (4.1-5.3); Red Cell Distribution Width 15.9 % (12.1-15.1); White Blood Count 18.8 10^3/uL (4.0-10.0)
[2022-06-22] MEDS: ipratropium-albuterol 3 mL Neb INHALATION (13:58)
[2022-06-22 14:19] LABS: Erythrocyte Sedimentation Rate 38 mm/hr (0-10)
[2022-06-22] MEDS: cefepime 2,000 MG in sodium chloride 0.9% (plus) 50 ML 100 MG IV (14:34)
[2022-06-22 14:42] LABS: Lactic Sepsis W/Reflex 1.9 mmol/L (0.5-2.2)
[2022-06-22 14:43] LABS: Troponin(5th) Baseline 87 ng/L (0-15)
[2022-06-22 14:48] LABS: NT Pro B Type Natriuretic Pept 9874 pg/mL (0-450); Procalcitonin 0.56 ng/mL (0-0.5)
[2022-06-22 14:59] LABS: Alanine Aminotransferase 31 U/L (0-41); Albumin Level 2.6 g/dL (3.5-5.2); Alkaline Phosphatase 97 U/L (40-130); Anion Gap 23.3 (5-19); Aspartate Amino Transferase 52 U/L (0-40); Blood Urea Nitrogen 40 mg/dL (8-23); C Reactive Protein 74.4 mg/L (0.0-4.9); Calcium 8.4 mg/dL (8.5-10.5); Carbon Dioxide 19 mmol/L (22-29); Chloride 105 mmol/L (98-107); Globulin 3.4 g/dL (1.3-4.6); Glucose 61 mg/dL (65-115); Osmolality Calculated 304 mOsm/kg (285-295); Potassium 4.3 mmol/L (3.5-5.1); Sodium 143 mmol/L (136-145); Total Bilirubin 0.5 mg/dL (0.15-1.2)
[2022-06-22] MEDS: sodium chloride 0.9% 1,000 ML 999 ML IV (15:07)
--- NOTE | 2022-06-22 15:21 | PC.PHAR ---
pt unable to verify - verified by last filled and ext med history
[2022-06-22 15:28] LABS: Troponin 5 2HR 86.45 ng/L (0-15)
--- NOTE | 2022-06-22 15:29 | ECG_ITS ---
[facility] Test Date: 2022-06-22 Pat Name: Steven Whitney Department: Room: Gender: Male Home Health Nurse: : 1940 Requested By: Jerry Chauhan Order Number: [id number] Jerry MD: Lety Milan M.D. Measurements Intervals [place] Rate: 91 P: 78 ME: 161 QRS: 75 QRSD: 93 T: 33 QT: 326 QTc: 402 Interpretive Statements SINUS RHYTHM LOW QRS VOLTAGE IN EXTREMITY LEADS [QRS DEFLECTION < 0.5 mV IN LIMB LEADS] ANTEROSEPTAL MYOCARDIAL INFARCTION , OF INDETERMINATE AGE [40+ ms Q WAVE IN V1-V4] Compared to ECG 06/22/2022 13:36:54 No significant changes Electronically Signed On 06-23-2022 8:28:32 FISHER CRAB by Lety Milan M.D. [id number]
[2022-06-22 15:35] LABS: Troponin 5 2HR Delta -0.55 ABS# (0-10)
[2022-06-22 16:02] LABS: Adenovirus Not Detected (NOT DETECT); Chlamydia Pneumoniae Not Detected (NOT DETECT); Coronavirus 229E,HKU1,NL63,OC4 Not Detected (NOT DETECT); Human Metapneumovirus Not Detected (NOT DETECT); Human Rhinovirus/Enterovirus Not Detected (NOT DETECT); Influenza A Not Detected (NOT DETECT); Influenza A H1 Not Detected (NOT DETECT); Influenza A H1-2009 Not Detected (NOT DETECT); Influenza A H3 Not Detected (NOT DETECT); Influenza B Not Detected (NOT DETECT); Mycoplasma Pneumoniae Not Detected (NOT DETECT); Parainfluenza Virus Type 1 Not Detected (NOT DETECT); Parainfluenza Virus Type 2 Not Detected (NOT DETECT); Parainfluenza Virus Type 3 Not Detected (NOT DETECT); Parainfluenza Virus Type 4 Not Detected (NOT DETECT); Respiratory Syncytial Virus A Not Detected (NOT DETECT); Respiratory Syncytial Virus B Not Detected (NOT DETECT); SARS-COV-2 Not Detected (NOT DETECT)
[2022-06-22 16:24] LABS: ABG PCO2 43.7 mmHg (35-45); ABG PH Result 7.19 (7.35-7.45); Arterial Blood Gas Hematocrit 42.9 % (42-52); Base Excess ABG -11.2 mmol/L (-2.0-2.0); Blood Gas Allen Test Pos; Blood Gas Operator Identificat CAK; Blood Gas Sample Site Brachial, left; Blood Gas Sample Type Arterial; HCO3 ABG 16.7 mmol/L (22-26); Oxygen Device HAG
[2022-06-22] MEDS: vancomycin 1,000 MG in sodium chloride 0.9% 250 ML 250 MG IV (16:44)
[2022-06-22 16:45] LABS: INR 0.96 (0.8-1.2)
[2022-06-22 16:46] LABS: Partial Thromboplastin Time 30.9 SECONDS (23.9-36.7)
--- NOTE | 2022-06-22 17:05 | PM.HP ---
Providers/Chief Complaint Primary Care Provider: ROLANDO Jones Chief Complaint: SOB; PAIN ALL OVER History of Present Illness 82-year-old gentleman with CAD, CABG, CHF, COPD, hemiplegia following CVA, dysphagia, PEG tube through which he does feedings with Ensure, however, states that he still tries to eat as he can by mouth, sometimes regurgitating or coughing things up if things do not go down he spits them out. He is still current smoker, states he smokes a little bit. He also has a pain pump. Lives at home with his who is disabled. He was brought to ER for evaluation due to dyspnea, hypoxia, saturation noted. In the 60s when he was being picked up by EMS. In ER saturation in the 70s on 4 L nasal cannula, initially was started on BiPAP, but was not tolerating it, sats in mid 80s. Was switched over to heated high flow. He denies any fever. He does state that he had an episode of vomiting only once. Denies recurrent vomiting, denies diarrhea. No abdominal pain. Denies any chest pain. In ER he declines intubation or mechanical inflation, and is adamant about not receiving any invasive procedures. He has been agreeable to airway support measures, but would not agree to intubation even on a temporary basis. CT of the chest shows complete opacity with apparent lobar collapse in the left lung, hyper expanded right lung otherwise clear. Volume loss left hemithorax. Incidental findings. Discussing with him his lung has appeared expanded back on CT in May. Discussing with him that he may have potentially reversible condition with aspiration, airway plugging that may lead to his demise in short time if untreated if his condition continues to deteriorate, however, he would not want bronchoscopy or again would not want intubation even on temporary basis. I am 82 years old, been through so much, I do not want any more procedures . He is okay with heated high flow, BiPAP if needed. In case of further deterioration beyond these measures he understands that he will pass away and at that point would want comfort treatment added. He otherwise is okay with continuing with medical care, including conservative measures for airway clearance, medical therapy, chest physical therapy, further management assessment toward possible PE, urinary catheter, etc. and admission to the hospital. His right leg has swelling and significant stasis dermatitis changes, shallow ulcerations. Arterial duplex obtained in ER showed no arterial stenosis or occlusion. Review of Systems Const: Denies: fever(s), chills, body aches or malaise Eyes: Denies: change in vision, eye discomfort or eye redness ENMT: Denies: throat pain, oral sores or ear or mastoid pain Card: Denies: chest pain, pre-syncope or dyspnea on exertion Resp: Reports: dyspnea; Denies: hemoptysis GI: Reports: vomiting; Denies: abdominal pain, nausea, diarrhea, constipation, hematochezia or melena : Denies: flank pain, difficulty urinating, urinary frequency or hematuria Musc: Reports: extremity swelling; Denies: back pain, joint swelling or joint redness Skin/Breast: Reports: erythema (RLE), sores (RLE) and changes in skin color Neuro: Denies: headache(s), numbness in extremities, weakness in extremities, dizziness, confusion or seizure-like activity Endo: Denies: polyuria or polydipsia [place]/Lymph: Denies: easy bleeding or tender lymph nodes All/Imm: Denies: urticaria or tongue swelling Medications/Allergies Home Medications Medication Instructions Recorded Confirmed Last Taken Type nitroglycerin 0.4 mg sublingual 0.4 mg sublingual Q5M PRN Chest 07/14/19 06/22/22 Unknown History tablet Pain methylnaltrexone 8 mg/0.4 mL 8 mg SUBCUT DAILY PRN Constipation 02/07/21 06/22/22 Unknown History subcutaneous syringe (Relistor) hydrocortisone 2.5 % topical 1 applic topical BID PRN skin 08/17/21 06/22/22 Unknown Rx ointment irritation #28.35 grams pantoprazole 40 mg granules 40 mg PO DAILY #90 ea 09/12/21 06/22/22 11/15/21 Rx delayed-release for susp in packet (Protonix) lactulose 10 gram/15 mL oral 15 ml PO DAILY PRN Constipation 11/15/21 06/22/22 Unknown History solution hydromorphone 1 mg/mL oral liquid 4 mg (4 mL) feeding tube Q4H PRN 11/20/21 06/22/22 Unknown Rx Pain #473 mL fluorouracil 0.5 % topical cream 1 applic topical DAILY 2 weeks #30 01/02/22 06/22/22 Unknown Rx grams vitamins A and D-white 1 applic topical DAILY PRN skin 01/02/22 06/22/22 Unknown Rx petrolatum-lanolin topical irritation #425 grams ointment (A and D (rossi, pet) topical ointment) finasteride 5 mg tablet See Rx Instructions .Route 01/22/22 06/22/22 Unknown Rx .COMPLEX #90 tabs furosemide 10 mg/mL oral solution See Rx Instructions .Route 01/22/22 06/22/22 Unknown Rx .COMPLEX #360 mL nystatin-triamcinolone 100,000 1 applic topical BID #30 grams 01/22/22 06/22/22 Unknown Rx unit/g-0.1 % topical cream bisacodyl 10 mg/30 mL enema (Fleet 10 mg (30 mL) MA DAILY PRN 01/30/22 06/22/22 Unknown Rx Bisacodyl) constipation #37 mL guaifenesin 100 mg/5 mL oral 200 mg (10 mL) PO Q4H PRN 04/03/22 06/22/22 Unknown Rx liquid (Adult Tussin Chest congestion 90 days #500 mL Congestion) potassium chloride 20 mEq/15 mL See Rx Instructions .Route 04/22/22 06/22/22 Unknown Rx oral liquid .COMPLEX #675 mL hydrocortisone 1 % topical 1 applic topical BID PRN skin 04/24/22 06/22/22 Unknown Rx ointment (Anti-Itch irritation #28.35 grams (hydrocortisone)) General Wheel chair repair #1 ea 04/25/22 06/22/22 Unknown Rx seat cushion for wheelchair #1 ea 04/25/22 06/22/22 Unknown Rx ensure #180 ea 05/07/22 06/22/22 Unknown Rx diphenhydramine HCl 25 mg capsule 25 mg PO TID PRN allergic reaction 06/19/22 06/22/22 Unknown Rx (Benadryl) 5 days #15 caps famotidine 40 mg tablet (Pepcid) 40 mg PO BID 5 days #10 tabs 06/19/22 06/22/22 Unknown Rx prednisone 50 mg tablet 50 mg PO DAILY 5 days #5 tabs 06/19/22 06/22/22 Unknown Rx sodium phosphates 19 gram-7 118 ml MA DAILY PRN Constipation 06/19/22 06/22/22 Unknown History gram/118 mL enema (Fleet Enema) tamsulosin 0.4 mg capsule 0.4 mg PO DAILY 06/19/22 06/22/22 Unknown History Allergies Allergy/AdvReac Type Severity Reaction Status Date / Time Iodinated Contrast Media Allergy ADR-Nausea Verified 06/19/22 10:26 Penicillins Allergy ALGY-Swell Verified 06/19/22 10:26 Lip/Tongue/Throat PFSH Acute PFSH: Medical History Bacteriuria Benign prostatic hyperplasia with lower urinary tract symptoms Bradycardia -noted persistent bradycardia, HRs in the 40-50 range; seems to be more stable in the 50-60 range -has been on dopamine drip, weaned off on 09/12 -telemetry monitoring -Cardiology consult by Dr. 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 Social History Smoking and tobacco status: current every day smoker cigarettes Packs smoked per day: 0.5 Years cigarettes smoked: 70 [ Other cigarette details: [id number] 68yr hx] Second hand smoke exposure: No Smoking risk assessment/counseling performed?: Yes Alcohol intake: current Alcohol intake frequency: holidays/special occasions only Adopted: No Caregiver/support person: No Lives independently: No Household members: spouse Marital status: service: No Current occupational status: retired History of recent travel: No Current gender identity: Male Special key needs: No Agree to transfusion: Yes Vitals/I&O/Wt Last Vital Signs Temp 97.6 F 06/22/22 13:18 Pulse 86 06/22/22 15:50 Resp 22 H 06/22/22 15:50 BP 81/66 06/22/22 15:30 Pulse Ox 87 L 06/22/22 15:50 O2 Del Method 06/22/22 13:55 O2 Flow Rate 50 06/22/22 15:50 FiO2 83 06/22/22 15:50 Weight last 48 hrs Weight 50.349 kg Physical Exam Narrative: [facility] Const: COMMON NORMALS: patient oriented x3 and alert GENERAL APPEARANCE: cooperative and frail appearing NUTRITIONAL APPEARANCE: thin ORIENTATION/CONSCIOUSNESS: Yes awake HENMT: COMMON NORMALS: oropharynx normal Eye: OTHER: Strabismus Neck/C-Spine: COMMON NORMALS: no JVD Chest: OTHER: Healed sternotomy scar Resp: COMMON NORMALS: normal respiratory effort and clear to auscultation bilaterally AUSCULTATION: wheezes and diminished lung sounds on the left Cardio: COMMON NORMALS: no JVD, regular rhythm, S1 normal heart sound present, S2 normal heart sound present and No murmurs present (Cardio) RHYTHM: regular rhythm HEART SOUNDS: S1 normal heart sound present and S2 normal heart sound present GI: COMMON NORMALS: Normal to inspection, nondistended, normoactive bowel sounds present, Soft to palpation and non-tender PALPATION: Yes Soft to palpation OTHER: Left abdomen PEG tube Left lower abdomen pain pump Extremity: COMMON NORMALS: no joint enlargement GENERAL: Yes edema (RLE below the knee) OTHER: Left AKA Neuro: COMMON NORMALS: patient oriented x3 and moves all extremities SENSORIUM/ORIENTATION: Yes alert OTHER: Mild to moderate dysarthria Skin: COMMON NORMALS: no rashes or lesions noted GENERAL SKIN EXAM: no rashes or lesions noted OTHER: Severe stasis dermatitis changes laterally with edema, shallow venous ulcerations as well as chronic dermatitis and hemosiderosis Data 06/22/22 13:47 06/22/22 13:47 Micro: Microbiology 06/22/22 13:42 Blood Culture - Preliminary Blood SPECIMEN COLLECTED 06/22/22 13:47 Blood Culture - Preliminary Blood SPECIMEN COLLECTED A&P Assessment and plan (1) Acute respiratory failure with hypoxia: Collapse left lung, opacification with whiteout of left hemithorax, appears to likely collapse following aspiration, possibly either due to dysphagia with aspiration, or after episode of vomiting he reports. Additionally possible superimposed bacterial aspiration pneumonia. Expanded lung noted on CT back in May. He is adamant that he would not want given transient intubation, bronchoscopy even though may potentially reversible cause. He is okay with HHS, BiPAP again if needed. He is okay with chest PT, which is requested with chest vest, Mucomyst, saline neb, Mucinex. NPO. Empiric antibiotic coverage with vancomycin, Levaquin, Flagyl. Additionally cannot exclude PE. D-dimer checked, abnormal. With hypoxia, hypotension, at risk of PE. Empiric anticoagulation with heparin drip until able to undergo further diagnostic study to exclude. Elevated BNP, moderate elevation of troponin. Denies chest pain. Unknown baseline cardiac function. Will obtain TTE. Some swelling in right lower extremity, but this appears to venous stasis. No orthopnea. BNP may be secondary to lung disease. Does not appear to be acutely in failure. Possible PE. Hypotensive. Was transiently on BiPAP although did not tolerate it. For now continue oxygen support with HHS, he is NPO. Also CLAUDIO on CKD, creatinine up to 2. Hold off diuretic. Currently on HHF. Continue. Wean down as tolerating. In case worsening he is okay with BiPAP if needed. If continues to worsen and leading to respiratory arrest and/or cardiac arrest wants only comfort measures, no further escalation of care, no intubation. Avilez catheter due to respiratory failure and to monitor I&O. (2) Lung collapse: As above. (3) Aspiration into lower respiratory tract: Dysphagia, history of aspiration, still eats by mouth as tolerating with intermittent aspiration, likely leading to the above condition. He did also have subtle vomiting once. (4) Hypoglycemia: Hypoglycemia protocol. Hydrocortisone. (5) Hypotension: He does not appear to be septic. Suspect component of hypovolemia, as well as adrenal insufficiency. Received fluid challenge. Hold Flomax, Lasix hydrocortisone. Monitor blood pressure. (6) Right leg swelling: With venous stasis dermatitis, venous stasis ulcerations. Edema. Abnormal D-dimer. Check venous duplex to assess for DVT. Possible superimposed bacterial cellulitis as well, will be covered with vancomycin, Levaquin as above. No arterial occlusion on duplex. May benefit from compression wraps. (7) Acute kidney injury superimposed on CKD: Creatinine is at 2, baseline fluctuates, this appears to be higher than usual. Hold Lasix. Received fluid challenge. Reassess renal function. Plan Dysphagia: PEG tube in place, normally gives himself tube feeds tries to aim for 4 cans of Ensure in a day and water flushes. 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 Attestations Medical Necessity Statement*: Admission of over 2 midnights anticipated for management of acute respiratory failure with hypoxia with lobar collapse, left hemithorax white out, likely aspiration and airway, possible aspiration pneumonia additionally, possible PE, and gentleman who is hypotensive with hyperkalemia, suspected adrenal insufficiency, acute kidney injury. Critical Care Time: The high probability of a clinically significant, sudden or life threatening deterioration of the patient's respiratory, hemodynamic, heme system(s) required my full and direct attention, intervention and personal management. The critical care time is as shown. This time is in addition to time spent performing any reported procedures but includes the following: x Data and vital sign review and interpretation x Patient assessment, examination and intervention x Documentation x Medication orders and management Critical Care Time (min): 65 Coding Level of Care Code Acute Palliative Care Physician for [facility] Fwd Exam Comprehensive Diagnoses Acute respiratory failure with hypoxia J96.01 Lung collapse J98.19 Aspiration into lower respiratory tract T17.800A Hypoglycemia E16.2 Hypotension I95.9 Right leg swelling M79.89 Acute kidney injury superimposed on CKD N17.9; N18.9
[2022-06-22 18:27] LABS: Cortisol Random 62.78 ug/dL (2.47-19.5)
--- NOTE | 2022-06-22 18:31 | USR_ITS ---
PROCEDURE INFORMATION: Exam: US Duplex Right Lower Extremity Veins, Limited Exam date and time: 06/22/2022 6:45 PM Age: 82 years old Clinical indication: Swelling (edema) of limb; Lower extremity, right; Additional info: Assess for dvt TECHNIQUE: Imaging protocol: Real-time Duplex ultrasound of the Right Lower Extremity with 2-D gunn scale, color Doppler flow and spectral waveform analysis with image documentation. Limited exam was focused on the right lower extremity veins. COMPARISON: [place] [id number] 06/22/2022 2:31 PM FINDINGS: Right deep veins: The common femoral, femoral, proximal profunda femoral and popliteal veins are patent without thrombus. Normal Doppler waveforms. Normal compressibility and/or augmentation response. Calf vein assessment is limited due to body habitus and soft tissue swelling. Right superficial veins: Unremarkable. Saphenofemoral junction is patent without thrombus. Soft tissues: Mild subcutaneous soft tissue [place]. US/[place] [id number] IMPRESSION: No evidence of deep vein thrombosis.
[2022-06-22] MEDS: hydrocortisone 100 mg/2 mL SDV IVP (18:47)
[2022-06-22] MEDS: FUROsemide 10 mg/mL SDV 4mL 40 MG IVP (18:50)
[2022-06-22] MEDS: levofloxacin-dextrose 5 % 750 MG/150 ML PREMIX 100 MG IV (18:52)
--- NOTE | 2022-06-22 19:29 | ECG_ITS ---
[facility] Test Date: 2022-06-22 Pat Name: Steven Whitney Department: Room: [facility] Gender: Male Cigarette Vendor: : 1940 Requested By: Jerry Chauhan Order Number: [id number] Jerry MD: Lety Milan M.D. Measurements Intervals [place] Rate: 90 P: 0 LA: 0 QRS: -20 QRSD: 96 T: 27 QT: 363 QTc: 445 Interpretive Statements ATRIAL FIBRILLATION LOW QRS VOLTAGE IN EXTREMITY LEADS [QRS DEFLECTION < 0.5 mV IN LIMB LEADS] POSSIBLE ANTERIOR MYOCARDIAL INFARCTION , PROBABLY OLD [30 ms Q WAVE IN V3/V4, OR R < 0.2 mV IN V4] ABNORMAL RHYTHM ECG Compared to ECG 06/22/2022 15:39:20 Sinus rhythm no longer present Myocardial infarct finding still present Electronically Signed On 06-24-2022 15:34:04 SUPERINTENDENT METERS by Lety Milan M.D. [id number]
[2022-06-22 19:38] LABS: Troponin 5 6HR 84.79 ng/L (0-15); Troponin 5 6HR Delta -2.21 ng/L (0-12)
[2022-06-22] MEDS: sodium chloride 3.5% neb 4 mL Neb INHALATION (19:49)
[2022-06-22] MEDS: acetylcysteine 200 mg/mL SDV 4 mL 100 MG INHALATION ×2 (19:50→23:56)
[2022-06-22] MEDS: albuterol 2.5 mg/3 mL Neb INHALATION ×2 (19:50→23:56)
[2022-06-22] MEDS: nicotine 14 mg Patch 1 PATCH TRANSDERMA (21:00)
[2022-06-22] MEDS: metroNIDAZOLE IV 500 MG/100 ML PREMIX 100 MG IV (21:01)
[2022-06-22 21:31] LABS: Glucose Point of Care 98 mg/dL (70-110)
[2022-06-22] MEDS: heparin 5,000 unit/mL INJ 1 mL IV (21:59)
[2022-06-22] MEDS: heparin drip 25,000 UNIT/500 ML PREMIX 14.1 UNIT IV (22:02)
[2022-06-23] VITALS (109 sets, daily range): BP systolic 73–117; BP diastolic 44–78; PULSE 58–130; RESP 10–28; TEMP 36.4–37.1; O2SAT 82–97; BMI 19.5
[2022-06-23] MEDS: hydrocortisone 100 mg/2 mL SDV IVP ×4 (00:59→17:18)
[2022-06-23 01:16] LABS: Glucose Point of Care 62 mg/dL (70-110)
--- NOTE | 2022-06-23 01:22 | PC.NURSE ---
Call placed to Hospitalist regarding patient blood glucose of 62 to clarify if he he wanted a continuous D5 infusion. Order rec'd for 1 amp D50. Contacted pharmacy regarding amps of D50 out of stock in [facility]. Pharmacist provided altenate admixture equivalent to D50 amp.
[2022-06-23 01:44] LABS: Glucose Point of Care 128 mg/dL (70-110)
[2022-06-23] MEDS: albuterol 2.5 mg/3 mL Neb INHALATION ×6 (03:23→23:23)
[2022-06-23] MEDS: acetylcysteine 200 mg/mL SDV 4 mL 100 MG INHALATION ×6 (03:23→23:23)
--- NOTE | 2022-06-23 05:00 | PC.NURSE ---
PTT still pending. No results.
[2022-06-23 05:08] LABS: Basophils % 0.2 %; Eosinophils # 0.1 10^3/uL (0.0-0.8); Eosinophils % 0.8 %; Hematocrit 42.9 % (42.0-52.0); Hemoglobin 13.1 g/dL (11.7-16.6); Lymphocytes # 0.2 10^3/uL (0.8-4.8); Lymphocytes % 1.2 %; Mean Corpuscular HGB Conc 30.5 g/dL (30.0-36.0); Mean Corpuscular Hemoglobin 26.4 pg (28.0-34.0); Mean Corpuscular Volume 86.3 fl (80-94); Mean Platelet Volume 10.1 fL (7.4-10.4); Monocytes # 0.8 10^3/uL (0.2-0.9); Monocytes % 4.2 %; Neutrophils # 16.96 10^3/uL (1.8-7.7); Neutrophils % 93.4 %; Nucleated Red Blood Cells % 0 %; Platelet Count 233 10^3/cmm (130-400); Red Blood Count 4.97 10^6/uL (4.1-5.3); Red Cell Distribution Width 15.8 % (12.1-15.1); White Blood Count 18.2 10^3/uL (4.0-10.0)
[2022-06-23 05:23] LABS: Partial Thromboplastin Time 35.1 SECONDS (23.9-36.7)
[2022-06-23 05:29] LABS: Alanine Aminotransferase 25 U/L (0-41); Alkaline Phosphatase 95 U/L (40-130); Anion Gap 18.4 (5-19); Aspartate Amino Transferase 35 U/L (0-40); Blood Urea Nitrogen 45 mg/dL (8-23); Calcium 7.7 mg/dL (8.5-10.5); Carbon Dioxide 17 mmol/L (22-29); Chloride 111 mmol/L (98-107); Glucose 88 mg/dL (65-115); Osmolality Calculated 305 mOsm/kg (285-295); Potassium 4.4 mmol/L (3.5-5.1); Sodium 142 mmol/L (136-145); Total Bilirubin 0.4 mg/dL (0.15-1.2)
[2022-06-23] MEDS: metroNIDAZOLE IV 500 MG/100 ML PREMIX 100 MG IV ×3 (05:29→20:45)
[2022-06-23 05:55] LABS: Glucose Point of Care 86 mg/dL (70-110)
--- NOTE | 2022-06-23 06:00 | USCV_ITS ---
Steven Whitney Age: 82 Gender: M : 1940 Exam Date: 06/23/2022 06:13 Ordering Phys: Abhijit Ramirez MD Technologist: Lazaro Corona Exam Location: [facility] [place] Indication: Respiratory failure, elevated bnp and troponin BP: 105 / 56 HR: 0 Rhythm: Sinus Technical Quality: Adequate MEASUREMENTS (Male / Female) Normal Values 2D ECHO LV Diastolic Diameter PLAX 4.6 cm 4.2 - 5.9 / 3.9 - 5.3 cm LV Systolic Diameter PLAX 2.2 cm IVS Diastolic Thickness 1.2 cm 0.6 - 1.0 / 0.6 - 0.9 cm IVS Systolic Thickness 1.5 cm LVPW Diastolic Thickness 1.2 cm 0.6 - 1.0 / 0.6 - 0.9 cm LVPW Systolic Thickness 1.3 cm LVOT Diameter 2.1 cm LV Ejection Fraction 2D Teich 83.6 % LV Ejection Fraction MOD 2C 76.6 % LV Ejection Fraction 2C AL 76.8 % LA Diameter 3.5 cm Aorta at Sinotubular Diameter 2.2 cm IVC Diameter 1.1 cm M-MODE LV Diastolic Diameter MM 5.6 cm 4.2 - 5.9 / 3.9 - 5.3 cm LV Systolic Diameter MM 3.9 cm LV Ejection Fraction MM Teich 56.8 % IVS Diastolic Thickness MM 0.9 cm 0.6 - 1.0 / 0.6 - 0.9 cm IVS Systolic Thickness MM 1.2 cm LVPW Diastolic Thickness MM 1.6 cm 0.6 - 1.0 / 0.6 - 0.9 cm LVPW Systolic Thickness MM 2.0 cm RV Diastolic Diameter MM 1.1 cm Aortic Annulus Diameter 3.5 cm LA Ao Ratio MM 1.0 MV E Point Septal Separation 0.7 cm DOPPLER MV Area PHT 3.5 cm squared Mitral E to A Ratio 0.7 MV E' Velocity 38.0 cm/s Mitral E to MV E' Ratio 7.1 Mitral E to LV E' Lateral Ratio 7.4 Mitral E to LV E' Septal Ratio 6.8 TR Peak Velocity 313.7 cm/s TR Peak Gradient 39.4 mmHg TV Peak E Velocity 96.0 cm/s Right Atrial Pressure 3.0 mmHg Pulmonary Artery Systolic Pressu 42.4 mmHg RV Acceleration Time 0.1 s FINDINGS Left Ventricle Normal left ventricular cavity size and systolic function with upper normal left ventricular wall thickness. Left ventricular ejection fraction is estimated at 65 %. No regional wall motion abnormalities. Normal diastolic function. Right Ventricle Normal right ventricular size and systolic function. Right ventricular systolic pressure 39 mmHg. Right Atrium Normal right atrial size. Left Atrium Mildly increased left atrial size. Mitral Valve Mild mitral annular calcification. Mildly thickened mitral valve. Mild anterior leaflet prolapse. No mitral valve stenosis. Trace to mild mitral valve regurgitation. Aortic Valve Structurally normal trileaflet aortic valve. No aortic valve stenosis. No aortic valve regurgitation. Tricuspid Valve Structurally normal tricuspid valve. No tricuspid valve stenosis. Trace to mild tricuspid valve regurgitation. Pulmonic Valve Structurally normal pulmonic valve. No pulmonary valve stenosis. Trace pulmonary valve regurgitation. Pericardium No pericardial effusion. Aorta Normal size aortic root and proximal ascending aorta. IVC Normal IVC dimension with >50% respiratory change of the inferior vena cava. CONCLUSIONS 1. Normal left ventricular cavity size and systolic function with upper normal left ventricular wall thickness. Left ventricular ejection fraction is estimated at 65 %. No regional wall motion abnormalities. Normal diastolic function. 2. Right ventricular systolic pressure 39 mmHg. 3. Mild anterior leaflet prolapse. Trace to mild mitral valve regurgitation. 4. Trace to mild tricuspid valve regurgitation. 5. When compared to previous study dated 06/25/2019, there may not have been any significant change. Lety Milan MD (Electronically Signed) Final Date: 23 June 2022 11:00 S
[2022-06-23] MEDS: heparin 5,000 unit/mL INJ 1 mL IV ×2 (06:21→12:52)
[2022-06-23] MEDS: sodium chloride 3.5% neb 4 mL Neb INHALATION ×2 (07:41→19:36)
[2022-06-23] MEDS: pantoprazole 40 mg SDV IV (08:30)
[2022-06-23] MEDS: nicotine 14 mg Patch 1 PATCH TRANSDERMA (08:30)
[2022-06-23] MEDS: lanolin oint 7 gm 1 APPLIC TOPICAL (08:31)
[2022-06-23] MEDS: finasteride 5 mg Tablet PEG-TUBE (08:31)
[2022-06-23 12:43] LABS: Partial Thromboplastin Time 45.6 SECONDS (23.9-36.7)
[2022-06-23 13:04] LABS: Glucose Point of Care 106 mg/dL (70-110)
--- NOTE | 2022-06-23 16:09 | XRR_ITS ---
PROCEDURE INFORMATION: Exam: XR Chest Exam date and time: 06/23/2022 4:19 PM Age: 82 years old Clinical indication: Cough TECHNIQUE: Imaging protocol: Radiologic exam of the chest. Views: 1 view. COMPARISON: CT chest con [id number] 06/22/2022 2:09 PM FINDINGS: Tubes, catheters and devices: A midline radiopaque linear density is seen which may represent a tubing with the tip terminating near the medial clavicle regions. Clinical correlation is needed. There is a probably partially visualized PEG tube. Lungs: Again seen is diffuse opacity occupying the left mid/lower thorax which may represent infectious consolidation/pneumonia and/or postobstructive process and neoplasm. Interval improvement of aeration in the left upper lung compared versus most recent chest CT exam. However there is probable new small right basilar streaky opacity which may represent atelectasis versus developing pneumonia. Pleural spaces: Unremarkable. No pleural effusion. No pneumothorax. Heart/Mediastinum: No cardiomegaly. Bones/joints: Sternotomy wires and CABG clips. Osteopenia. XR/XR chest 1V portable [id number] IMPRESSION: 1. Comparison most recent CT with interval improvement of left upper lung aeration. Extensive left mid/lower lung opacities as described above. 2. Probable new small right basilar patchy opacity. See discussion above. 3. Other findings as above.
[2022-06-23 16:18] LABS: ABG PCO2 46.6 mmHg (35-45); ABG PH Result 7.24 (7.35-7.45); Alveolar-Arterial Oxygen Gradi 63.8 mmHg (5-10); Arterial Blood Gas Hematocrit 40.4 % (42-52); Base Excess ABG -7.5 mmol/L (-2.0-2.0); Blood Gas Operator Identificat GD; Blood Gas Sample Site Brachial, left; Blood Gas Sample Type Arterial; Carboxyhemoglobin 0.8 %THgb (0.4-20.1); HCO3 ABG 19.9 mmol/L (22-26); HGB O2 Sat 92.7 % (95-100); Ionized Calcium Level - ABG 1.1 mmol/L (1.1-1.4); Methemoglobin 0.8 % (0.4-1.5); Oxygen Device NC; Oxygen Saturation ABG 94.2; Potassium Level - ABG 4.2 mmol/L (3.5-5.0); Total Hemoglobin 13.2 g/dL (14-18)
[2022-06-23] MEDS: guaiFENesin 600 mg Tablet 1200 MG PO (17:17)
[2022-06-23 17:24] LABS: Glucose Point of Care 96 mg/dL (70-110)
--- NOTE | 2022-06-23 17:45 | P.CONIM_ITS ---
Providers/Reason For Consult Consulting Physician/Specialty*: Larry Mckeon MD/Pulmonary Critical Care Reason for Consult*: Left lung atelectasis secondary to aspiration requiring high flow oxygen Requesting Physician: Abhijit Ramirez Attending Physician: Abhijit Ramirez Primary Care Provider: ROLANDO Jones History of Present Illness History of Present Illness 82-year-old gentleman with CAD, CABG, CHF, COPD, hemiplegia following CVA, dysphagia, PEG tube through which he does feedings with Ensure, however, states that he still tries to eat as he can by mouth, sometimes regurgitating or coughing things up if things do not go down he spits them out.? He is still current smoker, states he smokes a little bit.? He also has a pain pump.? Lives at home with his who is disabled and currently dealing with terminal cancer. He was brought to ER yesterday at 06/22/2022 for evaluation due to dyspnea, hypoxia, saturation noted.? In the 60s when he was being picked up by EMS.? In ER saturation in the 70s on 4 L nasal cannula, initially was started on BiPAP, but was not tolerating it, sats in mid 80s.? Was switched over to heated high flow.?he denies any fever.? He does state that he had an episode of vomiting only once.? Denies recurrent vomiting, diarrhea, abdominal pain, chest pain. CT of the chest shows complete opacity with apparent lobar collapse in the left lung, hyper expanded right lung otherwise clear.? Volume loss left hemithorax.? He also had a CT abdomen pelvis during his ER visit 3 days ago 06/19/2022 which showed bilateral lung bases are clear. In the ED he refused to any invasive pro cedures and did not want bronchoscopy or intubation. He was started on chest physiotherapy, Mucomyst, hypertonic saline nebulization and was being monitored in ICU on high flow nasal cannula 60 L 90% FiO2 patient saturating high 80s. Today evening he is saturations were 94% on 60 L 85%. When the hospitalist discussed with him-he kind of changed his goals of care and was kind of agreeable for bronchoscopy and aspiration with temporary intubation is not yet clear about his further goals of care of water if he does not improve post bronchoscopy and ended up being intubated. Pulmonary critical care consult requested for possible bronchoscopy and aspiration of mucous plugging causing left lung atelectasis and mediastinal shift Seen at bedside-patient in bed, saturating 94% on monitor with high flow 60 L 85% Reported he feels better than when he came in yesterday Discussed with him that he may have potentially reversible condition with aspiration, airway plugging that may lead to his demise in short time if untreated if his condition continues to deteriorate, he was agreeable for bro nchoscopy for aspiration and for temporary intubation. As he was already on a high flow and discussed about possibility of being on ventilator for few days if we are unable to extubate post bronchoscopy-patient is hesitant to undergo the procedure as he does not want to be dependent on machines. However chest x-ray showed improved aeration in left upper lobe with chest physiotherapy, DuoNeb nebulization and hypertonic saline -Sputum culture still pending -Currently patient is covered with vancomycin, Flagyl, levofloxacin -Currently patient is hypotensive receiving Levophed 10 MCG/hour, hydrocortisone -Patient has a history of venous stasis ulcers -Overall patient has limited goals of care does not want intubation as well as chest compressions and if it comes to that point he wishes to have hospice care Review of Systems General: Reports: 10 or more systems reviewed and unremarkable except in HPI and below Medications/Allergies Home Medications Medication Instructions Recorded Confirmed Last Taken Type nitroglycerin 0.4 mg sublingual 0.4 mg sublingual Q5M PRN Chest 07/14/19 06/22/22 Unknown History tablet Pain methylnaltrexone 8 mg/0.4 mL 8 mg SUBCUT DAILY PRN Constipation 02/07/21 06/22/22 Unknown History subcutaneous syringe (Relistor) hydrocortisone 2.5 % topical 1 applic topical BID PRN skin 08/17/21 06/22/22 Unknown Rx ointment irritation #28.35 grams pantoprazole 40 mg granules 40 mg PO DAILY #90 ea 09/12/21 06/22/22 11/15/21 Rx delayed-release for susp in packet (Protonix) lactulose 10 gram/15 mL oral 15 ml PO DAILY PRN Constipation 11/15/21 06/22/22 Unknown History solution hydromorphone 1 mg/mL oral liquid 4 mg (4 mL) feeding tube Q4H PRN 11/20/21 06/22/22 Unknown Rx Pain #473 mL fluorouracil 0.5 % topical cream 1 applic topical DAILY 2 weeks #30 01/02/22 06/22/22 Unknown Rx grams vitamins A and D-white 1 applic topical DAILY PRN skin 01/02/22 06/22/22 Unknown Rx petrolatum-lanolin topical irritation #425 grams ointment (A and D (rossi, pet) topical ointment) finasteride 5 mg tablet See Rx Instructions .Route 01/22/22 06/22/22 Unknown Rx .COMPLEX #90 tabs furosemide 10 mg/mL oral solution See Rx Instructions .Route 01/22/22 06/22/22 Unknown Rx .COMPLEX #360 mL nystatin-triamcinolone 100,000 1 applic topical BID #30 grams 01/22/22 06/22/22 Unknown Rx unit/g-0.1 % topical cream bisacodyl 10 mg/30 mL enema (Fleet 10 mg (30 mL) FL DAILY PRN 01/30/22 06/22/22 Unknown Rx Bisacodyl) constipation #37 mL guaifenesin 100 mg/5 mL oral 200 mg (10 mL) PO Q4H PRN 04/03/22 06/22/22 Unknown Rx liquid (Adult Tussin Chest congestion 90 days #500 mL Congestion) potassium chloride 20 mEq/15 mL See Rx Instructions .Route 04/22/22 06/22/22 Unknown Rx oral liquid .COMPLEX #675 mL hydrocortisone 1 % topical 1 applic topical BID PRN skin 04/24/22 06/22/22 Unknown Rx ointment (Anti-Itch irritation #28.35 grams (hydrocortisone)) General Wheel chair repair #1 ea 04/25/22 06/22/22 Unknown Rx seat cushion for wheelchair #1 ea 04/25/22 06/22/22 Unknown Rx ensure #180 ea 05/07/22 06/22/22 Unknown Rx diphenhydramine HCl 25 mg capsule 25 mg PO TID PRN allergic reaction 06/19/22 06/22/22 Unknown Rx (Benadryl) 5 days #15 caps famotidine 40 mg tablet (Pepcid) 40 mg PO BID 5 days #10 tabs 06/19/22 06/22/22 Unknown Rx prednisone 50 mg tablet 50 mg PO DAILY 5 days #5 tabs 06/19/22 06/22/22 Unknown Rx sodium phosphates 19 gram-7 118 ml FL DAILY PRN Constipation 06/19/22 06/22/22 Unknown History gram/118 mL enema (Fleet Enema) tamsulosin 0.4 mg capsule 0.4 mg PO DAILY 06/19/22 06/22/22 Unknown History Allergies Allergy/AdvReac Type Severity Reaction Status Date / Time Iodinated Contrast Media Allergy ADR-Nausea Verified 06/19/22 10:26 Penicillins Allergy ALGY-Swell Verified 06/19/22 10:26 Lip/Tongue/Throat Current Medications Generic Name Dose Route Start Last Admin Trade Name Freq PRN Reason Stop Dose Admin Acetylcysteine 100 mg 06/22/22 20:00 06/23/22 15:18 Acetylcysteine 200 Mg/Ml Sdv 4 Ml INHALATION 100 mg Q4H.RESPIRATORY SHENG Administration Albuterol Sulfate 2.5 mg 06/22/22 20:00 06/23/22 15:18 Albuterol 2.5 Mg/3 Ml Neb INHALATION 2.5 mg Q4H.RESPIRATORY SHENG Administration Finasteride 5 mg 06/23/22 09:00 06/23/22 08:31 Finasteride 5 Mg Tablet PEG-TUBE 5 mg DAILY SHENG Administration Guaifenesin 1,200 mg 06/22/22 18:00 06/23/22 17:17 Guaifenesin 600 Mg Tablet PO 1,200 mg BID SHENG Administration Heparin Sodium (Porcine) 0 unit 06/22/22 15:54 06/23/22 12:52 Heparin 5,000 Unit/Ml Inj 1 Ml IV 1,100 unit PRN PRN Administration Heparin weight-base protocol Protocol Hydrocortisone Sodium Succinate 100 mg 06/22/22 17:30 06/23/22 17:18 Hydrocortisone 100 Mg/2 Ml Sdv IVP 100 mg Q6H SHENG Administration Heparin Sodium/Sodium Chloride 25,000 unit in 500 mls @ 0 mls/hr 06/22/22 16:00 06/22/22 22:15 Heparin Drip IV 16 unit/kg/hr .Q0M SHENG 17.6 mls/hr Titration Protocol Per Protocol Levofloxacin/Dextrose 750 mg in 150 mls @ 100 mls/hr 06/22/22 18:31 06/22/22 21:00 Levaquin-D5w IV Infused Q48H SHENG Infusion Protocol Norepinephrine Bitartrate 4 mg 254 mls @ 0 mls/hr 06/22/22 19:15 06/23/22 17:17 / Dextrose IV 8 mcg/min .Q0M SHEGN 30.48 mls/hr Administration Protocol Per Protocol Metronidazole 500 mg in 100 mls @ 100 mls/hr 06/23/22 05:00 06/23/22 14:25 Flagyl Iv IV Infused Q8H SHENG Infusion Protocol Lanolin 1 applic 06/23/22 07:41 06/23/22 08:31 Lanolin Oint 7 Gm TOPICAL 1 applic PRN PRN Administration DRYNESS Nicotine 1 patch 06/22/22 18:31 06/23/22 08:30 Nicotine 14 Mg Patch TRANSDERMA 1 patch DAILY SHENG Administration Pantoprazole Sodium 40 mg 06/23/22 09:00 06/23/22 08:30 Pantoprazole 40 Mg Sdv IV 40 mg DAILY SHENG Administration Sodium Chloride 4 ml 06/22/22 18:00 06/23/22 07:41 Sodium Chloride 3.5% Neb 4 Ml Neb INHALATION 4 ml Q12H SHENG Administration PFSH Acute PFSH: Medical History Bacteriuria Benign prostatic hyperplasia with lower urinary tract symptoms Bradycardia -noted persistent bradycardia, HRs in the 40-50 range; seems to be more stable in the 50-60 range -has been on dopamine drip, weaned off on 09/12 -telemetry monitoring -Cardiology consult by Dr. 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 Social History Smoking and tobacco status: current every day smoker cigarettes Packs smoked per day: 0.5 Years cigarettes smoked: 70 [ Other cigarette details: [id number] 68yr hx] Second hand smoke exposure: No Smoking risk assessment/counseling performed?: Yes Alcohol intake: current Alcohol intake frequency: holidays/special occasions only Adopted: No Caregiver/support person: No Lives independently: No Household members: spouse Marital status: service: No Current occupational status: retired History of recent travel: No Current gender identity: Male Special key needs: No Agree to transfusion: Yes Vitals/I&O/Wt Last Vital Signs Temp 97.6 F 06/23/22 16:00 Pulse 72 06/23/22 17:42 Resp 16 06/23/22 17:42 BP 101/51 06/23/22 16:00 Pulse Ox 96 06/23/22 17:42 O2 Del Method 06/23/22 16:00 O2 Flow Rate 60 06/23/22 17:42 FiO2 80 06/23/22 17:42 06/23/22 06/23/22 06/23/22 06:59 14:59 22:59 Intake Total 1564.097 / 1717.152 339.903 / 339.903 254 / 593.903 Output Total 760 / 760 1520 / 1520 350 / 1870 Balance 804.097 / 957.152 -1180.097 / -1180.097 -96 / -1276.097 Weight last 48 hrs Weight 121 lb 1.6 oz Weight 121 lb Weight 182 lb 8 oz Weight 182 lb 8 oz Weight 111 lb Physical Exam Narrative: PHYSICAL EXAM: General: lying in bed, not in acute distress, following commands HEENT:NCAT, PERRLA, EOMI Neck: Supple Lungs: Reduced breath sounds on left lung Heart: s1/s2, RRR Abd: soft, NT, ND, BS + Normoactive Extremities: Left above-knee amputation, edema in right lower extremity NURSE'S AIDES TEACHER: sedated and limited NURSE'S AIDES TEACHER exam possible. SKIN: no rash Data 06/23/22 04:18 06/23/22 04:18 Other Labs: Radiology Impressions Duplex Scan Lower Extremity Artery 06/22/22 13:39 IMPRESSION: No stenosis or occlusion. Chest CT 06/22/22 13:52 IMPRESSION: 1. Complete opacity with apparent lobar collapse in the left lung. 2. Hyper expanded right lung otherwise clear 3. Volume loss left hemithorax. 4. Metallic sternotomy wires are present. 5. Heavy coronary artery calcifications. 6. Multiple benign renal cyst 7. 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 8. Multiple benign bilateral renal cyst. 9. Gastrostomy tube is within the stomach 10. Status post cholecystectomy COMMENTS: Consistent with the [employer]'s Incidental Findings Committee white paper (J Am Billy Radiol 2018): Any incidental renal lesion less than 1 cm or classified as too small to characterize, or any incidental cystic renal lesion characterized as simple-appearing, is likely benign. No follow-up imaging is recommended for these lesions per consensus recommendations based on imaging criteria. Venous Duplex 06/22/22 18:31 IMPRESSION: No evidence of deep vein thrombosis. Chest X-Ray 06/24/22 08:36 IMPRESSION: 1. Improved aeration LEFT lower lobe. Otherwise stable diffuse coarse LEFT lung infiltrates. 2. Stable cardiomegaly. 3. Mild pulmonary vascular congestion. Laboratory Results WBC 23.9 10^3/uL (4.0-10.0) H 06/24/22 03:27 RBC 4.72 10^6/uL (4.1-5.3) 06/24/22 03:27 Hgb 12.6 g/dL (11.7-16.6) 06/24/22 03:27 Hct 41.1 % (42.0-52.0) L 06/24/22 03:27 MCV 87.1 fl (80-94) 06/24/22 03:27 MCH 26.7 pg (28.0-34.0) L 06/24/22 03:27 MCHC 30.7 g/dL (30.0-36.0) 06/24/22 03:27 RDW 16.2 % (12.1-15.1) H 06/24/22 03:27 Plt Count 198 10^3/cmm (130-400) 06/24/22 03:27 MPV 10.3 fL (7.4-10.4) 06/24/22 03:27 Neut % (Auto) 93.4 % 06/24/22 03:27 Lymph % (Auto) 1.3 % 06/24/22 03:27 [place] % (Auto) 3.0 % 06/24/22 03:27 Eos % (Auto) 0.8 % 06/24/22 03:27 Baso % (Auto) 0.4 % 06/24/22 03:27 Neut # (Auto) 22.31 10^3/uL (1.8-7.7) H 06/24/22 03:27 Lymph # (Auto) 0.3 10^3/uL (0.8-4.8) L 06/24/22 03:27 [place] # (Auto) 0.7 10^3/uL (0.2-0.9) 06/24/22 03:27 Eos # (Auto) 0.2 10^3/uL (0.0-0.8) 06/24/22 03:27 Baso # (Auto) 0.1 10^3/uL (0.0-0.1) 06/24/22 03:27 Nucleated RBC % (auto) 0 % 06/24/22 03: Nucleated RBCs # 0.0 /100WBC 06/24/22 03:27 ESR 38 mm/hr (0-10) H 06/22/22 13:47 PT 13.00 SECONDS (12.1-14.9) 06/22/22 13:47 INR 0.96 (0.8-1.2) 06/22/22 13:47 APTT 56.5 SECONDS (23.9-36.7) H 06/24/22 03:27 APTT 64.9 SECONDS (23.9-36.7) H 06/24/22 03:27 D-Dimer 1.50 ug/mIFEU (0-0.59) H 06/22/22 13:47 Specimen Type Arterial 06/23/22 16:00 Sample Site Brachial, left 06/23/22 16:00 ABG pH 7.24 (7.35-7.45) L 06/23/22 16:00 ABG pCO2 46.6 mmHg (35-45) H 06/23/22 16:00 ABG pO2 69.0 mmHg (80.0-100.0) L 06/23/22 16:00 ABG HCO3 19.9 mmol/L (22-26) L 06/23/22 16:00 ABG O2 Saturation 94.2 06/23/22 16:00 ABG Base Excess -7.5 mmol/L (-2.0-2.0) L 06/23/22 16:00 Jose Test N/a 06/23/22 16:00 A-a O2 Gradient 63.8 mmHg (5-10) H 06/23/22 16:00 Hematocrit 40.4 % (42-52) L 06/23/22 16:00 Hgb O2 Saturation 92.7 % (95-100) L 06/23/22 16:00 Carboxyhemoglobin 0.8 %THgb (0.4-20.1) 06/23/22 16:00 Methemoglobin 0.8 % (0.4-1.5) 06/23/22 16:00 Total Hemoglobin 13.2 g/dL (14-18) L 06/23/22 16:00 Sodium 140.0 mmol/L (131-143) 06/23/22 16:00 Potassium 4.2 mmol/L (3.5-5.0) 06/23/22 16:00 Glucose 102.0 mg/dL (70-115) 06/23/22 16:00 Ionized Calcium 1.1 mmol/L (1.1-1.4) 06/23/22 16:00 O2 Delivery Device Nc 06/23/22 16:00 O2 Liters/Min 60.0 % 06/23/22 16:00 FiO2 86.0 % 06/23/22 16:00 Network Cabler ID Gd 06/23/22 16:00 Sodium 138 mmol/L (136-145) 06/24/22 03:27 Potassium 4.4 mmol/L (3.5-5.1) 06/24/22 03:27 Chloride 108 mmol/L (98-107) H 06/24/22 03:27 Carbon Dioxide 19 mmol/L (22-29) L 06/24/22 03:27 Anion Gap 15.4 (5-19) 06/24/22 03:27 BUN 53 mg/dL (8-23) H 06/24/22 03:27 Creatinine 2.4 mg/dL (0.7-1.2) H 06/24/22 03:27 GFR Calculation Not Reportable 06/24/22 03:27 Glucose 118 mg/dL (65-115) H 06/24/22 03:27 POC Glucose 151 mg/dL (70-110) H 06/24/22 14:18 Calculated Osmolality 301 mOsm/kg (285-295) H 06/24/22 03:27 Lactic Acid 1.9 mmol/L (0.5-2.2) 06/22/22 13:47 Calcium 8.0 mg/dL (8.5-10.5) L 06/24/22 03:27 Iron 13 ug/dL (59-158) L 06/24/22 03:27 TIBC 114 mcg/dl 06/24/22 03:27 % Saturation 11.4 % (20-50) L 06/24/22 03:27 Unsat Iron Binding 101 ug/dL (112-347) L 06/24/22 03:27 Total Bilirubin 0.2 mg/dL (0.15-1.2) 06/24/22 03:27 AST 23 U/L (0-40) 06/24/22 03:27 ALT 22 U/L (0-41) 06/24/22 03:27 Alkaline Phosphatase 88 U/L (40-130) 06/24/22 03:27 Troponin T Baseline 87 ng/L (0-15) H 06/22/22 13:47 Troponin T 120 Minute 86.45 ng/L (0-15) H 06/22/22 14:55 Delta Troponin T -0.55 ABS# (0-10) L 06/22/22 14:55 Troponin T Hi Sens 6Hr 84.79 ng/L (0-15) H 06/22/22 19:15 Troponin T Hi Sens 6Hr Delta -2.21 ng/L (0-12) L 06/22/22 19:15 C-Reactive Protein 74.4 mg/L (0.0-4.9) H 06/22/22 13:47 NT-Pro-B Natriuret Pep 9874 pg/mL (0-450) H 06/22/22 13:47 Total Protein 5.0 g/dL (6.6-8.7) L 06/24/22 03:27 Albumin 1.6 g/dL (3.5-5.2) L 06/24/22 03:27 Globulin 3.4 g/dL (1.3-4.6) 06/24/22 03:27 Procalcitonin 1.66 ng/mL (0-0.5) H 06/24/22 03:27 Random Cortisol 62.78 ug/dL (2.47-19.5) H 06/22/22 14:55 Coronavirus 229E (PCR) Not detected (NOT DETECT) 06/22/22 13:48 SARS-CoV-2 (PCR) Not detected (NOT DETECT) 06/22/22 13:48 Micro: Microbiology 06/22/22 13:42 Blood Culture - Preliminary Blood NEGATIVE TO DATE 06/22/22 13:47 Blood Culture - Preliminary Blood NEGATIVE TO DATE A&P Assessment and plan (1) Acute kidney injury superimposed on CKD: (2) Right leg swelling: (3) Aspiration into lower respiratory tract: (4) Lung collapse: (5) Acute respiratory failure with hypoxia: (6) Acute on chronic respiratory failure with hypoxia and hypercapnia: (7) COPD (chronic obstructive pulmonary disease): Qualifiers: COPD type: unspecified COPD Qualified Code(s): J44.9 - Chronic obstructive pulmonary disease, unspecified (8) Shock: (9) Goals of care, counseling/discussion: Plan #Left lung atelectasis with mediastinal shift-patient with recent episode of vomiting and aspiration -There is improved aeration in left upper lobe with chest vest twice daily/hypertonic saline/Mucomyst -Patient refused intubation and bronchoscopy initially but later changed his mind and unfortunately he wanted bronchoscopy only if we can extubate him post b ronchoscopy, which however is not guaranteed as he is requiring high flow 60 L 85% and so may take few days to wean off and all depends on his clinical response to underlying aspiration pneumonia. -However as there is very obvious improvement in left upper lung aeration with conservative management-I have recommended to continue chest vest 3 times daily/hypertonic saline twice daily and Mucomyst twice daily -Recommended to keep n.p.o. -Can use his PEG tube for feeding -Patient is on heparin drip for suspected PE, due to his creatinine cannot obtain CTA, abnormal D-dimer, elevated BNP and troponins, echo showed RV systolic pressure 39. Venous Doppler negative for DVT #Hypotension with left lung aspiration-suspect aspiration pneumonia related septic shock -Currently is covered with Flagyl, levofloxacin, vancomycin -Currently on Levophed 10 MCG/hour and hydrocortisone -Monitor blood pressure and taper down pressors as needed #COPD -Albuterol 2.5 Mg every 4 hours scheduled #Right leg swelling with venous dermatitis and ulcerations -No evidence of DVT on Doppler ICU CHECKLIST: Problem list updated Verbal orders reviewed and signed Analgesia: N/A Glycemic Control: N/A Nutrition: Ensure through PEG tube Restraint Renewal (within 24 hrs): Yes Ulcer Prophylaxis: PPI Chemical Thromboprophylaxis: Prophylaxis: Heparin Mechanical Thromboprophylaxis: SCD Need for Central line: We will need if pressors requirement does not improve Need for Avilez catheter: For urine output monitoring Critical Care Time (No Overlap): 60 min This patient has a high probability of sudden, clinically significant deterioration, which requires the highest level of physician preparedness to intervene urgently. I managed/supervised life or organ supporting interventions that required frequent physician assessment. I devoted my full attention in the ICU to the direct care of this patient for the period of time indicated above. Time I spent with family or surrogate(s) is included only if the patient was incapable of providing necessary information or participating in decision making. Time devoted to teaching and to any procedures I billed separately is not included. Serv Consult Attestations Medical Necessity Statement: Acute respiratory failure requiring high flow nasal cannula and septic shock currently on Levophed-require close ICU monitori ng Time Spent in Patient Care: Greater than 35 minutes (>than 50% of time spent in counselling and/or direct pt care on unit) . Critical Care Time: The high probability of a clinically significant, sudden or life threatening deterioration of the patient's [] system(s) required my full and direct attention, intervention and personal management. The critical care time is as shown. This time is in addition to time spent performing any reported procedures but includes the following: Services Provided: Telemetry review Mechanical Ventilation Hemodynamic interpretation, assessment and management Review and interpretation of CXR Review and interpretation of lab values Review and interpretation of microbiologic data and culture results Review of medications and administration Review and interpretation of Nutrition requirements and management Discussion of management with other consultants and services Clinical update to family members [x] Patient assessment, examination and intervention [x] Documentation [x] Medication orders and management Critical Care Time (min): 60 Coding Level of Care Code New Pt Acute Supply Assistant for Chg Fwd Patient Type New History Comprehensive Exam Comprehensive Medical Decision Making High Complexity Diagnoses Acute kidney injury superimposed on CKD N17.9; N18.9 Right leg swelling M79.89 Aspiration into lower respiratory tract T17.800A Lung collapse J98.19 Acute respiratory failure with hypoxia J96.01 Acute on chronic respiratory failure with hypoxia and hypercapnia J96.21; J96.22 COPD (chronic obstructive pulmonary disease) J44.9 COPD type: unspecified COPD Shock R57.9 Goals of care, counseling/discussion Z71.89 Time Spent (min) 60
--- NOTE | 2022-06-23 18:44 | PM.PN ---
Subjective Subjective: He reports that today he is feeling better. He is very curious to know his vitals, his oxygen requirement, and how he is doing. Discussed with him that he is showing improvement but is still requiring quite high oxygen amount. There is still quite diminished air entry in the left lung with significant rhonchi. He has been having very productive cough, coughing up copious secretions. Discussed with him significant airway obstruction. He recurrently states that he does not want to be a vegetable , does not want to live dependent on Eliquis. He states that if there was something can be done to restore his functioning he would want to pursue it, circles back to discussion of bronchoscopy. We discussed with him that bronchoscopy could be helpful in clearing obstruction in his left lung, although there is certainly risks that may be associated given his level of respiratory failure, there is also no guarantee that it will necessarily restore aeration to his, but would give a good chance for this, however, at high risk also that he may require prolonged intubation, possibly with difficulty weaning, possibly unable to extubate and needing prolonged intubation/or tracheostomy. The risks are very real, and his overall conservative goals of care are of consideration. Discussed with him that certainly something like bronchoscopy would not be something to restore his overall functioning as he seems to ask at 1 point. It would not restore his ambulation or deconditioning. It would if successful simply allow for more expedient and better recovery from complicated suspected aspiration pneumonia, otherwise possibly expecting a very prolonged recovery given the degree of obstruction/lung collapse and respiratory failure. He would like to discuss further with pulmonary service though again reiterates he would not want to be in a situation where he would be in his words a vegetable dependent on others. We discussed with him alternative being current conservative management although again with anticipated likely prolonged recovery, possibly unsuccessful, alternatively also transition to hospice care with withdrawal of more aggressive medical measures he is receiving currently and switching to comfort measures. He noted the options. He states that he has been taking things by mouth, states that he was told by his surgeon previously that if liquids are going down well he can continue taking them. Discussed with him to currently avoid anything by mouth apart from possibly tiny ice chips and swabs due to persistent risk of aspiration. Vitals/I&O/Wt Last Vital Signs Temp 97.6 F 06/23/22 16:00 Pulse 72 06/23/22 17:42 Resp 16 06/23/22 17:42 BP 101/51 06/23/22 16:00 Pulse Ox 96 06/23/22 17:42 O2 Del Method 06/23/22 16:00 O2 Flow Rate 60 06/23/22 17:42 FiO2 80 06/23/22 18:00 06/23/22 06/23/22 06/23/22 06:59 14:59 22:59 Intake Total 1564.097 / 1717.152 339.903 / 339.903 254 / 593.903 Output Total 760 / 760 1520 / 1520 350 / 1870 Balance 804.097 / 957.152 -1180.097 / -1180.097 -96 / -1276.097 Weight last 48 hrs Weight 54.93 kg Weight 54.885 kg Weight 82.781 kg Weight 82.781 kg Weight 50.349 kg Physical Exam Narrative: [facility] Const: COMMON NORMALS: patient oriented x3 and alert GENERAL APPEARANCE: cooperative and frail appearing NUTRITIONAL APPEARANCE: thin ORIENTATION/CONSCIOUSNESS: Yes awake HENMT: COMMON NORMALS: oropharynx normal Eye: OTHER: Strabismus Neck/C-Spine: COMMON NORMALS: no JVD Chest: OTHER: Healed sternotomy scar Resp: COMMON NORMALS: normal respiratory effort and clear to auscultation bilaterally AUSCULTATION: clear to auscultation bilaterally, rhonchi (Gurgling/crackles mid left chest) and breath sounds absent on th left (lower lung) Cardio: COMMON NORMALS: no JVD, regular rhythm, S1 normal heart sound present, S2 normal heart sound present and No murmurs present (Cardio) RHYTHM: regular rhythm HEART SOUNDS: S1 normal heart sound present and S2 normal heart sound present GI: COMMON NORMALS: Normal to inspection, nondistended, normoactive bowel sounds present, Soft to palpation and non-tender PALPATION: Yes Soft to palpation OTHER: Left abdomen PEG tube Left lower abdomen pain pump Extremity: COMMON NORMALS: no joint enlargement GENERAL: Yes edema (RLE below the knee) OTHER: Left AKA Neuro: COMMON NORMALS: patient oriented x3 and moves all extremities SENSORIUM/ORIENTATION: Yes alert OTHER: Mild to moderate dysarthria Skin: COMMON NORMALS: no rashes or lesions noted GENERAL SKIN EXAM: no rashes or lesions noted OTHER: Severe stasis dermatitis changes laterally with edema, shallow venous ulcerations as well as chronic dermatitis and hemosiderosis Data 06/23/22 04:18 06/23/22 04:18 Micro: Microbiology 06/22/22 13:42 Blood Culture - Preliminary Blood NEGATIVE TO DATE 06/22/22 13:47 Blood Culture - Preliminary Blood NEGATIVE TO DATE A&P Assessment and plan (1) Acute respiratory failure with hypoxia: Appreciate pulmonology discussion with him regarding his condition, consideration of further measures that may assist in recovery from his pneumonia, aspiration with consideration of bronchoscopy. Currently continue chest vest, Mucomyst, nebulized saline, Mucinex, pulmonary toilet. NPO. Continue empiric antibiotics for concomitant aspiration pneumonia. Possible septic shock transiently required Levophed, weaned off, but again requiring low rate support. Wean off as tolerating. Continue oxygen support with HHF, wean down as tolerating. Continue reassessment of convalescence and goals of care discussions. Collapse left lung, opacification with whiteout of left hemithorax, appears to likely collapse following aspiration, possibly either due to dysphagia with aspiration, or after episode of vomiting he reports. Additionally possible superimposed bacterial aspiration pneumonia. Expanded lung noted on CT back in May. Additionally cannot exclude PE. D-dimer checked, abnormal. With hypoxia, hypotension, at risk of PE. Empiric anticoagulation with heparin drip until able to undergo further diagnostic study to exclude. Elevated BNP, moderate elevation of troponin. Denies chest pain. Unknown baseline cardiac function. Normal EF, no R WMA. Right ventricular systolic pressure 39 mmHg. Mild anterior leaflet prolapse. Trace to mild MVR. Trace to mild TVR. Some swelling in right lower extremity, but this appears to be venous stasis. No orthopnea. BNP may be secondary to lung disease. Does not appear to be acutely in failure. Possible PE. Hypotensive. Was transiently on BiPAP although did not tolerate it. For now continue oxygen support with HHS, he is NPO. Also CLAUDIO on CKD, creatinine up to 2. Hold off diuretic. Currently on HHF. Continue. Wean down as tolerating. In case worsening he is okay with BiPAP if needed. If continues to worsen and leading to respiratory arrest and/or cardiac arrest wants only comfort measures, no further escalation of care, no intubation. Avilez catheter due to respiratory failure and to monitor I&O. (2) Lung collapse: As above. (3) Aspiration into lower respiratory tract: Dysphagia, history of aspiration, still eats by mouth as tolerating with intermittent aspiration, likely leading to the above condition. He did also have subtle vomiting once. (4) Hypoglycemia: Hypoglycemia protocol. Hydrocortisone. Resume tube feeds. (5) Hypotension: Septic shock secondary to aspiration pneumonia. Received fluid challenge. Hold Flomax, Lasix. Serum cortisol adequate. Monitor blood pressure. (6) Right leg swelling: With venous stasis dermatitis, venous stasis ulcerations. Edema. Abnormal D-dimer. Check venous duplex to assess for DVT. Possible superimposed bacterial cellulitis as well, will be covered with vancomycin, Levaquin as above. No arterial occlusion on duplex. Will request compression dressing. (7) Acute kidney injury superimposed on CKD: Creatinine is at 2, baseline fluctuates, this appears to be higher than usual. Hold Lasix. Received fluid challenge. Possible ATN without significant improvement in creatinine. Support blood pressure. Reassess renal function. Plan Dysphagia: PEG tube in place, normally gives himself tube feeds tries to aim for 4 cans of Ensure in a day and water flushes. Has been taking things by mouth, states was told could do liquids by his prior surgeon. Discussed with him to avoid any oral intake apart from possibly small ice chips, swabs due to recurrent aspiration. Alternatively consideration of hospice and comfort care. 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 Attestations Medical Necessity Statement*: Continue admission for assessment management of hypoxic respiratory failure, lobar collapse, aspiration, aspiration pneumonia. Critical Care Time: The high probability of a clinically significant, sudden or life threatening deterioration of the patient's respiratory, hemodynamic system(s) required my full and direct attention, intervention and personal management. The critical care time is as shown. This time is in addition to time spent performing any reported procedures but includes the following: x Data and vital sign review and interpretation x Patient assessment, examination and intervention x Documentation x Medication orders and management Critical Care Time (min): 60 Coding Level of Care Code Acute Surface Mount Technology Operator for [facility] Diagnoses Acute respiratory failure with hypoxia J96.01 Lung collapse J98.19 Aspiration into lower respiratory tract T17.800A Hypoglycemia E16.2 Hypotension I95.9 Right leg swelling M79.89 Acute kidney injury superimposed on CKD N17.9; N18.9
[2022-06-23 19:50] LABS: Partial Thromboplastin Time 57.8 SECONDS (23.9-36.7)
[2022-06-24] VITALS (110 sets, daily range): BP systolic 80–132; BP diastolic 35–78; PULSE 49–609; RESP 8–25; TEMP 36.1–36.7; O2SAT 88–100
[2022-06-24] MEDS: hydrocortisone 100 mg/2 mL SDV IVP ×2 (00:22→05:36)
[2022-06-24] MEDS: heparin drip 25,000 UNIT/500 ML PREMIX 19 UNIT IV (02:49)
[2022-06-24] MEDS: albuterol 2.5 mg/3 mL Neb INHALATION ×6 (03:28→23:17)
[2022-06-24] MEDS: acetylcysteine 200 mg/mL SDV 4 mL 100 MG INHALATION ×6 (03:29→23:17)
[2022-06-24 03:58] LABS: Basophils # 0.1 10^3/uL (0.0-0.1); Basophils % 0.4 %; Eosinophils # 0.2 10^3/uL (0.0-0.8); Eosinophils % 0.8 %; Hematocrit 41.1 % (42.0-52.0); Hemoglobin 12.6 g/dL (11.7-16.6); Lymphocytes # 0.3 10^3/uL (0.8-4.8); Lymphocytes % 1.3 %; Mean Corpuscular HGB Conc 30.7 g/dL (30.0-36.0); Mean Corpuscular Hemoglobin 26.7 pg (28.0-34.0); Mean Corpuscular Volume 87.1 fl (80-94); Mean Platelet Volume 10.3 fL (7.4-10.4); Monocytes # 0.7 10^3/uL (0.2-0.9); Neutrophils # 22.31 10^3/uL (1.8-7.7); Neutrophils % 93.4 %; Nucleated Red Blood Cells % 0 %; Platelet Count 198 10^3/cmm (130-400); Red Blood Count 4.72 10^6/uL (4.1-5.3); Red Cell Distribution Width 16.2 % (12.1-15.1); White Blood Count 23.9 10^3/uL (4.0-10.0)
[2022-06-24 04:09] LABS: Partial Thromboplastin Time 56.5 SECONDS (23.9-36.7)
[2022-06-24 04:20] LABS: Alanine Aminotransferase 22 U/L (0-41); Albumin Level 1.6 g/dL (3.5-5.2); Alkaline Phosphatase 88 U/L (40-130); Anion Gap 15.4 (5-19); Aspartate Amino Transferase 23 U/L (0-40); Blood Urea Nitrogen 53 mg/dL (8-23); Carbon Dioxide 19 mmol/L (22-29); Chloride 108 mmol/L (98-107); Globulin 3.4 g/dL (1.3-4.6); Glucose 118 mg/dL (65-115); Osmolality Calculated 301 mOsm/kg (285-295); Potassium 4.4 mmol/L (3.5-5.1); Sodium 138 mmol/L (136-145); Total Bilirubin 0.2 mg/dL (0.15-1.2)
[2022-06-24] MEDS: metroNIDAZOLE IV 500 MG/100 ML PREMIX 100 MG IV (05:36)
[2022-06-24] MEDS: vancomycin 1,250 MG/250 ML PIGGYBACK 250 MG IV (05:40)
--- NOTE | 2022-06-24 08:36 | XR_ITS ---
WS: [id number] CHEST XRAY TECHNIQUE: Portable chest. CLINICAL INFORMATION: Collapsed lung COMPARISON: June 23, 2022 FINDINGS: Heart: Cardiomegaly. Sternotomy. Mediastinal clips. Lungs: Patchy coarse infiltrates throughout the LEFT lung are similar in appearance. Improved aeratio n LEFT lower lobe. Mild pulmonary vascular congestion. Subsegmental atelectasis RIGHT lower lobe. Bones: Thoracic curve convex LEFT. Osteopenia. Cholecystectomy clips. XR/XR chest 1V portable [id number] IMPRESSION: 1. Improved aeration LEFT lower lobe. Otherwise stable diffuse coarse LEFT ruth g infiltrates. 2. Stable cardiomegaly. 3. Mild pulmonary vascular congestion.
[2022-06-24] MEDS: sodium chloride 3.5% neb 4 mL Neb INHALATION ×2 (08:52→19:49)
[2022-06-24] MEDS: guaiFENesin 600 mg Tablet 1200 MG PO ×2 (09:31→17:29)
[2022-06-24] MEDS: nicotine 14 mg Patch 1 PATCH TRANSDERMA (09:31)
[2022-06-24] MEDS: finasteride 5 mg Tablet PEG-TUBE (09:31)
[2022-06-24] MEDS: pantoprazole 40 mg SDV IV (09:32)
--- NOTE | 2022-06-24 09:35 | PC.CHAP ---
Pastoral Care Encounter/Spiritual Assessment Type of Contact [] Declined loin trimmer visit [] Patient/Family/Request visit [] Outpatient visit [] Follow-up visit [] Physician referral [] Code/Alert [x] Routine visit [] Staff referral [] Actively dying [x] Patient sleeping [] Family support [] [] Out of room [] Palliative care [] [] Receiving care in room [] Pre-surgical visit [] Trauma [] Long length of stay [x] ICU visit [] Other: Relational/Emotional Strength [] Patient feels connected with others/family/visitors/staff [] Distress [] Loneliness/isolation [] Abandonment Spirituality of Patient [] Person of Narcisa [] Attends Caodaism of their Narcisa [] Believes in Prayer [] Reads Bible or Orthodoxy materials [] There are Spiritual issues to be addressed Long Term Care Administrator Interventions [x] Prayer [] Active listening [] Non-anxious presence [] Spiritual/emotional support [] Crisis/trauma care [] Spiritual counseling [] Bereavement support [] Provided bereavement packet [] Provided Bible/devotional materials [] Provided toy/stuffed animal, coloring book to patient or family member [] Provided Communion [] Anointing/[place] [] Salvation [x] Completed spiritual assessment [] Other: Impact on Illness or Injury [] Angry [] Fearful [] Anxious [] Often cries [] Exhaustion [] Unable to work [] Unable to attend rastafarian [] Unable to walk/stand [] Unable to read [] Unable to drive [] Unable to eat/drink [] Unable to sleep [] Unable to be with family [] Patient intubated [] Other: Summary Time spent with patient
--- NOTE | 2022-06-24 10:13 | PC.NUTR ---
TF consult received. Recommend Pt continue on home regimen of feedings Jevity 1.2, 3x/day, with fresh water flush of 60 mls before and after, but with increased amounts to meet estimated calorie and protein needs: 8am: 480 mls 2pm: 480 mls 8pm: 480 mls Times can fluctuate per Pt preference or an alternate schedule of Jevity 1.2 with 60 mls flush before and after: 8am: 480 mls noon: 240 mls 4pm: 480 mls 8pm: [address] assessment.
[2022-06-24 10:59] LABS: Partial Thromboplastin Time 64.9 SECONDS (23.9-36.7)
[2022-06-24 11:19] LABS: Iron 13 ug/dL (59-158); Percent Saturation 11.4 % (20-50); Total Iron Binding Capacity 114 mcg/dl; Unsaturated Iron Binding 101 ug/dL (112-347)
[2022-06-24 11:26] LABS: Procalcitonin 1.66 ng/mL (0-0.5)
[2022-06-24] MEDS: hydrocortisone 100 mg/2 mL SDV 50 MG IVP ×3 (12:04→22:44)
[2022-06-24] MEDS: heparin 5,000 unit/mL INJ 1 mL 5000 UNIT SUBCUT ×2 (12:05→22:44)
[2022-06-24] MEDS: meropenem 1,000 MG in sodium chloride 0.9% (plus) 50 ML 100 MG IV ×2 (12:05→22:40)
[2022-06-24] MEDS: linezolid premix 600 MG/300 ML PREMIX 300 MG IV (12:07)
[2022-06-24] MEDS: sodium chloride 0.9% 1,000 ML 50 ML IV (12:08)
[2022-06-24 14:34] LABS: Glucose Point of Care 151 mg/dL (70-110)
[2022-06-24] MEDS: norepinephrine 8 MG in dextrose 5 % 500 ML 68.58 MG IV ×2 (15:19→22:17)
--- NOTE | 2022-06-24 15:39 | PC.NURSE ---
Levophed requirements have gone up throughout the day from 8mcg to 18 mcg. Urine output has only been [address] moreau and recieved orders for a cheetah fluid challenge.
--- NOTE | 2022-06-24 16:27 | PM.PN ---
Subjective Subjective: Hospital course, labs appreciated. Examination patient lying comfortably in bed. Patient is on 70% FiO2. Heated high flow, mean arterial pressure running over 65 but on Levophed pressor of 8 which was turned up to 18 during the day. Cheetah was done which showed patient became responsive with FPI of more than 25% after which patient received fluids sepsis bolus. Urine output has been on the lower side of around 600 cc. Patient is awake and alert, able to have complete conversation. Had complete goals of care discussion in detail with me today. Vitals/I&O/Wt Last Vital Signs Temp 97.0 F L 06/24/22 09:00 Pulse 68 06/24/22 15:41 Resp 16 06/24/22 15:41 BP 99/42 06/24/22 13:45 Pulse Ox 93 06/24/22 15:41 O2 Del Method 06/24/22 15:35 O2 Flow Rate 60 06/24/22 15:41 FiO2 65 06/24/22 15:41 06/24/22 06/24/22 06/24/22 06:59 14:59 22:59 Intake Total 362.377 / 4963.824 2557.226 / 1200.226 45.974 / 1246.200 Output Total 250 / 2120 75 / 75 Balance 112.377 / -648.702 6471.226 / 1125.226 45.974 / 1171.200 Weight last 48 hrs Weight 54.431 kg Weight 54.93 kg Weight 54.885 kg Weight 82.781 kg Weight 82.781 kg Physical Exam Narrative: [facility] Const: COMMON NORMALS: patient oriented x3 and alert GENERAL APPEARANCE: cooperative and frail appearing NUTRITIONAL APPEARANCE: thin ORIENTATION/CONSCIOUSNESS: Yes awake HENMT: COMMON NORMALS: oropharynx normal Eye: OTHER: Strabismus Neck/C-Spine: COMMON NORMALS: no JVD Chest: OTHER: Healed sternotomy scar Resp: COMMON NORMALS: normal respiratory effort and clear to auscultation bilaterally AUSCULTATION: clear to auscultation bilaterally, rhonchi (Gurgling/crackles mid left chest), wheezes, breath sounds absent on th left (lower lung) and diminished lung sounds on the left Cardio: COMMON NORMALS: no JVD, regular rhythm, S1 normal heart sound present, S2 normal heart sound present and No murmurs present (Cardio) RHYTHM: regular rhythm HEART SOUNDS: S1 normal heart sound present and S2 normal heart sound present GI: COMMON NORMALS: Normal to inspection, nondistended, normoactive bowel sounds present, Soft to palpation and non-tender PALPATION: Yes Soft to palpation OTHER: Left abdomen PEG tube Left lower abdomen pain pump Extremity: COMMON NORMALS: no joint enlargement GENERAL: Yes edema (RLE below the knee) OTHER: Left AKA Neuro: COMMON NORMALS: patient oriented x3 and moves all extremities SENSORIUM/ORIENTATION: Yes alert OTHER: Mild to moderate dysarthria Skin: COMMON NORMALS: no rashes or lesions noted GENERAL SKIN EXAM: no rashes or lesions noted OTHER: Severe stasis dermatitis changes laterally with edema, shallow venous ulcerations as well as chronic dermatitis and hemosiderosis Data 06/24/22 03:27 06/24/22 03:27 Micro: Microbiology 06/23/22 05:00 Sputum Culture - Preliminary Sputum - Expectorated Sputum Gram Negative Rods Gram Negative Rods#2 06/22/22 13:42 Blood Culture - Preliminary Blood NEGATIVE TO DATE 06/22/22 13:47 Blood Culture - Preliminary Blood NEGATIVE TO DATE A&P Assessment and plan (1) Acute respiratory failure with hypoxia: Secondary to aspiration pneumonia. Chest x-ray seems to be improving. Appreciate pulmonology recommendation. Continue aggressive pulmonary toilet with chest vest, Mucomyst, nebulized saline, Mucinex. NPO. Sputum culture growing 2 separate gram-negative rods. History of VRE in the past. Switch antibiotics to linezolid and meropenem. Oxygen supplementation keeping saturation over 88%. D-dimer elevated to 1.5. Cannot do CTA given acute kidney injury versus CKD. PE less likely given age adjusted D-dimer. Stop heparin drip. Echocardiogram done shows normal LV cavity with no regional motion malady, EF of 65, RVSP of 39 mmHg. Discussed in detail regarding goals of care with patient at bedside today. Patient wanted to know further detail regarding bronchoscopy and need for mechanical ventilator. We discussed given high oxygen requirement it is highly likely that patient will need to be on ventilator. We also discussed that for now we cannot say for certain that we will be able to extubate him immediately postprocedure despite possible that he will remain on ventilator for some time. Patient is concerned and asking if he will remain on ventilator for long-term. We discussed that for now given his oxygen requirement, overall clinical picture, severe deconditioning we cannot make promises of him coming off ventilator. Patient states he would not want to live in a vegetative state, given his age and chronic health issues he does not want to go ahead with ventilation. He wants to remain DNR/DNI. States if things do not improve he would rather go hospice but is agreeable with current medical management and trial of treatment. (2) Lung collapse: As above. (3) Aspiration into lower respiratory tract: Dysphagia, history of aspiration, still eats by mouth as tolerating with intermittent aspiration, likely leading to the above condition. He did also have subtle vomiting once. (4) Hypoglycemia: Hypoglycemia protocol. Hydrocortisone. Resume tube feeds. (5) Hypotension: With septic shock. Hold off on antihypertensives. Serum cortisol level elevated. Wean down hydrocortisone to 50 mg every 6 hourly. Patient is fluid responsive. Sepsis fluid bolus. Normal saline 100 cc/h. (6) Right leg swelling: Current antibiotics will cover for any cellulitis. No arterial occlusion on duplex. Will request compression dressing. (7) Acute kidney injury superimposed on CKD: Creatinine is at 2, baseline fluctuates, this appears to be higher than usual. Possible ATN given sepsis. Medical reconciliation done for nephrotoxic drugs. Monitor BMP daily. (8) Goals of care, counseling/discussion: (9) Shock: (10) Pneumomediastinum: Plan Dysphagia: PEG tube in place, normally gives himself tube feeds tries to aim for 4 cans of Ensure in a day and water flushes. Has been taking things by mouth, states was told could do liquids by his prior surgeon. Discussed with him to avoid any oral intake apart from possibly small ice chips, swabs due to recurrent aspiration. Alternatively consideration of hospice and comfort care. Analgesia: Home dose of hydromorphone 4 mg every 4 hours as needed Glycemic control: Hypoglycemia protocol, Nutrition: Continue with home PEG tube feeds. N.p.o. CODE STATUS: Discussed in detail with the patient. DNR/DNI. PUD prophylaxis: Protonix DVT prophylaxis: Heparin 5000 every 12 hourly Aggressive bowel regimen Physical therapy Discharge planning: Home with or without hospice depending on clinical picture going forward Continue with care at ICU care This documentation was created by [employer] filtering machine tender helper software. Every effort was made to ensure accuracy of filtering machine tender helper. Any obvious errors or omissions should be clarified with the author of the document. Attestations Medical Necessity Statement*: Requires further hospitalization for management of acute hypoxic respiratory failure and septic shock secondary to aspiration pneumonia in a patient with chronic PEG tube in place Critical Care Time: The high probability of a clinically significant, sudden or life threatening deterioration of the patient's [renal, cardiac, pulmonary, goals of care discussion] system(s) required my full and direct attention, intervention and personal management. The critical care time is as shown. This time is in addition to time spent performing any reported procedures but includes the following: [x] Data and vital sign review and interpretation [x] Patient assessment, examination and intervention [x] Documentation [x] Medication orders and management Critical Care Time (min): 70 Coding Level of Care Code Acute Inspector Wire Products for [facility] Fwd Exam Comprehensive Diagnoses Acute respiratory failure with hypoxia J96.01 Lung collapse J98.19 Aspiration into lower respiratory tract T17.800A Hypoglycemia E16.2 Hypotension I95.9 Right leg swelling M79.89 Acute kidney injury superimposed on CKD N17.9; N18.9 Goals of care, counseling/discussion Z71.89 Shock R57.9 Pneumomediastinum J98.2
[2022-06-24] MEDS: sodium chloride 0.9% 250 ML 999 ML IV (16:42)
[2022-06-24] MEDS: sodium chloride 0.9% 1,632.93 ML 1632.93 ML IV (16:51)
--- NOTE | 2022-06-24 18:21 | P.PN_ITS ---
Subjective Subjective: -High flow nasal cannula FiO2 down to 60% from 85% yesterday and saturating 90 to 92% on monitor -Today morning chest x-ray showed significant improvement in aeration in left lower lung to but has a patchy coarse infiltrates throughout the left lung - he is requiring Levophed 18 MCG/hour and hydrocortisone,, good response to fluid on Cheetah-we will continue with IV hydration, if no improvement in blood pressure-can start vasopressin if Levophed is more than 10 MCG/hour-we will add midodrine as patient has baseline soft blood pressures even prior to admission -Sputum culture growing gram-negative rods-antibiotics were changed to linezolid and meropenem -Other labs and imaging reviewed Vitals/I&O/Wt Last Vital Signs Temp 98.1 F 06/24/22 16:15 Pulse 81 06/24/22 18:15 Resp 12 06/24/22 18:15 BP 100/53 06/24/22 18:15 Pulse Ox 97 06/24/22 18:15 O2 Del Method 06/24/22 16:15 O2 Flow Rate 60 06/24/22 17:47 FiO2 65 06/24/22 17:47 06/24/22 06/24/22 06/24/22 06:59 14:59 22:59 Intake Total 362.377 / 1876.060 6067.226 / 1200.226 345.974 / 1546.200 Output Total 250 / 2120 75 / 75 75 / 150 Balance 112.377 / -871.856 2782.226 / 1125.226 270.974 / 1396.200 Weight last 48 hrs Weight 120 lb Weight 121 lb 1.6 oz Weight 121 lb Weight 182 lb 8 oz Weight 182 lb 8 oz Physical Exam Narrative: PHYSICAL EXAM: General: lying in bed, not in acute distress, following commands HEENT:NCAT, PERRLA, EOMI Neck: Supple Lungs: Reduced breath sounds on left lung Heart: s1/s2, RRR Abd: soft, NT, ND, BS + Normoactive Extremities: Left above-knee amputation, edema in right lower extremity GENERAL CONTRACTOR: sedated and limited GENERAL CONTRACTOR exam possible. SKIN: no rash Data 06/24/22 03:27 06/24/22 03:27 Other Labs: Radiology Impressions Duplex Scan Lower Extremity Artery 06/22/22 13:39 IMPRESSION: No stenosis or occlusion. Chest CT 06/22/22 13:52 IMPRESSION: 1. Complete opacity with apparent lobar collapse in the left lung. 2. Hyper expanded right lung otherwise clear 3. Volume loss left hemithorax. 4. Metallic sternotomy wires are present. 5. Heavy coronary artery calcifications. 6. Multiple benign renal cyst 7. 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 8. Multiple benign bilateral renal cyst. 9. Gastrostomy tube is within the stomach 10. Status post cholecystectomy COMMENTS: Consistent with the [employer]'s Incidental Findings Committee white paper (J Am Billy Radiol 2018): Any incidental renal lesion less than 1 cm or classified as too small to characterize, or any incidental cystic renal lesion characterized as simple-appearing, is likely benign. No follow-up imaging is recommended for these lesions per consensus recommendations based on imaging criteria. Venous Duplex 06/22/22 18:31 IMPRESSION: No evidence of deep vein thrombosis. Chest X-Ray 06/24/22 08:36 IMPRESSION: 1. Improved aeration LEFT lower lobe. Otherwise stable diffuse coarse LEFT lung infiltrates. 2. Stable cardiomegaly. 3. Mild pulmonary vascular congestion. Laboratory Results WBC 23.9 10^3/uL (4.0-10.0) H 06/24/22 03:27 RBC 4.72 10^6/uL (4.1-5.3) 06/24/22 03:27 Hgb 12.6 g/dL (11.7-16.6) 06/24/22 03:27 Hct 41.1 % (42.0-52.0) L 06/24/22 03:27 MCV 87.1 fl (80-94) 06/24/22 03:27 MCH 26.7 pg (28.0-34.0) L 06/24/22 03:27 MCHC 30.7 g/dL (30.0-36.0) 06/24/22 03:27 RDW 16.2 % (12.1-15.1) H 06/24/22 03:27 Plt Count 198 10^3/cmm (130-400) 06/24/22 03:27 MPV 10.3 fL (7.4-10.4) 06/24/22 03:27 Neut % (Auto) 93.4 % 06/24/22 03:27 Lymph % (Auto) 1.3 % 12/26/22 03:27 [place] % (Auto) 3.0 % 06/24/22 03:27 Eos % (Auto) 0.8 % 06/24/22 03:27 Baso % (Auto) 0.4 % 06/24/22 03:27 Neut # (Auto) 22.31 10^3/uL (1.8-7.7) H 06/24/22 03:27 Lymph # (Auto) 0.3 10^3/uL (0.8-4.8) L 06/24/22 03:27 [place] # (Auto) 0.7 10^3/uL (0.2-0.9) 06/24/22 03:27 Eos # (Auto) 0.2 10^3/uL (0.0-0.8) 06/24/22 03:27 Baso # (Auto) 0.1 10^3/uL (0.0-0.1) 06/24/22 03:27 Nucleated RBC % (auto) 0 % 06/24/22 03:27 Nucleated RBCs # 0.0 /100WBC 06/24/22 03:27 ESR 38 mm/hr (0-10) H 06/22/22 13:47 PT 13.00 SECONDS (12.1-14.9) 06/22/22 13:47 INR 0.96 (0.8-1.2) 06/22/22 13:47 APTT 56.5 SECONDS (23.9-36.7) H 06/24/22 03:27 APTT 64.9 SECONDS (23.9-36.7) H 06/24/22 03:27 D-Dimer 1.50 ug/mIFEU (0-0.59) H 06/22/22 13:47 Specimen Type Arterial 06/23/22 16:00 Sample Site Brachial, left 06/23/22 16:00 ABG pH 7.24 (7.35-7.45) L 06/23/22 16:00 ABG pCO2 46.6 mmHg (35-45) H 06/23/22 16:00 ABG pO2 69.0 mmHg (80.0-100.0) L 06/23/22 16:00 ABG HCO3 19.9 mmol/L (22-26) L 06/23/22 16:00 ABG O2 Saturation 94.2 06/23/22 16:00 ABG Base Excess -7.5 mmol/L (-2.0-2.0) L 06/23/22 16:00 Jose Test N/a 06/23/22 16:00 A-a O2 Gradient 63.8 mmHg (5-10) H 06/23/22 16:00 Hematocrit 40.4 % (42-52) L 06/23/22 16:00 Hgb O2 Saturation 92.7 % (95-100) L 06/23/22 16:00 Carboxyhemoglobin 0.8 %THgb (0.4-20.1) 06/23/22 16:00 Methemoglobin 0.8 % (0.4-1.5) 06/23/22 16:00 Total Hemoglobin 13.2 g/dL (14-18) L 06/23/22 16:00 Sodium 140.0 mmol/L (131-143) 06/23/22 16:00 Potassium 4.2 mmol/L (3.5-5.0) 06/23/22 16:00 Glucose 102.0 mg/dL (70-115) 06/23/22 16:00 Ionized Calcium 1.1 mmol/L (1.1-1.4) 06/23/22 16:00 O2 Delivery Device Nc 06/23/22 16:00 O2 Liters/Min 60.0 % 06/23/22 16:00 FiO2 86.0 % 06/23/22 16:00 Production Superintendent Hydro ID Gd 06/23/22 16:00 Sodium 138 mmol/L (136-145) 06/24/22 03:27 Potassium 4.4 mmol/L (3.5-5.1) 06/24/22 03:27 Chloride 108 mmol/L (98-107) H 06/24/22 03:27 Carbon Dioxide 19 mmol/L (22-29) L 06/24/22 03:27 Anion Gap 15.4 (5-19) 06/24/22 03:27 BUN 53 mg/dL (8-23) H 06/24/22 03:27 Creatinine 2.4 mg/dL (0.7-1.2) H 06/24/22 03:27 GFR Calculation Not Reportable 06/24/22 03:27 Glucose 118 mg/dL (65-115) H 06/24/22 03:27 POC Glucose 151 mg/dL (70-110) H 06/24/22 14:18 Calculated Osmolality 301 mOsm/kg (285-295) H 06/24/22 03:27 Lactic Acid 1.9 mmol/L (0.5-2.2) 06/22/22 13:47 Calcium 8.0 mg/dL (8.5-10.5) L 06/24/22 03:27 Iron 13 ug/dL (59-158) L 06/24/22 03:27 TIBC 114 mcg/dl 06/24/22 03:27 % Saturation 11.4 % (20-50) L 06/24/22 03:27 Unsat Iron Binding 101 ug/dL (112-347) L 06/24/22 03:27 Total Bilirubin 0.2 mg/dL (0.15-1.2) 06/24/22 03:27 AST 23 U/L (0-40) 06/24/22 03:27 ALT 22 U/L (0-41) 06/24/22 03:27 Alkaline Phosphatase 88 U/L (40-130) 06/24/22 03:27 Troponin T Baseline 87 ng/L (0-15) H 06/22/22 13:47 Troponin T 120 Minute 86.45 ng/L (0-15) H 06/22/22 14:55 Delta Troponin T -0.55 ABS# (0-10) L 06/22/22 14:55 Troponin T Hi Sens 6Hr 84.79 ng/L (0-15) H 06/22/22 19:15 Troponin T Hi Sens 6Hr Delta -2.21 ng/L (0-12) L 06/22/22 19:15 C-Reactive Protein 74.4 mg/L (0.0-4.9) H 06/22/22 13:47 NT-Pro-B Natriuret Pep 9874 pg/mL (0-450) H 06/22/22 13:47 Total Protein 5.0 g/dL (6.6-8.7) L 06/24/22 03:27 Albumin 1.6 g/dL (3.5-5.2) L 06/24/22 03:27 Globulin 3.4 g/dL (1.3-4.6) 06/24/22 03:27 Procalcitonin 1.66 ng/mL (0-0.5) H 06/24/22 03:27 Random Cortisol 62.78 ug/dL (2.47-19.5) H 06/22/22 14:55 Coronavirus 229E (PCR) Not detected (NOT DETECT) 06/22/22 13:48 SARS-CoV-2 (PCR) Not detected (NOT DETECT) 06/22/22 13:48 Micro: Microbiology 06/23/22 05:00 Sputum Culture - Preliminary Sputum - Expectorated Sputum Gram Negative Rods Gram Negative Rods#2 06/22/22 13:42 Blood Culture - Preliminary Blood NEGATIVE TO DATE 06/22/22 13:47 Blood Culture - Preliminary Blood NEGATIVE TO DATE A&P Assessment and plan (1) Acute kidney injury superimposed on CKD: (2) Right leg swelling: (3) Aspiration into lower respiratory tract: (4) Lung collapse: (5) Acute respiratory failure with hypoxia: (6) Acute on chronic respiratory failure with hypoxia and hypercapnia: (7) COPD (chronic obstructive pulmonary disease): Qualifiers: COPD type: unspecified COPD Qualified Code(s): J44.9 - Chronic obstructive pulmonary disease, unspecified (8) Shock: (9) Goals of care, counseling/discussion: Plan #Left lung atelectasis with mediastinal shift-patient with recent episode of vomiting and aspiration -Today morning chest x-ray showed significant improvement in aeration in left lower lung to but has a patchy coarse infiltrates throughout the left lung -High flow nasal cannula FiO2 down to 60% from 85% yesterday and saturating 90 to 92% on monitor -However as there is very obvious improvement overall left lung-I have recommended to continue chest vest 3 times daily/hypertonic saline twice daily and Mucomyst twice daily -Recommended to keep n.p.o. -We will hold feeding through PEG tube also as he is requiring high pressors -We will continue antibiotics for aspiration pneumonia #Septic shock-sputum culture positive for gram-negative rods - he is requiring Levophed 18 MCG/hour and hydrocortisone,, good response to fluid on [place]et[place]-we will continue with IV hydration, if no improvement in blood pressure-can start vasopressin if Levophed is more than 10 MCG/hour-we will add midodrine as patient has baseline soft blood pressures even prior to admission -Sputum culture growing gram-negative rods-antibiotics were changed to linezolid and meropenem -Monitor blood pressure and taper down pressors as needed #CLAUDIO on CKD-reducing urine output in the context of hypotension-could be prerenal secondary to septic shock/overhydration #Metabolic acidosis-likely secondary to CKD -Acceptable electrolytes, previous lactic acid within normal range -Good response to Cheetah-we will continue IV hydration -Continue to monitor renal function/electrolytes/input output -Continue pressors to keep MAP > 60 #COPD -Albuterol 2.5 Mg every 4 hours scheduled #Right leg swelling with venous dermatitis and ulcerations -No evidence of DVT on Doppler ICU CHECKLIST: Problem list updated Verbal orders reviewed and signed Analgesia: N/A Glycemic Control: N/A Nutrition: Ensure through PEG tube Restraint Renewal (within 24 hrs): Yes Ulcer Prophylaxis: PPI Chemical Thromboprophylaxis: Prophylaxis: Heparin Mechanical Thromboprophylaxis: SCD Need for Central line: We will need if pressors requirement does not improve Need for Avilez catheter: For urine output monitoring Critical Care Time (No Overlap): 60 min This patient has a high probability of sudden, clinically significant deterioration, which requires the highest level of physician preparedness to intervene urgently. I managed/supervised life or organ supporting interventions that required frequent physician assessment. I devoted my full attention in the ICU to the direct care of this patient for the period of time indicated above. Time I spent with family or surrogate(s) is included only if the patient was incapable of providing necessary information or participating in decision making. Time devoted to teaching and to any procedures I billed separately is not included. Attestations Medical Necessity Statement*: Still requiring high flow oxygen for respiratory support, pressors for hemodynamic support-need close ICU monitoring for septic shock likely secondary to aspiration pneumonia Time Spent in Patient Care: Greater than 35 minutes (>than 50% of time spent in counselling and/or direct pt care on unit) . Critical Care Time: The high probabili ty of a clinically significant, sudd en or life threate mindy deterioration of the patient's? []?system(s) requi red my full and di rect attention, in tervention and per mindy management. The critical care time is as shown. This time is in ad dition to time spe nt performing any reported procedure s but includes the following: Servi neftali Provided: Tel emetry review Mech anical Ventilation Hemodynamic inter pretation, assessm ent and management Review and interp retation of CXR Re view and interpret ation of lab value s Review and inter pretation of micro biologic data and culture results Re view of medication s and administrati on Review and inte rpretation of Nutr ition requirements and management Di scussion of manage ment with other co nsultants and serv ices Clinical upda te to family membe rs [x] Patient ass essment, examinati on and interventio n [x] Documentatio n [x] Medication o rders and manageme nt? Critical Care Time (min): 60 Coding Level of Care Code Established Pt Acute Slate Cutter for Chg Fwd Patient Type Established History Comprehensive Exam Comprehensive Medical Decision Making High Complexity Diagnoses Acute kidney injury superimposed on CKD N17.9; N18.9 Right leg swelling M79.89 Aspiration into lower respiratory tract T17.800A Lung collapse J98.19 Acute respiratory failure with hypoxia J96.01 Acute on chronic respiratory failure with hypoxia and hypercapnia J96.21; J96.22 COPD (chronic obstructive pulmonary disease) J44.9 COPD type: unspecified COPD Shock R57.9 Goals of care, counseling/discussion Z71.89 Time Spent (min) 60
--- NOTE | 2022-06-24 18:21 | PC.NURSE ---
Shift Summary: Patient rested in bed throughout the shift, mostly right side lying to allow left lung expansion, with short periods of position changes. Patient will tolerate laying supine or right side lying for only about 15 minutes, any longer his oxygen saturations drop. Due to increasing levophed requirements, cheetah fluid bolus test was done and showed patient is fluid responsive. Sepsis fluid bolus given and maintenance fluid increaed per dr camejo's orders. Central line placed today. Vasopressin ordered if needed.
--- NOTE | 2022-06-24 18:37 | PM.ACPR ---
Procedure/Consent Time out: Time Out Performed: Yes Consent: Consent for Procedure: Consent obtained from patient Procedure Narrative: Procedure time: 1700 Procedure: Ultrasound-guided identification of the right femoral vein and placement of Central venous line (CPT code 22855) Indication: Patient requiring pressors Leather Cartridge Belt Maker(s): Larry Mckeon MD Consent: Emergent Yes Time out called. [place] precautions applied. Site: Right femoral vein Catheter:7 Fr 20cm, Triple Lumen Sutured at: 20 cm Anesthesia: 5 cc 1% lidocaine without epinephrine Description: Cap, eye protection, mask donned by myself and RN. Patient head down below feet (Trendelenburg 10 degrees). Sterile gown and gloves donned. Time out patient prepped with Chlorhexidine and full body fenestrated drape placed in sterile fashion. The vessel anatomy and patency was examined by ultrasound probe which was covered with sterile probe cover. Real time US guidance for target selection and real time US visualization of needle entry into vessel, after venous blood aspirated the guidewire was inserted through the needle and kept in situ, needle was removed. Placement of guidewire in the vein confirmed in relation to the adjacent artery in both in-plane and bsm-aw-urmeh US views. A recorded ultrasound image of the patent vessel is obtained and is attached to this note. After appropriate dilation of entry site with dilator, removed dilator and Catheter was then advanced over the guidewire, no ectopy and guidewire was successfully removed. All ports drawn back and flushed with ease. Ports capped and locked. Catheter sutured at [address] Sterile dressing applied and chlorhexidine patch placed. Patient tolerated procedure well. Number of attempts:1 Dilator applied: 1, number of Dilations: 1 Placement Verified by: Blood draw from all ports and Ultrasound exam and Chest Xray EBL: 5-10 cc Complications: None Ultrasound guidance used: Yes. Larry Mckeon MD, [facility] Pulmonary, Critical Care medicine Acute Procedures Epistaxis Control: Time out performed: Yes
[2022-06-24 19:02] LABS: Glucose Point of Care 219 mg/dL (70-110)
[2022-06-24] MEDS: magnesium hydroxide 30 mL UDC PEG-TUBE (20:03)
[2022-06-24] MEDS: midodrine 5 mg TABLET 10 MG PO (20:03)
[2022-06-24] MEDS: sennosides 8.6 mg Tablet 17.2 MG PEG-TUBE (20:04)
[2022-06-24 23:16] LABS: Glucose Point of Care 220 mg/dL (70-110)
[2022-06-24] MEDS: linezolid premix 600 MG/300 ML PREMIX 150 MG IV (23:17)
[2022-06-25] VITALS (101 sets, daily range): BP systolic 79–144; BP diastolic 44–87; PULSE 41–185; RESP 6–24; TEMP 36.2–36.7; O2SAT 89–99
--- NOTE | 2022-06-25 00:25 | ECG_ITS ---
[facility] Test Date: 2022-06-24 Pat Name: Steven Whitney Department: Room: [facility] Gender: Male Office Services Representative: : 1940 Requested By: Cyril Coreas Order Number: [id number] Jerry MD: Marbin Chappell M.D. Measurements Intervals [place] Rate: 59 P: 146 MS: 126 QRS: 70 QRSD: 88 T: 67 QT: 394 QTc: 393 Interpretive Statements SINUS BRADYCARDIA WITH OCCASIONAL ECTOPIC PREMATURE COMPLEXES LOW QRS VOLTAGE [QRS DEFLECTION < 0.5/1.0 mV IN LIMB/CHEST LEADS] MINIMAL ST DEPRESSION [0.025+ mV ST DEPRESSION] Compared to ECG 06/22/2022 19:44:30 ST (T wave) deviation now present Atrial fibrillation no longer present Myocardial infarct finding no longer present Electronically Signed On 06-25-2022 14:12:09 FUNDS DEVELOPMENT DIRECTOR by Marbin Chappell M.D. [id number]
--- NOTE | 2022-06-25 00:35 | PC.NURSE ---
Call placed to Hospitalist on duty. Reported: change in cardiac rhythm and rate. 12 lead EKG done rate is 58-60. BP 98/50 on max dose of Norepinephrine of 20 mg/kg. patient is on heated high flow O2 60L - 65%. Patient is a limited code with ICU admission the only intervention allowed. Patient is arousable to name and shaking his shoulder and stated you always do that when I finally get comfortable . Patient repositioned to maxmize airway to be open.
[2022-06-25 02:11] LABS: Basophils # 0.1 10^3/uL (0.0-0.1); Basophils % 0.2 %; Eosinophils # 0.2 10^3/uL (0.0-0.8); Eosinophils % 0.8 %; Hematocrit 41.4 % (42.0-52.0); Hemoglobin 12.5 g/dL (11.7-16.6); Lymphocytes # 0.3 10^3/uL (0.8-4.8); Lymphocytes % 1.1 %; Mean Corpuscular HGB Conc 30.2 g/dL (30.0-36.0); Mean Corpuscular Hemoglobin 26.5 pg (28.0-34.0); Mean Corpuscular Volume 87.7 fl (80-94); Mean Platelet Volume 10.1 fL (7.4-10.4); Monocytes # 0.9 10^3/uL (0.2-0.9); Monocytes % 3.5 %; Neutrophils # 23.05 10^3/uL (1.8-7.7); Neutrophils % 92.9 %; Nucleated Red Blood Cells # 0.1 /100WBC; Nucleated Red Blood Cells % 0.2 %; Platelet Count 219 10^3/cmm (130-400); Red Blood Count 4.72 10^6/uL (4.1-5.3); Red Cell Distribution Width 16.3 % (12.1-15.1); White Blood Count 24.8 10^3/uL (4.0-10.0)
[2022-06-25 02:32] LABS: Estmated Average Glucose 80; Hemoglobin A1C 4.4 % (4.0-6.0)
[2022-06-25 02:39] LABS: Anion Gap 12.8 (5-19); Aspartate Amino Transferase 12 U/L (0-40); Blood Urea Nitrogen 57 mg/dL (8-23); Calcium 7.7 mg/dL (8.5-10.5); Carbon Dioxide 18 mmol/L (22-29); Chloride 104 mmol/L (98-107); Glucose 201 mg/dL (65-115); Osmolality Calculated 294 mOsm/kg (285-295); Potassium 3.8 mmol/L (3.5-5.1); Sodium 131 mmol/L (136-145); Total Bilirubin 0.2 mg/dL (0.15-1.2)
[2022-06-25] MEDS: albuterol 2.5 mg/3 mL Neb INHALATION ×6 (03:00→23:55)
[2022-06-25] MEDS: acetylcysteine 200 mg/mL SDV 4 mL 100 MG INHALATION ×6 (03:00→23:55)
[2022-06-25 03:08] LABS: Troponin(5th) Baseline 66 ng/L (0-15)
[2022-06-25 03:10] LABS: Alanine Aminotransferase 21 U/L (0-41); Alkaline Phosphatase 80 U/L (40-130); Cholesterol 99 mg/dL (0-200); Globulin 3.4 g/dL (1.3-4.6); HDL Cholesterol 66 mg/dL (60-100); Triglycerides 34 mg/dL (0-150); VLDL Cholestrol Calculation 7 mg/dL (0-30)
[2022-06-25 03:16] LABS: Albumin Level 1.6 g/dL (3.5-5.2); LDL Cholesterol Calculated 26 mg/dL (50-129)
[2022-06-25] MEDS: norepinephrine 8 MG in dextrose 5 % 500 ML 68.58 MG IV (05:37)
[2022-06-25 06:07] LABS: Glucose Point of Care 200 mg/dL (70-110)
--- NOTE | 2022-06-25 06:25 | ECG_ITS ---
[facility] Test Date: 2022-06-25 Pat Name: Steven Whitney Department: Room: [facility] Gender: Male Brim Raiser: : 1940 Requested By: Cyril Coreas Order Number: [id number] Jerry MD: Marbin Chappell M.D. Measurements Intervals [place] Rate: 62 P: 0 MI: 0 QRS: 83 QRSD: 155 T: 90 QT: 393 QTc: 402 Interpretive Statements ATRIAL FIBRILLATION INTRAVENTRICULAR CONDUCTION DELAY [130+ ms QRS DURATION] Compared to ECG 06/24/2022 23:44:47 Intraventricular conduction delay now present Sinus bradycardia no longer present ST (T wave) deviation no longer present Electronically Signed On 06-25-2022 14:13:08 MOLD CLOSER by Marbin Chappell M.D. [id number]
[2022-06-25] MEDS: hydrocortisone 100 mg/2 mL SDV 50 MG IVP ×3 (06:29→18:00)
[2022-06-25 07:55] LABS: Troponin 5 6HR 69.97 ng/L (0-15); Troponin 5 6HR Delta 3.97 ng/L (0-12)
--- NOTE | 2022-06-25 09:03 | XR_ITS ---
WS: [id number] Portable AP upright chest, 06/25/2022 Clinical Data: [place] Comparison: Portable chest, 06/24/2022. Findings: The patchy opacity in the left lung remains the same. Patchy opacity in the right hilum and adjacent to the right diaphragm has increased. The heart is enlarged. The pulmonary vascularity is n ormal. There is no pneumothorax. Monitor leads are on the chest wall. Midline sternotomy sutures and upper mediastinal clips remain the same. There is osteoarthritis of the right shoulder joint. XR/XR chest 1V portable [id number] Impression: 1. Increase in patchy opacity in the right hilum and overt surface of right carin phragm. 2. No change in patchy left lung opacity. 3. Cardiomegaly.
[2022-06-25 09:09] LABS: ABG PCO2 47.5 mmHg (35-45); ABG PH Result 7.22 (7.35-7.45); Arterial Blood Gas Hematocrit 40.6 % (42-52); Base Excess ABG -8.5 mmol/L (-2.0-2.0); Blood Gas Allen Test Pos; Blood Gas Sample Type Arterial; Carboxyhemoglobin 0.7 %THgb (0.4-20.1); HCO3 ABG 19.3 mmol/L (22-26); HGB O2 Sat 93.9 % (95-100); Ionized Calcium Level - ABG 1.1 mmol/L (1.1-1.4); Methemoglobin 0.6 % (0.4-1.5); Oxygen Saturation ABG 95.1; PO2 ABG 71.4 mmHg (80.0-100.0); Total Hemoglobin 13.3 g/dL (14-18)
[2022-06-25 09:10] LABS: Alveolar-Arterial Oxygen Gradi 39.2 mmHg (5-10); Blood Gas Operator Identificat MONRO; Blood Gas Sample Site Radial, right; Oxygen Device NC
[2022-06-25] MEDS: sodium chloride 3.5% neb 4 mL Neb INHALATION ×2 (09:15→20:35)
[2022-06-25] MEDS: nicotine 14 mg Patch 1 PATCH TRANSDERMA (09:25)
[2022-06-25] MEDS: pantoprazole 40 mg SDV IV (09:25)
[2022-06-25] MEDS: finasteride 5 mg Tablet PEG-TUBE (09:25)
[2022-06-25] MEDS: midodrine 5 mg TABLET 10 MG PO (09:25)
[2022-06-25] MEDS: guaiFENesin 600 mg Tablet 1200 MG PO ×2 (09:25→17:59)
--- NOTE | 2022-06-25 10:07 | P.PN_ITS ---
Subjective Subjective: -Patient had episodes of bradycardia overnight-started on dopamine -Appeared more drowsy today- -Chest [id number] congested with right-sided infiltrates -Given 1 dose of albumin-Levophed down to 5 from 18; added dopamine for persistent bradycardia; discontinued midodrine -Sputum culture growing E. coli and Klebsiella ESBL-continue meropenem, linezolid -Hospitalist revised goals of care with patient-currently DNR/DNI-agreeable to current medical management-if things does not improve-he would want hospice Medications: Reviewed: Yes Vitals/I&O/Wt Last Vital Signs Temp 98.1 F 06/24/22 16:15 Pulse 67 06/25/22 09:15 Resp 24 H 06/25/22 09:15 BP 112/62 06/25/22 06:15 Pulse Ox 95 06/25/22 09:15 O2 Del Method 06/25/22 09:15 O2 Flow Rate 60 06/25/22 09:15 FiO2 66 06/25/22 09:15 06/24/22 06/25/22 06/25/22 22:59 06:59 14:59 Intake Total 923.748 / 2173.974 502.92 / 2676.894 Output Total 75 / 150 320 / 470 Balance 848.748 / 2023.974 182.92 / 2206.894 Weight last 48 hrs Weight 120 lb Physical Exam Narrative: PHYSICAL EXAM: General: lying in bed, not in acute distress, following commands HEENT:NCAT, PERRLA, EOMI Neck: Supple Lungs: Reduced breath sounds on left lung Heart: s1/s2, RRR Abd: soft, NT, ND, BS + Normoactive Extremities: Left above-knee amputation, edema in right lower extremity REAL ESTATE INSTRUCTOR: 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 SKIN: no rash CVC Right femoral line 06/24/22 Data 06/25/22 01:38 06/25/22 01:38 Other Labs: Radiology Impressions Duplex Scan Lower Extremity Artery 06/22/22 13:39 IMPRESSION: No stenosis or occlusion. Chest CT 06/22/22 13:52 IMPRESSION: 1. Complete opacity with apparent lobar collapse in the left lung. 2. Hyper expanded right lung otherwise clear 3. Volume loss left hemithorax. 4. Metallic sternotomy wires are present. 5. Heavy coronary artery calcifications. 6. Multiple benign renal cyst 7. 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 8. Multiple benign bilateral renal cyst. 9. Gastrostomy tube is within the stomach 10. Status post cholecystectomy COMMENTS: Consistent with the [employer] [place] [employer]'s Incidental Findings Committee white paper (J Am Billy Radiol 2018): Any incidental renal lesion less than 1 cm or classified as too small to characterize, or any incidental cystic renal lesion characterized as simple-appearing, is likely benign. No follow-up imaging is recommended for these lesions per consensus recommendations based on imaging criteria. Venous Duplex 06/22/22 18:31 IMPRESSION: No evidence of deep vein thrombosis. Chest X-Ray 06/25/22 09:03 Impression: 1. Increase in patchy opacity in the right hilum and overt surface of right diaphragm. 2. No change in patchy left lung opacity. 3. Cardiomegaly. Laboratory Results WBC 24.8 10^3/uL (4.0-10.0) H 06/25/22 01:38 RBC 4.72 10^6/uL (4.1-5.3) 06/25/22 01:38 Hgb 12.5 g/dL (11.7-16.6) 06/25/22 01:38 Hct 41.4 % (42.0-52.0) L 06/25/22 01:38 MCV 87.7 fl (80-94) 06/25/22 01:38 MCH 26.5 pg (28.0-34.0) L 06/25/22 01:38 MCHC 30.2 g/dL (30.0-36.0) 06/25/22 01:38 RDW 16.3 % (12.1-15.1) H 06/25/22 01:38 Plt Count 219 10^3/cmm (130-400) 06/25/22 01:38 MPV 10.1 fL (7.4-10.4) 06/25/22 01:38 Neut % (Auto) 92.9 % 06/25/22 01:38 Lymph % (Auto) 1.1 % 06/25/22 01:38 [place] % (Auto) 3.5 % 06/25/22 01:38 Eos % (Auto) 0.8 % 06/25/22 01:38 Baso % (Auto) 0.2 % 06/25/22 01:38 Neut # (Auto) 23.05 10^3/uL (1.8-7.7) H 06/25/22 01:38 Lymph # (Auto) 0.3 10^3/uL (0.8-4.8) L 06/25/22 01:38 [place] # (Auto) 0.9 10^3/uL (0.2-0.9) 06/25/22 01:38 Eos # (Auto) 0.2 10^3/uL (0.0-0.8) 06/25/22 01:38 Baso # (Auto) 0.1 10^3/uL (0.0-0.1) 06/25/22 01:38 Nucleated RBC % (auto) 0.2 % 06/25/22 01:38 Nucleated RBCs # 0.1 /100WBC 06/25/22 01:38 ESR 38 mm/hr (0-10) H 06/22/22 13:47 PT 13.00 SECONDS (12.1-14.9) 06/22/22 13:47 INR 0.96 (0.8-1.2) 06/22/22 13:47 APTT 56.5 SECONDS (23.9-36.7) H 06/24/22 03:27 APTT 64.9 SECONDS (23.9-36.7) H 06/24/22 03:27 D-Dimer 1.50 ug/mIFEU (0-0.59) H 06/22/22 13:47 Specimen Type Arterial 06/25/22 08:56 Sample Site Radial, right 06/25/22 08:56 ABG pH 7.22 (7.35-7.45) L 06/25/22 08:56 ABG pCO2 47.5 mmHg (35-45) H 06/25/22 08:56 ABG pO2 71.4 mmHg (80.0-100.0) L 06/25/22 08:56 ABG HCO3 19.3 mmol/L (22-26) L 06/25/22 08:56 ABG O2 Saturation 95.1 06/25/22 08:56 ABG Base Excess -8.5 mmol/L (-2.0-2.0) L 06/25/22 08:56 Jose Test Pos 06/25/22 08:56 A-a O2 Gradient 39.2 mmHg (5-10) H 06/25/22 08:56 Hematocrit 40.6 % (42-52) L 06/25/22 08:56 Hgb O2 Saturation 93.9 % (95-100) L 06/25/22 08:56 Carboxyhemoglobin 0.7 %THgb (0.4-20.1) 06/25/22 08:56 Methemoglobin 0.6 % (0.4-1.5) 06/25/22 08:56 Total Hemoglobin 13.3 g/dL (14-18) L 06/25/22 08:56 Sodium 131.0 mmol/L (131-143) 06/25/22 08:56 Potassium 4.0 mmol/L (3.5-5.0) 06/25/22 08:56 Glucose 169.0 mg/dL (70-115) H 06/25/22 08:56 Ionized Calcium 1.1 mmol/L (1.1-1.4) 06/25/22 08:56 O2 Delivery Device Nc 06/25/22 08:56 O2 Liters/Min 60.0 % 06/25/22 08:56 FiO2 60.0 % 06/25/22 08:56 Inside Sales Advertising Executive ID [place] 06/25/22 08:56 Sodium 131 mmol/L (136-145) L 06/25/22 01:38 Potassium 3.8 mmol/L (3.5-5.1) 06/25/22 01:38 Chloride 104 mmol/L (98-107) 06/25/22 01:38 Carbon Dioxide 18 mmol/L (22-29) L 06/25/22 01:38 Anion Gap 12.8 (5-19) 06/25/22 01:38 BUN 57 mg/dL (8-23) H 06/25/22 01:38 Creatinine 2.3 mg/dL (0.7-1.2) H 06/25/22 01:38 GFR Calculation Not Reportable 06/25/22 01:38 Glucose 201 mg/dL (65-115) H 06/25/22 01:38 POC Glucose 110 mg/dL (70-110) 06/25/22 17:51 Estimat Average Glucose 80 06/25/22 01:38 Hemoglobin A1c 4.4 % (4.0-6.0) 06/25/22 01:38 Calculated Osmolality 294 mOsm/kg (285-295) 06/25/22 01:38 Lactic Acid 1.9 mmol/L (0.5-2.2) 06/22/22 13:47 Calcium 7.7 mg/dL (8.5-10.5) L 06/25/22 01:38 Magnesium 1.9 mg/dL (1.7-2.3) 06/25/22 01:38 Iron 13 ug/dL (59-158) L 06/24/22 03:27 TIBC 114 mcg/dl 06/24/22 03:27 % Saturation 11.4 % (20-50) L 06/24/22 03:27 Unsat Iron Binding 101 ug/dL (112-347) L 06/24/22 03:27 Total Bilirubin 0.2 mg/dL (0.15-1.2) 06/25/22 01:38 AST 12 U/L (0-40) 06/25/22 01:38 ALT 21 U/L (0-41) 06/25/22 01:38 Alkaline Phosphatase 80 U/L (40-130) 06/25/22 01:38 Troponin T Baseline 66 ng/L (0-15) H 06/25/22 01:38 Troponin T 120 Minute 66.30 ng/L (0-15) H 06/25/22 04:04 Delta Troponin T 0.30 ABS# (0-10) 06/25/22 04:04 Troponin T Hi Sens 6Hr 69.97 ng/L (0-15) H 06/25/22 07:27 Troponin T Hi Sens 6Hr Delta 3.97 ng/L (0-12) 06/25/22 07:27 C-Reactive Protein 74.4 mg/L (0.0-4.9) H 06/22/22 13:47 NT-Pro-B Natriuret Pep 97835 pg/mL (0-450) H 06/25/22 01:38 Total Protein 5.0 g/dL (6.6-8.7) L 06/25/22 01:38 Albumin 1.6 g/dL (3.5-5.2) L 06/25/22 01:38 Globulin 3.4 g/dL (1.3-4.6) 06/25/22 01:38 Triglycerides 34 mg/dL (0-150) 06/25/22 01:38 Cholesterol 99 mg/dL (0-200) 06/25/22 01:38 LDL Cholesterol, Calc 26 mg/dL (50-129) L 06/25/22 01:38 Total VLDL Cholesterol 7 mg/dL (0-30) 06/25/22 01:38 HDL Cholesterol 66 mg/dL (60-100) 06/25/22 01:38 Cholesterol/HDL Ratio 1.50 mg/dL (1.0-5.00) 06/25/22 01:38 Procalcitonin 1.66 ng/mL (0-0.5) H 06/24/22 03:27 Random Cortisol 62.78 ug/dL (2.47-19.5) H 06/22/22 14:55 Coronavirus 229E (PCR) Not detected (NOT DETECT) 06/22/22 13:48 SARS-CoV-2 (PCR) Not detected (NOT DETECT) 06/22/22 13:48 Micro: Microbiology 06/23/22 05:00 Sputum Culture - Preliminary Sputum - Expectorated Sputum Gram Negative Rods Gram Negative Rods#2 A&P Assessment and plan (1) Shock: (2) Acute respiratory failure with hypoxia: (3) Bradycardia: (4) Lung collapse: As above. (5) Aspiration into lower respiratory tract: (6) Hypoglycemia: Hypoglycemia protocol. Hydrocortisone. Resume tube feeds. (7) Hypotension: (8) Right leg swelling: (9) Acute kidney injury superimposed on CKD: (10) Goals of care, counseling/discussion: (11) Acute on chronic respiratory failure with hypoxia and hypercapnia: (12) COPD (chronic obstructive pulmonary disease): Qualifiers: COPD type: unspecified COPD Qualified Code(s): J44.9 - Chronic obstructive pulmonary disease, unspecified (13) Infection due to ESBL-producing Klebsiella pneumoniae: Plan #Left lung atelectasis with mediastinal shift-patient with recent episode of vomiting and aspiration -Improvement in left lung aeration-however increasing patchy opacity right hilum and over surface of right diaphragm -High flow nasal cannula FiO2 60 L 60% FiO2 and saturating 90 to 92% on monitor -Continue chest vest 3 times daily/hypertonic saline twice daily and Mucomyst twice daily -Recommended to keep n.p.o. -Continue trickle feeding through PEG tube -Currently on meropenem #Septic shock-sputum culture positive for ESBL Klebsiella, E. coli sensitive to meropenem -Currently on meropenem and to continue linezolid for 5 days -Currently on Levophed of 5 MCG and dopamine -Monitor blood pressure and taper down pressors as needed #Persistent bradycardia -QTc prolongation on EKG; delta troponin negative; elevated BNP-possibly secondary to fluid overload;-Electrolytes within normal limits -Started on dopamine - #CLAUDIO on CKD-reducing urine output in the context of hypotension-could be prerenal secondary to septic shock/overhydration #Metabolic acidosis-likely secondary to CKD -Acceptable electrolytes, previous lactic acid within normal range -Continue to monitor renal function/electrolytes/input output -Continue pressors to keep MAP > 60 #COPD -Albuterol 2.5 Mg every 4 hours scheduled #Right leg swelling with venous dermatitis and ulcerations -No evidence of DVT on Doppler ICU CHECKLIST: Problem list updated Verbal orders reviewed and signed Analgesia: N/A Glycemic Control: N/A Nutrition: Ensure through PEG tube Restraint Renewal (within 24 hrs): Yes Ulcer Prophylaxis: PPI Chemical Thromboprophylaxis: Prophylaxis: Heparin Mechanical Thromboprophylaxis: SCD Need for Central line: We will need if pressors requirement does not improve Need for Avilez catheter: For urine output monitoring Critical Care Time (No Overlap): 60 min This patient has a high probability of sudden, clinically significant d eterioration, which requires the highest level of physician preparedness to intervene urgently. I managed/supervised life or organ supporting interventions that required frequent physician assessment. I devoted my full attention in the ICU to the direct care of this patient for the period of time indicated above. Time I spent with family or surrogate(s) is included only if the patient was incapable of providing necessary information or participating in decision making. Time devoted to teaching and to any procedures I billed separately is not included. Attestations Medical Necessity Statement*: Still requiring high flow oxygen for respiratory support, pressors for hemodynamic support-need close ICU monitoring for septic shock likely secondary to ESBL Klebsiella/E. coli pneumonia Time Spent in Patient Care: Greater than 35 minutes (>than 50% of time spent in counselling and/or direct pt care on unit) . Critical Care Time: The high probabili ty of a clinically significant, sudd en or life threate mindy deterioration of the patient's? []?system(s) requi red my full and di rect attention, in tervention and per mindy management. The critical care time is as shown. This time is in ad dition to time spe nt performing any reported procedure s but includes the following: Servi neftali Provided: Tel emetry review Mech anical Ventilation Hemodynamic inter pretation, assessm ent and management Review and interp retation of CXR Re view and interpret ation of lab value s Review and inter pretation of micro biologic data and culture results Re view of medication s and administrati on Review and inte rpretation of Nutr ition requirements and management Di scussion of manage ment with other co nsultants and serv ices Clinical upda te to family membe rs [x] Patient ass essment, examinati on and interventio n [x] Documentatio n [x] Medication o rders and manageme nt? Critical Care Time (min): 60 Critical Care Time (min): 60 Coding Level of Care Code Established Pt Acute Husbandry Person for Chg Fwd Patient Type Established History Comprehensive Exam Comprehensive Medical Decision Making High Complexity Diagnoses Shock R57.9 Acute respiratory failure with hypoxia J96.01 Bradycardia R00.1 Lung collapse J98.19 Aspiration into lower respiratory tract T17.800A Hypoglycemia E16.2 Hypotension I95.9 Right leg swelling M79.89 Acute kidney injury superimposed on CKD N17.9; N18.9 Goals of care, counseling/discussion Z71.89 Acute on chronic respiratory failure with hypoxia and hypercapnia J96.21; J96.22 COPD (chronic obstructive pulmonary disease) J44.9 COPD type: unspecified COPD Infection due to ESBL-producing Klebsiella pneumoniae A49.8; Z16.12 Time Spent (min) 60
--- NOTE | 2022-06-25 10:26 | ECG_ITS ---
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 Measurements Intervals [place] Rate: 50 P: 0 WV: 0 QRS: -79 QRSD: 148 T: 79 QT: 507 QTc: 464 Interpretive Statements Normal sinus rhythm with frequent PVCs RIGHT BUNDLE BRANCH BLOCK [120+ ms QRS DURATION, UPRIGHT V1, 40+ ms S IN I/aVL/V4/V5/V6] LEFT ANTERIOR FASCICULAR BLOCK [QRS AXIS <= -45, QR IN I, RS IN II] INFERIOR MYOCARDIAL INFARCTION , OF INDETERMINATE AGE [40+ ms Q WAVE AND/OR ST/T ABNORMALITY IN II/aVF] Compared to ECG 06/25/2022 06:34:53 Right bundle-branch block now present Left anterior fascicular block now present Myocardial infarct finding now present Intraventricular conduction delay no longer present Electronically Signed On 06-25-2022 14:10:43 GLASS CUTTER HELPER by Marbin Chappell M.D. [email or web address]
--- NOTE | 2022-06-25 10:53 | PC.CHAP ---
Pastoral Care Encounter/Spiritual Assessment Type of Contact [] Declined supervisor metal fabricating visit [] Patient/Family/Request visit [] Outpatient visit [] Follow-up visit [] Physician referral [] Code/Alert [x] Routine visit [] Staff referral [] Actively dying [x] Patient sleeping [] Family support [] [] Out of room [] Palliative care [] [] Receiving care in room [] Pre-surgical visit [] Trauma [] Long length of stay [x] ICU visit [] Other: Relational/Emotional Strength [] Patient feels connected with others/family/visitors/staff [] Distress [] Loneliness/isolation [] Abandonment Spirituality of Patient [] Person of Narcisa [] Attends Pentecostalism of their Narcisa [] Believes in Prayer [] Reads Bible or Protestant materials [] There are Spiritual issues to be addressed Pump Oiler Interventions [x] Prayer [] Active listening [] Non-anxious presence [] Spiritual/emotional support [] Crisis/trauma care [] Spiritual counseling [] Bereavement support [] Provided bereavement packet [] Provided Bible/devotional materials [] Provided toy/stuffed animal, coloring book to patient or family member [] Provided Communion [] Anointing/[place] [] Salvation [x] Completed spiritual assessment [] Other: Impact on Illness or Injury [] Angry [] Fearful [] Anxious [] Often cries [] Exhaustion [] Unable to work [] Unable to attend sikh [] Unable to walk/stand [] Unable to read [] Unable to drive [] Unable to eat/drink [] Unable to sleep [] Unable to be with family [] Patient intubated [] Other: Summary Time spent with patient
[2022-06-25] MEDS: linezolid premix 600 MG/300 ML PREMIX 150 MG IV (11:01)
[2022-06-25] MEDS: albumin 37.5 GM/150 ML VIAL IV (11:06)
[2022-06-25 11:13] LABS: Magnesium 1.9 mg/dL (1.7-2.3); NT Pro B Type Natriuretic Pept 19351 pg/mL (0-450)
[2022-06-25] MEDS: sodium chloride 0.9% 1,000 ML 50 ML IV (11:24)
[2022-06-25] MEDS: heparin 5,000 unit/mL INJ 1 mL 5000 UNIT SUBCUT ×2 (11:29→22:29)
--- NOTE | 2022-06-25 13:02 | PC.SOCIAL ---
Imm update Imm updated with patient at bedside. Copy of page 2 provided. Patient verbalized understanding. Copy in chart initialed, dated and timed.
[2022-06-25 14:25] LABS: Glucose Point of Care 125 mg/dL (70-110)
[2022-06-25] MEDS: meropenem 1,000 MG in sodium chloride 0.9% (plus) 50 ML 100 MG IV ×2 (14:28→22:22)
--- NOTE | 2022-06-25 15:47 | PC.NURSE ---
Patient's heart rate has been variable all morning, but has overall trended lower. Was mostly in the 50's this morning and occaisonally dropping to the 40's. Now it is mostly in the 40's and occaisonalyl droping into the 30's. Nurse alerted Dr moreau. Received orders for dopamine drip.
--- NOTE | 2022-06-25 16:24 | PM.PN ---
Subjective Subjective: Overnight patient had episodes of bradycardia. Troponin cycled was done. Today morning examination patient is drowsy but wakes up to verbal stimulus. Dozing off during conversation but is alert and oriented x3. Urine output around 500 cc in last 24 hours. Levophed today morning was on 18 mics turned down to around 5. Patient continues to remain bradycardic so dopamine was added. Patient is on 60 L 60% FiO2 saturating more than 92%. Vitals/I&O/Wt Last Vital Signs Temp 97.2 F L 06/25/22 14:00 Pulse 52 L 06/25/22 15:50 Resp 22 H 06/25/22 15:50 BP 106/65 06/25/22 14:30 Pulse Ox 93 06/25/22 15:50 O2 Del Method 06/25/22 15:50 O2 Flow Rate 60 06/25/22 15:50 FiO2 60 06/25/22 15:50 06/25/22 06/25/22 06/25/22 06:59 14:59 22:59 Intake Total 852.92 / 3026.894 3875.559 / 3875.559 Output Total 320 / 470 175 / 175 Balance 532.92 / 2556.894 3700.559 / 3700.559 Weight last 48 hrs Weight 58.06 kg Weight 54.431 kg Physical Exam Narrative: HHF, hard of hearing, Const: COMMON NORMALS: patient oriented x3 and alert GENERAL APPEARANCE: cooperative and frail appearing NUTRITIONAL APPEARANCE: thin ORIENTATION/CONSCIOUSNESS: Yes awake HENMT: COMMON NORMALS: oropharynx normal Eye: OTHER: Strabismus Neck/C-Spine: COMMON NORMALS: no JVD Chest: OTHER: Healed sternotomy scar Resp: COMMON NORMALS: normal respiratory effort and clear to auscultation bilaterally AUSCULTATION: clear to auscultation bilaterally, rhonchi (Gurgling/crackles mid left chest), wheezes, breath sounds absent on th left (lower lung) and diminished lung sounds on the left Cardio: COMMON NORMALS: no JVD, regular rhythm, S1 normal heart sound present, S2 normal heart sound present and No murmurs present (Cardio) RHYTHM: regular rhythm HEART SOUNDS: S1 normal heart sound present and S2 normal heart sound present GI: COMMON NORMALS: Normal to inspection, nondistended, normoactive bowel sounds present, Soft to palpation and non-tender PALPATION: Yes Soft to palpation OTHER: Left abdomen PEG tube Left lower abdomen pain pump Extremity: COMMON NORMALS: no joint enlargement GENERAL: Yes edema (RLE below the knee) OTHER: Left AKA Neuro: COMMON NORMALS: patient oriented x3 and moves all extremities SENSORIUM/ORIENTATION: Yes alert OTHER: Mild to moderate dysarthria Skin: COMMON NORMALS: no rashes or lesions noted GENERAL SKIN EXAM: no rashes or lesions noted OTHER: Severe stasis dermatitis changes laterally with edema, shallow venous ulcerations as well as chronic dermatitis and hemosiderosis Data 06/25/22 01:38 06/25/22 01:38 Micro: Microbiology 06/23/22 05:00 Sputum Culture - Final Sputum - Expectorated Sputum Escherichia coli Klebsiella pneumonia esbl A&P Assessment and plan (1) Shock: Keep mean arterial pressure over 65. Continue normal saline at 50 cc/h. Start on IV albumin every 8 hourly. Wean off Levophed accordingly. Add dopamine for bradycardia. (2) Acute respiratory failure with hypoxia: Secondary to aspiration pneumonia. Chest x-ray seems to be improving. Appreciate pulmonology recommendation. Continue aggressive pulmonary toilet with chest vest, Mucomyst, nebulized saline, Mucinex. NPO. Sputum culture growing E. coli and Klebsiella ESBL. Sensitivities appreciated. Continue with meropenem. Continue linezolid to finish 5-day course. Oxygen supplementation keeping saturation over 88%. Wean hydrocortisone 50 mg every 8 hourly. D-dimer elevated to 1.5. Cannot do CTA given acute kidney injury versus CKD. PE less likely given age adjusted D-dimer. Stop heparin drip. Echocardiogram done shows no regional motion malady, EF of 65%, RVSP of 39 mmHg. Discussed in detail regarding goals of care with patient at bedside today. Patient wanted to know further detail regarding bronchoscopy and need for mechanical ventilator. We discussed given high oxygen requirement it is highly likely that patient will need to be on ventilator. We also discussed that for now we cannot say for certain that we will be able to extubate him immediately postprocedure despite possible that he will remain on ventilator for some time. Patient is concerned and asking if he will remain on ventilator for long-term. We discussed that for now given his oxygen requirement, overall clinical picture, severe deconditioning we cannot make promises of him coming off ventilator. Patient states he would not want to live in a vegetative state, given his age and chronic health issues he does not want to go ahead with ventilation. He wants to remain DNR/DNI. States if things do not improve he would rather go hospice but is agreeable with current medical management and trial of treatment. He does not want any aggressive treatment. Care discussed in detail with patient's on phone as well. She is agreeable. (3) Bradycardia: Electrolytes include magnesium within normal limits. QTC mildly elevated to 507. Stop midodrine. Add dopamine. (4) Lung collapse: As above. (5) Aspiration into lower respiratory tract: Dysphagia, history of aspiration, still eats by mouth as tolerating with intermittent aspiration, likely leading to the above condition. He did also have subtle vomiting once. (6) Hypoglycemia: Hypoglycemia protocol. Hydrocortisone. Resume tube feeds. (7) Hypotension: With septic shock. Hold off on antihypertensives. Serum cortisol level elevated. Wean down hydrocortisone to 50 mg every 6 hourly. Patient is fluid responsive. Sepsis fluid bolus. Normal saline 100 cc/h. (8) Right leg swelling: Current antibiotics will cover for any cellulitis. No arterial occlusion on duplex. Will request compression dressing. (9) Acute kidney injury superimposed on CKD: Creatinine is at 2, baseline fluctuates, this appears to be higher than usual. Possible ATN given sepsis. Medical reconciliation done for nephrotoxic drugs. Monitor BMP daily. (10) Goals of care, counseling/discussion: Plan Dysphagia: PEG tube in place, normally gives himself tube feeds tries to aim for 4 cans of Ensure in a day and water flushes. Has been taking things by mouth, states was told could do liquids by his prior surgeon. Discussed with him to avoid any oral intake apart from possibly small ice chips, swabs due to recurrent aspiration. Alternatively consideration of hospice and comfort care. Analgesia: Home dose of hydromorphone 4 mg every 4 hours as needed Glycemic control: Hypoglycemia protocol, Nutrition: Continue with home PEG tube feeds. N.p.o. CODE STATUS: Discussed in detail with the patient. DNR/DNI. PUD prophylaxis: Protonix DVT prophylaxis: Heparin 5000 every 12 hourly Aggressive bowel regimen Physical therapy Discharge planning: Home with or without hospice depending on clinical picture going forward Continue with care at ICU care This documentation was created by [employer] supervisor warping department software. Every effort was made to ensure accuracy of supervisor warping department. Any obvious errors or omissions should be clarified with the author of the document. Attestations Medical Necessity Statement*: Requires further hospital for management of septic shock with respiratory failure secondary to gram-negative pneumonia, bradycardia Critical Care Time: The high probability of a clinically significant, sudden or life threatening deterioration of the patient's [cardiac, pulmonary, ID, renal] system(s) required my full and direct attention, intervention and personal management. The critical care time is as shown. This time is in addition to time spent performing any reported procedures but includes the following: [x] Data and vital sign review and interpretation [x] Patient assessment, examination and intervention [x] Documentation [x] Medication orders and management Critical Care Time (min): 70 Coding Level of Care Code Acute Business Department Chair for [facility] Fwd Diagnoses Shock R57.9 Acute respiratory failure with hypoxia J96.01 Bradycardia R00.1 Lung collapse J98.19 Aspiration into lower respiratory tract T17.800A Hypoglycemia E16.2 Hypotension I95.9 Right leg swelling M79.89 Acute kidney injury superimposed on CKD N17.9; N18.9 Goals of care, counseling/discussion Z71.89
[2022-06-25] MEDS: DOPamine drip 400 MG/250 ML PREMIX 6.53 MG IV (16:26)
[2022-06-25 18:06] LABS: Glucose Point of Care 110 mg/dL (70-110)
--- NOTE | 2022-06-25 19:10 | PC.NURSE ---
SHift SUmmary: Heart rate has become more earratic throughout the day. Mostly bradycardic, but that has improved after dopamine. Frequently in and out of 1st degree blocks, bundle branch blocks, ST elevation, ventricular rhythms, and normal sinus. Heart rhythms have become more regular after dopamine was started. Initially when dopamine was started at a rate of [address] moreau, the patients heart rate became even more erratic, but normalized after reducing dopamine to 2. Levophed requirements have decreased from 18mcg to either 0 or 2 mcg after dopamine and albumin were started. Patient's mental status has been declining. He is becoming more lethargic and harder to wake up. Patient has stated that he wants to go on comfort care because he doesn't want to be a burden to his family and he knows he will not not a good quality of life even if he gets through this. However, he has changed his mind and wants to continue treatment. Patient has changed his mind multiple times about this today. Patient states that he wants to discuss this with his family, but whenever nurse tries to get him to talk to them or ask them to come in he refuses.
[2022-06-25] MEDS: magnesium hydroxide 30 mL UDC PEG-TUBE (20:33)
[2022-06-25] MEDS: sennosides 8.6 mg Tablet 17.2 MG PEG-TUBE (20:33)
[2022-06-25] MEDS: norepinephrine 8 MG in dextrose 5 % 500 ML 3.81 MG IV (21:11)
[2022-06-25] MEDS: linezolid premix 600 MG/300 ML PREMIX 300 MG IV (22:45)
[2022-06-26] VITALS (105 sets, daily range): BP systolic 71–139; BP diastolic 43–108; PULSE 54–145; RESP 6–25; TEMP 36.2–36.7; O2SAT 78–97
[2022-06-26 00:51] LABS: Glucose Point of Care 116 mg/dL (70-110)
[2022-06-26] MEDS: hydrocortisone 100 mg/2 mL SDV 50 MG IVP ×2 (02:38→15:12)
[2022-06-26 02:57] LABS: Basophils % 0.2 %; Hemoglobin 11.4 g/dL (11.7-16.6); Lymphocytes # 0.3 10^3/uL (0.8-4.8); Lymphocytes % 1.6 %; Mean Corpuscular HGB Conc 31.7 g/dL (30.0-36.0); Mean Corpuscular Hemoglobin 26.7 pg (28.0-34.0); Mean Corpuscular Volume 84.3 fl (80-94); Mean Platelet Volume 10.4 fL (7.4-10.4); Monocytes # 0.4 10^3/uL (0.2-0.9); Monocytes % 2.2 %; Neutrophils # 15.01 10^3/uL (1.8-7.7); Neutrophils % 94.2 %; Nucleated Red Blood Cells % 0.2 %; Platelet Count 165 10^3/cmm (130-400); Red Blood Count 4.27 10^6/uL (4.1-5.3); Red Cell Distribution Width 16.3 % (12.1-15.1); White Blood Count 15.9 10^3/uL (4.0-10.0)
[2022-06-26 03:26] LABS: Alanine Aminotransferase 14 U/L (0-41); Albumin Level 2.8 g/dL (3.5-5.2); Alkaline Phosphatase 143 U/L (40-130); Anion Gap 14.1 (5-19); Aspartate Amino Transferase 10 U/L (0-40); Blood Urea Nitrogen 56 mg/dL (8-23); Carbon Dioxide 20 mmol/L (22-29); Chloride 104 mmol/L (98-107); Globulin 2.3 g/dL (1.3-4.6); Glucose 109 mg/dL (65-115); Osmolality Calculated 294 mOsm/kg (285-295); Potassium 4.1 mmol/L (3.5-5.1); Sodium 134 mmol/L (136-145); Total Bilirubin 0.3 mg/dL (0.15-1.2); Total Protein 5.1 g/dL (6.6-8.7)
[2022-06-26] MEDS: albuterol 2.5 mg/3 mL Neb INHALATION ×6 (05:04→23:42)
[2022-06-26] MEDS: acetylcysteine 200 mg/mL SDV 4 mL 100 MG INHALATION ×6 (05:05→23:41)
[2022-06-26 05:25] LABS: Glucose Point of Care 124 mg/dL (70-110)
--- NOTE | 2022-06-26 08:12 | XRR_ITS ---
PROCEDURE INFORMATION: Exam: XR Chest Exam date and time: 06/26/2022 8:17 AM Age: 82 years old Clinical indication: Dyspnea; Prior surgery; Surgery type: Open heart; Additional info: History--possible collapsed lung TECHNIQUE: Imaging protocol: Radiologic exam of the chest. Views: 1 view. COMPARISON: CR XR chest 1V portable [id number] 06/25/2022 9:21 AM FINDINGS: Lungs: There are worsening bilateral pulmonary infiltrates and atelectasis especially in the left lung base. Pleural spaces: Small bilateral pleural effusions. No pneumothorax. Heart/Mediastinum: Cardiac silhouette is enlarged but unchanged. Status post coronary bypass surgery. Bones/joints: Unremarkable. XR/XR chest 1V portable [id number] IMPRESSION: Worsening bilateral pulmonary infiltrates and atelectasis especially in the left lung base..
[2022-06-26] MEDS: sodium chloride 3.5% neb 4 mL Neb INHALATION ×2 (08:28→19:47)
[2022-06-26 08:34] LABS: Glucose Point of Care 86 mg/dL (70-110)
[2022-06-26] MEDS: pantoprazole 40 mg SDV IV (09:01)
[2022-06-26] MEDS: guaiFENesin 600 mg Tablet 1200 MG PO ×2 (09:01→18:16)
[2022-06-26] MEDS: nicotine 14 mg Patch 1 PATCH TRANSDERMA (09:01)
[2022-06-26] MEDS: finasteride 5 mg Tablet PEG-TUBE (09:01)
[2022-06-26] MEDS: sodium chloride 0.9% 1,000 ML 50 ML IV (09:03)
--- NOTE | 2022-06-26 10:08 | PC.CHAP ---
Pastoral Care Encounter/Spiritual Assessment Type of Contact [] Declined upper and bottom lacer hand visit [] Patient/Family/Request visit [] Outpatient visit [] Follow-up visit [] Physician referral [] Code/Alert [x] Routine visit [] Staff referral [] Actively dying [] Patient sleeping [] Family support [] [] Out of room [] Palliative care [] [x] Receiving care in room [] Pre-surgical visit [] Trauma [] Long length of stay [x] ICU visit [x] Other: did a night call on PT.. questions regarding narcisa... resting better today Relational/Emotional Strength [] Patient feels connected with others/family/visitors/staff [] Distress [] Loneliness/isolation [] Abandonment Spirituality of Patient [] Person of Narcisa [] Attends Spiritism of their Narcisa [] Believes in Prayer [] Reads Bible or Baptism materials [] There are Spiritual issues to be addressed Dip Filler Interventions [x] Prayer [] Active listening [] Non-anxious presence [] Spiritual/emotional support [] Crisis/trauma care [] Spiritual counseling [] Bereavement support [] Provided bereavement packet [] Provided Bible/devotional materials [] Provided toy/stuffed animal, coloring book to patient or family member [] Provided Communion [] Anointing/[place] [] Salvation [x] Completed spiritual assessment [] Other: Impact on Illness or Injury [] Angry [] Fearful [] Anxious [] Often cries [] Exhaustion [] Unable to work [] Unable to attend yarsani [] Unable to walk/stand [] Unable to read [] Unable to drive [] Unable to eat/drink [] Unable to sleep [] Unable to be with family [] Patient intubated [] Other: Summary Time spent with patient
--- NOTE | 2022-06-26 10:21 | ECG_ITS ---
[facility] Test Date: 2022-06-26 Pat Name: Steven Whitney Department: Room: [facility] Gender: Male Corporate Director Of Pharmacy: : [id number] Requested By: Navin Meraz Order Number: [id number] Jerry MD: Indira Ponce M.D. Measurements Intervals [place] Rate: 68 P: 37 WV: 189 QRS: 17 QRSD: 95 T: 0 QT: 420 QTc: 447 Interpretive Statements SINUS RHYTHM WITH OCCASIONAL SUPRAVENTRICULAR PREMATURE COMPLEXES LOW QRS VOLTAGE IN EXTREMITY LEADS [QRS DEFLECTION < 0.5 mV IN LIMB LEADS] MODERATE ST DEPRESSION [0.05+ mV ST DEPRESSION] Compared to ECG 06/25/2022 10:26:32 Low QRS voltage now present ST (T wave) deviation now present Ventricular premature complex(es) no longer present Right bundle-branch block no longer present Left anterior fascicular block no longer present Myocardial infarct finding no longer present Electronically Signed On 06-27-2022 21:21:05 LOW HEEL BUILDER by Indira Ponce M.D. [id number]
[2022-06-26 10:48] LABS: Troponin T (5th) Once 78 ng/L (0-15)
[2022-06-26] MEDS: heparin 5,000 unit/mL INJ 1 mL 5000 UNIT SUBCUT ×2 (11:17→23:15)
[2022-06-26] MEDS: FUROsemide 10 mg/mL SDV 2mL 20 MG IVP ×2 (11:19→14:54)
[2022-06-26] MEDS: meropenem 500 MG in sodium chloride 0.9% (plus) 50 ML 100 MG IV (11:25)
--- NOTE | 2022-06-26 13:08 | CTR_ITS ---
PROCEDURE INFORMATION: Exam: CT Head Without Contrast Exam date and time: 06/26/2022 2:33 PM Age: 82 years old Clinical indication: Altered mental status/memory loss TECHNIQUE: Imaging protocol: Computed tomography of the head without contrast. Radiation optimization: All CT scans at this facility use at least one of these dose optimization techniques: automated exposure control; mA and/or kV adjustment per patient size (includes targeted exams where dose is matched to clinical indication); or iterative reconstruction. COMPARISON: CT head wo con* [id number] 06/19/2022 9:32 AM RADIATION DOSE METRICS: Total DLP (mGy-cm): 1108.85 FINDINGS: Brain: No hemorrhage. No edema. Moderate diffuse cerebral atrophy and sequela of chronic small vessel ischemic disease. No mass effect. Cerebral ventricles: No ventriculomegaly. Paranasal sinuses: Visualized sinuses are unremarkable. No fluid levels. Mastoid air cells: Right mastoid effusion. Left mastoid air cells are well pneumatized. Bones/joints: Unremarkable. No acute fracture. Soft tissues: Unremarkable. CT/CT head wo con* [id number] IMPRESSION: 1. No acute intracranial abnormality. 2. Right mastoid effusion.
--- NOTE | 2022-06-26 16:15 | PC.NURSE ---
SHift summary: Patient mental status has continued to decline. He is often times lethargic and sounds as though he is confused. WHen talking to the nurse and physician his speech is so mumbled that almost nothing can be understood, things that can be understood don't make sense in any context. Patient sent for a head CT due to mental status. Patients speech is more mumbled than yesterday, patient is weaker than yesterday and can no longer lift his hands to his face to suction secretions. Update has been given to . SHe is attempting to come visit, but doesn't have a car and doesn't have anyone to give her a ride. Yesterday, the nurse has attempted to get patient to speak to on the phone, but he had refused, since he was afraid the topic of end of life care was going to come up and he wasn't ready to discuss it. Patient's speech has declined to the point that a conversation is no longer possible.
--- NOTE | 2022-06-26 17:03 | PM.PN ---
Subjective Subjective: No acute events overnight. Today morning on examination patient seen 40 L 50% saturating high 80s to low 90s. Blood pressures have been better. Heart rate stable. Levophed has been weaned off. Currently on dopamine of 2.5. Urine output slightly better off around 750 cc in the last 24 hours. Patient is slightly confused today but able to have conversation. More awake than yesterday. Medications: Reviewed: Yes Vitals/I&O/Wt Last Vital Signs Temp 97.2 F L 06/26/22 12:15 Pulse 68 06/26/22 16:00 Resp 11 L 06/26/22 16:00 BP 90/52 06/26/22 16:00 Pulse Ox 87 L 06/26/22 16:00 O2 Del Method 06/26/22 15:00 O2 Flow Rate 40 06/26/22 15:01 FiO2 50 06/26/22 15:01 06/26/22 06/26/22 06/26/22 06:59 14:59 22:59 Intake Total 454.266 / 4510.440 1000 / 1000 50 / 1050 Output Total 550 / 900 50 / 50 Balance -95.734 / 3610.440 950 / 950 50 / 1000 Weight last 48 hrs Weight 58.151 kg Weight 58.06 kg Physical Exam Narrative: HHF, hard of hearing, Const: COMMON NORMALS: patient oriented x3 and alert GENERAL APPEARANCE: cooperative and frail appearing NUTRITIONAL APPEARANCE: thin ORIENTATION/CONSCIOUSNESS: Yes awake HENMT: COMMON NORMALS: oropharynx normal Eye: OTHER: Strabismus Neck/C-Spine: COMMON NORMALS: no JVD Chest: OTHER: Healed sternotomy scar Resp: COMMON NORMALS: normal respiratory effort and clear to auscultation bilaterally AUSCULTATION: clear to auscultation bilaterally, rhonchi (Gurgling/crackles mid left chest), wheezes, breath sounds absent on th left (lower lung) and diminished lung sounds on the left Cardio: COMMON NORMALS: no JVD, regular rhythm, S1 normal heart sound present, S2 normal heart sound present and No murmurs present (Cardio) RHYTHM: regular rhythm HEART SOUNDS: S1 normal heart sound present and S2 normal heart sound present GI: COMMON NORMALS: Normal to inspection, nondistended, normoactive bowel sounds present, Soft to palpation and non-tender PALPATION: Yes Soft to palpation OTHER: Left abdomen PEG tube Left lower abdomen pain pump Extremity: COMMON NORMALS: no joint enlargement GENERAL: Yes edema (RLE below the knee) OTHER: Left AKA Neuro: COMMON NORMALS: patient oriented x3 and moves all extremities SENSORIUM/ORIENTATION: Yes alert OTHER: Mild to moderate dysarthria Skin: COMMON NORMALS: no rashes or lesions noted GENERAL SKIN EXAM: no rashes or lesions noted OTHER: Severe stasis dermatitis changes laterally with edema, shallow venous ulcerations as well as chronic dermatitis and hemosiderosis Data 06/26/22 02:08 06/26/22 02:08 Micro: Microbiology 06/23/22 05:00 Sputum Culture - Final Sputum - Expectorated Sputum Escherichia coli Klebsiella pneumonia esbl A&P Assessment and plan (1) Shock: Keep mean arterial pressure over 65. Resolved. Stop IV fluids. Continue with IV albumin. Levophed weaned off. Continue with dopamine 2.5 at stable rate for today. Monitor input output. Hold off on antihypertensive. Serum cortisol level elevated. Weaning down Solu-Medrol. (2) Acute respiratory failure with hypoxia: Secondary to aspiration pneumonia. Chest x-ray seems to be improving. Oxygen being weaned off slowly. Keep saturation over 88%. Appreciate pulmonology recommendation. Continue aggressive pulmonary toilet with chest vest, Mucomyst, nebulized saline, Mucinex. NPO. Sputum culture growing E. coli and Klebsiella ESBL. Sensitivities appreciated. Continue with meropenem as per creatinine clearance of 21 Oxygen supplementation keeping saturation over 88%. Wean hydrocortisone 50 mg every 12 hourly. D-dimer elevated to 1.5. Cannot do CTA given acute kidney injury versus CKD. PE less likely given age adjusted D-dimer. Stop heparin drip. Echocardiogram done shows no regional motion malady, EF of 65%, RVSP of 39 mmHg. (3) Bradycardia: Most likely setting of sepsis. QTC prolonged yesterday. Better today. Repeat troponin. Heart rate better controlled today. Medical reconciliation done for rate controlling medications. Continue with dopamine. Electrolyte appreciated. Repeat EKG to monitor QTC. (4) Infection due to ESBL-producing Klebsiella pneumoniae: (5) Aspiration into lower respiratory tract: Dysphagia, history of aspiration, still eats by mouth as tolerating with intermittent aspiration, likely leading to the above condition. He did also have subtle vomiting once. (6) Acute kidney injury superimposed on CKD: The abdomen seems to be around 1.3-1.5. Currently around 2.3. Possible ATN given sepsis. Mild oliguria as well. Medical reconciliation done for nephrotoxic drugs. Monitor BMP daily. (7) Delirium: Most likely secondary to worsening CLAUDIO in setting of CKD. Check CT head. (8) Right leg swelling: Current antibiotics will cover for any cellulitis. No arterial occlusion on duplex. Will request compression dressing. (9) Lung collapse: As above. (10) Hypoglycemia: Hypoglycemia protocol. Hydrocortisone. Resume tube feeds. (11) Goals of care, counseling/discussion: Plan Dysphagia: PEG tube in place, normally gives himself tube feeds tries to aim for 4 cans of Ensure in a day and water flushes. Has been taking things by mouth, states was told could do liquids by his prior surgeon. Discussed with him to avoid any oral intake apart from possibly small ice chips, swabs due to recurrent aspiration. Alternatively consideration of hospice and comfort care. Analgesia: Home dose of hydromorphone 4 mg every 4 hours as needed Glycemic control: Hypoglycemia protocol, Nutrition: Continue with home PEG tube feeds. N.p.o. CODE STATUS: Discussed in detail with the patient. DNR/DNI. PUD prophylaxis: Protonix DVT prophylaxis: Heparin 5000 every 12 hourly Aggressive bowel regimen Physical therapy Discharge planning: Home with or without hospice depending on clinical picture going forward Continue with care at ICU care. Discussed in detail regarding goals of care with patient at bedside . Patient wanted to know further detail regarding bronchoscopy and need for mechanical ventilator. We discussed given high oxygen requirement it is highly likely that patient will need to be on ventilator. We also discussed that for now we cannot say for certain that we will be able to extubate him immediately postprocedure despite possible that he will remain on ventilator for some time. Patient is concerned and asking if he will remain on ventilator for long-term. We discussed that for now given his oxygen requirement, overall clinical picture, severe deconditioning we cannot make promises of him coming off ventilator. Patient states he would not want to live in a vegetative state, given his age and chronic health issues he does not want to go ahead with ventilation. He wants to remain DNR/DNI. States if things do not improve he would rather go hospice but is agreeable with current medical management and trial of treatment. He does not want any aggressive treatment. Care discussed in detail with patient's on phone as well. She is agreeable. This documentation was created by [employer] heavy equipment supervisor software. Every effort was made to ensure accuracy of heavy equipment supervisor. Any obvious errors or omissions should be clarified with the author of the document. Attestations Medical Necessity Statement*: Requires further hospitalization for management of resolving shock in setting of ESBL pneumonia/aspiration pneumonia in a patient with chronic PEG tube, delirium in setting of CLAUDIO on CKD, bradycardia, shock requiring dopamine Critical Care Time: The high probability of a clinically significant, sudden or life threatening deterioration of the patient's [cardiac, renal, pulmonary, neurological] system(s) required my full and direct attention, intervention and personal management. The critical care time is as shown. This time is in addition to time spent performing any reported procedures but includes the following: [x] Data and vital sign review and interpretation [x] Patient assessment, examination and intervention [x] Documentation [x] Medication orders and management Critical Care Time (min): 80 Coding Level of Care Code Acute Front Loader Residential Driver for [facility] Fwd Exam Comprehensive Diagnoses Shock R57.9 Acute respiratory failure with hypoxia J96.01 Bradycardia R00.1 Infection due to ESBL-producing Klebsiella pneumoniae A49.8; Z16.12 Aspiration into lower respiratory tract T17.800A Acute kidney injury superimposed on CKD N17.9; N18.9 Delirium R41.0 Right leg swelling M79.89 Lung collapse J98.19 Hypoglycemia E16.2 Goals of care, counseling/discussion Z71.89
[2022-06-26 19:02] LABS: Glucose Point of Care 133 mg/dL (70-110)
[2022-06-26] MEDS: sennosides 8.6 mg Tablet 17.2 MG PEG-TUBE (21:14)
[2022-06-26] MEDS: magnesium hydroxide 30 mL UDC PEG-TUBE (21:14)
[2022-06-27] VITALS (44 sets, daily range): BP systolic 82–116; BP diastolic 37–67; PULSE 52–81; RESP 10–24; TEMP 36.3–37.1; O2SAT 81–95
[2022-06-27] MEDS: meropenem 500 MG in sodium chloride 0.9% (plus) 50 ML 100 MG IV ×2 (00:12→12:03)
[2022-06-27 00:20] LABS: Glucose Point of Care 104 mg/dL (70-110)
[2022-06-27 02:12] LABS: Basophils % 0.1 %; Eosinophils % 0.1 %; Hematocrit 32.6 % (42.0-52.0); Hemoglobin 10.4 g/dL (11.7-16.6); Lymphocytes # 0.4 10^3/uL (0.8-4.8); Lymphocytes % 2.3 %; Mean Corpuscular HGB Conc 31.9 g/dL (30.0-36.0); Mean Corpuscular Hemoglobin 26.7 pg (28.0-34.0); Mean Corpuscular Volume 83.6 fl (80-94); Mean Platelet Volume 10.4 fL (7.4-10.4); Monocytes # 0.5 10^3/uL (0.2-0.9); Monocytes % 3.5 %; Neutrophils # 14.39 10^3/uL (1.8-7.7); Neutrophils % 93.3 %; Nucleated Red Blood Cells % 0.2 %; Platelet Count 145 10^3/cmm (130-400); Red Cell Distribution Width 16.6 % (12.1-15.1); White Blood Count 15.4 10^3/uL (4.0-10.0)
[2022-06-27 02:33] LABS: Alanine Aminotransferase 13 U/L (0-41); Albumin Level 3.1 g/dL (3.5-5.2); Alkaline Phosphatase 68 U/L (40-130); Anion Gap 12.6 (5-19); Aspartate Amino Transferase 9 U/L (0-40); Blood Urea Nitrogen 64 mg/dL (8-23); Calcium 7.6 mg/dL (8.5-10.5); Carbon Dioxide 21 mmol/L (22-29); Chloride 103 mmol/L (98-107); Globulin 1.8 g/dL (1.3-4.6); Glucose 108 mg/dL (65-115); Osmolality Calculated 293 mOsm/kg (285-295); Potassium 4.6 mmol/L (3.5-5.1); Sodium 132 mmol/L (136-145); Total Bilirubin 0.2 mg/dL (0.15-1.2); Total Protein 4.9 g/dL (6.6-8.7)
[2022-06-27] MEDS: hydrocortisone 100 mg/2 mL SDV 50 MG IVP ×2 (03:26→10:38)
[2022-06-27] MEDS: albuterol 2.5 mg/3 mL Neb INHALATION ×5 (04:48→20:01)
[2022-06-27] MEDS: acetylcysteine 200 mg/mL SDV 4 mL 100 MG INHALATION ×5 (04:49→20:01)
[2022-06-27 06:20] LABS: Glucose Point of Care 97 mg/dL (70-110)
--- NOTE | 2022-06-27 06:31 | PC.NURSE ---
Patient did require slight increase in dopamine drip and oxygen support overnight. Dopamine increased to 3mg/kg per MAR to maintain MAP greater than 65, and oxygen titrated up to 50L/75% on heated high flow to maintain oxygen above 88%. Even on increased oxygen support, does frequently drip below 88% with position changes, and with large build up of sputum. Frequent suctioning required. Slowly recovers oxygen saturation at rest. Minimal urinary output overnight. No other significant changes during shift.
[2022-06-27] MEDS: guaiFENesin 600 mg Tablet 1200 MG PO (08:59)
[2022-06-27] MEDS: finasteride 5 mg Tablet PEG-TUBE (08:59)
[2022-06-27] MEDS: pantoprazole 40 mg SDV IV (09:00)
[2022-06-27] MEDS: nicotine 14 mg Patch 1 PATCH TRANSDERMA (09:00)
[2022-06-27] MEDS: sodium chloride 3.5% neb 4 mL Neb INHALATION (09:28)
[2022-06-27] MEDS: sodium chloride 0.9% 1,000 ML 75 ML IV (10:31)
[2022-06-27] MEDS: heparin 5,000 unit/mL INJ 1 mL 5000 UNIT SUBCUT (10:31)
[2022-06-27] MEDS: sodium chloride 0.9% 500 ML 999 ML IV (10:31)
[2022-06-27] MEDS: morphine 4 mg/mL SDV 1 mL 2 MG IVP (12:01)
--- NOTE | 2022-06-27 16:26 | PC.SOCIAL ---
IMM update IMM not updated as patient isn't A&O and CM unable to get ahold of patient's .
[2022-06-27] MEDS: morphine 4 mg/mL SDV 1 mL IVP ×2 (16:50→23:17)
[2022-06-27] MEDS: LORazepam 2 mg/mL INJ 1 mL IVP (16:50)
--- NOTE | 2022-06-27 16:55 | PC.NURSE ---
Patient continues to deteriorate, requiring more oxygen demands and to the point of needing intubation. Patient does not want any more procedures done and per code status not to intubate or resuscitated. Notified Dr. Meraz of patients condition, Dr. Meraz was able to get ahold of early this morning and discussed comfort care/hospice care for patient. Patient has comfort care orders, medication administered per MAR and protocol. Staff and case management still unable to get ahold of for hospice placement at home or nursing facility. Patient is resting in room comfortably at this time.
--- NOTE | 2022-06-27 18:11 | PM.PN ---
Subjective Subjective: Overnight patient's oxygen supplementation requirements have gone up. He is saturating at high 80s on 50 L 80%. During the day patient brought a big amount of mucous plug after which his saturations improved but his mentation continued to deteriorate. Urine output has been minimal. Patient's dopamine requirement has slightly gone up overnight as well. Patient is found to be in worsening renal functions with uremia. Patient's care was discussed in detail with his over the phone. We discussed that unfortunately patient either goes into respiratory failure, septic shock or renal failure since admission. If he gets fluid for resolution of uremia from CLAUDIO his respiratory status worsens and if he tried to dry him up for respiratory status his renal functions worsen. We discussed that he possibly will require dialysis for complete resolution of symptoms once his hemodynamics remained stable. We also discussed that at first when patient's mentation was at baseline he did not want any aggressive treatment and stated if his care is becoming complicated and prolonged he would rather go hospice as he does not want to remain a vegetable about on anyone. verbalized understanding and after discussing further she opted for hospice. Patient was transitioned over to hospice, transition to high flow nasal cannula and dopamine was weaned off. On weaning off of dopamine patient saturation has maintained on mid 80s with maps in 60s. Patient's mentation has remained poor. Medications: Reviewed: Yes Vitals/I&O/Wt Last Vital Signs Temp 98.7 F 06/27/22 10:07 Pulse 63 06/27/22 16:09 Resp 24 H 06/27/22 16:09 BP 82/37 06/27/22 16:48 Pulse Ox 81 L 06/27/22 16:48 O2 Del Method 06/27/22 16:09 O2 Flow Rate 8 06/27/22 16:09 FiO2 50 06/27/22 15:57 06/27/22 06/27/22 06/27/22 06:59 14:59 22:59 Intake Total 186.816 / 1246.816 862.567 / 862.567 Output Total 200 / 350 Balance -13.184 / 896.816 862.567 / 862.567 Weight last 48 hrs Weight 58.967 kg Weight 58.151 kg Physical Exam Narrative: HHF, hard of hearing, Const: COMMON NORMALS: patient oriented x3 and alert GENERAL APPEARANCE: cooperative and frail appearing NUTRITIONAL APPEARANCE: thin ORIENTATION/CONSCIOUSNESS: Yes awake HENMT: COMMON NORMALS: oropharynx normal Eye: OTHER: Strabismus Neck/C-Spine: COMMON NORMALS: no JVD Chest: OTHER: Healed sternotomy scar Resp: COMMON NORMALS: normal respiratory effort and clear to auscultation bilaterally AUSCULTATION: clear to auscultation bilaterally, rhonchi (Gurgling/crackles mid left chest), wheezes, breath sounds absent on th left (lower lung) and diminished lung sounds on the left Cardio: COMMON NORMALS: no JVD, regular rhythm, S1 normal heart sound present, S2 normal heart sound present and No murmurs present (Cardio) RHYTHM: regular rhythm HEART SOUNDS: S1 normal heart sound present and S2 normal heart sound present GI: COMMON NORMALS: Normal to inspection, nondistended, normoactive bowel sounds present, Soft to palpation and non-tender PALPATION: Yes Soft to palpation OTHER: Left abdomen PEG tube Left lower abdomen pain pump Extremity: COMMON NORMALS: no joint enlargement GENERAL: Yes edema (RLE below the knee) OTHER: Left AKA Neuro: COMMON NORMALS: patient oriented x3 and moves all extremities SENSORIUM/ORIENTATION: Yes alert OTHER: Mild to moderate dysarthria Skin: COMMON NORMALS: no rashes or lesions noted GENERAL SKIN EXAM: no rashes or lesions noted OTHER: Severe stasis dermatitis changes laterally with edema, shallow venous ulcerations as well as chronic dermatitis and hemosiderosis Data 06/27/22 01:48 06/27/22 01:48 Micro: Microbiology 06/22/22 13:42 Blood Culture - Final Blood NO GROWTH AFTER 5 DAYS 06/22/22 13:47 Blood Culture - Final Blood NO GROWTH AFTER 5 DAYS A&P Assessment and plan (1) Shock: Keep mean arterial pressure over 65. Resolved. Stop IV fluids. Continue with IV albumin. Levophed weaned off. Continue with dopamine 2.5 at stable rate for today. Monitor input output. Hold off on antihypertensive. Serum cortisol level elevated. Weaning down Solu-Medrol. (2) Acute respiratory failure with hypoxia: Secondary to aspiration pneumonia. Chest x-ray seems to be improving. Oxygen being weaned off slowly. Keep saturation over 88%. Appreciate pulmonology recommendation. Continue aggressive pulmonary toilet with chest vest, Mucomyst, nebulized saline, Mucinex. NPO. Sputum culture growing E. coli and Klebsiella ESBL. Sensitivities appreciated. Continue with meropenem as per creatinine clearance of 21 Oxygen supplementation keeping saturation over 88%. Wean hydrocortisone 50 mg every 12 hourly. D-dimer elevated to 1.5. Cannot do CTA given acute kidney injury versus CKD. PE less likely given age adjusted D-dimer. Stop heparin drip. Echocardiogram done shows no regional motion malady, EF of 65%, RVSP of 39 mmHg. (3) Bradycardia: Most likely setting of sepsis. QTC prolonged yesterday. Better today. Repeat troponin. Heart rate better controlled today. Medical reconciliation done for rate controlling medications. Continue with dopamine. Electrolyte appreciated. Repeat EKG to monitor QTC. (4) Infection due to ESBL-producing Klebsiella pneumoniae: (5) Aspiration into lower respiratory tract: Dysphagia, history of aspiration, still eats by mouth as tolerating with intermittent aspiration, likely leading to the above condition. He did also have subtle vomiting once. (6) Acute kidney injury superimposed on CKD: The abdomen seems to be around 1.3-1.5. Currently around 2.3. Possible ATN given sepsis. Mild oliguria as well. Medical reconciliation done for nephrotoxic drugs. Monitor BMP daily. (7) Delirium: Most likely secondary to worsening CLAUDIO in setting of CKD. Check CT head. (8) Right leg swelling: Current antibiotics will cover for any cellulitis. No arterial occlusion on duplex. Will request compression dressing. (9) Lung collapse: As above. (10) Hypoglycemia: Hypoglycemia protocol. Hydrocortisone. Resume tube feeds. (11) Goals of care, counseling/discussion: Plan Dysphagia: PEG tube in place, normally gives himself tube feeds tries to aim for 4 cans of Ensure in a day and water flushes. Has been taking things by mouth, states was told could do liquids by his prior surgeon. Discussed with him to avoid any oral intake apart from possibly small ice chips, swabs due to recurrent aspiration. Alternatively consideration of hospice and comfort care. Analgesia: Home dose of hydromorphone 4 mg every 4 hours as needed Glycemic control: Hypoglycemia protocol, Nutrition: Continue with home PEG tube feeds. N.p.o. CODE STATUS: Discussed in detail with the patient. DNR/DNI. PUD prophylaxis: Protonix DVT prophylaxis: Heparin 5000 every 12 hourly Aggressive bowel regimen Physical therapy Discharge planning: Home with or without hospice depending on clinical picture going forward Continue with care at ICU care. Discussed in detail regarding goals of care with patient at bedside . Patient wanted to know further detail regarding bronchoscopy and need for mechanical ventilator. We discussed given high oxygen requirement it is highly likely that patient will need to be on ventilator. We also discussed that for now we cannot say for certain that we will be able to extubate him immediately postprocedure despite possible that he will remain on ventilator for some time. Patient is concerned and asking if he will remain on ventilator for long-term. We discussed that for now given his oxygen requirement, overall clinical picture, severe deconditioning we cannot make promises of him coming off ventilator. Patient states he would not want to live in a vegetative state, given his age and chronic health issues he does not want to go ahead with ventilation. He wants to remain DNR/DNI. States if things do not improve he would rather go hospice but is agreeable with current medical management and trial of treatment. He does not want any aggressive treatment. Care discussed in detail with patient's on phone as well. She is agreeable. 06/27: Patient made hospice after further goals of care discussion done with patient's 5. Plan: Hospice referral. Stop IV antibiotics. No further blood work. Continue with nebulization treatment with Mucomyst. Hold off on nebulization with hypersaline. Continue with IV Protonix. Continue with nebulization. Case management alerted. This documentation was created by [employer] coronary clinical specialist software. Every effort was made to ensure accuracy of coronary clinical specialist. Any obvious errors or omissions should be clarified with the author of the document. Attestations Medical Necessity Statement*: Patient requires further hospitalization while hospice is set up for acute hypoxic respiratory failure in setting of ESBL Klebsiella pneumonia, worsening kidney functions, uremia, chronic physical deconditioning, septic shock. Critical Care Time: The high probability of a clinically significant, sudden or life threatening deterioration of the patient's [cardiac, pulmonary, neurological, renal] system(s) required my full and direct attention, intervention and personal management. The critical care time is as shown. This time is in addition to time spent performing any reported procedures but includes the following: [x] Data and vital sign review and interpretation [x] Patient assessment, examination and intervention [x] Documentation [x] Medication orders and management Critical Care Time (min): 60 Coding Level of Care Code Acute Associate Application Developer for Chg Fwd Diagnoses Shock R57.9 Acute respiratory failure with hypoxia J96.01 Bradycardia R00.1 Infection due to ESBL-producing Klebsiella pneumoniae A49.8; Z16.12 Aspiration into lower respiratory tract T17.800A Acute kidney injury superimposed on CKD N17.9; N18.9 Delirium R41.0 Right leg swelling M79.89 Lung collapse J98.19 Hypoglycemia E16.2 Goals of care, counseling/discussion Z71.89
[2022-06-27] MEDS: sennosides 8.6 mg Tablet 17.2 MG PEG-TUBE (20:04)
[2022-06-27] MEDS: magnesium hydroxide 30 mL UDC PEG-TUBE (20:05)
[2022-06-28] VITALS (7 sets, daily range): BP systolic 90–127; BP diastolic 44–65; PULSE 62–88; RESP 13–22; TEMP 36.1–36.6; O2SAT 71–82
[2022-06-28 00:13] LABS: Glucose Point of Care 83 mg/dL (70-110)
[2022-06-28] MEDS: albuterol 2.5 mg/3 mL Neb INHALATION ×2 (04:21→08:59)
[2022-06-28] MEDS: acetylcysteine 200 mg/mL SDV 4 mL 100 MG INHALATION ×2 (04:21→08:59)
--- NOTE | 2022-06-28 09:30 | PC.NURSE ---
Notified Dr. Meraz that patient at 0925. Attempted to notify and left a message. Left message to mother in law to have call me samantha.
--- NOTE | 2022-06-28 09:33 | PC.NURSE ---
notified per phone call.
--- NOTE | 2022-06-28 09:51 | PC.CHAP ---
Pastoral Care Encounter/Spiritual Assessment Type of Contact [] Declined dorr operator visit [] Patient/Family/Request visit [] Outpatient visit [] Follow-up visit [] Physician referral [] Code/Alert [x] Routine visit [] Staff referral [] Actively dying [x] Patient sleeping [] Family support [] [] Out of room [] Palliative care [] [] Receiving care in room [] Pre-surgical visit [] Trauma [] Long length of stay [] ICU visit [] Other: Relational/Emotional Strength [] Patient feels connected with others/family/visitors/staff [] Distress [] Loneliness/isolation [] Abandonment Spirituality of Patient [] Person of Narcisa [] Attends Mormonism of their Narcisa [] Believes in Prayer [] Reads Bible or Anabaptist materials [] There are Spiritual issues to be addressed Lactation Nurse Interventions [x] Prayer [] Active listening [] Non-anxious presence [] Spiritual/emotional support [] Crisis/trauma care [] Spiritual counseling [] Bereavement support [] Provided bereavement packet [] Provided Bible/devotional materials [] Provided toy/stuffed animal, coloring book to patient or family member [] Provided Communion [] Anointing/Dexter [] Salvation [] Completed spiritual assessment [] Other: Impact on Illness or Injury [] Angry [] Fearful [] Anxious [] Often cries [] Exhaustion [] Unable to work [] Unable to attend episcopal [] Unable to walk/stand [] Unable to read [] Unable to drive [] Unable to eat/drink [] Unable to sleep [] Unable to be with family [] Patient intubated [] Other: Summary Time spent with patient
--- NOTE | 2022-06-28 12:16 | PM.DDS ---
Discharge Providers DDS Date of Admission: 06/22/22 17:13 Date Summary Completed: 06/28/22 Attending Provider at Admission: Abhijit Ramirez Time of : 09:25 Attending Provider at Discharge: Navin Meraz MD Consults: Pulmonology: Dr. Mckeon Primary Care Provider: ROLANDO Jones Diagnoses Hospital Diagnoses (1) Shock: Details from hospital stay: Septic shock. Sepsis present on admission. Secondary to pneumonia. Ruled in by leukocytosis, tachycardia. Target organ dysfunction with worsening of renal functions and acute kidney injury (2) Acute respiratory failure with hypoxia: (3) Bradycardia: (4) Infection due to ESBL-producing Klebsiella pneumoniae: (5) Aspiration into lower respiratory tract: (6) Acute kidney injury superimposed on CKD: (7) Delirium: (8) Right leg swelling: (9) Lung collapse: (10) Hypoglycemia: (11) Goals of care, counseling/discussion: Reason for Visit Reason for Visit SOB; PAIN ALL OVER Brief History: History as per HPI: He was brought to ER for evaluation due to dyspnea, hypoxia, saturation noted.? In the 60s when he was being picked up by EMS.? In ER saturation in the 70s on 4 L nasal cannula, initially was started on BiPAP, but was not tolerating it, sats in mid 80s.? Was switched over to heated high flow.? He denies any fever.? He does state that he had an episode of vomiting only once.? Denies recurrent vomiting, denies diarrhea.? No abdominal pain.? Denies any chest pain. In ER he declines intubation or mechanical inflation, and is adamant about not receiving any invasive procedures.? He has been agreeable to airway support measures, but would not agree to intubation even on a temporary basis.? CT of the chest shows complete opacity with apparent lobar collapse in the left lung, hyper expanded right lung otherwise clear.? Volume loss left hemithorax.? Incidental findings. Discussing with him his lung has appeared expanded back on CT in May.? Discussing with him that he may have potentially reversible condition with aspiration, airway plugging that may lead to his demise in short time if untreated if his condition continues to deteriorate, however, he would not want bronchoscopy or again would not want intubation even on temporary basis.? I am 82 years old, been through so much, I do not want any more procedures .? He is okay with heated high flow, BiPAP if needed.? In case of further deterioration beyond these measures he understands that he will pass away and at that point would want comfort treatment added.? He otherwise is okay with continuing with medical care, including conservative measures for airway clearance, medical therapy, chest physical therapy, further management assessment toward possible PE, urinary catheter, etc. and admission to the hospital. His right leg has swelling and significant stasis dermatitis changes, shallow ulcerations.? Arterial duplex obtained in ER showed no arterial stenosis or occlusion.? Summary Date and Time of Date of : 06/28/22 Time of : 09:25 Summary Summary: 82-year-old gentleman who is chronically ill with CAD, CABG, CHF, COPD, hemiplegia following CVA, dysphagia, PEG tube through which he does feedings with Ensure, however, states that he still tries to eat as he can by mouth, sometimes regurgitating or coughing things up if things do not go down he spits them out.? He is still current smoker, states he smokes a little bit.? He also has a pain pump.? Lives at home with his who is disabled. Patient was admitted to the ICU for further evaluation and management of hypoxic respiratory failure secondary to aspiration pneumonia. He was started on aggressive pulmonary toilet and regular nebulization. Pulmonology was consulted for possible need of bronchoscopy though patient declined given high chances of patient being difficult to extubate as he did not want to live like a vegetable as per the goals of care discussion. Patient was continued on broad-spectrum antibiotics. His blood cultures remain negative though sputum cultures were positive for ESBL Klebsiella and E. coli. During hospitalization patient developed septic shock, bradycardia requiring pressor support and acute kidney injury with oliguria and uremia leading to delirium. Multiple goals of care discussions were done and as per patient he did not want any aggressive treatment because of poor lifestyle, advanced age, multiple comorbidities as he does not want to live like a vegetable or be burden to anyone. As his clinical picture was not improving he was eventually made hospice on 06/27. Patient on 06/28 at 9:25 AM in comfortable state. Additional Data Confirmation of as documented by pronouncing clinician: no pulse and no respirations Family: contacted Additional persons at bedside: nursing staff Attending/PCP notified?: I am attending Was code activated?: No Autopsy requested?: No Advance directives?: No Hospice patient?: Yes Discharge Plan Discharge Patient Disposition: Condition: Probable Cause of Probable cause of : Respiratory failure DS Attestations Time Spent in /Discharge Care*: greater than 30 min Quality - AMI: AMI present?: No Quality - Stroke: CVA present?: No Symptom Onset Unknown: No Quality - VTE: VTE present?: No Deep Vein Thrombosis/Pulmonary Embolism Present on Admission: No Coding Level of Care Code Acute Hatch Supervisor for Chg Fwd Diagnoses Shock R57.9 Acute respiratory failure with hypoxia J96.01 Bradycardia R00.1 Infection due to ESBL-producing Klebsiella pneumoniae A49.8; Z16.12 Aspiration into lower respiratory tract T17.800A Acute kidney injury superimposed on CKD N17.9; N18.9 Delirium R41.0 Right leg swelling M79.89 Lung collapse J98.19 Hypoglycemia E16.2 Goals of care, counseling/discussion Z71.89
== END 2022-06-28 11:40 | disposition expired | DRG 871 ==
LOC: ER 16:14 → ICU 17:21 → MEDSURG 06-28 03:39
PROVIDERS: Family Medicine; Internal Medicine; Internal Medicine Pulmonary Disease; Admitting Provider Internal Medicine; Emergency Provider Emergency Medicine; PCP Nurse Practitioner Family; Visit Provider Student in an Organized Health Care Education/Training Program
DX: A41.9 Sepsis, unspecified organism (principal); J69.0 Pneumonitis due to inhalation of food and vomit; R65.21 Severe sepsis with septic shock; N17.0 Acute kidney failure with tubular necrosis; J96.01 Acute respiratory failure with hypoxia; I50.32 Chronic diastolic (congestive) heart failure; F05 Delirium due to known physiological condition; J98.19 Other pulmonary collapse; I69.354 Hemiplegia and hemiparesis following cerebral infarction affecting left non-dominant side; I25.10 Atherosclerotic heart disease of native coronary artery without angina pectoris; Z95.1 Presence of aortocoronary bypass graft; R13.10 Dysphagia, unspecified; Z93.1 Gastrostomy status; F17.210 Nicotine dependence, cigarettes, uncomplicated; I87.2 Venous insufficiency (chronic) (peripheral); N40.1 Benign prostatic hyperplasia with lower urinary tract symptoms; R33.8 Other retention of urine; G89.29 Other chronic pain; Z66 Do not resuscitate; K21.9 Gastro-esophageal reflux disease without esophagitis; G47.33 Obstructive sleep apnea (adult) (pediatric); I73.9 Peripheral vascular disease, unspecified; R00.1 Bradycardia, unspecified; J98.2 Interstitial emphysema; B96.20 Unspecified Escherichia coli [E. coli] as the cause of diseases classified elsewhere; B96.1 Klebsiella pneumoniae [K. pneumoniae] as the cause of diseases classified elsewhere; N18.9 Chronic kidney disease, unspecified; Z97.8 Presence of other specified devices; E16.2 Hypoglycemia, unspecified; I95.9 Hypotension, unspecified; E83.19 Other disorders of iron metabolism
CPT/HCPCS: 36415; 36416; 36592; 36600; 70450; 71045; 71250; 72125; 73552; 73590; 74176; 80051; 80053; 80061; 82330; 82533; 82550; 82803; 82805; 82962; 83036; 83540; 83550; 83605; 83735; 83880; 84145; 84443; 84484; 85025; 85378; 85610; 85651; 85730; 86140; 87040; 87070; 87077; 87186; 87635; 93005; 93306; 93926; 93971; 94640; 94660; 94664; 94669; 94799; 96365; 96366; 96367; 96372; 96375; 97110; 97161; 97530; 99284; 99291; C9113; J0692; J1265; J1644; J1720; J1940; J1956; J2020; J2060; J2185; J2270; J3370; J3475; J3490; J7030; J7040; J7050; J7060; J7608; J7613; P9047